=== PATIENT | male | born 1960 | race Caucasian/White ===

== ENCOUNTER 2020-09-29 13:56 | Outpatient (REF) | payer BC, SELFPAY | END 2020-09-29 13:57 | disposition home or self-care (01) | LOC: HO.LAB 13:56 | PROVIDERS: Visit Provider Internal Medicine | DX: Z20.828 Contact with and (suspected) exposure to other viral communicable diseases (principal) | CPT/HCPCS: U0003 ==

== ENCOUNTER 2021-11-16 09:55 | Outpatient (REF) | payer BC, SELFPAY ==
--- NOTE | ~2021-11-16 | XR_ITS ---
EXAMINATION: XR CHEST CLINICAL INFORMATION: Bronchitis COMPARISON: 11/22/2018 TECHNIQUE: 2 views of the chest were obtained. FINDINGS: Normal symmetric lung volumes. No parenchymal consolidation. No pleural effusion. No pneumothorax. Cardiomediastinal silhouette and pulmonary vascularity are within normal limits. No acute osseous abnormalities. XR/XR chest 2V IMPRESSION: Unremarkable examination.
== END 2021-11-16 09:56 | disposition home or self-care (01) ==
LOC: HO.XRAY 09:55
PROVIDERS: PCP Internal Medicine; Visit Provider Internal Medicine
DX: J40 Bronchitis, not specified as acute or chronic (principal)
CPT/HCPCS: 71046

== ENCOUNTER 2021-12-28 09:26 | Outpatient (REF) | payer BC, SELFPAY ==
--- NOTE | ~2021-12-28 | FL_ITS ---
EXAMINATION: XR FLUOROSCOPY UPPER GI WITH AIR CLINICAL INFORMATION: Your normal bowel syndrome COMPARISON: None TECHNIQUE: Upper GI was performed using thin and thick barium and effervescent granules FINDINGS: There is mild gastroesophageal reflux. No esophageal hernia is seen. Stomach and duodenum are normal-appearing. No fold thickening, mass, ulcer or stricture is seen. FLUOROSCOPY TIME: 0.6 minutes DOSE AREA PRODUCT: 7.9 hugo per centimeter squared. 21 saved fluoroscopic images.) FL/FL upper GI w air IMPRESSION: Mild gastroesophageal reflux otherwise unremarkable exam.
== END 2021-12-28 09:27 | disposition home or self-care (01) ==
LOC: HO.XRAY 09:26
PROVIDERS: Visit Provider Internal Medicine
DX: K58.9 Irritable bowel syndrome, unspecified (principal)
CPT/HCPCS: 74246

== ENCOUNTER 2022-07-29 11:23 | Outpatient (REF) | payer BC, SELFPAY ==
[2022-07-29 11:28] LABS: MANUAL DIFF FLAG NO
[2022-07-29 11:46] LABS: Basophils Percent Auto 0.3 % (0-2); Eosinophils Absolute Auto 0.2 X10*3/uL (0.0-0.4); Eosinophils Percent Auto 2.2 % (0-4); Hematocrit 41.8 % (42.0-52.0); Hemoglobin 14.2 g/dl (14.0-18.0); Imm Gran Abs Auto 0.07 X10*3/uL (0.00-0.03); Imm Gran Pct Auto 0.7 % (0.0-0.4); Lymphocytes Absolute Auto 3.1 X10*3/uL (1.2-4.9); Lymphocytes Percent Auto 30.7 % (20-40); Mean Corpuscular Hemoglobin 30.1 pg (27.0-33.0); Mean Corpuscular Volume 88.6 fL (80.0-98.0); Mean Platelet Volume 10.6 fL (9.4-12.4); Monocytes Absolute Auto 1.1 X10*3/uL (0.1-1.2); Monocytes Percent Auto 10.5 % (2-11); Neutrophils Absolute Auto 5.6 x10*3/uL (2.0-8.3); Neutrophils Percent Auto 55.6 % (45-73); Platelet Count 113 X10*3/uL (160-400); Red Blood Count 4.72 X10*6/uL (4.60-5.80); White Blood Count 10.1 X10*3/uL (4.8-10.8)
[2022-07-29 12:03] LABS: Alanine Aminotransferase 36 U/L (0-40); Albumin Level 4.5 g/dL (3.5-5.0); Alkaline Phosphatase 52 U/L (39-117); Anion Gap 16 (12-20); Aspartate Amino Transferase 29 U/L (5-37); Bilirubin Total 1.1 mg/dL (0.0-1.0); Blood Urea Nitrogen 17 mg/dL (9-16); Calcium 9.3 mg/dL (8.4-10.2); Carbon Dioxide 26 mmol/L (22-29); Chloride 104 mmol/L (96-108); Cholesterol 206 mg/dL; Estimated Glomerular Filt Rate > 60; Glucose Fasting 95 mg/dL (60-99); HDL Cholesterol 41 mg/dL; LDL Cholesterol Calculated 127 mg/dl; Potassium 3.9 mmol/L (3.3-5.1); Sodium 142 mmol/L (135-145); Total Protein 7.2 g/dL (6.5-8.0); Triglycerides 191 mg/dL
[2022-07-29 12:08] LABS: Estimated Average Glucose 97 mg/dL
[2022-07-29 12:20] LABS: Appearance Urine Clear; Color Urine Yellow; Glucose Urine UA Negative (Negative); Leukocyte Esterase Urine Negative (Negative); Nitrite Urine Negative (Negative); PH 5.5 (5.0-9.0); Urine Blood Negative (Negative); Urine Ketones Negative (Negative); Urine Protein Negative (Neg-Trace)
[2022-07-29 12:23] LABS: PSA,Total (Free>4and<10) 0.46 ng/mL (0.00-4.00)
[2022-07-29 12:27] LABS: Bacteria Urine None Seen (None Seen); Creatinine Urine 121.02 mg/dL; Hyaline Casts Urine 0-2 /LPF (0-2); Microalbum/Creatinine Ratio Ur 4.9 ug/mg cr; RBC Urine 0-2 /HPF (0-2); Squamous Epithelial Cell Urine 0-2 /HPF (0-2); WBC Urine 0-5 /HPF (0-5)
== END 2022-07-29 11:24 | disposition home or self-care (01) ==
LOC: HO.LNP 11:23
PROVIDERS: Visit Provider Internal Medicine
DX: Z13.89 Encounter for screening for other disorder (principal)
CPT/HCPCS: 80053; 80061; 81001; 82043; 83036; 84153; 85025

== ENCOUNTER 2022-08-04 13:03 | Outpatient (REF) | payer BC, SELFPAY ==
[2022-08-04 13:41] LABS: Basophils Percent Auto 0.4 % (0-2); Eosinophils Absolute Auto 0.2 X10*3/uL (0.0-0.4); Eosinophils Percent Auto 1.9 % (0-4); Hemoglobin 14.6 g/dl (14.0-18.0); Lymphocytes Absolute Auto 2.5 X10*3/uL (1.2-4.9); PLT CLUMP 1; SCAN SMEAR FLAG 1
[2022-08-04 13:43] LABS: Hematocrit 42.7 % (42.0-52.0); Imm Gran Abs Auto 0.05 X10*3/uL (0.00-0.03); Imm Gran Pct Auto 0.6 % (0.0-0.4); Lymphocytes Percent Auto 29.2 % (20-40); Mean Corpuscular HGB Conc 34.2 g/dl (31.0-36.0); Mean Corpuscular Hemoglobin 29.9 pg (27.0-33.0); Mean Corpuscular Volume 87.3 fL (80.0-98.0); Mean Platelet Volume 10.3 fL (9.4-12.4); Monocytes Absolute Auto 0.6 X10*3/uL (0.1-1.2); Monocytes Percent Auto 7.6 % (2-11); Neutrophils Absolute Auto 5.1 x10*3/uL (2.0-8.3); Neutrophils Percent Auto 60.3 % (45-73); Red Blood Count 4.89 X10*6/uL (4.60-5.80)
[2022-08-04 14:03] LABS: MANUAL DIFF FLAG NO; Platelet Count 120 X10*3/uL (160-400); White Blood Count 8.5 X10*3/uL (4.8-10.8)
== END 2022-08-04 13:04 | disposition home or self-care (01) ==
LOC: HO.LAB 13:03
PROVIDERS: PCP Internal Medicine; Visit Provider Internal Medicine
DX: I10 Essential (primary) hypertension (principal); D69.6 Thrombocytopenia, unspecified
CPT/HCPCS: 36415; 85025; 93005

== ENCOUNTER 2022-09-08 10:31 | Outpatient (REF) | payer BC, SELFPAY ==
[2022-09-08 10:34] LABS: MANUAL DIFF FLAG NO
[2022-09-08 11:39] LABS: Basophils Percent Auto 0.4 % (0-2); Eosinophils Absolute Auto 0.2 X10*3/uL (0.0-0.4); Eosinophils Percent Auto 1.9 % (0-4); Hematocrit 39.5 % (42.0-52.0); Hemoglobin 13.5 g/dl (14.0-18.0); Imm Gran Abs Auto 0.07 X10*3/uL (0.00-0.03); Imm Gran Pct Auto 0.6 % (0.0-0.4); Lymphocytes Absolute Auto 2.9 X10*3/uL (1.2-4.9); Lymphocytes Percent Auto 26.6 % (20-40); Mean Corpuscular HGB Conc 34.2 g/dl (31.0-36.0); Mean Corpuscular Hemoglobin 29.8 pg (27.0-33.0); Mean Corpuscular Volume 87.2 fL (80.0-98.0); Mean Platelet Volume 11.1 fL (9.4-12.4); Monocytes Absolute Auto 1.2 X10*3/uL (0.1-1.2); Monocytes Percent Auto 10.7 % (2-11); Neutrophils Absolute Auto 6.6 x10*3/uL (2.0-8.3); Neutrophils Percent Auto 59.8 % (45-73); Platelet Count 113 X10*3/uL (160-400); Red Blood Count 4.53 X10*6/uL (4.60-5.80); Red Cell Distribution Width 13.8 % (11.0-16.0)
== END 2022-09-08 10:32 | disposition home or self-care (01) ==
LOC: HO.LNP 10:31
PROVIDERS: Visit Provider Internal Medicine
DX: D69.6 Thrombocytopenia, unspecified (principal)
CPT/HCPCS: 85025

== ENCOUNTER 2022-10-10 10:58 | Outpatient (REF) | payer BC, SELFPAY ==
[2022-10-10 11:01] LABS: MANUAL DIFF FLAG NO
[2022-10-10 11:17] LABS: Basophils Absolute Auto 0.1 X10*3/uL (0.0-0.2); Basophils Percent Auto 0.4 % (0-2); Eosinophils Absolute Auto 0.2 X10*3/uL (0.0-0.4); Eosinophils Percent Auto 1.2 % (0-4); Hematocrit 40.9 % (42.0-52.0); Hemoglobin 13.7 g/dl (14.0-18.0); Imm Gran Abs Auto 0.16 X10*3/uL (0.00-0.03); Imm Gran Pct Auto 1.2 % (0.0-0.4); Lymphocytes Absolute Auto 3.9 X10*3/uL (1.2-4.9); Lymphocytes Percent Auto 28.5 % (20-40); Mean Corpuscular HGB Conc 33.5 g/dl (31.0-36.0); Mean Corpuscular Hemoglobin 29.2 pg (27.0-33.0); Mean Corpuscular Volume 87.2 fL (80.0-98.0); Mean Platelet Volume 10.9 fL (9.4-12.4); Monocytes Absolute Auto 1.5 X10*3/uL (0.1-1.2); Monocytes Percent Auto 10.8 % (2-11); Neutrophils Percent Auto 57.9 % (45-73); Platelet Count 139 X10*3/uL (160-400); Red Blood Count 4.69 X10*6/uL (4.60-5.80); Red Cell Distribution Width 14.1 % (11.0-16.0); White Blood Count 13.8 X10*3/uL (4.8-10.8)
== END 2022-10-10 10:59 | disposition home or self-care (01) ==
LOC: HO.LNP 10:58
PROVIDERS: Visit Provider Internal Medicine
DX: D69.6 Thrombocytopenia, unspecified (principal)
CPT/HCPCS: 85025

== ENCOUNTER → 2022-11-03 09:18 | Outpatient (REF) | payer BC, SELFPAY ==
--- NOTE | ~2022-11-03 | NM_ITS ---
Exercise Myocardial perfusion study Indication: CAD to evaluate for myocardial ischemia Technique: The patient was brought in for an exercise perfusion study on 11/03/2022. Patient performed exercise as per Jus protocol and was injected 35 mCi of sestamibi was given intravenously one target HR was achieved. Images were obtained using the SPECT gamma camera interlaced with the gating device. Images were obtained in supine position. Resting perfusion study was performed on 11/04/2022. Patient was administered 35 mCi of sestamibi intravenously at rest. Images were then obtained in supine position. Images obtained with and without CT attenuation. Total DLP 132 mGy-cm. Images were processed with the software and compared side to side in short axis, horizontal long axis and vertical long axis views. Findings: The stress perfusion study showed non attenuated images show minimally reduced uptake in the basal inferior wall of the LV myocardium. Remainder of the LV myocardium is normally perfused. Attenuation corrected images show normal uptake of radiotracer in all segments of LV myocardium. The gated study shows normal LV function with calculated LVEF of 60%. LV cavity is normal in size. The gated study shows normal systolic wall thickening and contraction of all segments. There is no transient ischemic dilation. Resting study shows no change in perfusion pattern compared to stress perfusion study. Gating at rest reveals normal systolic wall motion with ejection fraction at 60%%. The findings are consistent with normal myocardial perfusion. NM/NM valentina perf SPECT rest & str Impression: 1. Normal myocardial perfusion 2. Gated LVEF is 60% 3. Transient ischemic dilatation not present Stress EKG is negative for ischemia
--- NOTE | 2022-11-03 09:23 | CA_ITS ---
Acquisition Time: 2022-11-03 09:31:14 Total Exercise Time: 00:05:00 Test Indications: Screening for CAD Medications: VALSARTAN/HCTZ Protocol: MARY Max HR: 148 BPM 94% of Pred: 157 BPM Max BP: 182/090 mmHG Max Work Load: 7.0 METS Exercise stress test with exercise 5 min of Mary protocol, achieving 94% MPHR, 7METS, with need to stop due to leg and foot pain ( right leg sciatica and left foot gout flairs), without anginal symptoms, without arrythmia, with normotensive response to exercise, without EKG changes meeting criteria for ischemia. Nuclear images pending. Test reviewed with Dr Garcia Referred By: Eleuterio Garcia Overread By: MARK BARBOZA
== END ==
LOC: HO.CARD 09:18
PROVIDERS: PCP Internal Medicine; Visit Provider Internal Medicine Cardiovascular Disease
DX: I10 Essential (primary) hypertension (principal); R93.1 Abnormal findings on diagnostic imaging of heart and coronary circulation
CPT/HCPCS: 78452; 93017; A9500; J0280; J2785

== ENCOUNTER 2023-08-14 10:25 | Outpatient (REF) | payer BC, SELFPAY ==
[2023-08-14 14:44] LABS: PSA,Total (Free>4and<10) 0.73 ng/mL (0.00-4.00)
== END 2023-08-14 10:26 | disposition home or self-care (01) ==
LOC: HO.HMGCLDS 10:25
PROVIDERS: PCP Internal Medicine; Visit Provider Internal Medicine
DX: Z00.00 Encounter for general adult medical examination without abnormal findings (principal); Z12.5 Encounter for screening for malignant neoplasm of prostate
CPT/HCPCS: 36415; 84153

== ENCOUNTER 2023-10-31 15:56 | Outpatient (REF) | payer BC, SELFPAY ==
[2023-10-31 16:12] LABS: Basophils Percent Auto 0.4 % (0-2); Eosinophils Absolute Auto 0.1 X10*3/uL (0.0-0.4); Eosinophils Percent Auto 1.7 % (0-4); Hematocrit 40.5 % (42.0-52.0); Hemoglobin 13.7 g/dl (14.0-18.0); Imm Gran Abs Auto 0.17 X10*3/uL (0.00-0.03); Imm Gran Pct Auto 2.1 % (0.0-0.4); Lymphocytes Absolute Auto 2.6 X10*3/uL (1.2-4.9); Lymphocytes Percent Auto 32.1 % (20-40); MANUAL DIFF FLAG SCAN; Mean Corpuscular HGB Conc 33.8 g/dl (31.0-36.0); Mean Corpuscular Hemoglobin 29.2 pg (27.0-33.0); Mean Corpuscular Volume 86.4 fL (80.0-98.0); Monocytes Absolute Auto 1.7 X10*3/uL (0.1-1.2); Monocytes Percent Auto 20.9 % (2-11); Neutrophils Absolute Auto 3.5 x10*3/uL (2.0-8.3); Neutrophils Percent Auto 42.8 % (45-73); Red Blood Count 4.69 X10*6/uL (4.60-5.80); Red Cell Distribution Width 14.5 % (11.0-16.0); SCAN SMEAR FLAG 1; White Blood Count 8.2 X10*3/uL (4.8-10.8)
[2023-10-31 16:13] LABS: Platelet Count 76 X10*3/uL (160-400)
[2023-10-31 16:42] LABS: SLIDE REVIEW VERIFIED
== END 2023-10-31 15:57 | disposition home or self-care (01) ==
LOC: HO.LNP 15:56
PROVIDERS: Visit Provider Internal Medicine
DX: D69.6 Thrombocytopenia, unspecified (principal)
CPT/HCPCS: 85025

== ENCOUNTER → 2023-11-23 12:38 | Outpatient (BNV) | payer BC, SELFPAY | PROVIDERS: Visit Provider Internal Medicine | DX: D69.6 Thrombocytopenia, unspecified (principal) | CPT/HCPCS: 99203; 99214 ==

== ENCOUNTER 2023-11-28 12:44 | Outpatient (REF) | payer BC, SELFPAY ==
--- NOTE | ~2023-11-28 | US_ITS ---
EXAMINATION: US ABDOMEN COMPLETE CLINICAL INFORMATION: Low platelets,? Liver disease. COMPARISON: Abdominal ultrasound 12/27/2017 TECHNIQUE: Real-time imaging of the abdominal viscera. FINDINGS: PANCREAS: Normal head and body, the tail is obscured by bowel gas. ABDOMINAL AORTA: The proximal, mid, and distal segments are normal in caliber. There is marked atherosclerotic disease in the distal abdominal aorta. INFERIOR VENA CAVA: Visualized portions are normal. LIVER: The liver is enlarged. The right lobe measures 18.6 cm. The liver contour is normal. There is diffuse increased liver parenchymal echogenicity, consistent with hepatic steatosis. Focal fatty sparing is seen adjacent to the gallbladder. No focal hepatic lesion. There is no intrahepatic biliary duct dilatation seen. GALLBLADDER: Normal. The gallbladder is physiologically distended without evidence of stones, sludge, polyps, wall thickening or pericholecystic fluid. COMMON BILE DUCT: Normal in caliber measuring 0.4 cm in diameter. RIGHT KIDNEY: 1.9 x 2.0 x 1.9 cm simple cyst is seen. No imaging follow-up is recommended. No hydronephrosis. No renal calculi. The kidney measures 14.0 cm in maximum dimension. LEFT KIDNEY: 1.1 x 0.9 x 0.9 cm exophytic simple lower pole cyst and 0.9 x 0.9 x 1.1 cm exophytic simple mid renal cyst are seen. No imaging follow-up is recommended. No hydronephrosis. No renal calculi. The kidney measures 13.0 cm in maximum dimension. SPLEEN: The spleen is enlarged. The spleen measures 14.3 cm in maximum dimension. 1.7 x 1.7 x 2.1 cm splenule is noted adjacent to the spleen. FREE FLUID: None. US/US abdomen complete IMPRESSION: 1. Hepatosplenomegaly. 2. Hepatic steatosis. 3. Marked atherosclerotic disease in the distal abdominal aorta.
== END 2023-11-28 12:45 | disposition home or self-care (01) ==
LOC: HO.HMGCX 12:44
PROVIDERS: PCP Internal Medicine; Visit Provider Internal Medicine
DX: D69.6 Thrombocytopenia, unspecified (principal)
CPT/HCPCS: 76700

== ENCOUNTER 2023-12-22 09:30 | Outpatient (REF) | payer BC, SELFPAY ==
[2023-12-22 12:10] LABS: Basophils Percent Auto 0.3 % (0-2); Eosinophils Absolute Auto 0.1 X10*3/uL (0.0-0.4); Eosinophils Percent Auto 1.1 % (0-4); Hematocrit 38.6 % (42.0-52.0); Hemoglobin 13.1 g/dl (14.0-18.0); Imm Gran Abs Auto 0.21 X10*3/uL (0.00-0.03); Imm Gran Pct Auto 2.2 % (0.0-0.4); Lymphocytes Absolute Auto 2.8 X10*3/uL (1.2-4.9); Lymphocytes Percent Auto 29.3 % (20-40); MANUAL DIFF FLAG SCAN; Mean Corpuscular HGB Conc 33.9 g/dl (31.0-36.0); Mean Corpuscular Hemoglobin 29.4 pg (27.0-33.0); Mean Corpuscular Volume 86.5 fL (80.0-98.0); Mean Platelet Volume 11.9 fL (9.4-12.4); Monocytes Absolute Auto 0.9 X10*3/uL (0.1-1.2); Monocytes Percent Auto 9.2 % (2-11); Neutrophils Absolute Auto 5.5 x10*3/uL (2.0-8.3); Neutrophils Percent Auto 57.9 % (45-73); Platelet Count 78 X10*3/uL (160-400); Red Blood Count 4.46 X10*6/uL (4.60-5.80); Red Cell Distribution Width 14.6 % (11.0-16.0); SCAN SMEAR FLAG 1; White Blood Count 9.5 X10*3/uL (4.8-10.8)
[2023-12-22 12:45] LABS: SLIDE REVIEW VERIFIED
== END 2023-12-22 09:31 | disposition home or self-care (01) ==
LOC: HO.HMGCLDS 09:30
PROVIDERS: PCP Internal Medicine; Visit Provider Internal Medicine
DX: D69.6 Thrombocytopenia, unspecified (principal)
CPT/HCPCS: 36415; 85025

== ENCOUNTER 2024-01-09 11:00 | Outpatient (REF) | payer BC, SELFPAY ==
[2024-01-09 11:40] LABS: Hematocrit 37.6 % (42.0-52.0); Hemoglobin 12.9 g/dl (14.0-18.0); Mean Corpuscular HGB Conc 34.3 g/dl (31.0-36.0); Mean Corpuscular Hemoglobin 30.2 pg (27.0-33.0); Mean Corpuscular Volume 88.1 fL (80.0-98.0); PLT CLUMP 1; Red Blood Count 4.27 X10*6/uL (4.60-5.80); Red Cell Distribution Width 16.1 % (11.0-16.0)
[2024-01-09 11:41] LABS: Prothrombin Time 12.1 SEC (11.1-13.3)
[2024-01-09 12:04] LABS: Alanine Aminotransferase 34 U/L (0-40); Albumin Level 4.5 g/dL (3.5-5.0); Alkaline Phosphatase 58 U/L (39-117); Aspartate Amino Transferase 28 U/L (5-37); Band Neutrophils Percent 1 % (3-5); Basophils Abs Manual 0.1 X10*3/uL (0.0-0.2); Basophils Percent Manual 1 % (0-2); Bilirubin Direct 0.3 mg/dL (0.0-0.5); Eosinophils Absolute Manual 0.1 X10*3/uL (0.0-0.4); Eosinophils Percent Manual 1 % (0-4); Iron 246 mcg/dL (45-160); Lymphocytes Absolute Manual 2.5 X10*3/uL (1.2-4.9); Lymphocytes Percent Manual 18 % (20-40); Metamyelocytes Absolute 0.3 X10*3/uL; Metamyelocytes Percent 2 %; Monocytes Absolute Manual 1.5 X10*3/uL (0.1-1.2); Monocytes Percent Manual 11 % (2-11); Neutrophils Absolute Manual 9.4 X10*3/uL (2.0-8.3); Neutrophils Percent Manual 66 % (45-73); Percent Iron Saturation 88 % (15-50); Total Iron Binding Capacity 278 mcg/dL (228-428); Total Protein 7.7 g/dL (6.5-8.0); Unsaturated Iron Binding 32 ug/dL
[2024-01-09 12:05] LABS: RBC Morphology NORMAL
[2024-01-09 12:06] LABS: Platelet Estimate DECREASED (NORMAL); Platelet Morphology Comment NORMAL
[2024-01-09 12:07] LABS: Toxic Vacuolation PRESENT
[2024-01-09 12:13] LABS: Ferritin 704 ng/mL (20-250)
[2024-01-09 12:15] LABS: HBS Num1 1.11 mIU/mL (0-7.99); HBc Num1 0.06 S/CO (0.00-0.79); HBsAGNum1 0.46 S/CO (0.00-0.99); Hepatitis B Core Antibody Nonreactive (Nonreactive); Hepatitis B Surface Antigen Negative (Negative); ~HepC Num1 1.15 S/CO (0.00-0.79); ~Hepatitis B Surface Antibody NONREACTIVE (Nonreactive); ~Hepatitis C Antibody Reactive (Nonreactive)
[2024-01-10 16:58] LABS: Alpha 1 Anti-trypsin 142 mg/dL (83-199)
[2024-01-12 11:33] LABS: Mitochondrial Antibodies NEGATIVE (NEGATIVE)
[2024-01-13 13:58] LABS: Anti Nuclear Antibody Screen NEGATIVE (NEGATIVE)
[2024-01-14 11:58] LABS: Smooth Muscle Antibody <20 U (<20)
[2024-01-16 15:04] LABS: FIB-ALT 31 U/L (9-46); FIB-Alpha-2-Macroglobulin 174 mg/dL (106-279); FIB-Apolipoprotein A1 159 mg/dL (94-176); FIB-GGT 91 U/L (3-70); FIB-Haptoglobin 51 mg/dL (43-212); FIB-Total Bilirubin 0.9 mg/dL (0.2-1.2); Liver Fibrosis Score 0.55; Liver Fibrosis Stage F2; Nec Inflam Act Grade A0-A1; Nec Inflam Act Score 0.21
== END 2024-01-09 11:01 | disposition home or self-care (01) ==
LOC: HO.10HDL 11:00
PROVIDERS: Visit Provider Internal Medicine
DX: K76.0 Fatty (change of) liver, not elsewhere classified (principal)
CPT/HCPCS: 36415; 80076; 81596; 82103; 82728; 83540; 85007; 85027; 85610; 86015; 86038; 86381; 86704; 86706; 86803; 87340

== ENCOUNTER 2024-01-29 10:42 | Outpatient (REF) | payer BC, SELFPAY ==
[2024-01-30 14:59] LABS: HCV Log PCR <1.18 NOT DETECTED Log IU/mL (NOT DETECTED); HepC Viral Load <15 NOT DETECTED IU/mL (NOT DETECTED)
== END 2024-01-29 10:43 | disposition home or self-care (01) ==
LOC: HO.LAB 10:42
PROVIDERS: PCP Internal Medicine; Visit Provider Internal Medicine
DX: K76.0 Fatty (change of) liver, not elsewhere classified (principal); R16.2 Hepatomegaly with splenomegaly, not elsewhere classified; R79.89 Other specified abnormal findings of blood chemistry
CPT/HCPCS: 36415; 81256; 87522

== ENCOUNTER 2024-02-20 11:16 | Outpatient (REF) | payer BC, SELFPAY ==
[2024-02-20 12:44] LABS: Hematocrit 39.5 % (42.0-52.0); Hemoglobin 13.4 g/dl (14.0-18.0); Mean Corpuscular HGB Conc 33.9 g/dl (31.0-36.0); Mean Corpuscular Hemoglobin 30.7 pg (27.0-33.0); Mean Corpuscular Volume 90.6 fL (80.0-98.0); Red Blood Count 4.36 X10*6/uL (4.60-5.80); Red Cell Distribution Width 15.8 % (11.0-16.0); White Blood Count 11.7 X10*3/uL (4.8-10.8)
[2024-02-20 13:24] LABS: Band Neutrophils Percent 2 % (3-5); Eosinophils Absolute Manual 0.1 X10*3/uL (0.0-0.4); Eosinophils Percent Manual 1 % (0-4); Lymphocytes Absolute Manual 2.2 X10*3/uL (1.2-4.9); Lymphocytes Percent Manual 19 % (20-40); Metamyelocytes Absolute 0.2 X10*3/uL; Metamyelocytes Percent 2 %; Monocytes Absolute Manual 0.7 X10*3/uL (0.1-1.2); Monocytes Percent Manual 6 % (2-11); Neutrophils Absolute Manual 8.4 X10*3/uL (2.0-8.3); Neutrophils Percent Manual 70 % (45-73)
[2024-02-20 13:27] LABS: Platelet Estimate DECREASED (NORMAL); Platelet Morphology Comment NORMAL; RBC Morphology NORMAL
[2024-02-20 13:28] LABS: Platelet Count 88 X10*3/uL (160-400)
[2024-02-20 13:30] LABS: Alanine Aminotransferase 46 U/L (0-40); Albumin Level 4.6 g/dL (3.5-5.0); Alkaline Phosphatase 57 U/L (39-117); Aspartate Amino Transferase 33 U/L (5-37); Bilirubin Direct 0.2 mg/dL (0.0-0.5); Bilirubin Total 0.8 mg/dL (0.0-1.0); Ferritin 1054 ng/mL (20-250); Iron 208 mcg/dL (45-160); Percent Iron Saturation 72 % (15-50); Total Iron Binding Capacity 288 mcg/dL (228-428); Total Protein 7.5 g/dL (6.5-8.0); Unsaturated Iron Binding 80 ug/dL
== END 2024-02-20 11:17 | disposition home or self-care (01) ==
LOC: HO.LAB 11:16
PROVIDERS: Absent Provider Internal Medicine; PCP Internal Medicine; Visit Provider Internal Medicine
DX: R79.89 Other specified abnormal findings of blood chemistry (principal); E83.19 Other disorders of iron metabolism; D69.6 Thrombocytopenia, unspecified; K76.0 Fatty (change of) liver, not elsewhere classified
CPT/HCPCS: 36415; 80076; 82728; 83540; 85007; 85025; 85027

== ENCOUNTER 2024-02-28 08:53 | Outpatient (REF) | payer BC, SELFPAY | END 2024-02-28 08:54 | disposition home or self-care (01) | LOC: HO.BBR 08:53 | PROVIDERS: PCP Internal Medicine; Visit Provider Internal Medicine | DX: E79.89 Other specified disorders of purine and pyrimidine metabolism (principal) | CPT/HCPCS: 85014; 85018; 99195 ==

== ENCOUNTER 2024-03-08 | Outpatient (REF) | payer BC, SELFPAY ==
[2024-03-08 13:01] LABS: Glucose Random 123 mg/dL (60-115)
[2024-03-08 13:37] LABS: Estimated Average Glucose 108 mg/dL; Hemoglobin A1c % 5.4 % (<6.0)
== END 2024-03-08 00:01 | disposition home or self-care (01) ==
LOC: HO.LAB
PROVIDERS: PCP Internal Medicine; Visit Provider Physician Assistant Surgical
DX: E66.9 Obesity, unspecified (principal); R73.03 Prediabetes
CPT/HCPCS: 36415; 82947; 83036; 99453

== ENCOUNTER 2024-03-08 11:55 | Outpatient (AMB) | payer BC, SELFPAY ==
--- NOTE | 2024-03-08 12:44 | HO.OFFWMMET ---
Intake VS Expanded 03/08/24 13:15 BP 184/85 H Blood Pressure Location Rt brachial Blood Pressure Position Sitting Pulse 72 Pulse Source Pulse Oximeter Temp 98.3 F Temperature Source Temporal Artery Scan Pulse Oximetry 97 Oxygen Delivery Method Room Air Height 5 ft 8 in Weight 234 lb 9.6 oz BMI 35.7 Body Fat % 32.3 Body Fat Mass 75.8 Fat Free Mass 158.8 Visceral Fat Rating 20.0 Body Water % 48.2 Body Water Mass 113.0 Muscle Mass/Score 150.8 Basal Metabolic Rate/Score 2,139 Intake Visit Reasons: metabolic group session Biostatistician Required: No Allergies No Known Allergies [No Known Allergies*] Allergy (Verified 03/08/24 12:46) Medication List - Last Reconciled 03/08/24 by HOSSEIN Berman aspirin (Ecotrin Low Strength) 81 mg PO DAILY rosuvastatin 40 mg PO DAILY valsartan-hydrochlorothiazide 160-12.5 mg 1 tab PO DAILY HPI HPI Comments History of Present Illness Details Patient is a pleasant 63-year-old male who presents to the metabolic weight loss clinic. He has a longstanding history of difficulty with obesity and weight management. He has underlying comorbidities including hyperlipidemia and hypertension. He is tried multiple fad diets without success. He does state that he has underlying hemochromatosis and is currently being managed by Gastroenterology for this. Weight today is 234.6 lb with a BMI of 35.7. [facility] Medical History Anxiety Pre-diabetes Gout IBS (irritable bowel syndrome) Hyperlipemia Surgical History Hx of hernia repair Family History Father Bone cancer Mother CAD (coronary artery disease) Social History Household Members: Spouse Patient Tobacco Use Status: Former Tobacco user Substance Use Type: Marijuana service: No Current occupational status: retired Physical Exam Vital Signs: Last Vital Signs Temp 98.3 F 03/08/24 13:15 Pulse 72 03/08/24 13:15 BP 184/85 H 03/08/24 13:15 Pulse Ox 97 03/08/24 13:15 Oxygen Delivery Method Room Air 03/08/24 13:15 BMI result Body Mass Index 35.7 Assessment & Plan Assessment & Plan (1) Obesity (BMI 30-39.9): Code(s): E66.9 - Obesity, unspecified Plan: Patient has been given a meal plan. Originally the plan was to use celebrate rebuild however his , who accompanied him to today's appointment, uses orgain protein powder and would like to use this. Protein shake, or gain, 2 scoops in 12 oz of almond milk at10-12 and 1-3 Meal at 5 with 8 forks of protein and 8 forks of salad or vegetables Celebrate protein bar at 7-9 As far as exercise, his walks outside but did discuss buying a treadmill. If walking outside recommendation will be to download the gladys panpan and track calories for a goal of 300 per day or 2000 per week. If they are able to get a treadmill, would recommend starting with a pace of 2 with an incline of 026, increasing by 1 every 3 minutes to a goal of 6 and then decreasing and then increasing again until achieving a burn of 300 calories. We will have him return to the office for follow-up next week. Orders: Orders Glucose Random Today E66.9 - Obesity, unspecified, R73.03 - Prediabetes Hemoglobin A1c Today E66.9 - Obesity, unspecified, R73.03 - Prediabetes Coding Level of Care Code 16764 [facility] Intital setup, [facility] Diagnoses Obesity (BMI 30-39.9) E66.9
[2024-03-08 13:15] VITALS: BP 184/85; PULSE 72; TEMP 36.8; O2SAT 97; BMI 35.7
== END 2024-03-08 14:31 | disposition home or self-care (01) ==
LOC: HO.META 11:55
PROVIDERS: PCP Internal Medicine; Visit Provider Physician Assistant Surgical
DX: E66.9 Obesity, unspecified (principal)

== ENCOUNTER 2024-03-15 12:50 | Outpatient (AMB) | payer BC, SELFPAY ==
--- NOTE | 2024-03-15 10:25 | A.OFFVIS_ITS ---
VS Expanded 03/15/24 10:26 Height 5 ft 8 in Weight 226 lb 3.2 oz BMI 34.4 Intake Visit Reasons: (tv) f/u metabolic clinic Allergies No Known Allergies [No Known Allergies*] Allergy (Verified 03/08/24 12:46) HPI Comments Details: Patient is a pleasant 63-year-old male who returns to the office for follow-up in the metabolic clinic. He was initially seen last week. Weight at that time was 234.6 lb with a BMI of 32.3. Weight today is 226.4 lb with a BMI of 34.4. He has had an 8.2 lb weight loss, correlating with a 3.49% total body weight loss. He does not have BP cuff, taking meds, no complaints of lightheadedness He states he has been following the meal plan mostly. He states he has skipped the second shake. He states he has been counting the forkfuls. Meal plan: 10-12 celebrate rebuild 2 scoops in 12 oz almond milk (supposed to have but iis skipping) 1-3 pm another shake 5pm meal 8 forks protein and 8 forks veg 7-9 celebrate bar Drinking 16-20 oz water daily. 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 [facility] Medical History Anxiety Pre-diabetes Gout IBS (irritable bowel syndrome) Hyperlipemia Surgical History Hx of hernia repair Family History Father Bone cancer Mother CAD (coronary artery disease) Social History Household Members: Spouse Patient Tobacco Use Status: Former Tobacco user Substance Use Type: Marijuana service: No Current occupational status: retired Telehealth Telehealth Location of provider rendering services: practice address Location of patient: address on file Patient Identification confirmed using: Name, : Yes Telehealth method: voice only Patient verbally consented to treatment: Yes Patient verbally consented to billing insurance company: Yes Patient informed of any privacy concerns related to visit: Yes Minutes spent on Phone/Video with Pt.: 20 Assessment & Plan Assessment & Plan (1) Obesity (BMI 30-39.9): Code(s): E66.9 - Obesity, unspecified Category: Medical Plan: Discussed the importance of following the meal plan. Discussed adding cardio activity. He states that he is supposed to be getting his treadmill soon. Recommend increase water intake. Recommend obtaining a blood pressure cuff to monitor his blood pressure especially with the meal plan change. He denies any lightheadedness. Encouraged to text weekly. Encouraged to text with any questions or concerns. Follow-up in clinic in 2 weeks
[2024-03-15 10:26] VITALS: BMI 34.4
== END 2024-03-15 12:56 | disposition home or self-care (01) ==
LOC: HO.META 12:50
PROVIDERS: PCP Internal Medicine; Visit Provider Physician Assistant Surgical
DX: E66.9 Obesity, unspecified (principal)
CPT/HCPCS: 99442

== ENCOUNTER → 2024-03-15 12:50 | Outpatient (BNVA) | payer BC, SELFPAY | PROVIDERS: PCP Internal Medicine; Visit Provider Physician Assistant Surgical ==

== ENCOUNTER 2024-03-29 12:50 | Outpatient (REF) | payer BC, SELFPAY | END 2024-03-29 12:51 | disposition home or self-care (01) | LOC: HO.BBR 12:50 | PROVIDERS: PCP Internal Medicine; Visit Provider Internal Medicine | DX: R79.89 Other specified abnormal findings of blood chemistry (principal) | CPT/HCPCS: 85014; 85018; 99195 ==

== ENCOUNTER 2024-04-10 08:22 | Day surgery (SDC) | payer BC, SELFPAY ==
[2024-04-09 06:35] VITALS: BMI 36.5
--- NOTE | 2024-04-09 09:17 | HO.ANESPROP2 ---
Documented by User: Stefania Milner NP 04/09/24 09:20 HPI - Anesthesia Eval Consult details Narrative: 63yo M for Colonoscopy [place] [facility] [place] hereditary hemochromatosis and thrombocytopenia (r/t hepatosplenomegaly). Therapeutic phlembotomies - last 02/2024 [facility] Active Problems Active Problems: All Active Problems Hemochromatosis (Acute) Obesity (BMI 30-39.9) (Acute) Thrombocytopenia (Chronic) HTN (hypertension) (Acute) Pre-diabetes (Acute) Past Medical History Medical History HTN (hypertension) Sleep apnea Anxiety Pre-diabetes Gout IBS (irritable bowel syndrome) Hyperlipemia Family History Family History Father Bone cancer Mother CAD (coronary artery disease) Surgical History Surgical History Hx of eye surgery Hx of hernia repair Social History Social History Household Members: Spouse Patient Tobacco Use Status: Former Tobacco user Quit Date: 20 yr ago Use of substances other than those prescribed or required for medical reasons: No Substance Use Type: Marijuana Are you DNR?: No Advance Directives: No Advance Directives Information Provided: Yes service: No Current occupational status: retired [employer] Allergies Allergy/AdvReac Type Severity Reaction Status Date / Time No Known Allergies Allergy Verified 03/27/24 10:57 [No Known Allergies*] Home Medications ?Medication ?Instructions ?Recorded ?Confirmed ?Last Taken ?Type valsartan 160 1 tab PO DAILY 08/04/22 04/09/24 Unknown History mg-hydrochlorothiazide 12.5 mg tablet Exam Height,Weight and Vital Signs: Height 5 ft 8 in Weight 108.862 kg Assessment and Plan Assessment Anesthesia Assessment: Chart Reviewed Documented by User: Jt Drew MD 04/10/24 09:43 [facility] Past Medical History Medical History HTN (hypertension) Sleep apnea Anxiety Pre-diabetes Gout IBS (irritable bowel syndrome) Hyperlipemia Family History Family History Father Bone cancer Mother CAD (coronary artery disease) Family history of problems with anesthesia: No Surgical History Surgical History Hx of eye surgery Hx of hernia repair History of Problems with Anesthesia: No Social History Social History Household Members: Spouse Patient Tobacco Use Status: Former Tobacco user Quit Date: 20 yr ago Use of substances other than those prescribed or required for medical reasons: No Substance Use Type: Marijuana Are you DNR?: No Advance Directives: No Advance Directives Information Provided: Yes service: No Current occupational status: retired [employer] Allergies Allergy/AdvReac Type Severity Reaction Status Date / Time No Known Allergies Allergy Verified 03/27/24 10:57 [No Known Allergies*] Home Medications ?Medication ?Instructions ?Recorded ?Confirmed ?Last Taken ?Type valsartan 160 1 tab PO DAILY 08/04/22 04/09/24 Unknown History mg-hydrochlorothiazide 12.5 mg tablet Exam Airway Mallampati Class: III TM Dist: <=3cm Neck ROM: Full Loose/Missing/Broken Teeth: No Heart: rrr Lungs: cta Assessment and Plan Assessment Anesthesia Assessment: Anesthesia Plan Discussed Final Anesthetic Review Family History of Problems with Anesthesia: No History of Problems with Anesthesia: No NPO: Yes ASA Class: III Final Preanesthetic Review: No Changes in Pt Med Stat, Meds/Allgs Chart Reviewed, Consent Obtained/Reviewed and Anes Risks/Benef Reviewed Patient Risk: Intermediate Procedure Risk: Intermediate Anesthetic Plan Anesthetic Plan: MAC: Disposition: Standard PACU
[2024-04-10 08:56] VITALS: BMI 34.0
[2024-04-10 08:59] VITALS: BMI 34.0
[2024-04-10] MEDS: Sodium Phosphate,Mono-Dibasic 133 ML ENEMA PR (09:14)
[2024-04-10 09:19] VITALS: BP 154/71; PULSE 58; RESP 20; TEMP 36.3; O2SAT 96
[2024-04-10] MEDS: Lactated Ringers 1,000 ML 100 ML IVCONT (09:34)
[2024-04-10 10:35] VITALS: BP 99/62; PULSE 74; RESP 18; TEMP 37.2
--- NOTE | 2024-04-10 10:36 | P.BOP_ITS ---
Brief Operative Note Date of Service: 04/10/24 Pre-op diagnosis: Screening Post-op diagnosis: other (Colon polyps) Procedure: Colonoscopy to the cecum and TI with bx/removal of polyps Surgeon: Jayjay Owens MD Anesthesia: MAC Was an Aluminum Siding Installer used for this Procedure?: No Estimated blood loss (mL): 2.0 Pathology: other (A. Transverse colon polyp B. Polyp at 30cm) Condition: stable Disposition: PACU
[2024-04-10 10:50] VITALS: BP 106/70; PULSE 68; RESP 20; TEMP 36.6; O2SAT 96
--- NOTE | 2024-04-10 10:55 | OP_ITS ---
DATE OF SERVICE: 04/10/2024 SURGEON: Jayjay Owens MD INDICATIONS: The patient presents for evaluation of colorectal cancer screening and personal history of tubular adenoma of the colon. Full consent was obtained from him for this, including risks of bleeding and perforation. PREOPERATIVE DIAGNOSIS: POSTOPERATIVE DIAGNOSIS: PROCEDURE PERFORMED: Colonoscopy to cecum and terminal ileum with biopsy and removal of polyps. ESTIMATED BLOOD LOSS: COMPLICATIONS: ANESTHESIA: Medication used, monitored anesthesia care. ASSISTANTS: SPECIMENS: PREOPERATIVE DIAGNOSES: Colorectal cancer screening and personal history of tubular adenoma of the colon. POSTOPERATIVE DIAGNOSES: Colorectal cancer screening and personal history of tubular adenoma of the colon, colon polyps, diverticulosis, and internal hemorrhoids. DESCRIPTION OF PROCEDURE: Patient was placed in the left lateral decubitus position. The digital rectal exam revealed no abnormalities. The Olympus video pediatric colonoscope was entered into the rectum and advanced easily to the cecum. Once in the cecum, I did identify normal-appearing cecal pouch with appendiceal orifice and a normal-appearing ileocecal valve. The terminal ileum was cannulated and appeared normal. The scope was withdrawn back in the colon. The entire cecum and ileocecal valve appeared normal. The scope was slowly withdrawn assessing all mucosal surfaces carefully. Preparation was excellent. In the transverse colon and at 30 cm were less than 5 mm polyps, both of which were biopsied and completely removed with cold biopsy forceps. I did not visualize any other polyps, colitis, or angiodysplasia. There was a mild amount of sigmoid diverticulosis. In the rectum, scope was retroflexed visualizing internal hemorrhoids, but no other pathology. The rectal mucosa appeared normal. Scope was straightened and withdrawn from the patient. He tolerated the procedure well and was returned to the recovery area in stable condition. IMPRESSION: 1. Small colon polyps. 2. Diverticulosis. 3. Internal hemorrhoids. PLAN: The results of biopsy will be checked. I would recommend a repeat colonoscopy in 5 years. He was advised not to use any aspirin and NSAIDs for 1 week. He will have followup iron studies in regard to the previous elevated iron studies. A recent phlebotomy was not done due to a low hemoglobin. He will be seen in followup for this issue as well later in the year. MD ETIENNE Pickard/KOBYL / [id number]
== END 2024-04-10 11:56 | disposition home or self-care (01) ==
PROVIDERS: PCP Internal Medicine; Visit Provider Internal Medicine
PROC: 0DJD8ZZ Inspection of Lower Intestinal Tract, Via Natural or Artificial Opening Endoscopic (ICD-10-PCS; CPT 45378; principal; 2024-04-10 09:40)
DX: Z12.11 Encounter for screening for malignant neoplasm of colon (principal); D12.3 Benign neoplasm of transverse colon; K63.5 Polyp of colon; K57.30 Diverticulosis of large intestine without perforation or abscess without bleeding; K64.8 Other hemorrhoids; Z86.010 Personal history of colon polyps; I10 Essential (primary) hypertension
CPT/HCPCS: 45380; 88305; J2704

== ENCOUNTER 2024-04-12 14:05 | Outpatient (AMB) | payer BC, SELFPAY ==
--- NOTE | 2024-04-12 13:49 | A.OFFVIS_ITS ---
VS Expanded 04/12/24 13:51 Height 5 ft 8 in Weight 222 lb 6 oz BMI 33.8 Body Fat % 35.7 Intake Visit Reasons: (tv) f/u metabolic clinic Allergies No Known Allergies [No Known Allergies*] Allergy (Verified 03/27/24 10:57) HPI Comments Details: 63 yo male returns for follow up in metabolic clinic. States his weight is 224 lb with a BMI of 34.1.. He is not checking his BP. He states he feels better overall. He has lost 10.6 lb or 4.5% total body weight loss since starting the program on 03/08/2024. He states he is following the meal plan for the most part. he would skip lunch and not counting forks recc meal plan: 10-12 celebrate rebuild 2 scoops in 12 oz almond milk 1pm meal 5 forks protein and 6 forks veg 5pm meal 8 forks protein and 8 forks veg 7-9 celebrate bar Drinking 36 oz water daily. exercise plan: no formal exercise, waiting to get pelaton treadmill from a friend. REPLACED BY [facility] Medical History HTN (hypertension) Sleep apnea Anxiety Pre-diabetes Gout IBS (irritable bowel syndrome) Hyperlipemia Surgical History Hx of eye surgery Hx of hernia repair Family History Father Bone cancer Mother CAD (coronary artery disease) Social History Household Members: Spouse Patient Tobacco Use Status: Former Tobacco user Quit Date: 20 yr ago Substance Use Type: Marijuana service: No Current occupational status: retired Telehealth Telehealth Telehealth Platform: Telephone Location of provider rendering services: practice address Location of patient: address on file Patient Identification confirmed using: Name, : Yes Telehealth method: voice only Patient verbally consented to treatment: Yes Patient verbally consented to billing insurance company: Yes Patient informed of any privacy concerns related to visit: Yes Minutes spent on Phone/Video with Pt.: 18 Assessment & Plan Assessment & Plan (1) Obesity (BMI 30-39.9): Code(s): E66.9 - Obesity, unspecified Category: Medical Plan: Encouraged to follow plan. As he has been skipping lunch, we will add a protein bar at lunch and increase for forks at dinner to 9 of protein and 9 of vegetables. Strongly encouraged to get the treadmill that he has said he is going to get. Emphasized the importance of cardio exercise. Return to clinic 2 weeks.
[2024-04-12 13:51] VITALS: BMI 33.8
== END 2024-04-12 14:06 | disposition home or self-care (01) ==
LOC: HO.META 14:05
PROVIDERS: PCP Internal Medicine; Visit Provider Physician Assistant Surgical
DX: E66.9 Obesity, unspecified (principal)

== ENCOUNTER → 2024-04-12 14:05 | Outpatient (BNVA) | payer BC, SELFPAY | PROVIDERS: PCP Internal Medicine; Visit Provider Physician Assistant Surgical | DX: E66.9 Obesity, unspecified (principal); Z68.35 Body mass index [BMI] 35.0-35.9, adult | CPT/HCPCS: 99454 ==

== ENCOUNTER 2024-05-15 09:51 | Outpatient (REF) | payer BC, SELFPAY ==
[2024-05-15 10:06] LABS: Basophils Percent Auto 0.4 % (0-2); Eosinophils Absolute Auto 0.1 X10*3/uL (0.0-0.4); Eosinophils Percent Auto 0.5 % (0-4); Hematocrit 36.3 % (42.0-52.0); Hemoglobin 12.4 g/dl (14.0-18.0); Imm Gran Abs Auto 0.52 X10*3/uL (0.00-0.03); Imm Gran Pct Auto 4.7 % (0.0-0.4); Lymphocytes Absolute Auto 2.4 X10*3/uL (1.2-4.9); Lymphocytes Percent Auto 21.6 % (20-40); MANUAL DIFF FLAG SCAN; Mean Corpuscular HGB Conc 34.2 g/dl (31.0-36.0); Mean Corpuscular Hemoglobin 31.5 pg (27.0-33.0); Mean Corpuscular Volume 92.1 fL (80.0-98.0); Mean Platelet Volume 11.1 fL (9.4-12.4); Monocytes Absolute Auto 0.9 X10*3/uL (0.1-1.2); Monocytes Percent Auto 8.5 % (2-11); Neutrophils Absolute Auto 7.1 x10*3/uL (2.0-8.3); Neutrophils Percent Auto 64.3 % (45-73); Red Blood Count 3.94 X10*6/uL (4.60-5.80); SCAN SMEAR FLAG 1
[2024-05-15 10:07] LABS: Platelet Count 65 X10*3/uL (160-400)
[2024-05-15 10:40] LABS: SLIDE REVIEW VERIFIED
[2024-05-15 11:08] LABS: Iron 137 mcg/dL (45-160); Percent Iron Saturation 51 % (15-50); Total Iron Binding Capacity 269 mcg/dL (228-428); Unsaturated Iron Binding 132 ug/dL
[2024-05-15 11:27] LABS: Ferritin 530 ng/mL (20-250)
== END 2024-05-15 09:52 | disposition home or self-care (01) ==
LOC: HO.BBR 09:51
PROVIDERS: PCP Internal Medicine; Visit Provider Internal Medicine
DX: R79.89 Other specified abnormal findings of blood chemistry (principal)
CPT/HCPCS: 36415; 82728; 83540; 85014; 85018; 85025; 99195

== ENCOUNTER 2024-06-12 11:43 | Outpatient (REF) | payer MEDICARE, SELFPAY | END 2024-06-12 11:44 | disposition home or self-care (01) | LOC: HO.BBR 11:43 | PROVIDERS: PCP Internal Medicine; Visit Provider Internal Medicine | DX: R79.89 Other specified abnormal findings of blood chemistry (principal) | CPT/HCPCS: 85018; 99195 ==

== ENCOUNTER 2024-07-15 10:42 | Outpatient (REF) | payer MEDICARE, SELFPAY | END 2024-07-15 10:43 | disposition home or self-care (01) | LOC: HO.BBR 10:42 | PROVIDERS: PCP Internal Medicine; Visit Provider Internal Medicine | DX: R79.89 Other specified abnormal findings of blood chemistry (principal) | CPT/HCPCS: 85014; 85018; 99195 ==

== ENCOUNTER 2024-08-05 11:12 | Outpatient (REF) | payer MEDICARE, SELFPAY ==
[2024-08-05 11:24] LABS: Appearance Urine Clear; Color Urine Yellow; Glucose Urine UA Negative (Negative); Leukocyte Esterase Urine Negative (Negative); Nitrite Urine Negative (Negative); PH 5.5 (5.0-9.0); Specific Gravity - Urine 1.025 (1.005-1.025); Urine Blood Negative (Negative); Urine Ketones Negative (Negative); Urine Protein Negative (Neg-Trace)
[2024-08-05 11:28] LABS: Bacteria Urine None Seen (None Seen); Hyaline Casts Urine 0-2 /LPF (0-2); RBC Urine 0-2 /HPF (0-2); Squamous Epithelial Cell Urine 0-2 /HPF (0-2); WBC Urine 0-5 /HPF (0-5)
[2024-08-05 11:32] LABS: Hematocrit 38.5 % (42.0-52.0); Hemoglobin 12.5 g/dl (14.0-18.0); Mean Corpuscular HGB Conc 32.5 g/dl (31.0-36.0); Mean Corpuscular Volume 95.5 fL (80.0-98.0); Red Blood Count 4.03 X10*6/uL (4.60-5.80); Red Cell Distribution Width 17.1 % (11.0-16.0); White Blood Count 12.6 X10*3/uL (4.8-10.8)
[2024-08-05 11:39] LABS: Estimated Average Glucose 97 mg/dL; Total Hemoglobin (HGBA1C) 3208.9859 umol/L
[2024-08-05 11:51] LABS: Band Neutrophils Percent 7 % (3-5); Basophils Abs Manual 0.1 X10*3/uL (0.0-0.2); Basophils Percent Manual 1 % (0-2); Eosinophils Absolute Manual 0.1 X10*3/uL (0.0-0.4); Eosinophils Percent Manual 1 % (0-4); Lymphocytes Absolute Manual 1.9 X10*3/uL (1.2-4.9); Lymphocytes Percent Manual 15 % (20-40); Metamyelocytes Absolute 0.5 X10*3/uL; Metamyelocytes Percent 4 %; Monocytes Absolute Manual 1.5 X10*3/uL (0.1-1.2); Monocytes Percent Manual 12 % (2-11); Myelocytes Absolute 0.3 X10*/uL; Myelocytes Percent 2 %; Neutrophils Absolute Manual 8.2 X10*3/uL (2.0-8.3); Neutrophils Percent Manual 58 % (45-73)
[2024-08-05 11:54] LABS: RBC Morphology NOTED
[2024-08-05 11:55] LABS: Microcytosis 1+ (5-14) /OIF
[2024-08-05 11:56] LABS: Hypersegmented Neutrophils PRESENT; Large Platelet PRESENT; Platelet Estimate DECREASED (NORMAL); Platelet Morphology Comment NOTED; Polychromasia 1+ (0-2) /OIF; Tear Drop Cells 1+ (0-2) /OIF
[2024-08-05 11:59] LABS: Alanine Aminotransferase 25 U/L (0-40); Albumin Level 4.8 g/dL (3.5-5.0); Alkaline Phosphatase 52 U/L (39-117); Anion Gap 13 (12-20); Aspartate Amino Transferase 19 U/L (5-37); Bilirubin Total 0.7 mg/dL (0.0-1.0); Blood Urea Nitrogen 21 mg/dL (9-16); Calcium 9.7 mg/dL (8.4-10.2); Carbon Dioxide 27 mmol/L (22-29); Chloride 106 mmol/L (96-108); Cholesterol 134 mg/dL (<200); Estimated Glomerular Filt Rate > 60; Glucose Fasting 108 mg/dL (60-99); HDL Cholesterol 41 mg/dL (>40); LDL Cholesterol Calculated 68 mg/dL (<100); Sodium 142 mmol/L (135-145); Total Protein 7.5 g/dL (6.5-8.0); Triglycerides 128 mg/dL (<150)
[2024-08-05 12:00] LABS: PSA,Total (Free>4and<10) 0.62 ng/mL (0.00-4.00)
[2024-08-05 12:19] LABS: Creatinine Urine 153.62 mg/dL
[2024-08-05 12:33] LABS: Platelet Count 59 X10*3/uL (160-400)
[2024-08-05 12:34] LABS: Mean Platelet Volume 11.4 fL (9.4-12.4)
== END 2024-08-05 11:13 | disposition home or self-care (01) ==
LOC: HO.LNP 11:12
PROVIDERS: Visit Provider Internal Medicine
DX: Z00.00 Encounter for general adult medical examination without abnormal findings (principal); R73.09 Other abnormal glucose; E78.00 Pure hypercholesterolemia, unspecified; I10 Essential (primary) hypertension; D69.6 Thrombocytopenia, unspecified; E83.110 Hereditary hemochromatosis; Z12.5 Encounter for screening for malignant neoplasm of prostate
CPT/HCPCS: 80053; 80061; 81001; 82043; 82570; 83036; 84153; 85007; 85027

== ENCOUNTER 2024-08-08 08:58 | Outpatient (REF) | payer MEDICARE, SELFPAY ==
[2024-08-08 09:24] LABS: Hematocrit 34.8 % (42.0-52.0); Hemoglobin 11.7 g/dl (14.0-18.0); Mean Corpuscular HGB Conc 33.6 g/dl (31.0-36.0); Mean Corpuscular Hemoglobin 31.4 pg (27.0-33.0); Mean Corpuscular Volume 93.3 fL (80.0-98.0); Mean Platelet Volume 10.7 fL (9.4-12.4); Platelet Count 61 X10*3/uL (160-400); Red Blood Count 3.73 X10*6/uL (4.60-5.80); White Blood Count 11.9 X10*3/uL (4.8-10.8)
[2024-08-08 10:45] LABS: Band Neutrophils Percent 1 % (3-5); Lymphocytes Absolute Manual 1.7 X10*3/uL (1.2-4.9); Lymphocytes Percent Manual 14 % (20-40); Monocytes Absolute Manual 1.3 X10*3/uL (0.1-1.2); Monocytes Percent Manual 11 % (2-11); Neutrophils Absolute Manual 8.9 X10*3/uL (2.0-8.3); Neutrophils Percent Manual 74 % (45-73)
[2024-08-08 10:47] LABS: Platelet Estimate DECREASED (NORMAL); Platelet Morphology Comment NORMAL; Polychromasia 1+ (0-2) /OIF; RBC Morphology NOTED; Tear Drop Cells 1+ (0-2) /OIF
[2024-08-08 10:50] LABS: Iron 142 mcg/dL (45-160); Percent Iron Saturation 49 % (15-50); Total Iron Binding Capacity 288 mcg/dL (228-428); Unsaturated Iron Binding 146 ug/dL
[2024-08-08 10:53] LABS: Ferritin 420 ng/mL (20-250)
== END 2024-08-08 08:59 | disposition home or self-care (01) ==
LOC: HO.BBR 08:58
PROVIDERS: PCP Internal Medicine; Visit Provider Internal Medicine
DX: E83.119 Hemochromatosis, unspecified (principal)
CPT/HCPCS: 36415; 82728; 83540; 85007; 85014; 85018; 85027; 99195

== ENCOUNTER 2024-08-13 12:20 | Outpatient (AMB) | payer MEDICARE, SELFPAY ==
--- NOTE | 2024-08-13 12:37 | MHC.OFFVIS ---
Vital Signs 08/13/24 12:38 Height 5 ft 8 in Weight 220 lb 7.396 oz BMI 33.5 BP 120/74 Blood Pressure Location Lt brachial Position Sitting Pulse 63 Intake Visit Reasons: 2 year follow up Intake Note: 2 year follow-up with ekg feeling good Commercial Relief Driver Required: No Allergies No Known Allergies [No Known Allergies*] Allergy (Verified 03/27/24 10:57) Medication List - Last Reconciled 08/13/24 by Eleuterio Garcia MD aspirin (Ecotrin Low Strength) 81 mg PO DAILY rosuvastatin 40 mg PO DAILY valsartan-hydrochlorothiazide 160-12.5 mg 1 tab PO DAILY HPI Comments Details: Jus comes for follow-up after 2 years. He has no obvious cardiac symptoms. Although he does not exercise on a regular basis. Takes all his medications. Denies any exertional chest pain or shortness of breath. No lightheadedness, syncope. Last LDL at 68 mg/dL done last week. Denies any prolonged palpitation irregular heartbeat. [facility] Medical History (Updated 08/13/24 @ 12:57 by Eleuterio Garcia MD) CAD (coronary artery disease) HTN (hypertension) Sleep apnea Anxiety Pre-diabetes Gout IBS (irritable bowel syndrome) Hyperlipemia Surgical History Hx of eye surgery Hx of hernia repair Family History Father Bone cancer Mother CAD (coronary artery disease) Social History Household Members: Spouse Patient Tobacco Use Status: Former Tobacco user Substance Use Type: Marijuana service: No Current occupational status: retired Review of Systems Const Denies chills, Denies fatigue, Denies fever(s), Denies frequent falls, Denies weakness, Denies weight gain and Denies weight loss ENT Denies dizziness Card Denies chest pain, Denies leg edema, Denies lightheadedness, Denies palpitations, Denies dyspnea, Denies dyspnea on exertion, Denies orthopnea and Denies other (loss of consciousness) Resp Denies cough, Denies dyspnea and Denies dyspnea on exertion GI Denies hematochezia and Denies change in stool character Musc Denies abnormal gait, Denies muscle weakness, Denies numbness, Denies radiating pain into limb and Denies tingling Neuro Denies abnormal gait, Denies dizziness, Denies frequent falls, Denies numbness, Denies tingling and Denies weakness Endo Denies fatigue and Denies palpitations Physical Exam Vital Signs: Last Vital Signs Pulse 63 08/13/24 12:38 BP 120/74 08/13/24 12:38 BMI result Body Mass Index 33.5 Const General: cooperative, comfortable, no acute distress, alert, awake, Physically active and well groomed Nutritional Appearance: obese Orientation/consciousness: patient oriented x3 Limitations: no limitations Neck Neck: Yes trachea midline, Yes supple and Yes no JVD Resp Effort & Inspection: normal respiratory effort Auscultation: clear to auscultation bilaterally Cardio Jugular venous distension: no JVD Palpation: normal PMI Rate: regular rate Rhythm: regular rhythm Heart sounds: S1 normal heart sound present, S2 normal heart sound present, no click, no gallops, no murmurs and no rubs Bruits: no carotid bruits GI Auscultation: normal bowel sounds Skin General skin exam: no rashes or lesions noted Neuro General: patient oriented x3 and no focal motor deficits Extrem General: Yes no joint enlargement Office Procedures EKG Details: EKG shows normal sinus rhythm with minimal voltage criteria for LVH with nonspecific T-wave changes 41105-[id number], Complete Assessment & Plan Assessment & Plan (1) CAD (coronary artery disease): Comment: Greater than 1000 coronary calcium score in all 3 distributions including left main Code(s): I25.10 - Atherosclerotic heart disease of [place] coronary artery without angina pectoris Category: Medical Plan: Heavy coronary calcium with greater than 1000 score with nonspecific EKG changes with risk factors with limited exercise activity. He has multiple risk factors for progressive CAD. Would suggest him to undergo exercise myocardial perfusion imaging to evaluate for prognostically significant obstructive CAD with myocardial ischemia that may need further evaluation. Continue low-dose aspirin therapy. Continue high-intensity statin therapy with LDL well optimized at 68 mg/dL. Blood pressure is well controlled on current medications. Importance of good blood pressure control was discussed. Target goal blood pressure less than 130/84. Low-salt diet was discussed. Advised to measure blood pressure at home maintain a log. He is prediabetic and also has hemochromatosis. Would suggest an echocardiogram to assess for LV wall thickness as well as systolic function and diastolic function. So will be pursued in the near future. Importance of regular physical activity was discussed with him. Will follow up in the clinic in 2 years time, sooner p.r.n.. Thank you for allowing me to partake in his care Orders: Orders CA stress test Today I25.10 - Atherosclerotic heart disease of [place] coronary artery without angina pectoris NM cardiolite stress test 2 Weeks I25.10 - Atherosclerotic heart disease of [place] coronary artery without angina pectoris, R07.9 - Chest pain, unspecified CA echo transthoracic complete Today E83.119 - Hemochromatosis, unspecified Coding Level of Care Code Est Pt Level 4 (63842) Diagnoses CAD (coronary artery disease) I25.10 CPT Codes EKG - CPT: 25019-[id number], Complete ([id number])
[2024-08-13 12:38] VITALS: BP 120/74; PULSE 63; BMI 33.5
== END 2024-08-13 12:58 | disposition home or self-care (01) ==
PROVIDERS: PCP Internal Medicine; Visit Provider Internal Medicine Cardiovascular Disease
DX: I25.10 Atherosclerotic heart disease of native coronary artery without angina pectoris (principal)
CPT/HCPCS: 93010; 99214

== ENCOUNTER → 2024-08-13 12:20 | Outpatient (BNVA) | payer BC, MEDICARE, SELFPAY | PROVIDERS: PCP Internal Medicine; Visit Provider Internal Medicine Cardiovascular Disease | DX: I25.10 Atherosclerotic heart disease of native coronary artery without angina pectoris (principal); Z79.82 Long term (current) use of aspirin; Z79.899 Other long term (current) drug therapy | CPT/HCPCS: 93005 ==

== ENCOUNTER 2024-09-10 10:52 | Outpatient (REF) | payer MEDICARE, SELFPAY ==
[2024-09-10 11:45] LABS: Hemoglobin 11.2 g/dl (14.0-18.0); Mean Corpuscular HGB Conc 32.9 g/dl (31.0-36.0); Mean Corpuscular Volume 94.2 fL (80.0-98.0); Red Blood Count 3.61 X10*6/uL (4.60-5.80); Red Cell Distribution Width 16.8 % (11.0-16.0); White Blood Count 11.4 X10*3/uL (4.8-10.8)
[2024-09-10 11:46] LABS: Platelet Count 61 X10*3/uL (160-400)
[2024-09-10 12:17] LABS: Band Neutrophils Percent 7 % (3-5); Eosinophils Absolute Manual 0.2 X10*3/uL (0.0-0.4); Eosinophils Percent Manual 2 % (0-4); Lymphocytes Absolute Manual 2.1 X10*3/uL (1.2-4.9); Lymphocytes Percent Manual 18 % (20-40); Metamyelocytes Absolute 0.2 X10*3/uL; Metamyelocytes Percent 2 %; Monocytes Absolute Manual 0.7 X10*3/uL (0.1-1.2); Monocytes Percent Manual 6 % (2-11); Neutrophils Absolute Manual 8.2 X10*3/uL (2.0-8.3); Neutrophils Percent Manual 65 % (45-73)
[2024-09-10 12:18] LABS: Platelet Estimate DECREASED (NORMAL); Platelet Morphology Comment NORMAL; RBC Morphology NOTED
[2024-09-10 12:19] LABS: Polychromasia 1+ (0-2) /OIF; Tear Drop Cells 2+ (3-5) /OIF
== END 2024-09-10 10:53 | disposition home or self-care (01) ==
LOC: HO.LNP 10:52
PROVIDERS: Visit Provider Internal Medicine
DX: Z13.89 Encounter for screening for other disorder (principal)
CPT/HCPCS: 85007; 85025; 85027

== ENCOUNTER → 2024-09-10 12:43 | Outpatient (REF) | payer MEDICARE, SELFPAY ==
--- NOTE | 2024-09-10 12:46 | CA_ITS ---
Transthoracic Echocardiogram Patient (Last, First, Middle): Jus Carr J Gender: Male Date of : 1960 Age: 64 Procedure Date: 09/10/2024 Procedure Type: Transthoracic Echocardiogram Location: OP Height: 172.72 cm Weight: 102.06 kg BSA: 2.15 m2 Heart Rate: bpm BP: 138 / 70 mmHg Internet Manager: SHAHIDA Referring MD: Eleuterio Garcia MD Symptoms: E83.119 - Hemochromatosis, unspecified Study Quality: Adequate with contrast ECG Rhythm: Sinus Conclusions: - The left ventricular systolic function is normal. The calculated ejection fraction is 68% by biplane method. - Cosg-dz-nfratrlm concentric left ventricular hypertrophy, but moderate in the basal septum. - No significant resting intraventricular gradient; with Valsalva, 26 mm Hg. - No obvious valvular pathology seen on this study. Findings Procedure Information Contrast agent, definity, is being given per protocol without apparent complications. Left Ventricle Normal left ventricular cavity size. The left ventricular systolic function is normal. The calculated ejection fraction is 68% by biplane method. There is no evidence of regional wall motion abnormalities. There is no dynamic left ventricular outflow tract obstruction. Diastolic function is normal for age. Tmuu-rr-zuqzpryw concentric left ventricular hypertrophy, but moderate in the basal septum. No significant resting intraventricular gradient; with Valsalva, 26 mm Hg. Right Ventricle Normal right ventricular cavity size and systolic function. Atria Both atria are normal in size. Aortic Valve There is a normal trileaflet aortic valve. There is no aortic valve stenosis. There is no aortic valve regurgitation. Mitral Valve The mitral valve appears normal. There is no mitral valve regurgitation. There is no mitral valve stenosis. Pulmonic Valve The pulmonic valve is likely normal. Tricuspid Valve Normal tricuspid valve structure. There is trace tricuspid valve regurgitation. There is no evidence of pulmonary hypertension. Great Vessels The asc aorta is normal in size. Venous The inferior vena cava is normal in size and collapses greater than 50% with inspiration. Pericardium/Pleural There is no evidence of pericardial effusion. Prior Study Comparison No significant change compared to prior study dated: 07/09/2019. Recommendations, Care & Conclusions No obvious valvular pathology seen on this study. Measurements 2D Linear Measurements IVSd: 1.44 0.6-0.9/0.6-1.0 cm LVIDd: 4.40 3.9-5.3/4.2-5.9 cm LVIDd Index: 2.05 2.4-3.2/2.2-3.1 cm/m2 LVIDs: 2.67 2.0-3.6 cm LVPWd: 1.28 0.7-1.1 cm LA Diam: 3.70 2.7-3.8/3.0-4.0 cm LAIDs Index: 1.72 1.5-2.3 cm/m2 LV Mass: 286.79 67-162/88-224 g LV Mass Index: 133.39 43-95/49-115 g/m2 LVOT Diam: 2.10 3.0+(-)1.3 cm 2D Systolic Function EF 4C: 63.00 >55% EF 2C: 72.50 >55% EF BiP: 67.90 >55% Mitral Valve MV Pk E: 0.79 MV PK A: 0.71 MV Decel Time: 297.00 E/A: 1.10 E'Lateral: 10.30 E'Medial: 5.44 E/E' Med: 14.60 E/E' Lat: 7.70 PHT: 87.00 MVA PHT: 2.53 Decel [place]: 2.67 Aortic Valve AoV Pk Josef: 1.64 AoV Mn Josef: 1.02 AoV VTI: 0.36 AoV Pk Grad: 11.00 Aov Mn Grad: 5.00 ANTHONY Cont.VTI: 3.04 LVOT LVOT Pk Josef: 1.61 LVOT Mn Josef: 0.94 LVOT VTI: 0.31 LVOT Pk Grad: 10.00 LVOT Mn Grad: 4.00 LVOT Diam: 2.10 LVOT Area: 3.46 Diastolic Function MV Pk E: 0.79 MV Pk A: 0.71 E/A: 1.10 E'Medial: 5.44 E/E' Med: 14.60 E' Laterial: 10.30 E/E' Lat: 7.70 Right Ventricle TAPSE (mm): 24.90 TVS' Josef: 14.70 Tricuspid Valve TR Pk Josef: 2.20 TR Pk Grad: 19.00 RA Press: 3.00 RVSP: 22.00 Great Vessels Aorta Sinus of Valsalva: 3.58 2.0-3.[address] [place]: 2.67 1.7-3.4 cm Ao Asc: 3.60 2.1-3.4 cm Updated in Other Vendor System with Status of Final Chas Prasad MD electronically signed on 09/11/2024 12:17:29 PM with status of Final
== END ==
LOC: HO.CARD 12:43
PROVIDERS: PCP Internal Medicine; Visit Provider Internal Medicine Cardiovascular Disease
DX: E83.119 Hemochromatosis, unspecified (principal)
CPT/HCPCS: 85007; 85027; 93306; Q9957

== ENCOUNTER → 2024-09-10 12:46 | Outpatient (BNV) | payer MEDICARE, SELFPAY | PROVIDERS: PCP Internal Medicine; Visit Provider Internal Medicine | DX: I42.2 Other hypertrophic cardiomyopathy (principal) | CPT/HCPCS: 93306 ==

== ENCOUNTER 2024-09-23 08:06 | Outpatient (REF) | payer MEDICARE, SELFPAY ==
--- NOTE | ~2024-09-23 | US_ITS ---
EXAMINATION: US COMPLETE ABDOMEN WITH LIVER ELASTOGRAPHY CLINICAL INFORMATION: Fatty liver COMPARISON: Ultrasound abdomen 12/27/2017 TECHNIQUE: Real-time imaging of the abdominal viscera. Noninvasive ultrasound liver fibrosis assessment is performed using Maritza ElastPQ point quantification shear wave elastography (pSWE) with a C5-2 MHz transducer. Multiple elastography samples are obtained. FINDINGS: PANCREAS: The visualized pancreatic head and body are normal in appearance. The remainder of the pancreas is obscured from visualization by the overlying bowel gas. ABDOMINAL AORTA: The mid and distal aortic segments are normal in caliber. The proximal aorta was obscured by bowel gas. INFERIOR VENA CAVA: Visualized portions are normal. LIVER: The liver is enlarged at 17.3 cm in greatest length with increased echogenicity consistent with hepatic steatosis.. No focal lesion or intrahepatic biliary duct dilatation. The right lobe measures 17.3 cm in length. The left lobe measures 13.1 cm in length. Portal flow is towards the liver (hepatopetal). Shear wave liver elastography median stiffness is 1.88 m/s (reference: normal median stiffness is 1.3 m/s or less). IQR/median stiffness to assess sampling precision is 0.02 (reference: good quality data set is IQR/median stiffness of 0.15 or less). GALLBLADDER: The gallbladder is physiologically distended without evidence of stones, sludge, polyps, wall thickening or pericholecystic fluid. COMMON BILE DUCT: Normal in caliber measuring 0.3 cm in diameter. RIGHT KIDNEY: There is a 7 mm upper pole echogenic focus and an 11 mm mid renal echogenic focus post consistent with nonobstructing calculi. No hydronephrosis. A benign upper medial 2.0 cm Bosniak class I renal cyst is noted which requires no additional imaging or follow up. No solid renal masses are seen. . The kidney measures 13.4 cm in maximum dimension. LEFT KIDNEY: No hydronephrosis. No renal calculi or focal parenchymal lesions. The kidney measures 12.8 cm in maximum dimension. 2 benign Bosniak class I renal cysts are noted each measuring about 2 cm which require no additional imaging or follow-up. No solid renal masses are seen. SPLEEN: Spleen is enlarged measuring 14.7 cm in maximum dimension. FREE FLUID: None. US/US duplex arterial venous comp IMPRESSION: 1. Mildly enlarged fatty liver with splenomegaly 2. Liver elastography: Measurements are suggestive of compensated advanced chronic liver disease but need further test for confirmation. REFERENCE: Society of Radiologists in Ultrasound Liver Stiffness Thresholds (2020): LIVER STIFFNESS THRESHOLDS: *Liver Stiffness equal or less than 1.3 m/s: High probability of being normal. *Liver Stiffness less than 1.7 m/s: In the absence of other known clinical signs, rules out compensated advanced chronic liver disease. *Liver Stiffness 1.7-2.1 m/s: Suggestive of compensated advanced chronic liver disease but need further test for confirmation. *Liver Stiffness over 2.1 m/s: Rules in compensated advanced chronic liver disease. *Liver Stiffness over 2.4 m/s: Suggestive of clinically significant portal hypertension. QUALITY OF DATA SET: *IQR/Median value equal or less than 0.15 implies a quality data set. *IQR/Median value over 0.15 implies a poor quality data set. SIGNIFICANT CHANGE FROM PRIOR EXAM: Significant change if liver stiffness measurement is 10% or greater from prior exam. OTHER CONSIDERATIONS: The stage of liver fibrosis may be overestimated in the setting of acute hepatitis, liver inflammation, elevated liver function tests, hepatic vascular congestion, obstructive cholestasis, non-fasting state, and infiltrative diseases such as amyloidosis and lymphoma. In some patients with NAFLD, the liver stiffness thresholds for compensated advanced chronic liver disease may be lower. In causes other than viral hepatitis and NAFLD, liver stiffness thresholds are not well established. Electronically signed by: Sean Child MD 10/24/2024 10:50 PM [facility]
== END 2024-09-23 08:07 | disposition home or self-care (01) ==
LOC: HO.US 08:06
PROVIDERS: PCP Internal Medicine; Visit Provider Internal Medicine
DX: R79.89 Other specified abnormal findings of blood chemistry (principal); R16.2 Hepatomegaly with splenomegaly, not elsewhere classified; K76.0 Fatty (change of) liver, not elsewhere classified
CPT/HCPCS: 76700; 76981; 93975

== ENCOUNTER 2024-10-17 09:58 | Outpatient (REF) | payer MEDICARE, SELFPAY ==
[2024-10-17 10:49] LABS: Anion Gap 16 (12-20); Blood Urea Nitrogen 16 mg/dL (9-16); Calcium 10.5 mg/dL (8.4-10.2); Carbon Dioxide 25 mmol/L (22-29); Chloride 106 mmol/L (96-108); Estimated Glomerular Filt Rate > 60; Glucose Random 105 mg/dL (60-115); Potassium 4.7 mmol/L (3.3-5.1); Sodium 142 mmol/L (135-145)
== END 2024-10-17 09:59 | disposition home or self-care (01) ==
LOC: HO.LAB 09:58
PROVIDERS: PCP Internal Medicine; Visit Provider Internal Medicine Cardiovascular Disease
DX: I10 Essential (primary) hypertension (principal)
CPT/HCPCS: 36415; 80048

== ENCOUNTER → 2024-10-22 08:07 | Outpatient (BNV) | payer MEDICARE, SELFPAY | PROVIDERS: PCP Internal Medicine; Visit Provider Nurse Practitioner Family | DX: R07.9 Chest pain, unspecified (principal) | CPT/HCPCS: 78452; 93016; 93018 ==

== ENCOUNTER → 2024-10-22 08:08 | Outpatient (REF) | payer MEDICARE, SELFPAY ==
--- NOTE | ~2024-10-22 | NM_ITS ---
EXERCISE MYOCARDIAL PERFUSION STUDY INDICATION: Chest pain to evaluate for myocardial ischemia TECHNIQUE: The patient was brought in for an exercise perfusion study on 10/22/2024. Patient performed exercise as per Jus protocol and was injected 35 mCi of sestamibi once target heart rate was achieved. Images were obtained using the SPECT gamma camera interlaced with the gating device. Images were obtained in supine position. Resting perfusion study was performed on 10/23/2024. Patient was administered 35 mCi of sestamibi intravenously at rest. Images were then obtained in supine position. Images obtained without without CT attenuation. Total DLP 137 mGy-cm. Images were processed with the software and compared side to side in short axis, horizontal long axis and vertical long axis views. FINDINGS: Raw images were reviewed The stress perfusion study showed nonattenuated images show minimally reduced uptake in the basal and mid inferolateral wall as well as the basal inferior wall of the LV myocardium. Attenuation corrected images show normal uptake of radiotracer in all segments of the LV myocardium.. The gated study shows normal LV systolic function with calculated LVEF of 66%. LV cavity is normal in size. The gated study shows normal systolic wall thickening and contraction of segments. Resting study shows no significant change in perfusion pattern compared to stress perfusion study. Gating at rest reveals normal systolic wall motion with ejection fraction at greater than 60%. The findings are consistent with normal myocardial perfusion. NM/NM cardiolite stress test IMPRESSION: 1. Myocardial perfusion imaging study shows normal myocardial perfusion. 2. Gated LVEF is 66%. 3. Transient ischemic dilatation not present. EKG revealed equivocal for ischemia. Electronically signed by: Eleuterio Garcia MD 10/23/2024 12:23 PM [facility]
--- NOTE | 2024-10-22 08:07 | CA_ITS ---
Acquisition Time: 2024-10-22 08:43:38 Total Exercise Time: 00:05:34 Test Indications: CP Medications: See H Protocol: MARY Max HR: 141 BPM 90% of Pred: 155 BPM Max BP: 220/050 mmHG Max Work Load: 7.0 METS Exercise Stress Test with exercise 5 mins 34 secs of Mary Protocol, achieving 90% MPHR, with mild lightheadedness, no chest discomfort, without arrythmias, with hypertensive response to exercise BP max of 220/50. Borderline EKG changes in lead II. Nuclear images pending. In recovery, feeling back to baseline, with BP at 158/68 ( didnot take his BP am meds). Test reviewed with Dr. Prasad. Referred By: Eleuterio Garcia Overread By: MARK BARBOZA
== END ==
LOC: HO.CARD 08:08
PROVIDERS: PCP Internal Medicine; Visit Provider Internal Medicine Cardiovascular Disease
DX: R07.9 Chest pain, unspecified (principal); I25.10 Atherosclerotic heart disease of native coronary artery without angina pectoris
CPT/HCPCS: 78452; 93017; A9500

== ENCOUNTER 2024-11-29 10:51 | Outpatient (REF) | payer MEDICARE, SELFPAY | END 2024-11-29 10:52 | disposition home or self-care (01) | LOC: HO.BBR 10:51 | PROVIDERS: PCP Internal Medicine; Visit Provider Internal Medicine | DX: E83.110 Hereditary hemochromatosis (principal) | CPT/HCPCS: 85018 ==

== ENCOUNTER 2025-02-03 10:36 | Outpatient (REF) | payer MEDICARE, SELFPAY ==
[2025-02-03 11:04] LABS: Estimated Average Glucose 114 mg/dL; Hemoglobin A1c % 5.6 % (<6.0)
[2025-02-03 11:38] LABS: Alanine Aminotransferase 33 U/L (0-40); Albumin Level 4.4 g/dL (3.5-5.0); Alkaline Phosphatase 54 U/L (39-117); Aspartate Amino Transferase 33 U/L (5-37); Bilirubin Direct 0.3 mg/dL (0.0-0.5); Bilirubin Total 0.8 mg/dL (0.0-1.0); Cholesterol 97 mg/dL (<200); Glucose Fasting 97 mg/dL (60-99); HDL Cholesterol 32 mg/dL (>40); LDL Cholesterol Calculated 41 mg/dL (<100); Total Protein 7.1 g/dL (6.5-8.0); Triglycerides 123 mg/dL (<150)
--- OUTSIDE RECORDS SUMMARY | 2025-02-03 11:57 | XMS_ITS ---
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 Name Role Phone Riky Calzada MD Primary Care Provider Jayjay Daley Unavailable [phone] Allergies No Known Allergies REASON FOR VISIT Patient presents today for a f/u office visit for colon polyp Medications Medication SIG (Take, Route, Frequency, Duration) Notes Start Date End Date Status Charles Aspirin EC Low Dose 81 MG 1 tablet Orally Once a day for 30 day(s) Active Valsartan-hydroCHLOROthiazi de 160-12.5 MG TAKE 1 TABLET BY MOUTH EVERY DAY FOR 30 DAYS Oral for 90 Active Rosuvastatin Calcium 40 MG Oral for 90 Active Social History Tobacco Use: Social History Observation Description Date Details (start date - stop date) Former Smoker NA - NA Tobacco Use/Smoking Question Answer Notes Patient is a former smoker How long has it been since you last smoked? 5-10 years Alcohol Screen Question Answer Notes Did you have a drink contain ing alcohol in the past year? Yes How often did you have a dri nk containing alcohol in the past year? 2 to 3 times a week (3 points) How many drinks did you have on a typical day when you were drinking in the past year? 5 or 6 drinks (2 points) How often did you have 6 or more drinks on one occasion in the past year? Less than monthly (1 point) Points 6 Interpretation Positive Section Notes: Nonsmoker; 4-6 beers several times per week Vital Signs Blood pressure systolic 00 mm Hg 08/27/20 24 Blood pressure diastolic 00 mm Hg 024 Height 68 in 08/27/2024 Weight 223 lbs 08/27/2024 BMI 33.90 kg/m2 08/27/2024 Encounters Encounter Location Date Provider Diagnosis [facility] [address] [place] [address] 08/27/2024 Jayjay Owens History of adenomato us polyp of colon Z86.010 ; Hepatomegaly with splenomegaly, not elsewhere classified R16.2 ; Encounter for screening for malignant neoplasm of colon Z12.11 ; Fatty liver K76.0 ; Hepatitis C antibody test positive R76.8 and Elevated ferritin level R79.89 Assessments Encounter Date Diagnosis (ICD Code) Assessment Notes Treatment Notes Treatment Clinical Notes Section Notes 08/27/2024 History of adenomatous polyp of colon (ICD-10 - Z86.010) Start doing the phlebotomy every 3 [facility] beginning in October,. Try to eliminate alcohol, including beer, completely. Overall, Jus appears well and is not having any worrisome or new GI complaints. We did review the results of his colonoscopy from earlier in the year and the need for a followup colonoscopy in 2028 for further screening and surveillance. In regard to his elevated ferritin level with the previously elevated iron saturation, the genetic studies are consistent with some component of potential underlying hemachromatosis with iron overload and its potential deleterious effects on the his liver. Given his thrombocytopenia, and previous evidence of hepatomegaly with associated splenomegaly on the ultrasound from early this year, I am concerned that he might have some underlying liver disease in relation to fatty liver, the iron overload, and perhaps some alcohol consumption. There is no obvious evidence of cirrhosis but I shall repeat an abdominal ultrasound with elastography and Doppler studies to inspect the portal and hepatic veins. I did advise him of the importance of avoiding alcohol completely, including beer, so as to minimize any further damage to the liver. We also reviewed the importance of watching his diet and trying to lose some weight in regard to helping to treat fatty liver. I will also increase the interval for his phlebotomy to every 3 months and continue to follow the ferritin level. Obviously, if he remains too anemic to tolerate the phlebotomies we can then increase the interval to longer periods of time if he continues to need that in regard to elevated ferritin levels. I will plan to see him in one year for a followup visit but will be in touch with him in regard to his upcoming studies. If there is a strong suspicion for cirrhosis or other significant liver disease we can always schedule him for a liver biopsy prior to my seeing him next year. If we do a liver biopsy I would plan to send a specimen for quantitative iron analysis as well. Jus was comfortable with this plan. Thank you again for allowing me to participate in Jus's care. I shall continue to keep you advised of his progress. 08/27/2024 Hepatomegaly with splenomegaly, not elsewhere classified (ICD-10 - R16.2) Overall, Jus appears well and is not having any worrisome or new GI complaints. We did review the results of his colonoscopy from earlier in the year and the need for a followup colonoscopy in 2028 for further screening and surveillance. In regard to his elevated ferritin level with the previously elevated iron saturation, the genetic studies are consistent with some component of potential underlying hemachromatosis with iron overload and its potential deleterious effects on the his liver. Given his thrombocytopenia, and previous evidence of hepatomegaly with associated splenomegaly on the ultrasound from early this year, I am concerned that he might have some underlying liver disease in relation to fatty liver, the iron overload, and perhaps some alcohol consumption. There is no obvious evidence of cirrhosis but I shall repeat an abdominal ultrasound with elastography and Doppler studies to inspect the portal and hepatic veins. I did advise him of the importance of avoiding alcohol completely, including beer, so as to minimize any further damage to the liver. We also reviewed the importance of watching his diet and trying to lose some weight in regard to helping to treat fatty liver. I will also increase the interval for his phlebotomy to every 3 months and continue to follow the ferritin level. Obviously, if he remains too anemic to tolerate the phlebotomies we can then increase the interval to longer periods of time if he continues to need that in regard to elevated ferritin levels. I will plan to see him in one year for a followup visit but will be in touch with him in regard to his upcoming studies. If there is a strong suspicion for cirrhosis or other significant liver disease we can always schedule him for a liver biopsy prior to my seeing him next year. If we do a liver biopsy I would plan to send a specimen for quantitative iron analysis as well. Jus was comfortable with this plan. Thank you again for allowing me to participate in Jus's care. I shall continue to keep you advised of his progress. 08/27/2024 Encounter for screening for malignant neoplasm of colon (ICD-10 - Z12.11) Overall, Jus appears well and is not having any worrisome or new GI complaints. We did review the results of his colonoscopy from earlier in the year and the need for a followup colonoscopy in 2028 for further screening and surveillance. In regard to his elevated ferritin level with the previously elevated iron saturation, the genetic studies are consistent with some component of potential underlying hemachromatosis with iron overload and its potential deleterious effects on the his liver. Given his thrombocytopenia, and previous evidence of hepatomegaly with associated splenomegaly on the ultrasound from early this year, I am concerned that he might have some underlying liver disease in relation to fatty liver, the iron overload, and perhaps some alcohol consumption. There is no obvious evidence of cirrhosis but I shall repeat an abdominal ultrasound with elastography and Doppler studies to inspect the portal and hepatic veins. I did advise him of the importance of avoiding alcohol completely, including beer, so as to minimize any further damage to the liver. We also reviewed the importance of watching his diet and trying to lose some weight in regard to helping to treat fatty liver. I will also increase the interval for his phlebotomy to every 3 months and continue to follow the ferritin level. Obviously, if he remains too anemic to tolerate the phlebotomies we can then increase the interval to longer periods of time if he continues to need that in regard to elevated ferritin levels. I will plan to see him in one year for a followup visit but will be in touch with him in regard to his upcoming studies. If there is a strong suspicion for cirrhosis or other significant liver disease we can always schedule him for a liver biopsy prior to my seeing him next year. If we do a liver biopsy I would plan to send a specimen for quantitative iron analysis as well. Jus was comfortable with this plan. Thank you again for allowing me to participate in Jus's care. I shall continue to keep you advised of his progress. 08/27/2024 Fatty liver (ICD-10 - K76.0) Overall, Jus appears well and is not having any worrisome or new GI complaints. We did review the results of his colonoscopy from earlier in the year and the need for a followup colonoscopy in 2028 for further screening and surveillance. In regard to his elevated ferritin level with the previously elevated iron saturation, the genetic studies are consistent with some component of potential underlying hemachromatosis with iron overload and its potential deleterious effects on the his liver. Given his thrombocytopenia, and previous evidence of hepatomegaly with associated splenomegaly on the ultrasound from early this year, I am concerned that he might have some underlying liver disease in relation to fatty liver, the iron overload, and perhaps some alcohol consumption. There is no obvious evidence of cirrhosis but I shall repeat an abdominal ultrasound with elastography and Doppler studies to inspect the portal and hepatic veins. I did advise him of the importance of avoiding alcohol completely, including beer, so as to minimize any further damage to the liver. We also reviewed the importance of watching his diet and trying to lose some weight in regard to helping to treat fatty liver. I will also increase the interval for his phlebotomy to every 3 months and continue to follow the ferritin level. Obviously, if he remains too anemic to tolerate the phlebotomies we can then increase the interval to longer periods of time if he continues to need that in regard to elevated ferritin levels. I will plan to see him in one year for a followup visit but will be in touch with him in regard to his upcoming studies. If there is a strong suspicion for cirrhosis or other significant liver disease we can always schedule him for a liver biopsy prior to my seeing him next year. If we do a liver biopsy I would plan to send a specimen for quantitative iron analysis as well. Jus was comfortable with this plan. Thank you again for allowing me to participate in Jus's care. I shall continue to keep you advised of his progress. 08/27/2024 Hepatitis C antibody test positive (ICD-10 - R76.8) Overall, Jus appears well and is not having any worrisome or new GI complaints. We did review the results of his colonoscopy from earlier in the year and the need for a followup colonoscopy in 2028 for further screening and surveillance. In regard to his elevated ferritin level with the previously elevated iron saturation, the genetic studies are consistent with some component of potential underlying hemachromatosis with iron overload and its potential deleterious effects on the his liver. Given his thrombocytopenia, and previous evidence of hepatomegaly with associated splenomegaly on the ultrasound from early this year, I am concerned that he might have some underlying liver disease in relation to fatty liver, the iron overload, and perhaps some alcohol consumption. There is no obvious evidence of cirrhosis but I shall repeat an abdominal ultrasound with elastography and Doppler studies to inspect the portal and hepatic veins. I did advise him of the importance of avoiding alcohol completely, including beer, so as to minimize any further damage to the liver. We also reviewed the importance of watching his diet and trying to lose some weight in regard to helping to treat fatty liver. I will also increase the interval for his phlebotomy to every 3 months and continue to follow the ferritin level. Obviously, if he remains too anemic to tolerate the phlebotomies we can then increase the interval to longer periods of time if he continues to need that in regard to elevated ferritin levels. I will plan to see him in one year for a followup visit but will be in touch with him in regard to his upcoming studies. If there is a strong suspicion for cirrhosis or other significant liver disease we can always schedule him for a liver biopsy prior to my seeing him next year. If we do a liver biopsy I would plan to send a specimen for quantitative iron analysis as well. Jus was comfortable with this plan. Thank you again for allowing me to participate in Jus's care. I shall continue to keep you advised of his progress. 08/27/2024 Elevated ferritin level (ICD-10 - R79.89) Overall, Jus appears well and is not having any worrisome or new GI complaints. We did review the results of his colonoscopy from earlier in the year and the need for a followup colonoscopy in 2028 for further screening and surveillance. In regard to his elevated ferritin level with the previously elevated iron saturation, the genetic studies are consistent with some component of potential underlying hemachromatosis with iron overload and its potential deleterious effects on the his liver. Given his thrombocytopenia, and previous evidence of hepatomegaly with associated splenomegaly on the ultrasound from early this year, I am concerned that he might have some underlying liver disease in relation to fatty liver, the iron overload, and perhaps some alcohol consumption. There is no obvious evidence of cirrhosis but I shall repeat an abdominal ultrasound with elastography and Doppler studies to inspect the portal and hepatic veins. I did advise him of the importance of avoiding alcohol completely, including beer, so as to minimize any further damage to the liver. We also reviewed the importance of watching his diet and trying to lose some weight in regard to helping to treat fatty liver. I will also increase the interval for his phlebotomy to every 3 months and continue to follow the ferritin level. Obviously, if he remains too anemic to tolerate the phlebotomies we can then increase the interval to longer periods of time if he continues to need that in regard to elevated ferritin levels. I will plan to see him in one year for a followup visit but will be in touch with him in regard to his upcoming studies. If there is a strong suspicion for cirrhosis or other significant liver disease we can always schedule him for a liver biopsy prior to my seeing him next year. If we do a liver biopsy I would plan to send a specimen for quantitative iron analysis as well. Jus was comfortable with this plan. Thank you again for allowing me to participate in Jus's care. I shall continue to keep you advised of his progress. Plan Of Treatment Treatment Notes Assessment Notes History of adenomatous polyp of colon St art doing the phlebotomy [facility] 3 months at the [facility] beginning in October,. Try to eliminate alcohol, including beer, completely. Pending Test Test Name Order Date LIVER PROFILE 08/27/2024 Prothrombin Time INR 08/27/2024 Liver Fibrosis Pnl 08/27/2024 US abdomen comp w elastography 4 US duplex arterial venous comp 4 Next Appt Details Follow Up: 1 Year, Reason: Provider Name:Jayjay Owens , 08/28/2025 09:00:00 AM, [address] [place] [address], [address], [phone], Progress Notes * CUCAJUSDOB: [birth year] (64 yo M)Acc No.[id number]:08/27/2024 Progress Notes Patient:?JUS THURMAN Provider:?Jayjay Owens MD :1960???Age:64 Y???Sex:Male Chad e:08/27/2024 Address:[address] [place] [address] Pcp:Riky Calzada MD Subjective: * Chief Complaints: * ???Patient presents today fo r a f/u office visit for colon polyp * HPI: ???incontinence:? I saw Jus in followup today in regard to his personal history of tubular adenomas of the colon, elevated ferritin level, and hepatomegaly with associated splenomegaly and thrombocytopenia. ?I last saw Jus in March, at which time he underwent a followup screening colonoscopy with removal of a small tubular adenoma and hyperplastic polyp. He describes that he has been feeling well since that time. He enjoys a good appetite and denies any significant heartburn or dysphagia. His bowel movements have been regular and without any signs of bleeding. He denies any abdominal pain, jaundice, increasing abdominal girth, edema, pruritus, fatigue, nor weight loss. ?Due to the finding of his elevated ferritin level during his liver workup earlier this year he started a monthly phlebotomy at the blood bank. His initial ferritin level was 1,054 in January and has decreased to 420 in mid-July. However, he has not been able to have a phlebotomy over the past couple of months due to a relatively low hemoglobin with his most recent studies showing a hemoglobin of 10.2 in June and 11.7 on August 08. Of note, his iron saturation was normal recently despite the elevated ferritin. However, the iron saturation had been elevated when the ferritin level was initially seen to be quite elevated prior to the phlebotomies. ?Aside from the elevated ferritin level, his liver workup studies were otherwise negative, although he did have a positive hepatitis C antibody. A followup hepatitis C viral load was nondetectable. His liver fibrosis score was only F2. His hemachromatosis genetic testing was negative for C282Y, but was homozygous for H63D. However, clinically significant iron overload rarely occurs with just that genetic makeup. ?Of note, Jus does continue to have some beers during the week although not on a daily or heavy basis by his report. He does not drink any liquor. ?Laboratories on August 05 revealed a white blood cell count of 12.6, hemoglobin 12.5 with a normal MCV, and a platelet count of only 59,000. His LFTs at that time were completely normal including albumin of 4.8. His hemoglobin A1c was only 5.0. * ROS:?General/Constitutional:?Change in appetite?denies.?Chills?denies.?Fatigue?denies.?Ophthalmologic:?Comments?all negative.?ENT:?Comments?all negative.?Respiratory:?hemoptysis?denies.?Cough?denies.?Cardiovascular:?Chest pain?denies.?Orthopnea?denies.?Gastrointestinal:?Comments?See HPI for details.?Genitourinary:?Hematuria?denies.?Dysuria?denies.?Musculoskeletal:?Painful joints?denies.?Weakness?denies.?Skin:?Itching?denies.?Rash?denies.?Neurologic:?Headache?denies.?Seizures?denies.?Psychiatric:?Comments?all negative.? * Medical History:? * Surgical History:?Hernia rep air age 5Ear surgery- left * Hospitalization/Major Diagno stic Procedure:?No Hospitalization History. * Family History:?Father: dece ased, diagnosed with Colon cancer.?Mother: , diagnosed with Diabetes, Heart disease.? Father may have had colon cancer at age 80. * Social History:?Tobacco Use:?Tobacco Use/Smoking?Patient is a?former smoker,?How long has it been since you last smoked??5-10 years.?Drugs/Alcohol:?Alcohol Screen?Did you have a drink containing alcohol in the past year??Yes,?How often did you have a drink containing alcohol in the past year??2 to 3 times a week (3 points),?How many drinks did you have on a typical day when you were drinking in the past year??5 or 6 drinks (2 points),?How often did you have 6 or more drinks on one occasion in the past year??Less than monthly (1 point),?Points?6,?Interpretation?Positive.?Miscellaneous:?Marital status: . 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 ???Nonsmoker; 4-6 beers several times per week. * Medications:?TakingBayer Asp irin EC Low Dose 81 MG Tablet Delayed Release 1 tablet Orally Once a dayRosuvastatin Calcium 40 MG Tablet Oral Valsartan- hydroCHLOROthiazide 160-12.5 MG Tablet TAKE 1 TABLET BY MOUTH EVERY DAY FOR 30 DAYS Oral Medication List reviewed and reconciled with the patientTaking Charles Aspirin EC Low Dose 81 MG Tablet Delayed Release 1 tablet Orally Once a dayTaking Rosuvastatin Calcium 40 MG Tablet Oral Taking Valsartan-hydroCHLOROthiazide 160-12.5 MG Tablet TAKE 1 TABLET BY MOUTH EVERY DAY FOR 30 DAYS Oral Medication List reviewed and reconciled with the patient * Allergies:?N.K.D.A.yes[Aller gies Verified] Objective: * Vitals:?Wt: 223 lbs, Ht: 68 in, BMI:33.90 Index, BP: 00/00 mm Hg. * Examination: ???General Examination: ?GENERAL APPEARANCE:?pleasant, well nourished, well developed, in no acute distress.?EYES:?sclera non-icteric.?ORAL CAVITY:?mucosa moist.?NECK/THYROID:?no cervical lymphadenopathy, neck supple.?SKIN:?nonjaundiced, no spider angiomata.?HEART:?S1, S2 normal.?LUNGS:?clear to auscultation bilaterally.?ABDOMEN:?normal bowel sounds, no guarding or rigidity, no guarding or rigidity, no masses palpable, soft, nontender, nondistended.?EXTREMITIES:?no edema.?NEUROLOGIC:?alert and oriented.? Assessment: * Assessment: 1.?Hepatomegaly with splenom egaly, not elsewhere classified - R16.2 (Primary)?2.?History of adenomatous polyp of colon - Z86.010?3.?Encounter for screening for malignant neoplasm of colon - Z12.11?4.?Fatty liver - K76.0?5.?Hepatitis C antibody test positive - R76.8?6.?Elevated ferritin level - R79.89? Overall, Jus appears well and is not having any worrisome or new GI complaints. We did review the results of his colonoscopy from earlier in the year and the need for a followup colonoscopy in 2028 for further screening and surveillance. In regard to his elevated ferritin level with the previously elevated iron saturation, the genetic studies are consistent with some component of potential underlying hemachromatosis with iron overload and its potential deleterious effects on the his liver. Given his thrombocytopenia, and previous evidence of hepatomegaly with associated splenomegaly on the ultrasound from early this year, I am concerned that he might have some underlying liver disease in relation to fatty liver, the iron overload, and perhaps some alcohol consumption. There is no obvious evidence of cirrhosis but I shall repeat an abdominal ultrasound with elastography and Doppler studies to inspect the portal and hepatic veins. I did advise him of the importance of avoiding alcohol completely, including beer, so as to minimize any further damage to the liver. We also reviewed the importance of watching his diet and trying to lose some weight in regard to helping to treat fatty liver. I will also increase the interval for his phlebotomy to every 3 months and continue to follow the ferritin level. Obviously, if he remains too anemic to tolerate the phlebotomies we can then increase the interval to longer periods of time if he continues to need that in regard to elevated ferritin levels. I will plan to see him in one year for a followup visit but will be in touch with him in regard to his upcoming studies. If there is a strong suspicion for cirrhosis or other significant liver disease we can always schedule him for a liver biopsy prior to my seeing him next year. If we do a liver biopsy I would plan to send a specimen for quantitative iron analysis as well. Jus was comfortable with this plan. Thank you again for allowing me to participate in Jus's care. I shall continue to keep you advised of his progress. Plan: * Treatment: * ?Imaging: US duplex arterial venous comp* Doppler studies on his abdom inal ultrasound * 2.?History of adenomatous polyp of colon? Notes: Start doing the phlebotomy every 3 months at the [facility] beginning in October,. Tryto eliminate alcohol, including beer, completely.??3.?Fatty liver?LAB: LIVER PROFILE ?LAB: Prothrombin Time INR ?LAB: Liver Fibrosis Pnl ?Imaging: US abdomen comp w elastography* with Doppler studies * ?Imaging: US duplex arterial venous comp* Doppler studies on his abdom inal ultrasound * 4.?Elevated ferritin level?LAB: LIVER PROFILE ?LAB: Prothrombin Time INR ?LAB: Liver Fibrosis Pnl ?Imaging: US abdomen comp w elastography* with Doppler studies * ?Imaging: US duplex arterial venous comp* Doppler studies on his abdom inal ultrasound * * Procedure Codes:?3017F COLOR ECTAL CA SCREEN DOC [id number] TOBACCO [id number] BP SCR NOT PRFRM REC REASON NOS * Preventive Medicine:? ??Counseling:?Care goal follow-up plan:?Above Normal BMI Follow-up?Giving encouragement to exercise,?BMI management provided?Yes.? ??Screenings:?Fall Risk Screening?Fall Risk Assessment:?No falls in the past year,?Screening:?No falls in the past year,?Assessment:?Not performed, no reason specified,?Plan of Care:?Not documented, no reason specified.? * Follow Up:?1 Year * * Sign off status: Completed true * Provider:?Jayjay Owens MD Date:? 024 Generated for Cher nugent/Juli/eTransmitting on:?02/03/2025 11:56 AM EDT History and Physical Notes * HPI (History of Present Illness) Category Sub-Category Detail Notes Category Not es incontinence I saw Jus in followup today in regard to his personal history of tubular adenomas of the colon, elevated ferritin level, and hepatomegaly with associated splenomegaly and thrombocytopenia. I last saw Jus in March, at which time he underwent a followup screening colonoscopy with removal of a small tubular adenoma and hyperplastic polyp. He describes that he has been feeling well since that time. He enjoys a good appetite and denies any significant heartburn or dysphagia. His bowel movements have been regular and without any signs of bleeding. He denies any abdominal pain, jaundice, increasing abdominal girth, edema, pruritus, fatigue, nor weight loss. Due to the finding of his elevated ferritin level during his liver workup earlier this year he started a monthly phlebotomy at the blood bank. His initial ferritin level was 1,054 in January and has decreased to 420 in mid-July. However, he has not been able to have a phlebotomy over the past couple of months due to a relatively low hemoglobin with his most recent studies showing a hemoglobin of 10.2 in June and 11.7 on August 08. Of note, his iron saturation was normal recently despite the elevated ferritin. However, the iron saturation had been elevated when the ferritin level was initially seen to be quite elevated prior to the phlebotomies. Aside from the elevated ferritin level, his liver workup studies were otherwise negative, although he did have a positive hepatitis C antibody. A followup hepatitis C viral load was nondetectable. His liver fibrosis score was only F2. His hemachromatosis genetic testing was negative for C282Y, but was homozygous for H63D. However, clinically significant iron overload rarely occurs with just that genetic makeup. Of note, Jus does continue to have some beers during the week although not on a daily or heavy basis by his report. He does not drink any liquor. Laboratories on August 05 revealed a white blood cell count of 12.6, hemoglobin 12.5 with a normal MCV, and a platelet count of only 59,000. His LFTs at that time were completely normal including albumin of 4.8. His hemoglobin A1c was only 5.0. Examination Category Sub-Category Detail Notes Category Not es General Examination GENERAL APPEARANCE: pleasant , well nourished, well developed, in no acute distress HEAD: EYES: sclera non-icteric EARS: NOSE: THROAT: NECK/THYROID: no cervical lymphade nopathy, neck supple HEART: S1, S2 normal CHEST: LUNGS: clear to auscultatio n bilaterally ABDOMEN: normal bowel sounds, no guarding or rigidity, no guarding or rigidity, no masses palpable, soft, nontender, nondistended NEUROLOGIC: alert and oriented SKIN: nonjaundiced, no spi stephane angiomata EXTREMITIES: no edema PERIPHERAL PULSES: BACK: BREASTS: MUSCULOSKELETAL: MALE GENITOURINARY: LYMPH NODES: RECTAL EXAM: FEMALE GENITOURINARY: ORAL CAVITY: mucosa moist
--- OUTSIDE RECORDS SUMMARY | 2025-02-03 11:57 | XMS_ITS ---
Author Organization [facility] Address [address] [place] [id number] Care Team Providers Care Conventional Underwriter Name Role Phone Riky Calzada MD Primary Care Provider Jayjay Daley [phone] Encounters Encounter Location Date Provider Diagnosis [facility] [address] [place] [address] 09/09/2024 Jayjay Owens Plan Of Treatment Next Appt Details Provider Name:Jayjay Owens , 08/28/2025 09:00:00 AM, [address], [address], [place], [address], Progress Notes * MARY THURMANDOB: [birth year] (64 yo M)Acc No.[id number]:09/09/2024 Patient:?MARY THURMAN :1960???Age:64 Y???Sex:Male Address:[address] [place] [id number] * true * Date:? Generated for Printi ng/Faniting/eTransmitting on:?02/03/2025 11:57 AM EDT
--- OUTSIDE RECORDS SUMMARY | 2025-02-03 11:57 | XMS_ITS ---
Author Organization Riky Calzada MD Address [address] [place] [phone] Care Team Providers Care Global Engineering Manager Name Role Phone Riky Calzada Primary Care Provider Results Component Value Reference Range Notes Hemoglobin A1c (Not yet revi ewed by provider) Interpretation: Performing Lab:[facility], [address] [place] [phone] Notes/Report: Hemoglobin A1c % 5.6 <6.0 % [...] average glucose, using the formula of the G3X-Yrfipwm Average Glucose study (ADAG), Diabetes Care, Vol.31,#8, Jun. 2007 REASON FOR VISIT fasting lipids Encounters Encounter Location Date Provider Diagnosis Riky Calzada MD [address] [place] [phone] 02/03/2025 Riky Calzada Prediabetes R73.09 a nd Pure hypercholesterolemia E78.00 Assessments Encounter Date Diagnosis (ICD Code) Assessment Notes Treatment Notes Treatment Clinical Notes Section Notes 02/03/2025 Prediabetes (ICD-10 - R73.09) 02/03/2025 Pure hypercholesterolemia (ICD-10 - E78.00) Plan Of Treatment Pending Test Test Name Order Date Liver Panel 02/03/2025 Glucose Fasting 02/03/2025 Lipid Panel with Reflex 02/03/2025 Hemoglobin A1c 02/03/2025 Next Appt Details Provider Name:Riky Nunez ier, 02/10/2025 02:00:00 PM, [address], [address], [place], [phone], Provider Name:Riky Nunez ier, 08/07/2025 07:15:00 AM, [address], [address], [place], [phone], Provider Name:Riky Nunez ier, 08/14/2025 01:00:00 PM, [address], [address], [place], [phone], Progress Notes * Jus THURMANDOB: [birth year] (64 yo M)Acc No.[id number]:02/03/2025 Progress Note Patient:?Jus THURMAN Provider:?Riky Calzada MD :1960???Age:64 Y???Sex:Male Chad e:02/03/2025 Address:[address] [place], [place] [id number] Subjective: * Chief Complaints: * ???1. Fasting lipids. * Medical History:? Objective: * Vitals:? Assessment: * Assessment: 1.?Prediabetes - R73.09 (Demetria jessica)???2.?Pure hypercholesterolemia - E78.00??? Plan: * Treatment: 2.?Pure hypercholesterolemia ?LAB: Liver Panel ?LAB: Glucose Fasting ?LAB: Lipid Panel with Reflex ?LAB: Hemoglobin A1c (Collection Date & Time - 02/03/2025 08:00 AM) * Procedure Codes:?02218 VENIP UNCT, ROUTINE* * * The named appointment provid er may or may not be the originator of this progress note, and it is not deemed complete until electronically signed by the appointment provider. Sign off status: Pending * Provider:?Riky Calzada MD Date:?0 02/03/2025 Generated for Cher nugent/Juli/Marciano on:?02/03/2025 11:57 AM EDT
--- OUTSIDE RECORDS SUMMARY | 2025-02-03 11:57 | XMS_ITS ---
Author Organization Riky Calzada MD Address [address] [place], [place] [id number] Care Team Providers Care Pillowcase Maker Name Role Phone Riky Calzada Primary Care Provider Allergies Allergen (clinical drug ingredient) Drug/Non Drug [...] Location Date Provider Diagnosis Riky Calzada MD [address] [place] [address] [place] [phone] 08/12/2024 Riky Calzada Thrombocytopenia D69 .6 ; [...] Up: 6 Months, Reason: Provider Name:Riky Nunez iedon, 02/10/2025 02:00:00 PM, [address] [place] [address], [address], [place], [place], [phone], Provider Name:Riky alvarez, 08/07/2025 07:15:00 AM, [address] [place] [address], [place] [address], [place], [place], [phone], Provider Name:Riky alvarez, 08/14/2025 01:00:00 PM, [address] [place] [address], [place] [address], [place], [place], [phone], Progress Notes * Jus THURMANDOB: [birth year] (64 yo M)Acc No.[id number]:08/12/2024 Patient:?Jus Thurman Provider:?Riky Calzada MD :1960???Age:64 Y???Sex:Male Chad e:08/12/2024 Address:[address] [place] [address] [phone] Subjective: * Chief Complaints: * ???comp visit/ must see CBC * HPI: ???Depression Screening:?PHQ-9?Little interest or pleasure in doing things?Not at all,?Feeling down, depressed, or hopeless?Not at all,?Trouble falling or staying asleep, or sleeping too much?Not at all,?Feeling tired or having little energy?Not at all,?Poor appetite or overeating?Not at all,?Feeling bad about yourself or that you are a failure, or have let yourself or your family down?Not at all,?Trouble concentrating on things, such as reading the newspaper or watching television?Not at all,?Moving or speaking so slowly that other people could have noticed; or the opposite, being so fidgety or restless that you have been moving around a lot more than usual?Not at all,?Thoughts that you would be better off or of hurting yourself in some way?Not at all,?Total Score?0.?Interpretation and Intervention?Depression Screening Findings?Negative,?Follow-Up for Depression?: review of PHQ-9 found negative result, no follow-up needed.? patient is a 64 yo male here for review of recent labs and follow up of chronic issues. ???Communication Needs:?Communication Needs?Does the patient have a hearing impairment?No,?Does the patient have a vision impairment??Yes,?If yes, what is the vision impairment??Glasses,?Does the patient have a cognition impairment??No.?SDOH Questions:?SDOH Questions?In the past year have you been worried about losing housing??No,?In the past year have you or any family members you live with been unable to get any of the following when it was really needed? Check all that apply:?None.? * ROS:?General/Constitutional:?Patient denies?chills , fatigue , fever , headache.?ENT:?Patient denies?decreased sense of smell , any loss of taste , sore throat.?Respiratory:?Patient denies?shortness of breath at rest shortness of breath with exertion.?Cardiovascular:?Patient denies?chest pain with exertion chest pain at rest chest pain at rest.?Gastrointestinal:?Patient denies?change in bowel habits abdominal pain.?Genitourinary:?Patient denies?frequent urination difficulty urinating.?Musculoskeletal:?Patient denies?muscle aches.?Peripheral Vascular:?Patient denies?red and blue toes.? * Medical History:? * Surgical History:? * Hospitalization/Major Diagno stic Procedure:? * Family History:?Father: dece ased 85 yrs, colon cancer.?Mother: alive 96 yrs, type II diabetes, coronary artery disease.?1 brother(s) , 2 sister(s) - healthy. .? Mother-Healthy 1 brother- unknown cause, No pertinent family medical history, Denies mental health/substance abuse family history. * Social History:?Tobacco Use:?Tobacco Use/Smoking?Patient is a?former smoker,?How long has it been since you last smoked??> 10 years,?Additional Findings: Tobacco Non-User?Former smoker, currently using no form of tobacco.?Drugs/Alcohol:?Alcohol Screen?Did you have a drink containing alcohol in the past year??Yes,?How often did you have a drink containing alcohol in the past year??2 to 3 times a week (3 points),?How many drinks did you have on a typical day when you were drinking in the past year??3 or 4 drinks (1 point),?How often did you have 6 or more drinks on one occasion in the past year??Never (0 point),?Points?4,?Interpretation?Positive.?Miscellaneous:?Caffeine: yes, frequency:,2 cups a week. no Children. no Community involvements. no Exercise. Home smoke detector use: yes. Housing: owning. Living with: alone. Marital status: . Occupation: works full-time. Pets: none. no Travel outside of the [place]. * Medications:?TakingAspir-Low 81 MG Tablet Delayed Release 1 tablet [...] MG Tablet 1 tablet Orally Once a dayNot-Taking/PRN Hyoscyamine Sulfate ER 0.375 MG Tablet Extended Release 12 Hour TAKE 1 TABLET BY MOUTH EVERY DAY Not-Taking/PRN Indomethacin 50 MG Capsule 1 capsule with food or milk Orally Three times a dayNot-Taking/PRN LORazepam 1 MG Tablet 1 tablet at bedtime as needed Orally Once a dayMedication List reviewed and reconciled with the patient * Allergies:?Indomethacin: sushant aleman[Allergies Verified] Objective: * Vitals:?Ht: 68, Wt:225, BMI: 34.21, BP:130/70. * ???Past Orders: ???Lab:Microalbumin, Random (Order Date - 08/05/2024) (Collection Date - 08/05/2024) ? Value Reference Range ?Creatinine Urine 153.62 - m g/dL ?Microalbumin Urine 17.0 - mg/L ?Microalbum Creatinine Ratio Ur 11.0 <30 - ug/mg cr ???Lab:Hemoglobin A1c (Order Date - 08/05/2024) (Collection Date - 08/05/2024) ? Value Reference Range ?Hemoglobin A1c % 5.0 <6. 0 - % ?Estimated Average Glucose 97 - mg/dL ???Lab:UA ClnCatch+Micro w/r flx Cult (Order Date - 08/05/2024) (Collection Date - 08/05/2024) ? Value Reference Range ?Color Urine Yellow - ?Appearance Urine Clear - ?PH 5.5 5.0-9.0 - ?Glucose Urine UA Negative Neg ative - mg/dL ?Urine Blood Negative Negative - ?Specific Z[place]alla - Urine 1.025 1.005-1.025 - ?Urine Protein Negative Neg-Tr samantha - mg/dL ?Urine Ketones Negative Negati ve - mg/dL ?Nitrite Urine Negative Negati ve - ?Leukocyte Esterase Urine Negative Negative - ?RBC Urine 0-2 0-2 - /HPF ?WBC Urine 0-5 0-5 - /HPF ?Squamous Epithelial Cell Urine 0-2 0-2 - /HPF ?Bacteria Urine None Seen None Seen - ?Hyaline Casts Urine 0-2 0-2 - /LPF ???Lab:Comprehensive Weiner. P jay Fast (Order Date - 08/05/2024) (Collection Date - 08/05/2024) ? Value Reference Range ?Sodium 142 135-145 - mmo l/L ?Bilirubin Total 0.7 0.0- 1.0 - mg/dL ?Aspartate Amino Transferase 19 5-37 - U/L ?Alanine Aminotransferase 25 0-40 - U/L ?Total Protein 7.5 6.5-8. 0 - g/dL ?Albumin Level 4.8 3.5-5. 0 - g/dL ?Alkaline Phosphatase 52 39-117 - U/L ?Potassium 4.0 3.3-5.1 - mmol/L ?Chloride 106 96-108 - mm ol/L ?Carbon Dioxide 27 22-29 - mmol/L ?Anion Gap 13 12-20 - ?Blood Urea Nitrogen 21 H 9-16 - mg/dL ?Creatinine 0.86 0.5-1.4 - mg/dL ?Estimated Glomerular Filt Rate > 60 - ?Glucose Fasting 108 H 60-9 9 - mg/dL ?Calcium 9.7 8.4-10.2 - m g/dL ???Lab:Lipid Panel (Order Da te - 08/05/2024) (Collection Date - 08/05/2024) ? Value Reference Range ?Triglycerides 128 <150 - mg/dL ?Cholesterol 134 <200 - m g/dL ?LDL Cholesterol Calculated 68 <100 - mg/dL ?HDL Cholesterol 41 >40 - mg/dL ???Lab:PSA,Total (Free>4and< 10) (Order Date - 08/05/2024) (Collection Date - 08/05/2024) ? Value Reference Range ?PSA,Total (Free>4and<10) 0.62 0.00-4.00 - ng/mL * Examination: ???General Examination: ?GENERAL APPEARANCE:? alert, well hydrated, in no distress , male.?HEAD:? normocephalic.?EYES:? BOTH EYES, normal.?EARS:? BOTH EARS, normal.?THROAT:? no erythema, no exudate, pharynx normal.?NECK/THYROID:? no cervical lymphadenopathy, no carotid bruit.?SKIN:? good turgor.?HEART:? regular rate and rhythm, no murmurs, rubs, gallops.?LUNGS:? no wheezes, rales, rhonchi, good air movement, clear to auscultation bilaterally.?ABDOMEN:? no hepatosplenomegaly, soft, nontender, nondistended.?RECTAL EXAM:? giuaic, prostate normal, no masses palpable.?MALE GENITOURINARY:? testes descended bilaterally, no testicular mass.? Assessment: * Assessment: 1.?Thrombocytopenia - D69.6 (Primary)?2.?Essential hypertension - I10?3.?Tubular adenoma of colon - D12.6?4.?Prediabetes - R73.09?5.?Pure hypercholesterolemia - E78.00?6.?Colon cancer screening - Z12.11?7.?Depression screening - Z13.31? Plan: * Treatment: 2.?Essential hypertension? Continue Valsartan-hydroCHLOROthiazide Tablet, 160-12.5 MG, TAKE 1 TABLET BY MOUTH EVERY DAY FOR 30 DAYS.?? Notes: doing well, is at goal, will continue current regiment?? 3.?Tubular adenoma of colon? Notes: had colonoscopy 3 mo ago?? 4.?Prediabetes? Notes: stable, will contiue to monitor, no need for medication at this tme?? 5.?Pure hypercholesterolemia ? Continue Rosuvastatin Calcium Tablet, 40 MG, 1 tablet, Orally, Once a day.?? Notes: stbale, is at goal, will continue current regiment?? 6.?Depression screening? Notes: negative screen?? * Immunizations:? Fluarix Quadrivalent - 150 (Not administered - Refused: Patient decision) * Procedure Codes:? * Preventive Medicine:? ??Immunizations:?Influenza?Have you had a flu shot since the most recent July 28??Yes.? * Follow Up:?6 Months * * Sign off status: Completed true * Provider:?Riky Calzada MD Date:?0 08/12/2024 Generated for Cher nugent/Juli/eTransmitting on:?02/03/2025 11:56 AM [...] patient have a vision impairmen t?: Yes ?If yes, what is the vision impairment?: Glasses [...]
--- OUTSIDE RECORDS SUMMARY | 2025-02-03 11:57 | XMS_ITS | Patient Health Record ---
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 Name Role Phone Zheng MADRID, Riky Primary Care Provider Jayjay Daley [phone] Allergies No Known Allergies Results Component Value Reference Range Notes Ferritin Reviewed date:02/22/2024 07:41:47 PM Interpretation: Performing Lab:[facility], [address] [place] [phone] Notes/Report: Ferritin 1054 20-250 ng/mL Complete Blood Count Man Dif Reviewed date:02/20/2024 11:12:38 PM Interpretation: Performing Lab:[facility], [address] [place] [phone] Notes/Report: White Blood Count 11.7 4.8-10.8 X10*3/uL Red Blood Count 4.36 4.60-5.80 X10*6/uL Hemoglobin 13.4 14.0-18.0 g/dl Hematocrit 39.5 42.0-52.0 % Mean Corpuscular Volume 90.6 80.0-98.0 fL Mean Corpuscular Hemoglobin 30.7 27.0-33.0 pg Mean Corpuscular HGB Conc 33.9 31.0-36.0 g/dl Red Cell Distribution Width 15.8 11.0-16.0 % Platelet Count 88 160-400 X10*3/uL Mean Platelet Volume 11.0 9.4-12.4 fL NRBC Pct Auto 0.0 0.0-0.2 /100WBC NRBC Abs Auto 0.000 0.0-0.012 X10*3/uL Neutrophils Percent Manual 70 45-73 % Band Neutrophils Percent 2 3-5 % Lymphocytes Percent Manual 19 20-40 % Monocytes Percent Manual 6 2-11 % Eosinophils Percent Manual 1 0-4 % Metamyelocytes Percent 2 Neutrophils Absolute Manual 8.4 2.0-8.3 X10*3/uL Lymphocytes Absolute Manual 2.2 1.2-4.9 X10*3/uL Monocytes Absolute Manual 0.7 0.1-1.2 X10*3/u L Eosinophils Absolute Manual 0.1 0.0-0.4 X10*3/uL Metamyelocytes Absolute 0.2 Platelet Estimate DECREASED NORMAL Platelet Morphology Comment NORMAL RBC Morphology NORMAL Liver Panel Reviewed date:02/20/2024 11:12:51 PM Interpretation: Performing Lab:[facility], [address] [place] [phone] Notes/Report: Bilirubin Total 0.8 0.0-1.0 mg/dL Bilirubin Direct 0.2 0.0-0.5 mg/dL Aspartate Amino Transferase 33 5-37 U/L Alanine Aminotransferase 46 0-40 U/L Total Protein 7.5 6.5-8.0 g/dL Albumin Level 4.6 3.5-5.0 g/dL Alkaline Phosphatase 57 39-117 U/L IRON PROFILE Reviewed date:02/20/2024 11:13:01 PM Interpretation: Performing Lab:[facility], [address] [place] [phone] Notes/Report: Iron 208 45-160 mcg/dL Total Iron Binding Capacity 288 228-428 mcg/dL Percent Iron Saturation 72 15-50 % Unsaturated Iron Binding 80 Therapeutic Phlebotomy Reviewed date:02/28/2024 10:58:32 PM Interpretation: Performing Lab:[facility], [address] [place] [phone] Notes/Report: THER/HGB 13.1 14.0-18.0 g/dL THER/HCT TNP 42.0-52.0 % Therapeutic Phlebotomy Phlebotomy Performed 500 mls drawn on 02/28/24. Please note that a copy of this report has been sent to the Primary Care Physician, the ordering physician and any physician designated by patient request. Therapeutic Phlebotomy Reviewed date:04/07/2024 01:00:55 PM Interpretation: Performing Lab:[facility], [address] [place] [phone] Notes/Report: THER/HGB 11.5 14.0-18.0 g/dL THER/HCT TNP 42.0-52.0 % Therapeutic Phlebotomy TNP Reason: Pre-phlebotomy Hgb/Hct is below the established parameter for this patient. Please note that a copy of this report has been sent to the Primary Care Physician, the ordering physician and any physician designated by patient request. Pathology Reviewed date:04/21/2024 11:04:07 PM Interpretation: Performing Lab:[facility], [address] [place] [address] Notes/Report: ---- Name: GreerquintonJus Age/Sex: 63/M : 1960 Unit#: [id number] Attend Dr: Jayjay Owens Re04/10/24 Status : [facility] Disch: ---- SPEC : [id number] RECD : 04/10/24-1040 STATUS: NATO MENDOZA NUM: [id number] IRMA: 04/10/24-[address] [facility] [address]: Jayjay Owens ENTERED: 04/10/24-10 51 SP TYPE: Surgical OTHR DR: Riky Calzada MD ORDERED: HE Stain/6, Gross Micro L4/2 Diagnosis A. Colon, transverse , polypectomy: Tubular adenoma; negative for high-grade dysplasia or carcinoma. B. Colon, 30 cm, polypectomy: Hyperplastic mucosal polyp. Clinical History Pre-Op Dx: Screening , colonic polyps Post-Op Dx: Diverticulosis, polyps, hemorrhoids Microscopic Description A, B. Microscopic sections reviewed. Material Received A. Transverse colon polyp B. Polyp at 30 cm Gross Description Received in two parts. Part A: Received in formalin labeled ?transverse colon polyp? is a 0.3 cm mcdonald-pink irregular tissue fragment, submitted in toto in a cassette labeled A. Part B: Received in formalin labeled ?polyp at 30 cm? is a 0.15 cm mcdonald-pink irregular tissue fragment, submitted in toto in a cassette labeled B. CEDS Copies To: Riky Calzada MD [address] [place] [address] [phone] Jayjay Owens [address] [place] [address] [address] [place] [address] CONTINUED ON NEXT PAGE ---- Name: BrunoJus Age/Sex: 63/M : 1960 Unit#: [id number] Attend Dr: Jayjay Owens Re04/10/24 [place] [facility] Disch: ---- SPEC : [id number] RECD : 04/10/24-8451 STATUS: NATO MENDOZA NUM: [id number] IRMA: 04/10/24-[address]: Jayjay Owens ENTERED: 04/10/24-10 51 SP TYPE: Surgical OTHR DR: Riky Calzada MD ORDERED: YARA Stain/6Marlyn L4/2 ---- Signed (signature on file) Roberto Rodriguez MD 04/12/24 0641 ---- END OF REPORT Complete Blood Count Auto Di ff Reviewed date:07/16/2024 01:43:57 PM Interpretation: Performing Lab:[facility], [address] [place] [phone] Notes/Report: White Blood Count 11.0 4.8-10.8 X10*3/uL Red Blood Count 3.94 4.60-5.80 X10*6/uL Hemoglobin 12.4 14.0-18.0 g/dl Hematocrit 36.3 42.0-52.0 % Mean Corpuscular Volume 92.1 80.0-98.0 fL Mean Corpuscular Hemoglobin 31.5 27.0-33.0 pg Mean Corpuscular HGB Conc 34.2 31.0-36.0 g/dl Red Cell Distribution Width 16.0 11.0-16.0 % Platelet Count 65 160-400 X10*3/uL results @< 100,000: results @< 100,000: Mean Platelet Volume 11.1 9.4-12.4 fL Neutrophils Percent Auto 64.3 45-73 % Imm Gran Pct Auto 4.7 0.0-0.4 % Lymphocytes Percent Auto 21.6 20-40 % Monocytes Percent Auto 8.5 2-11 % Eosinophils Percent Auto 0.5 0-4 % Basophils Percent Auto 0.4 0-2 % NRBC Pct Auto 0.0 0.0-0.2 /100WBC Neutrophils Absolute Auto 7.1 2.0-8.3 x10*3/u L Imm Gran Abs Auto 0.52 0.00-0.03 X10*3/uL Lymphocytes Absolute Auto 2.4 1.2-4.9 X10*3/u L Monocytes Absolute Auto 0.9 0.1-1.2 X10*3/uL Eosinophils Absolute Auto 0.1 0.0-0.4 X10*3/u L Basophils Absolute Auto 0.0 0.0-0.2 X10*3/uL NRBC Abs Auto 0.000 0.0-0.012 X10*3/uL White Blood Count 11.0 4.8-10.8 X10*3/uL Red Blood Count 3.94 4.60-5.80 X10*6/uL Hemoglobin 12.4 14.0-18.0 g/dl Hematocrit 36.3 42.0-52.0 % Mean Corpuscular Volume 92.1 80.0-98.0 fL Mean Corpuscular Hemoglobin 31.5 27.0-33.0 pg Mean Corpuscular HGB Conc 34.2 31.0-36.0 g/dl Red Cell Distribution Width 16.0 11.0-16.0 % Platelet Count 65 160-400 X10*3/uL results @< 100,000: results @< 100,000: Mean Platelet Volume 11.1 9.4-12.4 fL Neutrophils Percent Auto 64.3 45-73 % Imm Gran Pct Auto 4.7 0.0-0.4 % Lymphocytes Percent Auto 21.6 20-40 % Monocytes Percent Auto 8.5 2-11 % Eosinophils Percent Auto 0.5 0-4 % Basophils Percent Auto 0.4 0-2 % NRBC Pct Auto 0.0 0.0-0.2 /100WBC Neutrophils Absolute Auto 7.1 2.0-8.3 x10*3/u L Imm Gran Abs Auto 0.52 0.00-0.03 X10*3/uL Lymphocytes Absolute Auto 2.4 1.2-4.9 X10*3/u L Monocytes Absolute Auto 0.9 0.1-1.2 X10*3/uL Eosinophils Absolute Auto 0.1 0.0-0.4 X10*3/u L Basophils Absolute Auto 0.0 0.0-0.2 X10*3/uL NRBC Abs Auto 0.000 0.0-0.012 X10*3/uL CO RRECTED REPORT CO RRECTED REPORT IRON PROFILE Reviewed date:07/16/2024 01:43:34 PM Interpretation: Performing Lab:[facility], [address] [place] [phone] Notes/Report: Iron 137 45-160 mcg/dL Total Iron Binding Capacity 269 228-428 mcg/dL Percent Iron Saturation 51 15-50 % Unsaturated Iron Binding 132 Ferritin Reviewed date:05/15/2024 07:29:27 PM Interpretation: Performing Lab:[facility], [address] [place] [phone] Notes/Report: Ferritin 530 20-250 ng/mL Therapeutic Phlebotomy Reviewed date:05/15/2024 07:29:59 PM Interpretation: Performing Lab:[facility], [address] [place] [phone] Notes/Report: THER/HGB TNP 14.0-18.0 g/dL Lab Results on file. Performed at [facility] on 05/15/24: Hgb: 12.5 g/dl Hct: 36.7 % THER/HCT TNP 42.0-52.0 % Therapeutic Phlebotomy Phlebotomy Performed 500 mls drawn on 05/15/24. Please note that a copy of this report has been sent to the Primary Care Physician, the ordering physician and any physician designated by patient request. SLIDE REVIEW Reviewed date:05/15/2024 07:29:14 PM Interpretation: Performing Lab:[facility], [address] [place] [phone] Notes/Report: SLIDE REVIEW VERIFIED Therapeutic Phlebotomy Reviewed date:07/16/2024 01:44:10 PM Interpretation: Performing Lab:[facility], [address] [place] [phone] Notes/Report: THER/HGB 13.0 14.0-18.0 g/dL THER/HCT TNP 42.0-52.0 % Therapeutic Phlebotomy Phlebotomy Performed 500 mls drawn on 06/12/24. Please note that a copy of this report has been sent to the Primary Care Physician, the ordering physician and any physician designated by patient request. Therapeutic Phlebotomy Reviewed date:08/08/2024 09:00:36 AM Interpretation: Performing Lab:[facility], [address] [place] [phone] Notes/Report: THER/HGB 10.2 14.0-18.0 g/dL THER/HCT TNP 42.0-52.0 % Therapeutic Phlebotomy TNP Reason: Pre-phlebotomy Hgb/Hct is below the established parameter for this patient. Please note that a copy of this report has been sent to the Primary Care Physician, the ordering physician and any physician designated by patient request. Complete Blood Count Man Dif Reviewed date:08/27/2024 11:07:53 AM Interpretation: Performing Lab:[facility], [address] [place] [phone] Notes/Report: White Blood Count 11.9 4.8-10.8 X10*3/uL Red Blood Count 3.73 4.60-5.80 X10*6/uL Hemoglobin 11.7 14.0-18.0 g/dl Hematocrit 34.8 42.0-52.0 % Mean Corpuscular Volume 93.3 80.0-98.0 fL Mean Corpuscular Hemoglobin 31.4 27.0-33.0 pg Mean Corpuscular HGB Conc 33.6 31.0-36.0 g/dl Red Cell Distribution Width 17.0 11.0-16.0 % Platelet Count 61 160-400 X10*3/uL Mean Platelet Volume 10.7 9.4-12.4 fL NRBC Pct Auto 0.0 0.0-0.2 /100WBC NRBC Abs Auto 0.000 0.0-0.012 X10*3/uL Neutrophils Percent Manual 74 45-73 % Band Neutrophils Percent 1 3-5 % Lymphocytes Percent Manual 14 20-40 % Monocytes Percent Manual 11 2-11 % Neutrophils Absolute Manual 8.9 2.0-8.3 X10*3/uL Lymphocytes Absolute Manual 1.7 1.2-4.9 X10*3/uL Monocytes Absolute Manual 1.3 0.1-1.2 X10*3/u L Platelet Estimate DECREASED NORMAL Platelet Morphology Comment NORMAL RBC Morphology NOTED Polychromasia 1+ (0-2) Tear Drop Cells 1+ (0-2) IRON PROFILE Reviewed date:08/11/2024 05:15:51 PM Interpretation: Performing Lab:[facility], [address] [place] [phone] Notes/Report: Iron 142 45-160 mcg/dL Total Iron Binding Capacity 288 228-428 mcg/dL Percent Iron Saturation 49 15-50 % Unsaturated Iron Binding 146 Ferritin Reviewed date:08/11/2024 05:16:03 PM Interpretation: Performing Lab:[facility], [address] [place] [phone] Notes/Report: Ferritin 420 20-250 ng/mL Therapeutic Phlebotomy Reviewed date:08/11/2024 05:16:13 PM Interpretation: Performing Lab:[facility], [address] [place] [phone] Notes/Report: THER/HGB TNP 14.0-18.0 g/dL Lab Results on file. Performed at [facility] on 08/08/24: Hgb: 11.7 g/dl Hct: 34.8 % THER/HCT TNP 42.0-52.0 % Therapeutic Phlebotomy TNP Reason: Pre-phlebotomy Hgb/Hct is below the established parameter for this patient. Please note that a copy of this report has been sent to the Primary Care Physician, the ordering physician and any physician designated by patient request. US abdomen comp w elastograp hy (Not yet reviewed by provider) Interpretation: Performing Lab: Notes/Report: [address] [address] Ultrasound Report Signed with Addenda Patient: Jus Thurman MR#: [id number] : 1960 Acct:[id number] Age/Sex: 64 / M ADM Date: 09/23/24 Loc: HO.US Attending Dr: Jayjay Owens MD Ordering Physician: Jayjay Owens MD Date of Service: 09/23/24 Procedure(s): US abdomen comp w elastography Accession Number(s): [id number] cc: Riky Calzada MD; Jayjay Owens MD ADDENDUM ADDENDUM #1 . Electronically signed by: Ramesh Molina MD 11/13/2024 03:36 PM EST Addendum Dictated By: Ramesh Benitez MD Addendum Signed By: <Electronically signed by Ramesh Benitez MD in OV> 11/13/24 1536 Addendum Cosigned By: DD/ TD/TT: 09/23/24 EXAMINATION: US COMPLETE ABDOMEN WITH LIVER ELASTOGRAPHY CLINICAL INFORMATION: Fatty liver COMPARISON: Ultrasound abdomen 12/27/2017 TECHNIQUE: Real-time imaging of the abdominal viscera. Noninvasive ultrasound liver fibrosis assessment is performed using Maritza ElastPQ point quantification shear wave elastography (pSWE) with a C5-2 MHz transducer. Multiple elastography samples are obtained. FINDINGS: PANCREAS: The visualized pancreatic head and body are normal in appearance. The remainder of the pancreas is obscured from visualization by the overlying bowel gas. ABDOMINAL AORTA: The mid and distal aortic segments are normal in caliber. The proximal aorta was obscured by bowel gas. INFERIOR VENA CAVA: Visualized portions are normal. LIVER: The liver is enlarged at 17.3 cm in greatest length with increased echogenicity consistent with hepatic steatosis.. No focal lesion or intrahepatic biliary duct dilatation. The right lobe measures 17.3 cm in length. The left lobe measures 13.1 cm in length. Portal flow is towards the liver (hepatopetal). Shear wave liver elastography median stiffness is 1.88 m/s (reference: normal median stiffness is 1.3 m/s or less). IQR/median stiffness to assess sampling precision is 0.02 (reference: good quality data set is IQR/median stiffness of 0.15 or less). GALLBLADDER: The gallbladder is physiologically distended without evidence of stones, sludge, polyps, wall thickening or pericholecystic fluid. COMMON BILE DUCT: Normal in caliber measuring 0.3 cm in diameter. RIGHT KIDNEY: There is a 7 mm upper pole echogenic focus and an 11 mm mid renal echogenic focus post consistent with nonobstructing calculi. No hydronephrosis. A benign upper medial 2.0 cm Bosniak class I renal cyst is noted which requires no additional imaging or follow up. No solid renal masses are seen. . The kidney measures 13.4 cm in maximum dimension. LEFT KIDNEY: No hydronephrosis. No renal calculi or focal parenchymal lesions. The kidney measures 12.8 cm in maximum dimension. 2 benign Bosniak class I renal cysts are noted each measuring about 2 cm which require no additional imaging or follow-up. No solid renal masses are seen. SPLEEN: Spleen is enlarged measuring 14.7 cm in maximum dimension. FREE FLUID: None. US/US abdomen comp w elastography IMPRESSION: 1. Mildly enlarged fatty liver with splenomegaly 2. Liver elastography: Measurements are suggestive of compensated advanced chronic liver disease but need further test for confirmation. REFERENCE: Society of Radiologists in Ultrasound Liver Stiffness Thresholds (2020): LIVER STIFFNESS THRESHOLDS: *Liver Stiffness equal or less than 1.3 m/s: High probability of being normal. *Liver Stiffness less than 1.7 m/s: In the absence of other known clinical signs, rules out compensated advanced chronic liver disease. *Liver Stiffness 1.7-2.1 m/s: Suggestive of compensated advanced chronic liver disease but need further test for confirmation. *Liver Stiffness over 2.1 m/s: Rules in compensated advanced chronic liver disease. *Liver Stiffness over 2.4 m/s: Suggestive of clinically significant portal hypertension. QUALITY OF DATA SET: *IQR/Median value equal or less than 0.15 implies a quality data set. *IQR/Median value over 0.15 implies a poor quality data set. SIGNIFICANT CHANGE FROM PRIOR EXAM: Significant change if liver stiffness measurement is 10% or greater from prior exam. OTHER CONSIDERATIONS: The stage of liver fibrosis may be overestimated in the setting of acute hepatitis, liver inflammation, elevated liver function tests, hepatic vascular congestion, obstructive cholestasis, non-fasting state, and infiltrative diseases such as amyloidosis and lymphoma. In some patients with NAFLD, the liver stiffness thresholds for compensated advanced chronic liver disease may be lower. In causes other than viral hepatitis and NAFLD, liver stiffness thresholds are not well established. Electronically signed by: Sean Child MD 10/24/2024 10:50 PM EST RP Dictated By: Sean Child MD Signed By: <Electronically signed by Sean Child MD in OV> 11/07/24 0649 DD/ 6 TD/TT: 09/23/24919 Storage Battery Inspector And Tester: [place] [address] Ultrasound Report Signed with Addenda Patient: Almita Thurman MR#: [id number] : 1960 Acct:[id number] Age/Sex: 64 / M ADM Date: 09/23/24 Loc: HO.US Attending Dr: Jayjay Owens MD Ordering Physician: Jayjay Owens MD Date of Service: 09/23/24 Procedure(s): US abd omen comp w elastography Accession Number(s): [id number] cc: Riky Calzada MD; Jayjay Owens MD ADDENDUM ADDENDUM #1 . Electronically jerman d by: Ramesh Molina MD 11/13/2024 03:36 PM EST RP Addendum Dictated By : Ramesh Benitze MD Addendum Signed By: <Electronically signed by Ramesh Benitez MD in OV> 11/13/24 1536 Addendum Cosigned By: DD/ TD/TT: 09/23/24 EXAMINATION: US COMPLETE ABDOMEN WITH LIVER ELASTOGRAPHY CLINICAL INFORMATION: Fatty liver COMPARISON: Ultrasound abdomen 12/27/2017 TECHNIQUE: Real-time imaging of the abdominal viscera. Noninvasive ultrasound liver fibrosis assessment is performed using Maritza ElastPQ point quantification shear wave elastography (pSWE) with a C5-2 MHz transducer. Multiple elastography samples are obtained. FINDINGS: PANCREAS: The visual ized pancreatic head and body are normal in appearance. The remainder of the pancreas is obscured from visualization by the overlying bowel gas. ABDOMINAL AORTA: The mid and distal aortic segments are normal in caliber. The proxima l aorta was obscured by bowel gas. INFERIOR VENA CAVA: Visualized portions are normal. LIVER: The liver is enlarged at 17.3 cm in greatest length with increased echogenici ty consistent with hepatic steatosis.. No focal lesion or intrahepat ic biliary duct dilatation. The right lobe measu res 17.3 cm in length. The left lobe measures 13.1 cm in length. Portal flow is towar ds the liver (hepatopetal). Shear wave liver elastography median stiffness is 1.88 m/s (reference: normal median stiffn ess is 1.3 m/s or less). IQR/median stiffness to assess sampling precision is 0.02 (reference: good quality data se t is IQR/median stiffness of 0.15 or less). GALLBLADDER: The gallbladder is physiologically distended without evidence of stones, sludge, polyps, wall thickening or pericholecystic fluid. COMMON BILE DUCT: No rmal in caliber measuring 0.3 cm in diameter. RIGHT KIDNEY: There is a 7 mm upper pole echogenic focus and an 11 mm mid renal echogenic focus post consistent with nonobstructing calculi. No hydronephrosis. A benign upper medial 2.0 cm Bosniak class I renal cyst is noted which requires no additional imaging or follow up. No solid renal masses a re seen. . The kidney measures 13.4 cm in maximum dimension. LEFT KIDNEY: No hydronephrosis. No renal calculi or focal parenchymal lesions. The kidney measures 12.8 cm in maximum dimension. 2 benign Bosniak class I dave l cysts are noted each measuring about 2 cm which require no additiona l imaging or follow-up. No solid renal masses are seen. SPLEEN: Spleen is enlarged measuring 14.7 cm in maximum dimension. FREE FLUID: None. U S/US abdomen comp w elastography IMPRESSION: 1. Mildly enlarged f atty liver with splenomegaly 2. Liver elastograph y: Measurements are suggestive of compensated advanced chronic bennie er disease but need further test for confirmation. REFERENCE: Society of Radiologi sts in Ultrasound Liver Stiffness Thresholds (2020): LIVER STIFFNESS THRESHOLDS: *Liver Stiffness equ al or less than 1.3 m/s: High probability of being normal. *Liver Stiffness les s than 1.7 m/s: In the absence of other known clinical signs, rule s out compensated advanced chronic liver disease. *Liver Stiffness 1.7 -2.1 m/s: Suggestive of compensated advanced chronic liver diseas e but need further test for confirmation. *Liver Stiffness ove r 2.1 m/s: Rules in compensated advanced chronic liver disease. *Liver Stiffness ove r 2.4 m/s: Suggestive of clinically significant portal hypertension. QUALITY OF DATA SET: *IQR/Median value eq ual or less than 0.15 implies a quality data set. *IQR/Median value ov er 0.15 implies a poor quality data set. SIGNIFICANT CHANGE F ROM PRIOR EXAM: Significant change i f liver stiffness measurement is 10% or greater from prior exam. OTHER CONSIDERATIONS: The stage of liver fibrosis may be overestimated in the setting of acute hepatitis, bennie er inflammation, elevated liver function tests, hepatic vascular congestion, obstructive cholestasis, non-fasting state, and infiltrat maximino diseases such as amyloidosis and lymphoma. In some patients with NAFLD, the liver stiffness thresholds for compensated advanced chronic liver disease may be lower. In causes other than viral hepatitis and NAFLD, liver stiffness thresholds are not well established. Electronically jerman d by: Sean Child MD 10/24/2024 10:50 PM [facility] Dictated By: Sean Child MD Signed By: <Electronically signed by Sean Child MD in OV> 11/07/24 0649 DD/ 08 TD/TT: 09/23/24 0920 Storage Battery Inspector And Tester: SS US duplex arterial venous co mp (Not yet reviewed by provider) Interpretation: Performing Lab: Notes/Report: [address] [address] Ultrasound Report Signed with Jv Patient: Jus Thurman MR#: [id number] : 1960 Acct:[id number] Age/Sex: 64 / M ADM Date: 09/23/24 Loc: HO.US Attending Dr: Jayjay Owens MD Ordering Physician: Jayjay Owens MD Date of Service: 09/23/24 Procedure(s): US duplex arterial venous comp Accession Number(s): [id number] cc: Riky Calzada MD; Jayjay Owens MD ADDENDUM ADDENDUM #1 . Electronically signed by: Ramesh Molina MD 11/13/2024 03:36 PM EST Addendum Dictated By: Ramesh Benitez MD Addendum Signed By: <Electronically signed by Ramesh Benitez MD in OV> 11/13/24 1536 Addendum Cosigned By: DD/ TD/TT: 09/23/24 EXAMINATION: US COMPLETE ABDOMEN WITH LIVER ELASTOGRAPHY CLINICAL INFORMATION: Fatty liver COMPARISON: Ultrasound abdomen 12/27/2017 TECHNIQUE: Real-time imaging of the abdominal viscera. Noninvasive ultrasound liver fibrosis assessment is performed using Maritza ElastPQ point quantification shear wave elastography (pSWE) with a C5-2 MHz transducer. Multiple elastography samples are obtained. FINDINGS: PANCREAS: The visualized pancreatic head and body are normal in appearance. The remainder of the pancreas is obscured from visualization by the overlying bowel gas. ABDOMINAL AORTA: The mid and distal aortic segments are normal in caliber. The proximal aorta was obscured by bowel gas. INFERIOR VENA CAVA: Visualized portions are normal. LIVER: The liver is enlarged at 17.3 cm in greatest length with increased echogenicity consistent with hepatic steatosis.. No focal lesion or intrahepatic biliary duct dilatation. The right lobe measures 17.3 cm in length. The left lobe measures 13.1 cm in length. Portal flow is towards the liver (hepatopetal). Shear wave liver elastography median stiffness is 1.88 m/s (reference: normal median stiffness is 1.3 m/s or less). IQR/median stiffness to assess sampling precision is 0.02 (reference: good quality data set is IQR/median stiffness of 0.15 or less). GALLBLADDER: The gallbladder is physiologically distended without evidence of stones, sludge, polyps, wall thickening or pericholecystic fluid. COMMON BILE DUCT: Normal in caliber measuring 0.3 cm in diameter. RIGHT KIDNEY: There is a 7 mm upper pole echogenic focus and an 11 mm mid renal echogenic focus post consistent with nonobstructing calculi. No hydronephrosis. A benign upper medial 2.0 cm Bosniak class I renal cyst is noted which requires no additional imaging or follow up. No solid renal masses are seen. . The kidney measures 13.4 cm in maximum dimension. LEFT KIDNEY: No hydronephrosis. No renal calculi or focal parenchymal lesions. The kidney measures 12.8 cm in maximum dimension. 2 benign Bosniak class I renal cysts are noted each measuring about 2 cm which require no additional imaging or follow-up. No solid renal masses are seen. SPLEEN: Spleen is enlarged measuring 14.7 cm in maximum dimension. FREE FLUID: None. US/US duplex arterial venous comp IMPRESSION: 1. Mildly enlarged fatty liver with splenomegaly 2. Liver elastography: Measurements are suggestive of compensated advanced chronic liver disease but need further test for confirmation. REFERENCE: Society of Radiologists in Ultrasound Liver Stiffness Thresholds (2019): LIVER STIFFNESS THRESHOLDS: *Liver Stiffness equal or less than 1.3 m/s: High probability of being normal. *Liver Stiffness less than 1.7 m/s: In the absence of other known clinical signs, rules out compensated advanced chronic liver disease. *Liver Stiffness 1.7-2.1 m/s: Suggestive of compensated advanced chronic liver disease but need further test for confirmation. *Liver Stiffness over 2.1 m/s: Rules in compensated advanced chronic liver disease. *Liver Stiffness over 2.4 m/s: Suggestive of clinically significant portal hypertension. QUALITY OF DATA SET: *IQR/Median value equal or less than 0.15 implies a quality data set. *IQR/Median value over 0.15 implies a poor quality data set. SIGNIFICANT CHANGE FROM PRIOR EXAM: Significant change if liver stiffness measurement is 10% or greater from prior exam. OTHER CONSIDERATIONS: The stage of liver fibrosis may be overestimated in the setting of acute hepatitis, liver inflammation, elevated liver function tests, hepatic vascular congestion, obstructive cholestasis, non-fasting state, and infiltrative diseases such as amyloidosis and lymphoma. In some patients with NAFLD, the liver stiffness thresholds for compensated advanced chronic liver disease may be lower. In causes other than viral hepatitis and NAFLD, liver stiffness thresholds are not well established. Electronically signed by: Sean Child MD 10/24/2024 10:50 PM EST RP Dictated By: Sean Cihld MD Signed By: <Electronically signed by Sean Child MD in OV> 11/07/24 0649 DD/ 6 TD/TT: 09/23/24919 Storage Battery Inspector And Tester: [place] [address] Ultrasound Report Signed with Addenda Patient: Almita Thurman MR#: [id number] : 1960 Acct:[id number] Age/Sex: 64 / M ADM Date: 09/23/24 Loc: HO.US Attending Dr: Jayjay Owens MD Ordering Physician: Jayjay Owens MD Date of Service: 09/23/24 Procedure(s): US dup adina arterial venous comp Accession Number(s): [id number] cc: Riky Calzada MD; Jayjay Owens MD ADDENDUM ADDENDUM #1 . Electronically jerman d by: Ramesh Molina MD 11/13/2024 03:36 PM EST RP Addendum Dictated By : Ramesh Benitez MD Addendum Signed By: <Electronically signed by Ramesh Benitez MD in OV> 11/13/24 1536 Addendum Cosigned By: DD/ TD/TT: 09/23/24 EXAMINATION: US COMPLETE ABDOMEN WITH LIVER ELASTOGRAPHY CLINICAL INFORMATION: Fatty liver COMPARISON: Ultrasound abdomen 12/27/2017 TECHNIQUE: Real-time imaging of the abdominal viscera. Noninvasive ultrasound liver fibrosis assessment is performed using Maritza ElastPQ point quantification shear wave elastography (pSWE) with a C5-2 MHz transducer. Multiple elastography samples are obtained. FINDINGS: PANCREAS: The visual ized pancreatic head and body are normal in appearance. The remainder of the pancreas is obscured from visualization by the overlying bowel gas. ABDOMINAL AORTA: The mid and distal aortic segments are normal in caliber. The proxima l aorta was obscured by bowel gas. INFERIOR VENA CAVA: Visualized portions are normal. LIVER: The liver is enlarged at 17.3 cm in greatest length with increased echogenici ty consistent with hepatic steatosis.. No focal lesion or intrahepat ic biliary duct dilatation. The right lobe measu res 17.3 cm in length. The left lobe measures 13.1 cm in length. Portal flow is towar ds the liver (hepatopetal). Shear wave liver elastography median stiffness is 1.88 m/s (reference: normal median stiffn ess is 1.3 m/s or less). IQR/median stiffness to assess sampling precision is 0.02 (reference: good quality data se t is IQR/median stiffness of 0.15 or less). GALLBLADDER: The gallbladder is physiologically distended without evidence of stones, sludge, polyps, wall thickening or pericholecystic fluid. COMMON BILE DUCT: No rmal in caliber measuring 0.3 cm in diameter. RIGHT KIDNEY: There is a 7 mm upper pole echogenic focus and an 11 mm mid renal echogenic focus post consistent with nonobstructing calculi. No hydronephrosis. A benign upper medial 2.0 cm Bosniak class I renal cyst is noted which requires no additional imaging or follow up. No solid renal masses a re seen. . The kidney measures 13.4 cm in maximum dimension. LEFT KIDNEY: No hydronephrosis. No renal calculi or focal parenchymal lesions. The kidney measures 12.8 cm in maximum dimension. 2 benign Bosniak class I dave l cysts are noted each measuring about 2 cm which require no additiona l imaging or follow-up. No solid renal masses are seen. SPLEEN: Spleen is enlarged measuring 14.7 cm in maximum dimension. FREE FLUID: None. U S/US duplex arterial venous comp IMPRESSION: 1. Mildly enlarged f atty liver with splenomegaly 2. Liver elastograph y: Measurements are suggestive of compensated advanced chronic bennie er disease but need further test for confirmation. REFERENCE: Society of Radiologi sts in Ultrasound Liver Stiffness Thresholds (2019): LIVER STIFFNESS THRESHOLDS: *Liver Stiffness equ al or less than 1.3 m/s: High probability of being normal. *Liver Stiffness les s than 1.7 m/s: In the absence of other known clinical signs, rule s out compensated advanced chronic liver disease. *Liver Stiffness 1.7 -2.1 m/s: Suggestive of compensated advanced chronic liver diseas e but need further test for confirmation. *Liver Stiffness ove r 2.1 m/s: Rules in compensated advanced chronic liver disease. *Liver Stiffness ove r 2.4 m/s: Suggestive of clinically significant portal hypertension. QUALITY OF DATA SET: *IQR/Median value eq ual or less than 0.15 implies a quality data set. *IQR/Median value ov er 0.15 implies a poor quality data set. SIGNIFICANT CHANGE F ROM PRIOR EXAM: Significant change i f liver stiffness measurement is 10% or greater from prior exam. OTHER CONSIDERATIONS: The stage of liver fibrosis may be overestimated in the setting of acute hepatitis, bennie er inflammation, elevated liver function tests, hepatic vascular congestion, obstructive cholestasis, non-fasting state, and infiltrat maximino diseases such as amyloidosis and lymphoma. In some patients with NAFLD, the liver stiffness thresholds for compensated advanced chronic liver disease may be lower. In causes other than viral hepatitis and NAFLD, liver stiffness thresholds are not well established. Electronically jerman d by: Sean Child MD 10/24/2024 10:50 PM [facility] Dictated By: Sean Child MD Signed By: <Electronically signed by Sean Child MD in OV> 11/07/24 0649 DD/ 6 TD/TT: 09/23/24919 Storage Battery Inspector And Tester: GENET Therapeutic Phlebotomy Reviewed date:12/02/2024 10:30:39 PM Interpretation: Performing Lab:[facility], [address] [place] [id number] Notes/Report: THER/HGB 11.0 14.0-18.0 g/dL THER/HCT TNP 42.0-52.0 % Therapeutic Phlebotomy TNP Reason: Pre-phlebotomy Hgb/Hct is below the established parameter for this patient. Please note that a copy of this report has been sent to the Primary Care Physician, the ordering physician and any physician designated by patient request. Reason For Referral No Information Medications Medication SIG (Take, Route, Frequency, Duration) [...] Nonsmoker; 4-6 beers several times per week Nonsmoker; 4-6 beers several times per week Nonsmoker; 4-6 beers several times per week Problems Problem Type SNOMED Code ICD Code Onset Dates Problem Status W/U Status Risk Notes Problem Colon cancer screening (792913244) Colon cancer screening (Z12.11) Active confirmed Problem 719502903 Encounter for screening for malignant neoplasm of colon (Z12.11) Active confirmed Problem 508037715 History of adenomatous polyp of colon (Z86.010) Active confirmed Problem 578554766 Abdominal bloati ng (R14.0) Active confirmed Problem History of polyp of colon (situation) (339839646) Personal history of colonic polyps (Z86.010) Active confirmed Problem 814158678 Periumbilical pa in (R10.33) Active confirmed Problem Diverticular disease of colon (751076268) Diverticulosis of large intestine without perforation or abscess without bleeding (K57.30) Active confirmed Problem Hepatosplenomegaly (65681480) Hepatomegaly with splenomegaly, not elsewhere classified (R16.2) Active confirmed Problem Fatty liver (421313629) Fatty liver (K76.0) Active confirmed Problem Hepatitis C antibody test positive (448086491) Hepatitis C antibody test positive (R76.8) Active confirmed Problem Iron excess (78614399) Iron excess (E83.19) Active confirmed Problem Thrombocytopenia (095608496) Thrombocytopenia (D69.6) Active confirmed Problem Blood chemistry abnormal (257175994) Elevated ferritin level (R79.89) Active confirmed Vital Signs Blood pressure diastolic 00 mm Hg 08/27/2024 Height 68 in 08/27/2024 Blood pressure systolic 00 mm Hg 08/27/2024 Weight 223 lbs 08/27/2024 BMI 33.90 kg/m2 08/27/2024 Encounters Encounter Location Date Provider Diagnosis [facility] Outpatient [address] [place], [place] [phone] 04/10/2024 Jayjay Owens Encounter for screen ing colonoscopy Z12.11 ; Colon polyps K63.5 ; Diverticulosis of large intestine without perforation or abscess without bleeding K57.30 and Other hemorrhoids K64.8 [facility] [address] [place] [phone] 08/27/2024 Jayjay Owens History of adenomato us polyp of colon Z86.010 ; Hepatomegaly with splenomegaly, not elsewhere classified R16.2 ; Encounter for screening for malignant neoplasm of colon Z12.11 ; Fatty liver K76.0 ; Hepatitis C antibody test positive R76.8 and Elevated ferritin level R79.89 [facility] [address] [place] [phone] 02/18/2024 Jayjay Owens Iron excess E83.19 ; Thrombocytopenia D69.6 and Fatty liver K76.0 [facility] [address] [address] 04/16/2024 Jayjay Owens [facility] [address] [address] 09/09/2024 Jayjay Owens [facility] [address] [address] 10/31/2024 Jayjay Owens Assessments Encounter Date Diagnosis (ICD Code) Assessment Notes Treatment Notes Treatment Clinical Notes Section Notes 04/10/2024 Encounter for screening colonoscopy (ICD-10 - Z12.11) 04/10/2024 Colon polyps (ICD-10 - K63.5) 08/27/2024 History of adenomatous polyp of colon [...] to keep you advised of his progress. 02/18/2024 Iron excess (ICD-10 - E83.19) 02/18/2024 Thrombocytopenia (ICD-10 - D69.6) 04/10/2024 Diverticulosis of large intestine without perforation or abscess without bleeding (ICD-10 - K57.30) 08/27/2024 Encounter for screening for malignant neoplasm [...] to keep you advised of his progress. 02/18/2024 Fatty liver (ICD-10 - K76.0) 04/10/2024 Other hemorrhoids (ICD-10 - K64.8) 08/27/2024 Fatty liver (ICD-10 - K76.0) Overall, [...] advised of his progress. Plan Of Treatment Pending Test Test Name Order Date LIVER PROFILE 08/27/2024 LIVER PROFILE 01/09/2024 LIVER PROFILE 02/18/2024 IRON + IBC (FE) 01/09/2024 IRON + IBC (FE) 02/18/2024 CBC w DIFF 02/18/2024 CBC w DIFF 01/09/2024 HEMOCHROMATOSIS (C282Y) 01/09/2024 HEPATITIS C VIRAL LOAD 01/09/2024 FLUOR. ANTINUCLEAR AB SCREEN (DAMARI) 12/28 Prothrombin Time INR 08/27/2024 Liver Fibrosis Pnl 08/27/2024 US abdomen comp w elastography US abdomen comp w elastography US duplex arterial venous comp US duplex arterial venous comp Future Test Test Name Order Date COLONOSCOPY 11/02/2017 COLONOSCOPY 01/09/2024 Next Appt Details Provider Name:Jayjay Castle Owens , 08/28/2025 09:00:00 AM, [address] [place] [address], [address], [place], [address], Insurance Providers Payer Name Payer Address Payer Phone Subscriber Number Group Number Insured Name Patient Relationship to Insured Coverage Start Date Coverage End Date MEDICARE OF [place] [address] [facility] [place] [address] [id number] JUS THURMAN Self - patient is the insured [employer] ATT[employer] CLAIMS [address] [place] [address] [id number] JUS THURMAN Self - patient is the insured Medical (General) History Medical History History ICD Code Denies NC,DM,CVA,Lung disease,renal dise ase Hypertension Sleep apnea Hyperlipidemia Screening colonoscopy with a tubular adenoma removed in 2009 and a negative screening colonoscopy in 2017 Screening colonoscopy in March of 2024 revealed only a small tubular adenoma and a hyperplastic polyp Elevated ferritin level but normal iron saturation found in 2023. Hemochromatosis genetic testing was negative for C282Y, but homozygous for H63D gene. Treated with phlebotomies [facility] + HCV Antibody but Negative HCV Viral Lo ad Surgical History Surgery Date(Month/Year) Hernia repair age 5 Ear surgery- left
--- OUTSIDE RECORDS SUMMARY | 2025-02-03 11:57 | XMS_ITS ---
Author Organization [facility] Address [address] [place] [phone] Care Team Providers Care Mixing And Dispensing Supervisor Name Role Phone Riky Calzada MD Primary Care Provider Jayjay Daley [phone] Encounters Encounter Location Date Provider Diagnosis [facility] [address] [place] [address] 10/31/2024 Jayjay Owens Plan Of Treatment Next Appt Details Provider Name:Jayjay Owens , 08/28/2025 09:00:00 AM, [address], [address], [place], [address], Progress Notes * MARY THURMANDOB: [birth year] (64 yo M)Acc No.[id number]:10/31/2024 Patient:?MARY THURMAN :1960???Age:64 Y???Sex:Male Address:[address] [place] [address] * true * Date:? Generated for Printi ng/Faniting/eTransmitting on:?02/03/2025 11:56 AM EDT
--- OUTSIDE RECORDS SUMMARY | 2025-02-03 11:58 | XMS_ITS ---
Author Organization Riky Calzada MD Address [address] [place], [place] [id number] Care Team Providers Care Damage Inside Adjuster Name Role Phone Riky Calzada Primary Care Provider [phone] Results Component Value Reference Range Notes Complete Blood Count Auto Di ff Reviewed date:09/11/2024 02:27:30 PM Interpretation: Performing Lab:[facility], [address] [place] [phone] Notes/Report: White Blood Count 11.4 4.8-10.8 X10*3/uL [...] Date Provider Diagnosis Riky Calzada MD [address] [place] [phone] 09/10/2024 Riky Calzada Thrombocytopenia D69 .6 Assessments Encounter Date Diagnosis (ICD Code) Assessment Notes Treatment Notes Treatment Clinical Notes Section Notes 09/10/2024 Thrombocytopenia (ICD-10 - D69.6) Plan Of Treatment Next Appt Details Provider Name:Riky alvarez, 02/10/2025 02:00:00 PM, [address] [place] [address], [phone], Provider Name:Riky alvarez, 08/07/2025 07:15:00 AM, [address] [place] [address], [phone], Provider Name:Riky alvarez, 08/14/2025 01:00:00 PM, [address] [place] [address], [phone], Progress Notes * Jus THURMANDOB: [birth year] (64 yo M)Acc No.[id number]:09/10/2024 Progress Note Patient:?Bruno Jus Mancuso Provider:?Riky Calzada MD :1960???Age:64 Y???Sex:Male Chad e:09/10/2024 Address:[address] [place] [address] , [id number] Subjective: * Chief Complaints: * ???CBC * Medical History:? * Surgical History:? * Hospitalization/Major Diagno stic Procedure:? * Medications:? Objective: Assessment: * Assessment: 1.?Thrombocytopenia - D69.6 (Primary)? Plan: * Treatment: * Procedure Codes:?34766 VENIP UNCT, ROUTINE* * * Sign off status: Completed true * Provider:?Riky Calzada MD Date:?1 Generated for Cher nugent/Juli/eTransmitting on:?02/03/2025 11:57 AM EDT
[2025-02-03 13:33] LABS: Reflex LDLD? No
== END 2025-02-03 10:37 | disposition home or self-care (01) ==
LOC: HO.LNP 10:36
PROVIDERS: Visit Provider Internal Medicine
DX: R73.03 Prediabetes (principal); E78.00 Pure hypercholesterolemia, unspecified
CPT/HCPCS: 80061; 80076; 82947; 83036

== ENCOUNTER 2025-02-27 11:01 | Outpatient (REF) | payer MEDICARE, SELFPAY ==
--- OUTSIDE RECORDS SUMMARY | 2025-02-27 12:26 | XMS_ITS ---
Author Organization [facility] Address [address] [place] [address] Care Team Providers Care Pickle Cutter Name Role Phone Riky Calzada MD Primary Care Provider Jayjay Daley [phone] Encounters Encounter Location Date Provider Diagnosis [facility] [address] [place] [address] 10/31/2024 Jayjay Owens Plan Of Treatment Next Appt Details Provider Name:Jayjay Owens , 08/28/2025 09:00:00 AM, [address], [address], [place], [address], Progress Notes * MARY THURMANDOB: [birth year] (64 yo M)Acc No.[id number]:10/31/2024 Patient:?MARY THURMAN :1960???Age:64 Y???Sex:Male Address:[address] [place] [address] * true * Date:? Generated for Printi ng/Akilahg/eTransmitting on:?02/27/2025 12:26 PM EDT
--- OUTSIDE RECORDS SUMMARY | 2025-02-27 12:26 | XMS_ITS ---
Author Organization [facility] Address [address] [place] [address] Care Team Providers Care Commercial Fishing Vessel Operator Name Role Phone Riky Calazda MD Primary Care Provider Jayjay Daley [phone] Encounters Encounter Location Date Provider Diagnosis [facility] [address] [place] [address] 09/09/2024 Jayjay Owens Plan Of Treatment Next Appt Details Provider Name:Jayjay Owens , 08/28/2025 09:00:00 AM, [address], [address], [place], [address], Progress Notes * MARY THURMANDOB: [birth year] (64 yo M)Acc No.[id number]:09/09/2024 Patient:?MARY THURMAN :1960???Age:64 Y???Sex:Male Address:[address] [place] [address] * true * Date:? Generated for Printi ng/Faniting/eTransmitting on:?02/27/2025 12:26 PM EDT
--- OUTSIDE RECORDS SUMMARY | 2025-02-27 12:26 | XMS_ITS ---
Author Organization Riky Calzada MD Address [address] [place], [place] [phone] Care Team Providers Care Correctional Treatment Specialist Name Role Phone Riky Calzada Primary Care Provider [phone] Results Component Value Reference Range Notes Liver Panel Reviewed date:02/03/2025 02:27:11 PM Interpretation: Performing Lab:[facility], [address] [place] [phone] Notes/Report: Bilirubin Total 0.8 0.0-1.0 mg/dL Bilirubin Direct 0.3 0.0-0.5 mg/dL Aspartate Amino Transferase 33 5-37 U/L Alanine Aminotransferase 33 0-40 U/L Total Protein 7.1 6.5-8.0 g/dL Albumin Level 4.4 3.5-5.0 g/dL Alkaline Phosphatase 54 39-117 U/L Glucose Fasting Reviewed date:02/03/2025 05:58:46 PM Interpretation: Performing Lab:[facility], [address] [place] [phone] Notes/Report: Glucose Fasting 97 60-99 mg/dL Lipid Panel with Reflex Reviewed date:02/03/2025 06:00:10 PM Interpretation: Performing Lab:[address] [phone] Notes/Report: Triglycerides 123 <150 mg/dL Desirable Triglyceride: [...] A1c Reviewed date:02/03/2025 12:36:49 PM Interpretation: Performing Lab:[facility], [address] [place] [phone] Notes/Report: Hemoglobin A1c % 5.6 <6.0 % [...] average glucose, using the formula of the Z2G-Uwfdavg Average Glucose study (ADAG), Diabetes Care, Vol.31,#8, Jun. 2007 REASON FOR VISIT fasting lipids Encounters Encounter Location Date Provider Diagnosis Riky Calzada MD [address] [place] [address] [place] [phone] 02/03/2025 Riky Calzada Prediabetes R73.09 a nd Pure hypercholesterolemia E78.00 Assessments Encounter Date Diagnosis (ICD Code) Assessment Notes Treatment Notes Treatment Clinical Notes Section Notes 02/03/2025 Prediabetes (ICD-10 - R73.09) 02/03/2025 Pure hypercholesterolemia (ICD-10 - E78.00) Plan Of Treatment Next Appt Details Provider Name:Riky alvarez, 08/07/2025 07:15:00 AM, [address] [place] [address], [address], [phone], Provider Name:Riky alvarez, 08/14/2025 01:00:00 PM, [address] [place] [address], [address], [phone], Progress Notes * Jus CARRDOB: [birth year] (64 yo M)Acc No.[id number]:02/03/2025 Progress Note Patient:?Jus CARR Provider:?Riky Calzada MD :1960???Age:64 Y???Sex:Male Chad e:02/03/2025 Address:[address] [place], [place] [phone] Subjective: * Chief Complaints: * ???1. Fasting lipids. * Medical History:? Objective: * Vitals:? Assessment: * Assessment: 1.?Prediabetes - R73.09 (Demetria jessica)???2.?Pure hypercholesterolemia - E78.00??? Plan: * Treatment: 2.?Pure hypercholesterolemia ?LAB: Liver Panel (Collection Date & Time - 02/03/2025 08:00 AM) ?LAB: Glucose Fasting (Collection Date & Time - 02/03/2025 08:00 AM) ?LAB: Lipid Panel with Reflex (Collection Date & Time - 02/03/2025 08:00 AM) ?LAB: Hemoglobin A1c (Collection Date & Time - 02/03/2025 08:00 AM) * Procedure Codes:?47646 VENIP UNCT, ROUTINE* * * The named appointment provid er may or may not be the originator of this progress note, and it is not deemed complete until electronically signed by the appointment provider. Sign off status: Pending * Provider:?Riky Calzada MD Date:?0 02/03/2025 Generated for Luani ng/Akilahg/eTransmitting on:?02/27/2025 12:26 PM EDT
--- OUTSIDE RECORDS SUMMARY | 2025-02-27 12:26 | XMS_ITS ---
Author Organization [facility] Address [address] [place] [address] Care Team Providers Care Livery Car Driver Name Role Phone Riky Calzada MD Primary Care Provider Jayjay Daley Unavailable [phone] Allergies No Known Allergies REASON FOR VISIT [...] 08/27/2024 Encounters Encounter Location Date Provider Diagnosis [facility] [address] [place] [address] 08/27/2024 Jayjay Owens History of adenomato us [...] Provider Name:Jayjay Owens , 08/28/2025 09:00:00 AM, [address] [place] [address], [address], [address], Progress Notes * CUCAJUSDOB: [birth year] (64 yo M)Acc No.[id number]:08/27/2024 Progress Notes Patient:?JUS THURMAN Provider:?Jayjay Owens MD :1960???Age:64 Y???Sex:Male Chad e:08/27/2024 Address:[address] [place] [address] Pcp:Riky Calzada MD Subjective: * Chief Complaints: [...] point),?Points?6,?Interpretation?Positive.?Miscellaneous:?Marital status: . 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 ???Nonsmoker; 4-6 beers several times per [...] Procedure Codes:?3017F COLOR ECTAL CA SCREEN DOC [id number] TOBACCO NON-TYDQF9812 BP SCR NOT PRFRM REC REASON NOS [...] MD Date:? 024 Generated for Cher nugent/Juli/eTransmitting on:?02/27/2025 12:26 PM EDT History and Physical Notes * [...] with just that genetic makeup. Of note, Jsu does continue to have some beers during [...]
--- OUTSIDE RECORDS SUMMARY | 2025-02-27 12:27 | XMS_ITS ---
Author Organization Riky Calzada MD Address [address] [place], [place] [phone] Care Team Providers Care Career Technical Counselor Name Role Phone Riky Calzada Primary Care Provider [phone] Allergies Allergen (clinical drug ingredient) Drug/Non Drug [...] Date Provider Diagnosis Riky Calzada MD [address] [place] [address] Drive [address] [place], [place] [phone] 02/10/2025 Riky Calzada Hereditary hemochromatosis E83.110 and [...] Details Provider Name:Riky alvarez, 08/07/2025 07:15:00 AM, [address] [place] [address], [address], [place], [place], [phone], Provider Name:Riky alvarez, 08/14/2025 01:00:00 PM, [address] [place] [address], [address], [place], [place], [phone], Progress Notes * Jus THURMANDOB: [birth year] (64 yo M)Acc No.[id number]:02/10/2025 Progress Notes Patient:?Jus THURMAN Provider:?Riky Calzada MD :1960???Age:64 Y???Sex:Male Chad e:02/10/2025 Address:[address] [place], [place] [phone] Subjective: * Chief Complaints: * ???6 month * HPI: ???Symptom(s):?patient is a 64 yo male here for 6 month follow up visit/ here for follow up. sore all over. shoulder./ has cut back on alcohol quite a bit. * ROS:?General/Constitutional:?Denies?Chills.?Denies?Fatigue.?Denies?Fever.?ENT:?Denies?Sore throat.?Respiratory:?Denies?Cough.?Denies?Shortness of breath at rest.?Denies?Shortness of breath with exertion.?Gastrointestinal:?Denies?Diarrhea.?Denies?Nausea.? * Medical History:? * Surgical History:? * Hospitalization/Major Diagno stic Procedure:? * Medications:?TakingAspir-Low 81 MG Tablet Delayed Release [...] sushant aleman[Allergies Verified] Objective: * Vitals:?Ht: 68, Wt: 233, BMI :35.42, BP:128/60, Wt-k.69. weight is up 8 pounds since 08-12-24. * Examination: ???General Examination: ?GENERAL APPEARANCE:?well developed, well nourished.?HEAD:?normocephalic.?EYES:?RIGHT EYE with a white cyst on the edge of upper lid/.?SKIN:?good turgor.?HEART:?regular rate and rhythm, no murmurs, rubs, gallops.?LUNGS:?no wheezes, rales, rhonchi, good air movement, clear to auscultation bilaterally.?ABDOMEN:?no hepatosplenomegaly, no rebound tenderness.? Assessment: * Assessment: 1.?Hereditary hemochromatosi s - E83.110 (Primary)???2.?Elevated LFTs - R79.89??? Plan: * Treatment: 2.?Elevated LFTs? Notes: is doing well with cutting back on alcohol?? * Procedure Codes:? * * Sign off status: Completed true * Provider:?Riky Calzada MD Date:?0 02/10/2025 Generated for [facility] ng/Faniting/eTransmitting on:?02/27/2025 12:27 PM EDT History and Physical Notes * [...]
--- OUTSIDE RECORDS SUMMARY | 2025-02-27 12:27 | XMS_ITS | Patient Health Record ---
Author Organization [facility] Address [address] [place] [address] Care Team Providers Care Machine Cloth Measurer Name Role Phone Zheng MADRID, Riky Primary Care Provider Jayjay Daley Unavailable [phone] Allergies No Known Allergies Results Component Value Reference Range Notes Therapeutic Phlebotomy Reviewed date:02/28/2024 10:58:32 PM Interpretation: Performing Lab:[facility], [address] [place] [phone] Notes/Report: THER/HGB 13.1 14.0-18.0 g/dL THER/HCT TNP 42.0-52.0 % Therapeutic Phlebotomy Phlebotomy Performed 500 mls drawn on 02/28/24. Please note that a copy of this report has been sent to the Primary Care Physician, the ordering physician and any physician designated by patient request. Therapeutic Phlebotomy Reviewed date:04/07/2024 01:00:55 PM Interpretation: Performing Lab:[facility], [address] [place] [phone] Notes/Report: THER/HGB 11.5 14.0-18.0 g/dL THER/HCT TNP 42.0-52.0 % Therapeutic Phlebotomy TNP Reason: Pre-phlebotomy Hgb/Hct is below the established parameter for this patient. Please note that a copy of this report has been sent to the Primary Care Physician, the ordering physician and any physician designated by patient request. Pathology Reviewed date:04/21/2024 11:04:07 PM Interpretation: Performing Lab:[facility], [address] [place] [phone] Notes/Report: ---- Name: Jus Thurman Age/Sex: 63/M : 1960 Unit#: [id number] Attend Dr: Jayjay Owens Re04/10/24 Status : [facility] Location: [facility] Disch: ---- SPEC : [id number] RECD : 04/10/24-1041 STATUS: [facility] NUM: [id number] IRMA: 04/10/24-1015 [facility] DR: Jayjay Owens ENTERED: 04/10/24-10 51 [...] B. CEDS Copies To: Riky Calzada MD [address] [place] [address] [place] [address] Jayjay Owens [address] [place] [address] [id number] [place] [address] CONTINUED ON NEXT PAGE ---- Name: Jus Thurman Age/Sex: 63/M : 1960 Unit#: [id number] Attend Dr: Jayjay Owens Re04/10/24 Status : [facility] Location: [facility] Disch: ---- SPEC : [id number] RECD : 04/10/24-1041 STATUS: [facility] NUM: [id number] IRMA: 04/10/24-1015 [facility] DR: Jayjay Owens ENTERED: 04/10/24- 51 SP TYPE: Surgical OTHR DR: Riky Calzada MD ORDERED: YARA Roman/Marlyn Templeton Micro L4/2 ---- Signed (signature on file) Obey__ Roberto Rodriguez MD 04/12/24 0641 ---- END OF REPORT Complete Blood Count Auto Di ff Reviewed date:07/16/2024 01:43:57 PM Interpretation: Performing Lab:[facility], [address] [place] [phone] Notes/Report: White Blood Count 11.0 4.8-10.8 X10*3/uL [...] 0.0-0.2 /100WBC Neutrophils Absolute Auto 7.1 2.0-8.3 x10*3/uL Imm Gran Abs Auto 0.52 0.00-0.03 X10*3/uL Lymphocytes Absolute Auto 2.4 1.2-4.9 X10*3/uL Monocytes Absolute Auto 0.9 0.1-1.2 X10*3/uL Eosinophils Absolute Auto 0.1 0.0-0.4 X10*3/uL Basophils Absolute Auto 0.0 0.0-0.2 X10*3/uL NRBC [...] 0.0-0.2 /100WBC Neutrophils Absolute Auto 7.1 2.0-8.3 x10*3/uL Imm Gran Abs Auto 0.52 0.00-0.03 X10*3/uL Lymphocytes Absolute Auto 2.4 1.2-4.9 X10*3/uL Monocytes Absolute Auto 0.9 0.1-1.2 X10*3/uL Eosinophils Absolute Auto 0.1 0.0-0.4 X10*3/uL Basophils Absolute Auto 0.0 0.0-0.2 X10*3/uL NRBC Abs Auto 0.000 0.0-0.012 X10*3/uL CO RRECTED REPORT CO RRECTED REPORT IRON PROFILE Reviewed date:07/16/2024 01:43:34 PM Interpretation: Performing Lab:[facility], [address] [place] [phone] Notes/Report: Iron 137 45-160 mcg/dL Total Iron Binding Capacity 269 228-428 mcg/dL Percent Iron Saturation 51 15-50 % Unsaturated Iron Binding 132 Ferritin Reviewed date:05/15/2024 07:29:27 PM Interpretation: Performing Lab:[facility], [address] [place] [phone] Notes/Report: Ferritin 530 20-250 ng/mL Therapeutic Phlebotomy Reviewed date:05/15/2024 07:29:59 PM Interpretation: Performing Lab:[facility], [address] [place] [phone] Notes/Report: THER/HGB TNP 14.0-18.0 g/dL Lab Results on file. Performed at [facility] on 05/15/24: Hgb: 12.5 g/dl Hct: 36.7 % THER/HCT TNP 42.0-52.0 % Therapeutic Phlebotomy Phlebotomy Performed 500 mls drawn on 05/15/24. Please note that a copy of this report has been sent to the Primary Care Physician, the ordering physician and any physician designated by patient request. SLIDE REVIEW Reviewed date:05/15/2024 07:29:14 PM Interpretation: Performing Lab:[facility], [address] [place] [phone] Notes/Report: SLIDE REVIEW VERIFIED Therapeutic Phlebotomy Reviewed date:07/16/2024 01:44:10 PM Interpretation: Performing Lab:[facility], [address] [place] [phone] Notes/Report: THER/HGB 13.0 14.0-18.0 g/dL THER/HCT TNP 42.0-52.0 % Therapeutic Phlebotomy Phlebotomy Performed 500 mls drawn on 06/12/24. Please note that a copy of this report has been sent to the Primary Care Physician, the ordering physician and any physician designated by patient request. Therapeutic Phlebotomy Reviewed date:08/08/2024 09:00:36 AM Interpretation: Performing Lab:[facility], [address] [place] [phone] Notes/Report: THER/HGB 10.2 14.0-18.0 g/dL THER/HCT TNP 42.0-52.0 % Therapeutic Phlebotomy TNP Reason: Pre-phlebotomy Hgb/Hct is below the established parameter for this patient. Please note that a copy of this report has been sent to the Primary Care Physician, the ordering physician and any physician designated by patient request. Complete Blood Count Man Dif Reviewed date:08/27/2024 11:07:53 AM Interpretation: Performing Lab:[facility], [address] [place] [phone] Notes/Report: White Blood Count 11.9 4.8-10.8 X10*3/uL [...] 1.2-4.9 X10*3/uL Monocytes Absolute Manual 1.3 0.1-1.2 X10*3/uL Platelet Estimate DECREASED NORMAL Platelet Morphology Comment NORMAL RBC Morphology NOTED Polychromasia 1+ (0-2) Tear Drop Cells 1+ (0-2) IRON PROFILE Reviewed date:08/11/2024 05:15:51 PM Interpretation: Performing Lab:[address] [phone] Notes/Report: Iron 142 45-160 mcg/dL Total Iron Binding Capacity 288 228-428 mcg/dL Percent Iron Saturation 49 15-50 % Unsaturated Iron Binding 146 Ferritin Reviewed date:08/11/2024 05:16:03 PM Interpretation: Performing Lab:[facility], [address] [place] [phone] Notes/Report: Ferritin 420 20-250 ng/mL Therapeutic Phlebotomy Reviewed date:08/11/2024 05:16:13 PM Interpretation: Performing Lab:[address] [phone] Notes/Report: THER/HGB TNP 14.0-18.0 g/dL Lab Results on file. Performed at [facility] on 08/08/24: Hgb: 11.7 g/dl Hct: 34.8 [...] reviewed by provider) Interpretation: Performing Lab: Notes/Report: [address] [address] Ultrasound Report Signed with Addenda Patient: Jus Thurman MR#: [id number] : 1960 Acct:[id number] Age/Sex: 64 / M ADM Date: 09/23/24 Loc: HO.US Attending Dr: Jayjay Owens MD Ordering Physician: Jayjay Owens MD Date of Service: 09/23/24 Procedure(s): US abdomen comp w elastography Accession Number(s): [id number] cc: Riky Calzada MD; Jayjay Owens MD ADDENDUM ADDENDUM #1 . Electronically signed by: Ramesh oMlina MD 11/13/2024 03:36 PM EST Addendum Dictated [...] by: Sean Child MD 10/24/2024 10:50 PM [facility] Dictated By: Sean Child MD Signed By: <Electronically signed by Sean Child MD in OV> 11/07/24 0649 DD/ 6 TD/TT: 09/23/24919 Director Of Mobile Marketing: [address] [address] Ultrasound Report Signed with Addenda Patient: Almita Thurman MR#: [id number] : 1960 Acct:[id number] Age/Sex: 64 / M ADM Date: 09/23/24 Loc: HO.US Attending Dr: Jayjay Owens MD Ordering Physician: Jayjay Owens MD Date of Service: 09/23/24 Procedure(s): US abd omen comp w elastography Accession Number(s): [id number] cc: Riky Calzada MD; Jayjay Owens MD ADDENDUM ADDENDUM #1 . Electronically jerman d by: Ramesh Molina MD 11/13/2024 03:36 PM EST Addendum Dictated By : Ramesh Benitez MD Addendum Signed By: <Electronically signed by Ramesh Benitez MD in OV> 11/13/24 1536 Addendum Cosigned By: DD/ TD/TT: 09/23/24 EXAMINATION: US COMPLETE ABDOMEN WITH LIVER ELASTOGRAPHY CLINICAL INFORMATION: Fatty liver COMPARISON: Ultrasound abdomen 12/27/2017 TECHNIQUE: Real-time imaging of the abdominal viscera. Noninvasive ultrasound liver fibrosis assessment is performed using Marizta ElastPQ point quantification shear wave elastography (pSWE) [...] OV> 11/07/24 0649 DD/ 6 TD/TT: 09/23/24919 Director Of Mobile Marketing: US duplex arterial venous co mp (Not yet reviewed by provider) Interpretation: Performing Lab: Notes/Report: [address] [address] Ultrasound Report Signed with Addenda Patient: Jus Thurman MR#: [id number] : 1960 Acct:[id number] Age/Sex: 64 / M ADM Date: 09/23/24 Loc: . Attending Dr: Jayjay Owens MD Ordering Physician: Jayjay Owens MD Date of Service: 09/23/24 Procedure(s): US duplex arterial venous comp Accession Number(s): [id number] cc: Riky Calzada MD; Jayjay Owens MD ADDENDUM ADDENDUM #1 . Electronically signed by: Ramesh Molina MD 11/13/2024 03:36 PM EST RP Addendum Dictated By: Ramesh Benitez MD Addendum [...] by: Sean Child MD 10/24/2024 10:50 PM [facility] Dictated By: Sean Child MD Signed By: <Electronically signed by Sean Child MD in OV> 11/07/24 0649 DD/ 08 TD/TT: 09/23/24 0920 Director Of Mobile Marketing: [address] [address] Ultrasound Report Signed with Addenda Patient: Almita Thurman MR#: [id number] : 1960 Acct:[id number] Age/Sex: 64 / M ADM Date: 09/23/24 Loc: HO.US Attending Dr: Jayjay Owens MD Ordering Physician: Jayjay Owens MD Date of Service: 09/23/24 Procedure(s): US dup adina arterial venous comp Accession Number(s): [id number] cc: Riky Calzada MD; Jayjay Owens MD ADDENDUM ADDENDUM #1 . Electronically jerman d by: Ramesh Molina MD 11/13/2024 03:36 PM EST Addendum Dictated By : Ramesh Benitez MD [...] by: Sean Child MD 10/24/2024 10:50 PM [facility] Dictated By: Sean Child MD Signed By: <Electronically signed by Sean Child MD in OV> 11/07/2449 DD/ 6 TD/TT: 09/23/24919 Director Of Mobile Marketing: GENET Therapeutic Phlebotomy Reviewed date:12/02/2024 10:30:39 PM Interpretation: Performing Lab:[facility], [address] [place] [phone] Notes/Report: THER/HGB 11.0 14.0-18.0 g/dL THER/HCT TNP 42.0-52.0 % Therapeutic Phlebotomy TNP Reason: Pre-phlebotomy Hgb/Hct is below the established parameter for this patient. Please note that a copy of this report has been sent to the Primary Care Physician, the ordering physician and any physician designated by patient request. Therapeutic Phlebotomy (Not yet reviewed by provider) Interpretation: Performing Lab:[facility], [address] [place] [phone] Notes/Report: THER/HGB 12.0 14.0-18.0 g/dL THER/HCT TNP 42.0-52.0 % Therapeutic [...] Status Risk Notes Problem Colon cancer screening (864012388) Colon cancer screening (Z12.11) Active confirmed Problem 144955857 Encounter for screening for malignant neoplasm of colon (Z12.11) Active confirmed Problem 644473462 History of adenomatous polyp of colon (Z86.010) Active confirmed Problem 360235552 Abdominal bloati ng (R14.0) Active confirmed Problem History of polyp of colon (situation) (391607713) Personal history of colonic polyps (Z86.010) Active confirmed Problem 980073678 Periumbilical pa in (R10.33) Active confirmed Problem Diverticular disease of colon (387491455) Diverticulosis of large intestine without perforation or abscess without bleeding (K57.30) Active confirmed Problem Hepatosplenomegaly (15823022) Hepatomegaly with splenomegaly, not elsewhere classified (R16.2) Active confirmed Problem Fatty liver (932084606) Fatty liver (K76.0) Active confirmed Problem Hepatitis C antibody test positive (599160879) Hepatitis C antibody test positive (R76.8) Active confirmed Problem Iron excess (26432621) Iron excess (E83.19) Active confirmed Problem Thrombocytopenia (326969118) Thrombocytopenia (D69.6) Active confirmed Problem Blood chemistry abnormal (659605405) Elevated ferritin level (R79.89) Active confirmed Vital Signs Blood pressure diastolic 00 mm Hg 08/27/2024 Height 68 in 08/27/2024 Blood pressure systolic 00 mm Hg 08/27/2024 Weight 223 lbs 08/27/2024 BMI 33.90 kg/m2 08/27/2024 Encounters Encounter Location Date Provider Diagnosis [facility] [address] [place], [place] [phone] 04/10/2024 Jayjay Owens Encounter for screen ing colonoscopy Z12.11 ; Colon polyps K63.5 ; Diverticulosis of large intestine without perforation or abscess without bleeding K57.30 and Other hemorrhoids K64.8 [facility] [address] [place] [phone] 08/27/2024 Jayjay Owens History of adenomato us polyp of colon Z86.010 ; Hepatomegaly with splenomegaly, not elsewhere classified R16.2 ; Encounter for screening for malignant neoplasm of colon Z12.11 ; Fatty liver K76.0 ; Hepatitis C antibody test positive R76.8 and Elevated ferritin level R79.89 [facility] [address] [address] 04/16/2024 Jayjay Owens [facility] [address] [address] 09/09/2024 Jayjay Owens [facility] [address] [place] [phone] 10/31/2024 Jayjay Owens Assessments Encounter Date Diagnosis [...] to keep you advised of his progress. 04/10/2024 Diverticulosis of large intestine without perforation [...] to keep you advised of his progress. 04/10/2024 Other hemorrhoids (ICD-10 - K64.8) 08/27/2024 [...] Pnl 08/27/2024 US abdomen comp w elastography 10/28/202 4 US abdomen comp w elastography 4 Therapeutic Phlebotomy 02/27/2025 US duplex arterial venous comp 4 US duplex arterial venous comp 4 Future Test Test Name Order Date COLONOSCOPY 11/02/2017 COLONOSCOPY 01/09/2024 Next Appt Details Provider Name:Jayjay Owens , 08/28/2025 09:00:00 AM, [address], [address], [place], [address], Insurance Providers Payer Name Payer Address Payer Phone Subscriber Number Group Number Insured Name Patient Relationship to Insured Coverage Start Date Coverage End Date MEDICARE OF [place] [address] [place] [address] [id number] JUS THURMAN Self - patient is the insured [employer] CLAIMS [address] [place] [address] [id number] JUS THURMAN Self - patient is the insured Medical (General) History Medical History History ICD Code Denies [place],DM,CVA,Lung disease,renal dise ase Hypertension Sleep apnea Hyperlipidemia [...]
--- OUTSIDE RECORDS SUMMARY | 2025-02-27 12:27 | XMS_ITS ---
Author Organization Riky Calzada MD Address [address] [place], [place] [phone] Care Team Providers Care Binder Fixer Name Role Phone Riky Calzada Primary Care Provider Results Component Value Reference Range Notes Complete Blood Count Auto Di ff Reviewed date:09/11/2024 02:27:30 PM Interpretation: Performing Lab:[facility], [address] [place] [phone] Notes/Report: White Blood Count 11.4 4.8-10.8 X10*3/uL [...] Location Date Provider Diagnosis Riky Calzada MD [address] [place] [address] [place] [phone] 09/10/2024 Riky Calzada Thrombocytopenia D69 .6 Assessments Encounter Date Diagnosis (ICD Code) Assessment Notes Treatment Notes Treatment Clinical Notes Section Notes 09/10/2024 Thrombocytopenia (ICD-10 - D69.6) Plan Of Treatment Next Appt Details Provider Name:Riky Hortamarissa antonio, 08/07/2025 07:15:00 AM, [address] [place] [address], [address], [place], [place], [phone], Provider Name:Riky alvarez, 08/14/2025 01:00:00 PM, [address] [place] [address], [address], [place], [place], [phone], Progress Notes * Jus THURMANDOB: [birth year] (64 yo M)Acc No.[id number]:09/10/2024 Progress Note Patient:?Jus Thurman Provider:?Riky Calzada MD :1960???Age:64 Y???Sex:Male Chad e:09/10/2024 Address:[address] [place], [place] [phone] Subjective: * Chief Complaints: * ???CBC * Medical History:? * Surgical History:? * Hospitalization/Major Diagno stic Procedure:? * Medications:? Objective: Assessment: * Assessment: 1.?Thrombocytopenia - D69.6 (Primary)? Plan: * Treatment: * Procedure Codes:?71430 VENIP UNCT, ROUTINE* * * Sign off status: Completed true * Provider:?Riky Calzada MD Date:?1 Generated for Cher nugent/Juli/eTransmitting on:?02/27/2025 12:26 PM EDT
== END 2025-02-27 11:02 | disposition home or self-care (01) ==
LOC: HO.BBR 11:01
PROVIDERS: PCP Internal Medicine; Visit Provider Internal Medicine
DX: E83.110 Hereditary hemochromatosis (principal)
CPT/HCPCS: 85018; 99195

== ENCOUNTER 2025-07-23 09:43 | Outpatient (REF) | payer MEDICARE, SELFPAY ==
--- OUTSIDE RECORDS SUMMARY | 2024-04-10 05:50 | XMS_ITS ---
Author Organization [facility] Address [address] [place] [address] Care Team Providers Care Clinical Specialist Name Role Phone Riky Calzada MD Primary Care Provider Jayjay Daley [phone] REASON FOR VISIT screening colon Problems Problem Type SNOMED Code ICD Code Onset Dates Problem Status W/U Status Risk Notes Problem Diverticular disease of colon (029208405) Diverticulosis of large intestine without perforation or abscess without bleeding (K57.30) Active confirmed Encounters Encounter Location Date Provider Diagnosis [facility] [place] [address] [place], [place] [phone] 04/10/2024 Jayjay Owens Encounter for scre ening [...] Name:Jayjay Owens , 08/28/2025 09:00:00 AM, [address], [address], [place], [address], Progress Notes * MARY THURMANDOB: [birth year] (65 yo M)Acc No.[id number]:04/10/2024 COLON WITH MAC Patient: MARY SUN Provider: Carlee Owens MD :1960 A ge:63 Y S ex:Male Date:04/10/2024 Address:[address] [place] [address] Pcp:Riky Calzada MD Subjective: * Chief Complaints: [...] MD Date: 0 04/10/2024 Generated for Cher nugent/Juli/Jaradsmitting on: 0 07/23/2025 10:23 AM EDT
--- OUTSIDE RECORDS SUMMARY | 2025-02-03 04:00 | XMS_ITS ---
Author Organization iRky Calzada MD Address [address] [place], [place] [phone] Care Team Providers Care Lean Coach Name Role Phone Riky Calzada Primary Care Provider [phone] Results Component Value Reference Range Notes Liver Panel Reviewed date:02/03/2025 02:27:11 PM Interpretation: Performing Lab:[facility], [address] [place] [phone] Notes/Report: Bilirubin Total 0.8 0.0-1.0 mg/dL Bilirubin Direct 0.3 0.0-0.5 mg/dL Aspartate Amino Transferase 33 5-37 U/L Alanine Aminotransferase 33 0-40 U/L Total Protein 7.1 6.5-8.0 g/dL Albumin Level 4.4 3.5-5.0 g/dL Alkaline Phosphatase 54 39-117 U/L Glucose Fasting Reviewed date:02/03/2025 05:58:46 PM Interpretation: Performing Lab:[facility], [address] [place] [phone] Notes/Report: Glucose Fasting 97 60-99 mg/dL Lipid Panel with Reflex Reviewed date:02/03/2025 06:00:10 PM Interpretation: Performing Lab:[address] [phone] Notes/Report: Triglycerides 123 <150 mg/dL Desirable Triglyceride: less than 150 mg/dL Borderline High Triglyceride 150-199 mg/dL High Triglyceride: 200-499 mg/dL Very High Triglyceride: greater than or equal to 5OO mg/dL Cholesterol 97 <200 mg/dL Desirable Cholesterol: less than 200 mg/dL Borderline High Cholesterol: 200-239 mg/dL High Cholesterol: greater than 239 mg/dL LDL Cholesterol Calculated 41 <100 mg/dL Desirable LDL: less than 100 mg/dL Near Optimal/Above Optimal LDL: 110-129 mg/dL Borderline High LDL: 130-159 mg/dL High LDL: 160-189 mg/dL Very High LDL: greater than or equal to 190 mg/dL HDL Cholesterol 32 >40 mg/dL Desirable HDL: greater than 40 mg/dL Note: This HDL assay may give artificially low results in patients with liver disease. Hemoglobin A1c Reviewed date:02/03/2025 12:36:49 PM Interpretation: Performing Lab:[facility], [address] [place] [phone] Notes/Report: Hemoglobin A1c % 5.6 <6.0 % Hemoglobin A1C Reference Range Adults: 4.8 - 6.0 % Non diabetic: < 6.0 % Goal: < 7.0 % Additional Action Suggested: > 8.0 % Note: Hemoglobin A1c results are invalid for patients with abnormal amounts of HbF. Blood transfusions may impact the HbA1c concentration in the patient sample. Estimated Average Glucose 114 eAG = Estimated average glucose which is %A1C expressed as average glucose, using the formula of the Y1U-Nkbeioo Average Glucose study (ADAG), Diabetes Care, Vol.31,#8, Jun. 2007 REASON FOR VISIT fasting lipids Encounters Encounter Location Date Provider Diagnosis Riky Calzada MD [address] [place] [address] [place] [phone] 02/03/2025 Riky Calzada Prediabetes R73.09 a nd Pure hypercholesterolemia E78.00 Assessments Encounter Date Diagnosis (ICD Code) Assessment Notes Treatment Notes Treatment Clinical Notes Section Notes 02/03/2025 Prediabetes (ICD-10 - R73.09) 02/03/2025 Pure hypercholesterolemia (ICD-10 - E78.00) Plan Of Treatment Next Appt Details Provider Name:Riky alvarez, 08/07/2025 07:15:00 AM, [address] [place] [address], [address], [phone], Provider Name:Riky alvarez, 08/14/2025 01:00:00 PM, [address] [place] [address], [address], [phone], Progress Notes * Jus THURMANDOB: [birth year] (65 yo M)Acc No.[id number]:02/03/2025 Progress Note Patient: Jus SUN Provider: Sola Calzada MD :1960 A ge:64 Y S ex:Male Date:02/03/2025 Address:[address] [place], [place] [phone] Subjective: * Chief Complaints: * 1 . Fasting lipids. * Medical History: Objective: * Vitals: Assessment: * Assessment: 1. P rediabetes - R73.09 (Primary) 2 . P ure hypercholesterolemia - E78.00? Plan: * Treatment: 2. P ure hypercholesterolemia L AB: Liver Panel (Collection Date & Time - 02/03/2025 08:00 AM) L AB: Glucose Fasting (Collection Date & Time - 02/03/2025 08:00 AM) L AB: Lipid Panel with Reflex (Collection Date & Time - 02/03/2025 08:00 AM) L AB: Hemoglobin A1c (Collection Date & Time - 02/03/2025 08:00 AM) * Procedure Codes: 3 6415 VENIPUNCT, ROUTINE* * * The named appointment provid er may or may not be the originator of this progress note, and it is not deemed complete until electronically signed by the appointment provider. Sign off status: Pending * Provider: Sola Calzada MD Date: 0 02/03/2025 Generated for Cher nugent/Juli/Janeitting on: 0 07/23/2025 10:23 AM EDT
--- OUTSIDE RECORDS SUMMARY | 2025-02-10 10:00 | XMS_ITS ---
Author Organization Riky Calzada MD Address [address] [place], [place] [phone] Care Team Providers Care Mobile Designer Name Role Phone Riky Calzada Primary Care [...] Location Date Provider Diagnosis Riky Calzada MD [address] [place] [address] Drive [address] [place], [place] [phone] 02/10/2025 Riky Calzada Hereditary hemochromatosis E83.110 and [...] alcohol Next Appt Details Provider Name:Riky alvarez, 08/07/2025 07:15:00 AM, [address] [place] [address], Suite [facility], [place], [place], [phone], Provider Name:Riky alvarez, 08/14/2025 01:00:00 PM, [address] [place] [address], [address], [place], [place], [phone], Progress Notes * Jus THURMANDOB: [birth year] (64 yo M)Acc No.[id number]:02/10/2025 Progress Notes Patient: Corrine ROBERTSON Jus Mancuso Provider: Sola Calzada MD :1960 A ge:64 Y S ex:Male Date:02/10/2025 Address:[address] [place] [address] roya [id number] Subjective: * Chief Complaints: * 6 month * HPI: S ymptom(s): patient is a 64 yo male here for 6 month follow up visit/ here for follow up. sore all over. shoulder./ has cut back on alcohol quite a bit. * ROS: G eneral/Constitutional: Denies C hills. D enies F atigue. D enies F ever. E NT: Denies S ore throat. R espiratory: Denies C ough. D enies S hortness of breath at rest. [...] Wt-k.69. weight is up 8 pounds since 9-16-24. * Examination: G eneral Examination: GENERAL APPEARANCE: [...] Calzada MD Date: 0 02/10/2025 Generated for Cher nugent/Juli/eTransmitting on: 0 07/23/2025 10:23 AM EDT History and Physical Notes * [...]
--- OUTSIDE RECORDS SUMMARY | 2025-04-29 06:15 | XMS_ITS ---
Author Organization Riky Calzada MD Address [address] [place], [place] [id number] Care Team Providers Care Drip Molder Name Role Phone Riky Calzada Primary Care [...] Problem Status W/U Status Risk Notes Problem Acute gout involving toe of right foot, unspecified cause (M10.9) Active confirmed Vital Signs Blood pressure systolic 142 mm Hg 04/29/20 25 Blood pressure diastolic 70 mm Hg 025 Height 68 in 04/29/2025 Weight 228 lbs 04/29/2025 BMI 34.66 kg/m2 04/29/2025 weight is down 5 pounds [facility] 02-10-25 Encounters Encounter Location Date Provider Diagnosis Riky Calzada MD [address] [place] [address] [place] [phone] 04/29/2025 Riky Calzada Acute gout involving toe [...] use Next Appt Details Provider Name:Riky alvarez, 08/07/2025 07:15:00 AM, [address] [place] [address], [address], [phone], Provider Name:Riky alvarez, 08/14/2025 01:00:00 PM, [address] [place] [address], [address], [phone], Progress Notes * Jus THURMANDOB: [birth year] (64 yo M)Acc No.[id number]:04/29/2025 Progress Notes Patient: Corrine Jus ROBERTSON Provider: Sola Calzada MD :1960 A ge:64 Y S ex:Male Date:04/29/2025 Address:[address] [place] [address] , [id number] Subjective: * Chief Complaints: * L eft [...] 04/29/2025 Generated for Cher nugent/Juli/Janeitting on: 0 07/23/2025 10:23 AM EDT History [...]
--- NOTE | ~2025-07-23 | US_ITS ---
CLINICAL HISTORY: Hepatosplenomegaly US abdomen complete Comparison: US/SR - US ABDOMEN COMPLETE WITH LIVER ELASTOGRAPHY - 09/23/24 08:36 EDT Findings: The visualized pancreas is normal. The aorta and inferior vena cava are normal caliber. The liver is normal in size. Diffusely increased echogenicity. There is no intrahepatic bile duct dilatation. The common duct is 2.1 mm in diameter. The gallbladder is normal. There is no sonographic Fox sign. The main portal vein is antegrade. The right kidney is 13.6 cm in length. Midpole cyst measuring 2.1 cm. The left kidney is 12.6 cm in length. Midpole cyst measuring 0.7 cm, lower pole cysts measuring 1.2 cm. The spleen is slightly enlarged measuring 14.7 cm in craniocaudal dimension. Small splenule measuring 1.5 cm. No ascites. IMPRESSION: 1. Diffuse hepatic steatosis. Liver is normal in size. 2. Mild splenomegaly. 3. Small bilateral renal cysts measuring up to 2.1 cm. This document has been electronically signed by: Fatoumata Rodriguez MD on 07/23/2025 21:38:25
--- OUTSIDE RECORDS SUMMARY | 2025-07-23 10:23 | XMS_ITS | Patient Health Record ---
Author Organization Riky Calzada MD Address [address] [place], [place] [id number] Care Team Providers Care Physician Pediatrician Name Role Phone Riky Calzada Primary Care Provider [phone] Allergies Allergen (clinical drug ingredient) Drug/Non Drug Allergy documented on EMR Reaction Allergy Type Onset Date Status indomethacin Indomethacin dizzy Drug Allergy A ctive Results Component Value Reference Range Notes Comprehensive [place]. Panel Fa st Reviewed date:08/06/2024 08:46:49 AM Interpretation: Performing Lab:[facility], [address] [place] [phone] Notes/Report: Sodium 142 135-145 mmol/L Potassium 4.0 3.3-5.1 mmol/L Chloride 106 96-108 mmol/L Carbon Dioxide 27 22-29 mmol/L Anion Gap 13 12-20 Blood Urea Nitrogen 21 9-16 mg/dL Creatinine 0.86 0.5-1.4 mg/dL Estimated Glomerular Filt Rate > 60 NOTE: For -[place]cu[place] individuals, multiply the result by 1.210. Chronic Kidney Disease: Estimated GFR < 60 mL/min/1.73m2 Severe Kidney Disease: Estimated GFR < 15 mL/min/1.73m2 Glucose Fasting 108 60-99 mg/dL A fasting glucose from 100-125 mg/dl is considered impaired (pre-diabetes). Calcium 9.7 8.4-10.2 mg/dL Bilirubin Total 0.7 0.0-1.0 mg/dL Aspartate Amino Transferase 19 5-37 U/L Alanine Aminotransferase 25 0-40 U/L Total Protein 7.5 6.5-8.0 g/dL Albumin Level 4.8 3.5-5.0 g/dL Alkaline Phosphatase 52 39-117 U/L Lipid Panel Reviewed date:08/05/2024 04:01:19 PM Interpretation: Performing Lab:[facility], [address] [place] [phone] Notes/Report: Triglycerides 128 <150 mg/dL Desirable Triglyceride: less than 150 mg/dL Borderline High Triglyceride 150-199 mg/dL High Triglyceride: 200-499 mg/dL Very High Triglyceride: greater than or equal to 5OO mg/dL Cholesterol 134 <200 mg/dL Desirable Cholesterol: less than 200 mg/dL Borderline High Cholesterol: 200-239 mg/dL High Cholesterol: greater than 239 mg/dL LDL Cholesterol Calculated 68 <100 mg/dL Desirable LDL: less than 100 mg/dL Near Optimal/Above Optimal LDL: 110-129 mg/dL Borderline High LDL: 130-159 mg/dL High LDL: 160-189 mg/dL Very High LDL: greater than or equal to 190 mg/dL HDL Cholesterol 41 >40 mg/dL Desirable HDL: greater than 40 mg/dL Note: This HDL assay may give artificially low results in patients with liver disease. PSA,Total (Free>4and<10) Reviewed date:08/05/2024 04:01:29 PM Interpretation: Performing Lab:[facility], [address] [place] [phone] Notes/Report: PSA,Total (Free>4and<10) 0.62 0.00-4.00 ng/mL A Free PSA was not performed: The percentage of Free PSA can be used to enhance the differentiation of prostate cancer from benign prostatic disease in subjects whose PSA levels are between 4.0 and 10.0 ng/mL. For subjects whose PSA levels are below 4.0 or above 10.0 ng/mL, the risk of prostate cancer is determined on the basis of the PSA alone. Therefore the % Free PSA is recommended only for those subjects whose PSA levels are between 4.0 and 10.0 ng/mL. PSA methodology: Castillo Alinity i Chemiluminescent Microparticle Immunoassay (CMIA) Microalbumin, Random Reviewed date:08/05/2024 04:02:52 PM Interpretation: Performing Lab:[facility], [address] [place] [phone] Notes/Report: Creatinine Urine 153.62 Microalbumin Urine 17.0 Microalbum/Creatinine Ratio Ur 11.0 <30 ug/mg cr Albumin/Creatinine Ratio Reference Ranges: Normal: < 30 ug/mg creatinine Microalbuminuria: 30 - 300 ug/mg creatinine Clinical Albuminuria: > 300 ug/mg creatinine Hemoglobin A1c Reviewed date:08/05/2024 04:01:42 PM Interpretation: Performing Lab:[facility], [address] [place] [phone] Notes/Report: Hemoglobin A1c % 5.0 <6.0 % Hemoglobin A1C Reference Range Adults: 4.8 - 6.0 % Non diabetic: < 6.0 % Goal: < 7.0 % Additional Action Suggested: > 8.0 % Note: Hemoglobin A1c results are invalid for patients with abnormal amounts of HbF. Blood transfusions may impact the HbA1c concentration in the patient sample. Estimated Average Glucose 97 eAG = Estimated average glucose which is %A1C expressed as average glucose, using the formula of the I0D-Zxsnxkn Average Glucose study (ADAG), Diabetes Care, Vol.31,#8, Jun. 2007 UA ClnCatch+Micro w/rflx Cul t Reviewed date:08/06/2024 08:32:59 AM Interpretation: Performing Lab:[facility], [address] [place] [phone] Notes/Report: Urine, Clean Catch Color Urine Yellow Appearance Urine Clear PH 5.5 5.0-9.0 Glucose Urine UA Negative Negative mg/dL Urine Blood Negative Negative Specific [place] - Urine 1.025 1.005-1.025 Urine Protein Negative Neg-Trace mg/dL Urine Ketones Negative Negative mg/dL Nitrite Urine Negative Negative Leukocyte Esterase Urine Negative Negative RBC Urine 0-2 0-2 /HPF WBC Urine 0-5 0-5 /HPF Squamous Epithelial Cell Urine 0-2 0-2 /HPF Bacteria Urine None Seen None Seen Hyaline Casts Urine 0-2 0-2 /LPF Liver Panel Reviewed date:02/03/2025 02:27:11 PM Interpretation: Performing Lab:[facility], [address] [place] [phone] Notes/Report: Bilirubin Total 0.8 0.0-1.0 mg/dL Bilirubin Direct 0.3 0.0-0.5 mg/dL Aspartate Amino Transferase 33 5-37 U/L Alanine Aminotransferase 33 0-40 U/L Total Protein 7.1 6.5-8.0 g/dL Albumin Level 4.4 3.5-5.0 g/dL Alkaline Phosphatase 54 39-117 U/L Glucose Fasting Reviewed date:02/03/2025 05:58:46 PM Interpretation: Performing Lab:[facility], [address] [place] [phone] Notes/Report: Glucose Fasting 97 60-99 mg/dL Lipid Panel with Reflex Reviewed date:02/03/2025 06:00:10 PM Interpretation: Performing Lab:[facility], [address] [place] [phone] Notes/Report: Triglycerides 123 <150 mg/dL Desirable Triglyceride: [...] A1c Reviewed date:02/03/2025 12:36:49 PM Interpretation: Performing Lab:[facility], [address] [place] [phone] Notes/Report: Hemoglobin A1c % 5.6 <6.0 % [...] average glucose, using the formula of the F6S-Vobctss Average Glucose study (ADAG), Diabetes Care, Vol.31,#8, Jun. 2007 Complete Blood Count Auto Di ff Reviewed date:09/11/2024 02:27:30 PM Interpretation: Performing Lab:[facility], [address] [place] [address], [place] [address] Notes/Report: White Blood Count 11.4 4.8-10.8 X10*3/uL [...] 0.0-0.2 /100WBC Neutrophils Absolute Auto 7.0 2.0-8.3 x10*3/uL Imm Gran Abs Auto 1.00 0.00-0.03 X10*3/uL Lymphocytes Absolute Auto 2.4 1.2-4.9 X10*3/uL Monocytes Absolute Auto 0.9 0.1-1.2 X10*3/uL Eosinophils Absolute Auto 0.1 0.0-0.4 X10*3/uL Basophils Absolute Auto 0.1 0.0-0.2 X10*3/uL NRBC Abs Auto 0.000 0.0-0.012 X10*3/uL C ORRECTED REPORT Complete Blood Count Man Dif Reviewed date:08/12/2024 01:38:33 PM Interpretation:see back 08-12-2024 Performing Lab:[facility], [address] [place] [phone] Notes/Report: White Blood Count 12.6 4.8-10.8 X10*3/uL Red Blood Count 4.03 4.60-5.80 X10*6/uL Hemoglobin 12.5 14.0-18.0 g/dl Hematocrit 38.5 42.0-52.0 % Mean Corpuscular Volume 95.5 80.0-98.0 fL Mean Corpuscular Hemoglobin 31.0 27.0-33.0 pg Mean Corpuscular HGB Conc 32.5 31.0-36.0 g/dl Red Cell Distribution Width 17.1 11.0-16.0 % Platelet Count 59 160-400 X10*3/uL Mean Platelet Volume 11.4 9.4-12.4 fL NRBC Pct Auto 0.0 0.0-0.2 /100WBC NRBC Abs Auto 0.000 0.0-0.012 X10*3/uL Neutrophils Percent Manual 58 45-73 % Band Neutrophils Percent 7 3-5 % Lymphocytes Percent Manual 15 20-40 % Monocytes Percent Manual 12 2-11 % Eosinophils Percent Manual 1 0-4 % Basophils Percent Manual 1 0-2 % Metamyelocytes Percent 4 Myelocytes Percent 2 Neutrophils Absolute Manual 8.2 2.0-8.3 X10*3/uL Lymphocytes Absolute Manual 1.9 1.2-4.9 X10*3/uL Monocytes Absolute Manual 1.5 0.1-1.2 X10*3/uL Eosinophils Absolute Manual 0.1 0.0-0.4 X10*3/uL Basophils Abs Manual 0.1 0.0-0.2 X10*3/uL Metamyelocytes Absolute 0.5 Myelocytes Absolute 0.3 Hypersegmented Neutrophils PRESENT Platelet Estimate DECREASED NORMAL Large Platelet PRESENT Platelet Morphology Comment NOTED RBC Morphology NOTED Polychromasia 1+ (0-2) Microcytosis 1+ (5-14) Tear Drop Cells 1+ (0-2) Complete Blood Count Man Dif Reviewed date:09/12/2024 09:36:14 PM Interpretation: Performing Lab:[facility], [address] [place] [phone] Notes/Report: White Blood Count 11.4 4.8-10.8 X10*3/uL Red Blood Count 3.61 4.60-5.80 X10*6/uL Hemoglobin 11.2 14.0-18.0 g/dl Hematocrit 34.0 42.0-52.0 % Mean Corpuscular Volume 94.2 80.0-98.0 fL Mean Corpuscular Hemoglobin 31.0 27.0-33.0 pg Mean Corpuscular HGB Conc 32.9 31.0-36.0 g/dl Red Cell Distribution Width 16.8 11.0-16.0 % Platelet Count 61 160-400 X10*3/uL NRBC Pct Auto 0.0 0.0-0.2 /100WBC NRBC Abs Auto 0.000 0.0-0.012 X10*3/uL Neutrophils Percent Manual 65 45-73 % Band Neutrophils Percent 7 3-5 % Lymphocytes Percent Manual 18 20-40 % Monocytes Percent Manual 6 2-11 % Eosinophils Percent Manual 2 0-4 % Metamyelocytes Percent 2 Neutrophils Absolute Manual 8.2 2.0-8.3 X10*3/uL Lymphocytes Absolute Manual 2.1 1.2-4.9 X10*3/uL Monocytes Absolute Manual 0.7 0.1-1.2 X10*3/uL Eosinophils Absolute Manual 0.2 0.0-0.4 X10*3/uL Metamyelocytes Absolute 0.2 Platelet Estimate DECREASED NORMAL Platelet Morphology Comment NORMAL RBC Morphology NOTED Polychromasia 1+ (0-2) Tear Drop Cells 2+ (3-5) US abdomen comp w elastograp hy Reviewed date:11/14/2024 05:22:43 PM Interpretation: Performing Lab: Notes/Report: [address] [address] Ultrasound Report Signed with Addenda Patient: Jus Carr MR#: [id number] : 1960 Acct:[id number] Age/Sex: 64 / M ADM Date: 09/23/24 Loc: HO.US Attending Dr: Jayjay Valenzuela MD Ordering Physician: Jayjay Valenzuela MD Date of Service: 09/23/24 Procedure(s): US abdomen comp w elastography Accession Number(s): [id number] cc: Riky Calzada MD; Jayjay Valenzuela MD ADDENDUM ADDENDUM #1 . Electronically signed [...] by: Sean Child MD 10/24/2024 10:50 PM [facility] Dictated By: Sean Child MD Signed By: <Electronically signed by Sean Child MD in OV> 11/07/24 0649 DD/ 6 TD/TT: 09/23/24919 Tail Edger: [address] [address] Ultrasound Report Signed with Addenda Patient: Almita Carr MR#: [id number] : 1960 Acct:[id number] Age/Sex: 64 / M ADM Date: 09/23/24 Loc: HO.US Attending Dr: Jayjay Valenzuela MD Ordering Physician: Jayjay Valenzuela MD Date of Service: 09/23/24 Procedure(s): US abdomen comp w elastography Accession Number(s): [id number] cc: Riky Calzada MD; Jayjay Valenzuela MD ADDENDUM ADDENDUM #1 . Electronically jerman d by: Ramesh Molina MD 11/13/2024 03:36 PM [facility] Addendum Dictated By : Ramesh Benitez MD [...] enlarged fatty liver with splenomegaly 2. Liver elastograph y: [...] in OV> 11/07/24 0649 DD/ 6 TD/TT: 09/23/24 0920 Tail Edger: US duplex arterial venous co mp Reviewed date:11/14/2024 05:21:39 PM Interpretation: Performing Lab: Notes/Report: [place] [address] Ultrasound Report Signed with Addenda Patient: Jus Carr MR#: [id number] : 1960 Acct:[id number] Age/Sex: 64 / M ADM Date: 09/23/24 Loc: HO.US Attending Dr: Jayjay Valenzuela MD Ordering Physician: Jayjay Valenzuela MD Date of Service: 09/23/24 Procedure(s): US duplex arterial venous comp Accession Number(s): [id number] cc: Riky Calzada MD; Jayjay Valenzuela MD ADDENDUM ADDENDUM #1 . Electronically signed [...] by: Sean Child MD 10/24/2024 10:50 PM [facility] Dictated By: Sean Child MD Signed By: <Electronically signed by Sean Child MD in OV> 11/07/24 0649 DD/ 6 TD/TT: 09/23/24919 Tail Edger: [address] [address] Ultrasound Report Signed with Jv Patient: Almita Carr MR#: [id number] : 1960 Acct:[id number] Age/Sex: 64 / M ADM Date: 09/23/24 Loc: HO.US Attending Dr: Jayjay Valenzuela MD Ordering Physician: Jayjay Valenzuela MD Date of Service: 09/23/24 Procedure(s): US dup adina arterial venous comp Accession Number(s): [id number] cc: Riky Calzada MD; Jayjay Valenzuela MD ADDENDUM ADDENDUM #1 . Electronically jerman [...] enlarged fatty liver with splenomegaly 2. Liver elastograph y: [...] by: Sean Child MD 10/24/2024 10:50 PM [facility] Dictated By: Sean Child MD Signed By: <Electronically signed by Sean Child MD in OV> 11/07/24 0649 DD/ 6 TD/TT: 09/23/24919 Tail Edger: Basic Metabolic Panel Reviewed date:10/17/2024 05:20:52 PM Interpretation: Performing Lab:[facility], [address] [place] [phone] Notes/Report: Sodium 142 135-145 mmol/L Potassium 4.7 3.3-5.1 mmol/L Slight Hemolysis.Interpret result with caution. Chloride 106 96-108 mmol/L Carbon Dioxide 25 22-29 mmol/L Anion Gap 16 12-20 Blood Urea Nitrogen 16 9-16 mg/dL Creatinine 0.85 0.5-1.4 mg/dL Estimated Glomerular Filt Rate > 60 Chronic Kidney Disease: Estimated GFR < 60 mL/min/1.73m2 Severe Kidney Disease: Estimated GFR < 15 mL/min/1.73m2 Glucose Random 105 60-115 mg/dL Calcium 10.5 8.4-10.2 mg/dL NM cardiolite stress test Reviewed date:10/24/2024 12:02:46 PM Interpretation: Performing Lab: Notes/Report: [address] [address] Nuclear Medicine Report Signed Patient: Jus Carr MR#: [id number] : 1960 Acct:[id number] Age/Sex: 64 / M ADM Date: 10/22/24 Loc: HO.CARD Attending Dr: Eleuterio Garcia MD Ordering Physician: Eleuterio Garcia MD Date of Service: 10/22/24 Procedure(s): NM cardiolite stress test Accession Number(s): [id number] cc: Riky Calzada MD; Eleuterio Garcia MD EXERCISE MYOCARDIAL PERFUSION STUDY INDICATION: Chest pain to evaluate for myocardial ischemia TECHNIQUE: The patient was brought in for an exercise perfusion study on 10/22/2024. Patient performed exercise as per Jus protocol and was injected 35 mCi of sestamibi once target heart rate was achieved. Images were obtained using the SPECT gamma camera interlaced with the gating device. Images were obtained in supine position. Resting perfusion study was performed on 10/23/2024. Patient was administered 35 mCi of sestamibi intravenously at rest. Images were then obtained in supine position. Images obtained without without CT attenuation. Total DLP 137 mGy-cm. Images were processed with the software and compared side to side in short axis, horizontal long axis and vertical long axis views. FINDINGS: Raw images were reviewed The stress perfusion study showed nonattenuated images show minimally reduced uptake in the basal and mid inferolateral wall as well as the basal inferior wall of the LV myocardium. Attenuation corrected images show normal uptake of radiotracer in all segments of the LV myocardium.. The gated study shows normal LV systolic function with calculated LVEF of 66%. LV cavity is normal in size. The gated study shows normal systolic wall thickening and contraction of segments. Resting study shows no significant change in perfusion pattern compared to stress perfusion study. Gating at rest reveals normal systolic wall motion with ejection fraction at greater than 60%. The findings are consistent with normal myocardial perfusion. NM/NM cardiolite stress test IMPRESSION: 1. Myocardial perfusion imaging study shows normal myocardial perfusion. 2. Gated LVEF is 66%. 3. Transient ischemic dilatation not present. EKG revealed equivocal for ischemia. Electronically signed by: Eleuterio Garcia MD 10/23/2024 12:23 PM [facility] Dictated By: Eleuterio Garcia MD Signed By: <Electronically signed by Eleuterio Garcia MD in OV> 10/23/24 1223 DD/ 0834 TD/TT: 10/23/24 1021 Tail Edger: [address] [address] Nuclear Medicine Report Signed Patient: Almita aCrr MR#: [id number] : 1960 Acct:[id number] Age/Sex: 64 / M ADM Date: 10/22/24 Loc: .CARD Attending Dr: Eleuterio Garcia MD Ordering Physician: Eleuterio Garcia MD Date of Service: 10/22/24 Procedure(s): NM cardiolite stress test Accession Number(s): [id number] cc: Riky Calzada MD; Eleuterio Garcia MD EXERCISE MYOCARDIAL PERFUSION STUDY INDICATION: Chest pain to evalua te for myocardial ischemia TECHNIQUE: The patient was brou t in for an exercise perfusion study on 10/22/2024. Patient performed exercise as per Jus protocol and was injected 35 mCi of sestamibi once target heart rate was achieved. Images were obtained using the SPECT gamma camera interlaced with the gating device. Image s were obtained in supine position. Resting perfusion st udy was performed on 10/23/2024. Patient was administered 35 mCi of sestamibi intravenously at rest. Images were then obtained in sup ine position. Images obtained with out without CT attenuation. Total DLP 137 mGy-cm. Images were processe d with the software and compared side to side in short axis, horizont al long axis and vertical long axis views. FINDINGS: Raw images were reviewed The stress perfusion study showed nonattenuated images show minimally reduced uptake in th e basal and mid inferolateral wall as well as the basal inferior wall of the LV myocardium. Attenuation corrected images show normal uptake o f radiotracer in all segments of the LV myocardium.. The gat ed study shows normal LV systolic function with calculated LVEF of 6 6%. LV cavity is normal in size. The gated study shows normal systoli c wall thickening and contraction of segments. Resting study shows no significant change in perfusion pattern compared to stress perfusion study. Gating at rest reveals normal systolic wall motion with ejection fraction at greater than 60%. The findings are consistent with normal myocardial perfusion. NM/NM cardiolite stress test IMPRESSION: 1. Myocardial perfus ion imaging study shows normal myocardial perfusion. 2. Gated LVEF is 66%. 3. Transient ischemi c dilatation not present. EKG revealed equivoc al for ischemia. Electronically jerman d by: Eleuterio Garcia MD 10/23/2024 12:23 PM [facility] Dictated By: Eleuterio Garcia MD Signed By: <Electronically signed by Eleuterio Garcia MD in OV> 10/23/24 1223 DD/ 0834 TD/TT: 10/23/24 1025 Tail Edger: Les Serrano Reviewed date:02/03/2025 12:39:55 PM Interpretation: Performing Lab:[facility], [address] [place] [phone] Notes/Report: Les Serrano See Note Specimen held untested for 24 hours; Call to request Chemistry testing. Complete Blood Count Man Dif Reviewed date:03/19/2025 06:28:25 PM Interpretation: Performing Lab:[facility], [address] [place] [phone] Notes/Report: White Blood Count 17.8 4.8-10.8 X10*3/uL Red Blood Count 3.57 4.60-5.80 X10*6/uL Hemoglobin 11.0 14.0-18.0 g/dl Hematocrit 33.3 42.0-52.0 % Mean Corpuscular Volume 93.3 80.0-98.0 fL Mean Corpuscular Hemoglobin 30.8 27.0-33.0 pg Mean Corpuscular HGB Conc 33.0 31.0-36.0 g/dl Red Cell Distribution Width 19.9 11.0-16.0 % Platelet Count 72 160-400 X10*3/uL NRBC Pct Auto 0.0 0.0-0.2 /100WBC NRBC Abs Auto 0.000 0.0-0.012 X10*3/uL Neutrophils Percent Manual 77 45-73 % Band Neutrophils Percent 1 3-5 % Lymphocytes Percent Manual 14 20-40 % Monocytes Percent Manual 5 2-11 % Eosinophils Percent Manual 1 0-4 % Basophils Percent Manual 1 0-2 % Metamyelocytes Percent 1 Neutrophils Absolute Manual 13.9 2.0-8.3 X10*3/uL Lymphocytes Absolute Manual 2.5 1.2-4.9 X10*3/uL Monocytes Absolute Manual 0.9 0.1-1.2 X10*3/uL Eosinophils Absolute Manual 0.2 0.0-0.4 X10*3/uL Basophils Abs Manual 0.2 0.0-0.2 X10*3/uL Metamyelocytes Absolute 0.2 Platelet Estimate DECREASED NORMAL Platelet Morphology Comment NORMAL RBC Morphology NOTED Polychromasia 1+ (0-2) Hypochromasia 1+ (5-14) Microcytosis 1+ (5-14) Stomatocytes 1+ (5-14) Comprehensive Met. Panel Reviewed date:03/19/2025 12:35:18 PM Interpretation: Performing Lab:[facility], [address] [place] [phone] Notes/Report: Sodium 140 135-145 mmol/L Potassium 4.3 3.3-5.1 mmol/L Chloride 104 96-108 mmol/L Carbon Dioxide 28 22-29 mmol/L Anion Gap 12 12-20 Blood Urea Nitrogen 16 9-16 mg/dL Creatinine 0.76 0.5-1.4 mg/dL Creatinine Clr Calc Pharmacy 113.1 eGFR (calculated from the MDRD study equation) and eCrCl (calculated from the Cockcroft-Gault equation) are based on different parameters and may not yield comparable results. If eCrCl result is absurd, please check patient's height/weight. Estimated Glomerular Filt Rate > 60 Chronic Kidney Disease: Estimated GFR < 60 mL/min/1.73m2 Severe Kidney Disease: Estimated GFR < 15 mL/min/1.73m2 Glucose Random 133 60-115 mg/dL Calcium 9.9 8.4-10.2 mg/dL Bilirubin Total 0.7 0.0-1.0 mg/dL Aspartate Amino Transferase 27 5-37 U/L Alanine Aminotransferase 25 0-40 U/L Total Protein 7.5 6.5-8.0 g/dL Albumin Level 4.7 3.5-5.0 g/dL Alkaline Phosphatase 60 39-117 U/L Uric Acid Reviewed date:03/19/2025 12:33:52 PM Interpretation: Performing Lab:[facility], [address] [place] [phone] Notes/Report: Uric Acid 6.7 3.4-7.0 mg/dL IRON PROFILE Reviewed date:03/19/2025 12:34:41 PM Interpretation: Performing Lab:[facility], [address] [place] [phone] Notes/Report: Iron 122 45-160 mcg/dL Total Iron Binding Capacity 271 228-428 mcg/dL Percent Iron Saturation 45 15-50 % Unsaturated Iron Binding 149 Ferritin Reviewed date:03/19/2025 12:35:27 PM Interpretation: Performing Lab:[facility], [address] [place] [phone] Notes/Report: Ferritin 305 20-250 ng/mL Lactate Dehydrogenase Reviewed date:03/19/2025 06:26:27 PM Interpretation: Performing Lab:[facility], [address] [place] [phone] Notes/Report: Lactate Dehydrogenase 217 118-273 U/L Complete Blood Count Man Dif Reviewed date:03/27/2025 04:49:33 PM Interpretation: Performing Lab:[facility], [address] [place] [phone] Notes/Report: White Blood Count 19.3 4.8-10.8 X10*3/uL Red Blood Count 3.37 4.60-5.80 X10*6/uL Hemoglobin 10.4 14.0-18.0 g/dl Hematocrit 32.1 42.0-52.0 % Mean Corpuscular Volume 95.3 80.0-98.0 fL Mean Corpuscular Hemoglobin 30.9 27.0-33.0 pg Mean Corpuscular HGB Conc 32.4 31.0-36.0 g/dl Red Cell Distribution Width 20.3 11.0-16.0 % Platelet Count 75 160-400 X10*3/uL Mean Platelet Volume 10.3 9.4-12.4 fL NRBC Pct Auto 0.0 0.0-0.2 /100WBC NRBC Abs Auto 0.000 0.0-0.012 X10*3/uL Neutrophils Percent Manual 66 45-73 % Band Neutrophils Percent 5 3-5 % Lymphocytes Percent Manual 24 20-40 % Monocytes Percent Manual 3 2-11 % Metamyelocytes Percent 2 Neutrophils Absolute Manual 13.7 2.0-8.3 X10*3/uL Lymphocytes Absolute Manual 4.6 1.2-4.9 X10*3/uL Monocytes Absolute Manual 0.6 0.1-1.2 X10*3/uL Metamyelocytes Absolute 0.4 Platelet Estimate DECREASED NORMAL Platelet Morphology Comment NORMAL RBC Morphology NOTED Polychromasia 1+ (0-2) Basophilic Stippling 1+ (0-2) Leukemia/Lymphoma Eval. Bloo d Reviewed date:03/31/2025 12:12:01 PM Interpretation: Performing Lab:[facility], [address] [place] [phone] Notes/Report: LEUKEMIA/LYMPHOMA [id number] BLOOD LLE Interpretation See Note See repor t from [employer] in the EMR. FISH 9,22 CML/AML BCR Reviewed date:04/04/2025 12:31:49 PM Interpretation: Performing Lab:[facility], [address] [place] [phone] Notes/Report: FISH 9,22 CML/AML BCR See Note See re port from [employer] in the EMR. Complete Blood Count Man Dif Reviewed date:05/26/2025 01:32:12 PM Interpretation: Performing Lab:[facility], [address] [place] [phone] Notes/Report: White Blood Count 12.1 4.8-10.8 X10*3/uL Red Blood Count 3.46 4.60-5.80 X10*6/uL Hemoglobin 10.8 14.0-18.0 g/dl Hematocrit 32.7 42.0-52.0 % Mean Corpuscular Volume 94.5 80.0-98.0 fL Mean Corpuscular Hemoglobin 31.2 27.0-33.0 pg Mean Corpuscular HGB Conc 33.0 31.0-36.0 g/dl Red Cell Distribution Width 19.2 11.0-16.0 % Platelet Count 50 160-400 X10*3/uL Mean Platelet Volume TNP 9.4-12.4 fL NRBC Pct Auto 0.0 0.0-0.2 /100WBC NRBC Abs Auto 0.000 0.0-0.012 X10*3/uL Neutrophils Percent Manual 72 45-73 % Band Neutrophils Percent 3 3-5 % Lymphocytes Percent Manual 16 20-40 % Atypical Lymphs Percent Manual 1 0-6 % Monocytes Percent Manual 5 2-11 % Metamyelocytes Percent 2 Myelocytes Percent 1 Neutrophils Absolute Manual 9.1 2.0-8.3 X10*3/uL Lymphocytes Absolute Manual 1.9 1.2-4.9 X10*3/uL Atypical Lymph Absolute Manual 0.1 Monocytes Absolute Manual 0.6 0.1-1.2 X10*3/uL Metamyelocytes Absolute 0.2 Myelocytes Absolute 0.1 Platelet Estimate DECREASED NORMAL Platelet Morphology Comment NORMAL RBC Morphology NOTED Polychromasia 1+ (0-2) Microcytosis 1+ (5-14) Macrocytosis 1+ (5-14) Stomatocytes 1+ (5-14) Comprehensive Met. Panel Reviewed date:05/27/2025 04:58:26 PM Interpretation: Performing Lab:[address] [phone] Notes/Report: Sodium 141 135-145 mmol/L Potassium 4.5 3.3-5.1 mmol/L Chloride 106 96-108 mmol/L Carbon Dioxide 29 22-29 mmol/L Anion Gap 11 12-20 Blood Urea Nitrogen 14 9-16 mg/dL Creatinine 0.77 0.5-1.4 mg/dL Creatinine Clr Calc Pharmacy 111.7 eGFR (calculated from the MDRD study equation) and eCrCl (calculated from the Cockcroft-Gault equation) are based on different parameters and may not yield comparable results. If eCrCl result is absurd, please check patient's height/weight. Estimated Glomerular Filt Rate > 60 Chronic Kidney Disease: Estimated GFR < 60 mL/min/1.73m2 Severe Kidney Disease: Estimated GFR < 15 mL/min/1.73m2 Glucose Random 114 60-115 mg/dL Calcium 9.7 8.4-10.2 mg/dL Bilirubin Total 1.2 0.0-1.0 mg/dL Aspartate Amino Transferase 26 5-37 U/L Alanine Aminotransferase 30 0-40 U/L Total Protein 7.1 6.5-8.0 g/dL Albumin Level 4.9 3.5-5.0 g/dL Alkaline Phosphatase 53 39-117 U/L Uric Acid Reviewed date:05/26/2025 01:02:12 PM Interpretation: Performing Lab:[address] [address] Notes/Report: Uric Acid 7.7 3.4-7.0 mg/dL IRON PROFILE Reviewed date:05/26/2025 01:26:52 PM Interpretation: Performing Lab:[address] [address] Notes/Report: Iron 241 45-160 mcg/dL Total Iron Binding Capacity 269 228-428 mcg/dL Percent Iron Saturation 90 15-50 % Unsaturated Iron Binding 28 Ferritin Reviewed date:05/26/2025 01:00:32 PM Interpretation: Performing Lab:[facility], [address] [place] [phone] Notes/Report: Ferritin 471 20-250 ng/mL Complete Blood Count Man Dif Reviewed date:06/11/2025 03:55:48 PM Interpretation: Performing Lab:[facility], [address] [place] [phone] Notes/Report: White Blood Count 12.0 4.8-10.8 X10*3/uL Red Blood Count 3.52 4.60-5.80 X10*6/uL Hemoglobin 11.2 14.0-18.0 g/dl Hematocrit 32.4 42.0-52.0 % Mean Corpuscular Volume 92.0 80.0-98.0 fL Mean Corpuscular Hemoglobin 31.8 27.0-33.0 pg Mean Corpuscular HGB Conc 34.6 31.0-36.0 g/dl Red Cell Distribution Width 19.6 11.0-16.0 % Platelet Count 61 160-400 X10*3/uL Mean Platelet Volume TNP 9.4-12.4 fL NRBC Pct Auto 0.0 0.0-0.2 /100WBC NRBC Abs Auto 0.000 0.0-0.012 X10*3/uL Neutrophils Percent Manual 72 45-73 % Band Neutrophils Percent 2 3-5 % Lymphocytes Percent Manual 15 20-40 % Monocytes Percent Manual 10 2-11 % Metamyelocytes Percent 1 Neutrophils Absolute Manual 8.9 2.0-8.3 X10*3/uL Lymphocytes Absolute Manual 1.8 1.2-4.9 X10*3/uL Monocytes Absolute Manual 1.2 0.1-1.2 X10*3/uL Metamyelocytes Absolute 0.1 Hypersegmented Neutrophils PRESENT Platelet Estimate DECREASED NORMAL Platelet Morphology Comment NORM RBC Morphology NOTED Polychromasia 1+ (0-2) Microcytosis 1+ (5-14) Schistocytes 1+ (0-2) Liver Panel Reviewed date:06/11/2025 03:54:08 PM Interpretation: Performing Lab:[facility], [address] [place] [phone] Notes/Report: Bilirubin Total 0.9 0.0-1.0 mg/dL Bilirubin Direct 0.3 0.0-0.5 mg/dL Aspartate Amino Transferase 28 5-37 U/L Alanine Aminotransferase 35 0-40 U/L Total Protein 6.9 6.5-8.0 g/dL Albumin Level 4.9 3.5-5.0 g/dL Alkaline Phosphatase 53 39-117 U/L IRON PROFILE Reviewed date:06/11/2025 03:53:38 PM Interpretation: Performing Lab:[facility], [address] [place] [phone] Notes/Report: Iron 170 45-160 mcg/dL Total Iron Binding Capacity 276 228-428 mcg/dL Percent Iron Saturation 62 15-50 % Unsaturated Iron Binding 106 Ferritin Reviewed date:06/11/2025 03:42:08 PM Interpretation: Performing Lab:[facility], [address] [place] [phone] Notes/Report: Ferritin 413 20-250 ng/mL Reason For Referral No Information Medications Medication [...] BY MOUTH EVERY DAY for 90 Not-Taking Ibuprofen 200 MG 3 tablet with food o r milk as needed Orally Three times a day Not-Taking oxyCODONE HCl 5 MG 1 tablet as needed Orally twice a day as needed for 10 days 11/24/2022 Not-Taking Valsartan-hydroCHLOROthia zide 160-12.5 MG TAKE 1 [...] a day for 10 days 04/29/2025 Active Immunizations Vaccine Route Administration Date Status Comme nts SARS-COV-2 Moderna Unknown 12/02/2021 Administered [facility] SARS-COV-2 Moderna Unknown 12/02/2021 Administered SARS-COV-2 Moderna Unknown 12/30/2021 Administered SARS-COV-2 Moderna Unknown 12/30/2021 Administered Flu Vaccine Unknown 11/10/2014 Refused Flu Vaccine Unknown 01/18/2016 Refused Fluarix Quadrivalent Unknown 03/12/2019 Refused Fluarix Quadrivalent Unknown 01/31/2020 Refused PPSV23 (Pnemovax) Unknown 01/31/2020 Refused Covid Vaccine Unknown 11/15/2021 Refused Fluarix Quadrivalent Unknown 11/15/2021 Refused Fluarix Quadrivalent Unknown 09/08/2022 Refused Fluarix Quadrivalent - 150 Unknown 08/12/2024 Refused [...] Never (0 point) Points 4 Interpretation Positive Problems Problem Type SNOMED Code ICD Code Onset Dates Problem Status W/U Status Risk Notes Problem Thrombocytopenia (579086019) Thrombocytopenia (D69.6) Active confirmed Problem 78900904 Anxiety (F41.9) Active confirmed Problem 73410512 Hereditary hemochromatosis (E83.110) Active confirmed Problem 983292627 Tubular adenoma of colon (D12.6) Active confirmed Problem 19700606 Essential hypert ension (I10) Active confirmed Problem 9539880 Prediabetes (R73.09) Active confirmed Problem 419909992 Low HDL (under 4 0) (E78.6) Active confirmed Problem 81920944 Sciatica of righ t side (M54.31) Active confirmed Problem 498008503 Pure hypercholesterolemia (E78.00) Active confirmed Problem Irritable bowel syndrome (20673171) IBS (irritable bowel syndrome) (K58.9) Active confirmed Problem Obstructive sleep apnea syndrome (83634547) ESTELITA (obstructive sleep apnea) (G47.33) Active confirmed Problem 464917071 BMI 35.0-35.9,ad ult (Z68.35) Active confirmed Problem 813611366 BMI 36.0-36.9,ad ult (Z68.36) Active confirmed Problem Gout (00213989) Acute gout invol ving toe of right foot, unspecified cause (M10.9) Active confirmed Problem 7462599892010122 Acute gout of r ight foot, unspecified cause (M10.9) Active confirmed Problem 17069472 Aortic atheroscl erosis (I70.0) Active confirmed Vital Signs Blood pressure diastolic 70 mm Hg 04/29/2025 gil ght is down 5 pounds since 02-10-25 Height 68 in 04/29/2025 weight is down 5 pounds since 02-10-25 Blood pressure systolic 142 mm Hg 04/29/2025 weig ht is down 5 pounds since 02-10-25 Weight 228 lbs 04/29/2025 weight is down 5 pounds since 02-10-25 BMI 34.66 kg/m2 04/29/2025 weight is down 5 pounds since 02-10-25 Encounters Encounter Location Date Provider Diagnosis Riky Calzada MD [address] [place] [id number] 08/05/2024 Riky Calzada Annual physical exam Z00.00 ; Prediabetes R73.09 ; Pure hypercholesterolemia E78.00 ; Essential hypertension I10 ; Thrombocytopenia D69.6 and Hereditary hemochromatosis E83.110 Riky Calzada MD [address] [place] [id number] 02/03/2025 Riky Calzada Prediabetes R73.09 a nd Pure hypercholesterolemia E78.00 Riky Calzada MD [address] [place] [id number] 08/12/2024 Riky Calzada Thrombocytopenia D69 .6 ; Essential hypertension I10 ; Tubular adenoma of colon D12.6 ; Prediabetes R73.09 ; Pure hypercholesterolemia E78.00 ; Colon cancer screening Z12.11 and Depression screening Z13.31 Riky Calzada MD [address] [place] [id number] 09/10/2024 Riky Calzada Thrombocytopenia D69 .6 Riky Calzada MD [address] [place] [id number] 02/10/2025 Riky Calzada Hereditary hemochrom atosis E83.110 and Elevated LFTs R79.89 Riky Calzada MD [address] [place] [id number] 04/29/2025 Riky Calzada Acute gout involving toe of right foot, unspecified cause M10.9 Assessments Encounter Date Diagnosis (ICD Code) Assessment Notes Treatment Notes Treatment Clinical Notes Section Notes 08/05/2024 Annual physical exam (ICD-10 - Z00.00) 08/05/2024 Prediabetes (ICD-10 - R73.09) 02/03/2025 Prediabetes (ICD-10 - R73.09) 08/12/2024 Thrombocytopenia (ICD-10 - D69.6) need notes from dr bains 08/12/2024 Essential hypertensi on (ICD-10 - I10) doing well, is at goal, will continue current regiment 09/10/2024 Thrombocytopenia (ICD-10 - D69.6) 02/10/2025 Hereditary hemochromatosis (ICD-10 - E83.110) is being followed by dr valenzuela and has phlebotomies. 02/10/2025 Elevated LFTs (ICD-1 0 - R79.89) is doing well with cutting back on alcohol 04/29/2025 Acute gout involving toe of right foot, unspecified cause (ICD-10 - M10.9) patient verbalized understanding of medication and directions for use 08/05/2024 Pure hypercholesterolemia (ICD-10 - E78.00) 02/03/2025 Pure hypercholesterolemia (ICD-10 - E78.00) 08/12/2024 Tubular adenoma of colon (ICD-10 - D12.6) had colonoscopy 3 mo ago 08/05/2024 Essential hypertensi on (ICD-10 - I10) 08/12/2024 Prediabetes (ICD-10 - R73.09) stable, will contiue to monitor, no need for medication at this tme 08/05/2024 Thrombocytopenia (ICD-10 - D69.6) 08/12/2024 Pure hypercholesterolemia (ICD-10 - E78.00) stbale, is at goal, will continue current regiment 08/05/2024 Hereditary hemochromatosis (ICD-10 - E83.110) 08/12/2024 Colon cancer screeni ng (ICD-10 - Z12.11) 08/12/2024 Depression screening (ICD-10 - Z13.31) negative screen Plan Of Treatment Pending Test Test Name Order Date Electrocardiogram (EKG) 03/11/2016 Electrocardiogram (EKG) 03/23/2017 Electrocardiogram (EKG) 05/31/2018 MRI LUMBAR SPINE NO CONTRAST 11/24/2022 XR CHEST 2 VIEW PA & LAT 11/15/2021 XR GI SERIES 11/30/2021 Next Appt Details Provider Name:Riky alvarez, 08/07/2025 07:15:00 AM, [address] [place] [address], [address], [phone], Provider Name:Riky clarker, 08/14/2025 01:00:00 PM, [address] [place] [address], [place] [address], [place], [phone], Insurance Providers Payer Name Payer Address Payer Phone Subscriber Number Group Number Insured Name Patient Relationship to Insured Coverage Start Date Coverage End Date [employer] [address] [place] [address] [id number] Jus Carr Self - patient is the insured 4 [employer] [place] [place] [address] [place] [address] [id number] Jus Carr Self - patient is the insured Medical (General) History Medical History History ICD Code colonoscopy 09/2010 with gely noma; colonoscopy done 01/31/[address] Valenzuela - repeat 5 years04/10/24 repeat 5y had chest ct and repeat negative. no nee d for any further follow up
--- OUTSIDE RECORDS SUMMARY | 2025-07-23 10:24 | XMS_ITS | Patient Health Record ---
Author Organization [facility] Address [address] [place] [address] Care Team Providers Care Micro Computer Data Processor Name Role Phone Zheng MADRID, Riky Primary Care Provider Jayjay Daley Unavailable [phone] Allergies No Known Allergies Results Component Value Reference Range Notes Complete Blood Count Man Dif Reviewed date:08/27/2024 11:07:53 AM Interpretation: Performing Lab:[facility], [address] [place] [phone] Notes/Report: White Blood Count 11.9 4.8-10.8 X10*3/uL [...] 2-11 % Neutrophils Absolute Manual 8.9 2.0-8.3 X10*3 /uL Lymphocytes Absolute Manual 1.7 1.2-4.9 X10*3 /uL Monocytes Absolute Manual 1.3 0.1-1.2 X10*3/u L Platelet Estimate DECREASED NORMAL Platelet Morphology Comment NORMAL RBC Morphology NOTED Polychromasia 1+ (0-2) Tear Drop Cells 1+ (0-2) IRON PROFILE Reviewed date:08/11/2024 05:15:51 PM Interpretation: Performing Lab:[facility], [address] [place] [phone] Notes/Report: Iron 142 45-160 mcg/dL Total Iron Binding Capacity 288 228-428 mcg/d L Percent Iron Saturation 49 15-50 % Unsaturated Iron Binding 146 Ferritin Reviewed date:08/11/2024 05:16:03 PM Interpretation: Performing Lab:[facility], [address] [place] [phone] Notes/Report: Ferritin 420 20-250 ng/mL Therapeutic Phlebotomy Reviewed date:08/11/2024 05:16:13 PM Interpretation: Performing Lab:[facility], [address] [place] [phone] Notes/Report: THER/HGB TNP 14.0-18.0 g/dL Lab Results on file. Performed at [facility] on 08/08/24: Hgb: 11.7 g/dl Hct: 34.8 [...] reviewed by provider) Interpretation: Performing Lab: Notes/Report: [address] [place] [address] Ultrasound Report Signed with Addenda Patient: Jus Thurman MR#: [id number] : 1960 Acct:[id number] Age/Sex: 64 / M ADM Date: 09/23/24 Loc: HO.US Attending Dr: Jayjay Owens MD Ordering Physician: Jayjay Owens MD Date of Service: 09/23/24 Procedure(s): US abdomen comp w elastography Accession Number(s): [id number] cc: Riky Calzada MD; Jayjay Owens MD [...] by: Sean Child MD 10/24/2024 10:50 PM [facility] Dictated By: Sean Child MD Signed By: <Electronically signed by Sean Child MD in OV> 11/07/24 0649 DD/ 6 TD/TT: 09/23/24919 Electrical Assembly Technician: SS US duplex arterial venous co mp (Not yet reviewed by provider) Interpretation: Performing Lab: Notes/Report: [address] [address] Ultrasound Report Signed with Addenda Patient: Jus Thurman MR#: [id number] : 1960 Acct:[id number] Age/Sex: 64 / M ADM Date: 09/23/24 Loc: HO.US Attending Dr: Jayjay Owens MD Ordering Physician: Jayjay Owens MD Date of Service: 09/23/24 Procedure(s): US duplex arterial venous comp Accession Number(s): [id number] cc: Riky Calzada MD; Jayjay Owens MD [...] by: Sean Child MD 10/24/2024 10:50 PM [facility] Dictated By: Sean Child MD Signed By: <Electronically signed by Sean Child MD in OV> 11/07/24 0649 DD/ 6 TD/TT: 09/23/24919 Electrical Assembly Technician: Therapeutic Phlebotomy Reviewed date:12/02/2024 10:30:39 PM Interpretation: Performing Lab:[facility], [address] [place] [phone] Notes/Report: THER/HGB 11.0 14.0-18.0 g/dL THER/HCT TNP 42.0-52.0 % Therapeutic Phlebotomy TNP Reason: Pre-phlebotomy Hgb/Hct is below the established parameter for this patient. Please note that a copy of this report has been sent to the Primary Care Physician, the ordering physician and any physician designated by patient request. Therapeutic Phlebotomy Reviewed date:03/04/2025 08:54:23 AM Interpretation: Performing Lab:[facility], [address] [place] [phone] Notes/Report: THER/HGB 12.0 14.0-18.0 g/dL THER/HCT TNP [...] Status Risk Notes Problem Colon cancer screening (272643037) Colon cancer screening (Z12.11) Active confirmed Problem 475577039 Encounter for screening for malignant neoplasm of colon (Z12.11) Active confirmed Problem 451107962 History of adenomatous polyp of colon (Z86.010) Active confirmed Problem 871541572 Abdominal bloati ng (R14.0) Active confirmed Problem History of polyp of colon (situation) (040080119) Personal history of colonic polyps (Z86.010) Active confirmed Problem 225553317 Periumbilical pa in (R10.33) Active confirmed Problem Diverticular disease of colon (495077580) Diverticulosis of large intestine without perforation or abscess without bleeding (K57.30) Active confirmed Problem Hepatosplenomegaly (76388921) Hepatomegaly with splenomegaly, not elsewhere classified (R16.2) Active confirmed Problem Fatty liver (314719351) Fatty liver (K76.0) Active confirmed Problem Hepatitis C antibody test positive (605295175) Hepatitis C antibody test positive (R76.8) Active confirmed Problem Iron excess (63515497) Iron excess (E83.19) Active confirmed Problem Thrombocytopenia (747264114) Thrombocytopenia (D69.6) Active confirmed Problem Blood chemistry abnormal (805976142) Elevated ferritin level (R79.89) Active confirmed Vital Signs Blood pressure diastolic 00 mm Hg 08/27/2024 Height 68 in 08/27/2024 Blood pressure systolic 00 mm Hg 08/27/2024 Weight 223 lbs 08/27/2024 BMI 33.90 kg/m2 08/27/2024 Encounters Encounter Location Date Provider Diagnosis [facility] [address] [place] [phone] 08/27/2024 Jayjay Owens History of adenomato us polyp of colon Z86.010 ; Hepatomegaly with splenomegaly, not elsewhere classified R16.2 ; Encounter for screening for malignant neoplasm of colon Z12.11 ; Fatty liver K76.0 ; Hepatitis C antibody test positive R76.8 and Elevated ferritin level R79.89 [facility] [address] [place] [phone] 09/09/2024 Jayjay Owens [facility] [address] [place] [phone] 10/31/2024 Jayjay Owens Assessments Encounter Date Diagnosis [...] US abdomen comp w elastography 4 US abdomen comp w elastography 4 US duplex arterial venous comp 4 US duplex arterial venous comp 4 Future Test Test Name Order Date COLONOSCOPY 11/02/2017 COLONOSCOPY 01/09/2024 Next Appt Details Provider Name:Jayjay Owens , 08/28/2025 09:00:00 AM, [address], [address], [place], [address], Insurance Providers Payer Name Payer Address Payer Phone Subscriber Number Group Number Insured Name Patient Relationship to Insured Coverage Start Date Coverage End Date MEDICARE OF [place] [address] [place] [address] [id number] JUS THURMAN Self - patient is the insured [employer] CLAIMS [address] [place] [address] [id number] JUS THURMAN Self - patient is the insured Medical (General) History Medical History History ICD Code Denies DE,DM,CVA,Lung disease,renal dise ase Hypertension Sleep apnea Hyperlipidemia [...]
== END 2025-07-23 09:44 | disposition home or self-care (01) ==
LOC: HO.HMGCX 09:43
PROVIDERS: PCP Internal Medicine; Visit Provider Internal Medicine
DX: E83.119 Hemochromatosis, unspecified (principal)
CPT/HCPCS: 76700

== ENCOUNTER → 2025-07-23 09:47 | Outpatient (BNV) | payer MEDICARE, SELFPAY | PROVIDERS: PCP Internal Medicine; Visit Provider Student in an Organized Health Care Education/Training Program | DX: K76.0 Fatty (change of) liver, not elsewhere classified (principal) | CPT/HCPCS: 76700 ==

== ENCOUNTER 2025-08-05 09:40 | Outpatient (REF) | payer MEDICARE, SELFPAY ==
--- OUTSIDE RECORDS SUMMARY | 2024-04-10 05:50 | XMS_ITS ---
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 Name Role Phone Riky Calzada MD Primary Care Provider Jayjay Daley [phone] REASON FOR VISIT screening colon Problems Problem Type SNOMED Code ICD Code Onset Dates Problem Status W/U Status Risk Notes Problem Diverticular disease of colon (900065090) Diverticulosis of large intestine without perforation or abscess without bleeding (K57.30) Active confirmed Encounters Encounter Location Date Provider Diagnosis [facility] [place] Out[place] [address] [place], [place] [id number] 04/10/2024 Jayjay Owens Encounter for scre ening colonoscopy Z12.11 ; Colon polyps K63.5 ; Diverticulosis of large intestine without perforation or abscess without bleeding K57.30 and Other hemorrhoids K64.8 Assessments Encounter Date Diagnosis (ICD Code) Assessment Notes Treatment Notes Treatment Clinical Notes Section Notes 04/10/2024 Encounter for screening colonoscopy (ICD-10 - Z12.11) 04/10/2024 Colon polyps (ICD-10 - K63.5) 04/10/2024 Diverticulosis of large intestine without perforation or abscess without bleeding (ICD-10 - K57.30) 04/10/2024 Other hemorrhoids (ICD-10 - K64.8) Plan Of Treatment Next Appt Details Provider Name:Jayjay Owens , 08/28/2025 09:00:00 AM, [address], [address], [place], [address], Progress Notes * MARY THURMANDOB: [birth year] (65 yo M)Acc No.[id number]:04/10/2024 COLON WITH MAC Patient: MARY SUN Provider: Carlee Owens MD :1960 A ge:63 Y S ex:Male Date:04/10/2024 Address:[address] [place] [address] Pcp:Riky Calzada MD Subjective: * Chief Complaints: * 1 . Screening colon. * Medical History: Objective: * Vitals: Assessment: * Assessment: 1. E ncounter for screening colonoscopy - Z12.11 (Primary) 2 . C olon polyps - K63.5 3 . D iverticulosis of large intestine without perforation or abscess without bleeding - K57.30 4 . O ther hemorrhoids - K64.8 Plan: * Treatment: * Procedure Codes: 4 5380 COLONOSCOPY AND BIOPSY, Modifiers: PT * * The named appointment provid er may or may not be the originator of this progress note, and it is not deemed complete until electronically signed by the appointment provider. Sign off status: Pending * Provider: Carlee Owens MD Date: 0 04/10/2024 Generated for Cher nugent/Juli/Janeitting on: 0 08/05/2025 11:21 AM EDT
--- OUTSIDE RECORDS SUMMARY | 2024-08-12 09:00 | XMS_ITS ---
Author Organization Riky Calzada MD Address [address] [place], [place] [id number] Care Team Providers Care Manager Solar Name Role Phone Riky Calzada Primary Care Provider [phone] Allergies Allergen (clinical drug ingredient) Drug/Non Drug Allergy documented on EMR Reaction Allergy Type Onset Date Status indomethacin Indomethacin dizzy Drug Allergy A ctive REASON FOR VISIT comp visit/ must see CBC Medications Medication SIG (Take, Route, Frequency, Duration) Notes Start Date End Date Status Valsartan-hydroCHLOROthia zide 160-12.5 MG TAKE 1 TABLET BY MOUTH EVERY DAY FOR 30 DAYS Active Rosuvastatin Calcium 40 MG 1 tablet Orally Once a day Active Aspir-Low 81 MG 1 tablet Orally Once a day for 30 day(s) Active LORazepam 1 MG 1 tablet at bedtime as needed Orally Once a day for 30 days 03/12/2019 Not-Taking Indomethacin 50 MG 1 capsule with food or milk Orally Three times a day for 7 days 07/16/2021 Not-Taking Lipitor 20 MG 1 tablet Orally Once a day for 30 day(s) Not-Taking Ibuprofen 200 MG 3 tablet with food o r milk as needed Orally Three times a day Not-Taking oxyCODONE HCl 5 MG 1 tablet as needed Orally twice a day as needed for 10 days 11/24/2022 Not-Taking Hyoscyamine Sulfate ER 0.375 MG TAKE 1 TABLET BY MOUTH EVERY DAY for 90 Not-Taking Immunizations Vaccine Route Administration Date Status Comme nts Fluarix Quadrivalent - 150 Unknown 08/12/2024 Refused Social History Tobacco Use: Social History Observation Description Date Details (start date - stop date) Former Smoker NA - NA Tobacco Use/Smoking Question Answer Notes Patient is a former smoker How long has it been since y ou last smoked? > 10 years Additional Findings: Tobacco Non-User Fo rmer smoker, currently using no form of tobacco Alcohol Screen Question Answer Notes Did you have a drink contain ing alcohol in the past year? Yes How often did you have a dri nk containing alcohol in the past year? 2 to 3 times a week (3 points) How many drinks did you have on a typical day when you were drinking in the past year? 3 or 4 drinks (1 point) How often did you have 6 or more drinks on one occasion in the past year? Never (0 point) Points 4 Interpretation Positive Vital Signs Blood pressure systolic 130 mm Hg 08/12/20 24 Blood pressure diastolic 70 mm Hg 024 Height 68 in 08/12/2024 Weight 225 lbs 08/12/2024 BMI 34.21 kg/m2 08/12/2024 Encounters Encounter Location Date Provider Diagnosis Riky Calzada MD [address] [place] [address] [place] [id number] 08/12/2024 Riky Calzada Thrombocytopenia D69 .6 ; Essential hypertension I10 ; Tubular adenoma of colon D12.6 ; Prediabetes R73.09 ; Pure hypercholesterolemia E78.00 ; Colon cancer screening Z12.11 and Depression screening Z13.31 Assessments Encounter Date Diagnosis (ICD Code) Assessment Notes Treatment Notes Treatment Clinical Notes Section Notes 08/12/2024 Thrombocytopenia (ICD-10 - D69.6) need notes from dr bains 08/12/2024 Essential hypertensi on (ICD-10 - I10) doing well, is at goal, will continue current regiment 08/12/2024 Tubular adenoma of colon (ICD-10 - D12.6) had colonoscopy 3 mo ago 08/12/2024 Prediabetes (ICD-10 - R73.09) stable, will contiue to monitor, no need for medication at this tme 08/12/2024 Pure hypercholesterolemia (ICD-10 - E78.00) stbale, is at goal, will continue current regiment 08/12/2024 Colon cancer screeni ng (ICD-10 - Z12.11) 08/12/2024 Depression screening (ICD-10 - Z13.31) negative screen Plan Of Treatment Medication Medication Name Sig Start Date Stop Date Notes Valsartan-hydroCHLOROthiazid e 160-12.5 MG TAKE 1 TABLET BY MOUTH EVERY DAY FOR 30 DAYS Rosuvastatin Calcium 40 MG 1 tablet Orally Once a day Treatment Notes Assessment Notes Thrombocytopenia need notes from dr jose meadows Essential hypertension doing well, is at goal, will continue current regiment Tubular adenoma of colon had colonoscopy 3 mo ago Prediabetes stable, will contiue to monitor, no need for medication at this tme Pure hypercholesterolemia stbale, is at goal, will continue current regiment Depression screening negative screen Next Appt Details Follow Up: 6 Months, Reason: Provider Name:Riky Nunez ier, 08/14/2025 01:00:00 PM, [address] [place] [address], [address], [place], [place], [phone], Progress Notes * Jus THURMANDOB: [birth year] (64 yo M)Acc No.[id number]:08/12/2024 Patient: Jus Mercado Provider: Sola Calzada MD :1960 A ge:64 Y S ex:Male Date:08/12/2024 Address:[address] [place], [place] [id number] Subjective: * Chief Complaints: * c omp visit/ must see CBC * HPI: D epression Screening: PHQ-9 L ittle interest or pleasure in doing things N ot at all, F eeling down, depressed, or hopeless N ot at all, T rouble falling or staying asleep, or sleeping too much N ot at all, F eeling tired or having little energy N ot at all, P oor appetite or overeating N ot at all, F eeling bad about yourself or that you are a failure, or have let yourself or your family down N ot at all, T rouble concentrating on things, such as reading the newspaper or watching television N ot at all, M oving or speaking so slowly that other people could have noticed; or the opposite, being so fidgety or restless that you have been moving around a lot more than usual N ot at all, T houghts that you would be better off or of hurting yourself in some way N ot at all, T otal Score 0 . I nterpretation and Intervention D epression Screening Findings N egative, F ollow-Up for Depression : review of PHQ-9 found negative result, no follow-up needed. patient is a 64 yo male here for review of recent labs and follow up of chronic issues. C ommunication Needs: Communication Needs D oes the patient have a hearing impairment N o, D oes the patient have a vision impairment? Y es, I f yes, what is the vision impairment? G lasses, D oes the patient have a cognition impairment? N o. S LUIS Questions: SDOH Questions I n the past year have you been worried about losing housing? N o, I n the past year have you or any family members you live with been unable to get any of the following when it was really needed? Check all that apply: N one. * ROS: G eneral/Constitutional: Patient denies c hills , fatigue , fever , headache. ? E NT: Patient denies d ecreased sense of smell , any loss of taste , sore throat. R espiratory: Patient denies s hortness of breath at rest shortness of breath with exertion. C ardiovascular: Patient denies c hest pain with exertion chest pain at rest chest pain at rest. G astrointestinal: Patient denies c hange in bowel habits abdominal pain. G enitourinary: Patient denies f requent urination difficulty urinating.? M usculoskeletal: Patient denies m uscle aches. P eripheral Vascular: Patient denies r ed and blue toes. * Medical History: * Surgical History: * Hospitalization/Major Diagno stic Procedure: * Family History: F ather: 85 yrs, colon cancer. M other: alive 96 yrs, type II diabetes, coronary artery disease. 1 brother(s) , 2 sister(s) - healthy. . Mother-Healthy 1 brother- unknown cause, No pertinent family medical history, Denies mental health/substance abuse family history. * Social History: T obacco Use: T obacco Use/Smoking P atient is a f ormer smoker, H ow long has it been since you last smoked? > 10 years, A dditional Findings: Tobacco Non-User F ormer smoker, currently using no form of tobacco. D rugs/Alcohol: A lcohol Screen D id you have a drink containing alcohol in the past year? Y es, H ow often did you have a drink containing alcohol in the past year? 2 to 3 times a week (3 points), H ow many drinks did you have on a typical day when you were drinking in the past year? 3 or 4 drinks (1 point), H ow often did you have 6 or more drinks on one occasion in the past year? N ever (0 point), P oints 4 , I nterpretation P ositive. M iscellaneous: C affeine: yes, frequency:,2 cups a week. no Children. no Community involvements. no Exercise. Home smoke detector use: yes. Housing: owning. Living with: alone. Marital status: . Occupation: works full-time. Pets: none. no Travel outside of the [place]. * Medications: T akingAspir-Low 81 MG Tablet Delayed Release 1 tablet Orally Once a dayRosuvastatin Calcium 40 MG Tablet 1 tablet Orally Once a dayValsartan-hydroCHLOROthiazide 160-12.5 MG Tablet TAKE 1 TABLET BY MOUTH EVERY DAY FOR 30 DAYS Taking Aspir-Low 81 MG Tablet Delayed Release 1 tablet Orally Once a dayTaking Rosuvastatin Calcium 40 MG Tablet 1 tablet Orally Once a dayTaking Valsartan-hydroCHLOROthiazide 160-12.5 MG Tablet TAKE 1 TABLET BY MOUTH EVERY DAY FOR 30 DAYS Not-Taking/PRNIbuprofen 200 MG Tablet 3 tablet with food or milk as needed Orally Three times a dayoxyCODONE HCl 5 MG Tablet 1 tablet as needed Orally twice a day as neededLipitor 20 MG Tablet 1 tablet Orally Once a dayHyoscyamine Sulfate ER 0.375 MG Tablet Extended Release 12 Hour TAKE 1 TABLET BY MOUTH EVERY DAY Indomethacin 50 MG Capsule 1 capsule with food or milk Orally Three times a dayLORazepam 1 MG Tablet 1 tablet at bedtime as needed Orally Once a dayMedication List reviewed and reconciled with the patientNot-Taking/PRN Ibuprofen 200 MG Tablet 3 tablet with food or milk as needed Orally Three times a dayNot-Taking/PRN oxyCODONE HCl 5 MG Tablet 1 tablet as needed Orally twice a day as neededNot-Taking/PRN Lipitor 20 MG Tablet 1 tablet Orally Once a dayNot- Taking/PRN Hyoscyamine Sulfate ER 0.375 MG Tablet Extended Release 12 Hour TAKE 1 TABLET BY MOUTH EVERY DAY Not-Taking/PRN Indomethacin 50 MG Capsule 1 capsule with food or milk Orally Three times a dayNot-Taking/PRN LORazepam 1 MG Tablet 1 tablet at bedtime as needed Orally Once a dayMedication List reviewed and reconciled with the patient * Allergies: I ndomethacin: dizzyyes[Allergies Verified] Objective: * Vitals: H t: 68, Wt:225, BMI:34.21, BP:130/70. * P ast Orders: L ab:Microalbumin, Random (Order Date - 08/05/2024) (Collection Date - 08/05/2024) Value Reference Range Creatinine Urine 153.62 - mg/dL Microalbumin Urine 17.0 - mg/L Microalbum Creatinine Ratio Ur 11.0 <30 - ug/ mg cr L ab:Hemoglobin A1c (Order Date - 08/05/2024) (Collection Date - 08/05/2024) Value Reference Range Hemoglobin A1c % 5.0 <6.0 - % Estimated Average Glucose 97 - mg/dL L ab:UA ClnCatch+Micro w/rflx Cult (Order Date - 08/05/2024) (Collection Date - 08/05/2024) Value Reference Range Color Urine Yellow - Appearance Urine Clear - PH 5.5 5.0-9.0 - Glucose Urine UA Negative Negative - mg/dL Urine Blood Negative Negative - Specific [place] - Urine 1.025 1.005-1.025 - Urine Protein Negative Neg-Trace - mg/dL Urine Ketones Negative Negative - mg/dL Nitrite Urine Negative Negative - Leukocyte Esterase Urine Negative Negative - RBC Urine 0-2 0-2 - /HPF WBC Urine 0-5 0-5 - /HPF Squamous Epithelial Cell Urine 0-2 0-2 - /HP F Bacteria Urine None Seen None Seen - Hyaline Casts Urine 0-2 0-2 - /LPF L ab:Comprehensive [place]. Panel Fast (Order Date - 08/05/2024) (Collection Date - 08/05/2024) Value Reference Range Sodium 142 135-145 - mmol/L Bilirubin Total 0.7 0.0-1.0 - mg/dL Aspartate Amino Transferase 19 5-37 - U/L Alanine Aminotransferase 25 0-40 - U/L Total Protein 7.5 6.5-8.0 - g/dL Albumin Level 4.8 3.5-5.0 - g/dL Alkaline Phosphatase 52 39-117 - U/L Potassium 4.0 3.3-5.1 - mmol/L Chloride 106 96-108 - mmol/L Carbon Dioxide 27 22-29 - mmol/L Anion Gap 13 12-20 - Blood Urea Nitrogen 21 H 9-16 - mg/dL Creatinine 0.86 0.5-1.4 - mg/dL Estimated Glomerular Filt Rate > 60 - Glucose Fasting 108 H 60-99 - mg/dL Calcium 9.7 8.4-10.2 - mg/dL L ab:Lipid Panel (Order Date - 08/05/2024) (Collection Date - 08/05/2024) Value Reference Range Triglycerides 128 <150 - mg/dL Cholesterol 134 <200 - mg/dL LDL Cholesterol Calculated 68 <100 - mg/dL HDL Cholesterol 41 >40 - mg/dL L ab:PSA,Total (Free>4and<10) (Order Date - 08/05/2024) (Collection Date - 08/05/2024) Value Reference Range PSA,Total (Free>4and<10) 0.62 0.00-4.00 - ng/ mL * Examination: G eneral Examination: GENERAL APPEARANCE: alert, well hydrated, in no distress , male. HEAD: normocephalic. EYES: BOTH EYES, normal. EARS: BOTH EARS, normal. THROAT: no erythema, no exudate, pharynx normal. NECK/THYROID: no cervical lymphadenopathy, no carotid bruit. SKIN: good turgor. HEART: regular rate and rhythm, no murmurs, rubs, gallops. LUNGS: no wheezes, rales, rhonchi, good air movement, clear to auscultation bilaterally. ABDOMEN: no hepatosplenomegaly, soft, nontender, nondistended. RECTAL EXAM: giuaic, prostate normal, no masses palpable.? MALE GENITOURINARY: testes descended bilaterally, no testicular mass. Assessment: * Assessment: 1. T hrombocytopenia - D69.6 (Primary) 2 . E ssential hypertension - I10 3 . T ubular adenoma of colon - D12.6 4 . P rediabetes - R73.09 5 . P ure hypercholesterolemia - E78.00 6 . C olon cancer screening - Z12.11 7 . D epression screening - Z13.31 Plan: * Treatment: 2. E ssential hypertension Continue Valsartan-hydroCHLOROthiazide Tablet, 160-12.5 MG, TAKE 1 TABLET BY MOUTH EVERY DAY FOR 30 DAYS. Notes: doing well, is at goal, will continue current regiment 3. T ubular adenoma of colon Notes: had colonoscopy 3 mo ago 4. P rediabetes Notes: stable, will contiue to monitor, no need for medication at this tme 5. P ure hypercholesterolemia Continue Rosuvastatin Calcium Tablet, 40 MG, 1 tablet, Orally, Once a day. Notes: stbale, is at goal, will continue current regiment 6. D epression screening Notes: negative screen * Immunizations: Fluarix Quadrivalent - 150 (Not administered - Refused: Patient decision) * Procedure Codes: * Preventive Medicine: Immunizations: I nfluenza H ave you had a flu shot since the most recent July 28? Y es. * Follow Up: 6 Months * * Sign off status: Completed true * Provider: Sola Calzada MD Date: 0 08/12/2024 Generated for Cher nugent/Juli/Janeitting on: 0 08/05/2025 11:21 AM EDT History and Physical Notes * HPI (History of Present Illness) Category Sub-Category Detail Notes Category Not es Depression Screening PHQ-9 Little inte rest or pleasure in doing things: Not at all patient is a 64 yo male here for review of recent labs and follow up of chronic issues. Feeling down, depressed, or hopeless: No t at all Trouble falling or staying asleep, or sl eeping too much: Not at all Feeling tired or having little energy: N ot at all Poor appetite or overeating: Not at all Feeling bad about yourself o r that you are a failure, or have let yourself or your family down: Not at all Trouble concentrating on thi ngs, such as reading the newspaper or watching television: Not at all Moving or speaking so slowly that other people could have noticed; or the opposite, being so fidgety or restless that you have been moving around a lot more than usual: Not at all Thoughts that you would be b shobha off or of hurting yourself in some way: Not at all Total Score: 0 Interpretation and Intervention Depression Deanne carrasco Findings: Negative Follow-Up for Depression: : review of PH Q-9 found negative result, no follow-up needed SDOH Questions SDOH Questions In the past year have you been worried about losing housing?: No In the past year have you or any family members you live with been unable to get any of the following when it was really needed? Check all that apply:: None Communication Needs Communication Needs Does the patient have a hearing impairment: No Does the patient have a vision impairmen t?: Yes If yes, what is the vision impairment?: Glasses Does the patient have a cognition impair ment?: No Examination Category Sub-Category Detail Notes Category Not es General Examination GENERAL APPEARANCE: alert, w ell hydrated, in no distress , male HEAD: normocephalic EYES: BOTH EYES, normal EARS: BOTH EARS, normal THROAT: no erythema, no exud ate, pharynx normal NECK/THYROID: no cervical lymphade nopathy, no carotid bruit HEART: regular rate and rhy thm, no murmurs, rubs, gallops LUNGS: no wheezes, rales, r honchi, good air movement, clear to auscultation bilaterally ABDOMEN: no hepatosplenomegal y, soft, nontender, nondistended SKIN: good turgor MALE GENITOURINARY: testes descended jonny aterally, no testicular mass RECTAL EXAM: giuaic, prostate nor mal, no masses palpable
--- OUTSIDE RECORDS SUMMARY | 2024-09-10 04:15 | XMS_ITS ---
Author Organization Riky Calzada MD Address [address] [place], [place] [id number] Care Team Providers Care Fuel Assembler Name Role Phone Riky Calzada Primary Care Provider [phone] Results Component Value Reference Range Notes Complete Blood Count Auto Di ff Reviewed date:09/11/2024 02:27:30 PM Interpretation: Performing Lab:[facility], [address] [place] [phone] Notes/Report: White Blood Count 11.4 4.8-10.8 X10*3/uL Red Blood Count 3.61 4.60-5.80 X10*6/uL Hemoglobin 11.2 14.0-18.0 g/dl Hematocrit 34.0 42.0-52.0 % Mean Corpuscular Volume 94.2 80.0-98.0 fL Mean Corpuscular Hemoglobin 31.0 27.0-33.0 pg Mean Corpuscular HGB Conc 32.9 31.0-36.0 g/dl Red Cell Distribution Width 16.8 11.0-16.0 % Platelet Count 61 160-400 X10*3/uL Neutrophils Percent Auto 60.9 45-73 % Imm Gran Pct Auto 8.8 0.0-0.4 % Lymphocytes Percent Auto 21.1 20-40 % Monocytes Percent Auto 8.1 2-11 % Eosinophils Percent Auto 0.6 0-4 % Basophils Percent Auto 0.5 0-2 % NRBC Pct Auto 0.0 0.0-0.2 /100WBC Neutrophils Absolute Auto 7.0 2.0-8.3 x10*3/u L Imm Gran Abs Auto 1.00 0.00-0.03 X10*3/uL Lymphocytes Absolute Auto 2.4 1.2-4.9 X10*3/u L Monocytes Absolute Auto 0.9 0.1-1.2 X10*3/uL Eosinophils Absolute Auto 0.1 0.0-0.4 X10*3/u L Basophils Absolute Auto 0.1 0.0-0.2 X10*3/uL NRBC Abs Auto 0.000 0.0-0.012 X10*3/uL CORRE CTED REPORT REASON FOR VISIT CBC Encounters Encounter Location Date Provider Diagnosis Riky Calzada MD [address] [place], [place] [phone] 09/10/2024 Riky Calzada Thrombocytopenia D69 .6 Assessments Encounter Date Diagnosis (ICD Code) Assessment Notes Treatment Notes Treatment Clinical Notes Section Notes 09/10/2024 Thrombocytopenia (ICD-10 - D69.6) Plan Of Treatment Next Appt Details Provider Name:Riky Nunez ier, 08/14/2025 01:00:00 PM, [address], [address], [place], [place], [phone], Progress Notes * Jus THURMANDOB: [birth year] (64 yo M)Acc No.[id number]:09/10/2024 Progress Note Patient: Corrine lamonteyoletteJus alcantara Provider: Sola Calzada MD :1960 A ge:64 Y S ex:Male Date:09/10/2024 Address:[address] [place] [address] roya [facility] Subjective: * Chief Complaints: * C BC * Medical History: * Surgical History: * Hospitalization/Major Diagno stic Procedure: * Medications: Objective: Assessment: * Assessment: 1. T hrombocytopenia - D69.6 (Primary) Plan: * Treatment: * Procedure Codes: 3 6415 VENIPUNCT, ROUTINE* * * Sign off status: Completed true * Provider: Sola Calzada MD Date: 1 Generated for Cher nugent/Juli/Marciano on: 0 08/05/2025 11:22 AM EDT
--- OUTSIDE RECORDS SUMMARY | 2025-02-03 04:00 | XMS_ITS ---
Author Organization Riky Calzada MD Address [address] [place], [place] [phone] Care Team Providers Care Turbine Assembler Name Role Phone Riky Calzada Primary Care Provider Results Component Value Reference Range Notes Liver Panel Reviewed date:02/03/2025 02:27:11 PM Interpretation: Performing Lab:[facility], [address] [place] [phone] Notes/Report: Bilirubin Total 0.8 0.0-1.0 mg/dL Bilirubin Direct 0.3 0.0-0.5 mg/dL Aspartate Amino Transferase 33 5-37 U/L Alanine Aminotransferase 33 0-40 U/L Total Protein 7.1 6.5-8.0 g/dL Albumin Level 4.4 3.5-5.0 g/dL Alkaline Phosphatase 54 39-117 U/L Glucose Fasting Reviewed date:02/03/2025 05:58:46 PM Interpretation: Performing Lab:[facility], [address] [place] [phone] Notes/Report: Glucose Fasting 97 60-99 mg/dL Lipid Panel with Reflex Reviewed date:02/03/2025 06:00:10 PM Interpretation: Performing Lab:[address] [phone] Notes/Report: Triglycerides 123 <150 mg/dL Desirable Triglyceride: [...] A1c Reviewed date:02/03/2025 12:36:49 PM Interpretation: Performing Lab:[facility], [address] [place] [phone] Notes/Report: Hemoglobin A1c % 5.6 <6.0 % [...] average glucose, using the formula of the B4Y-Flnuudd Average Glucose study (ADAG), Diabetes Care, Vol.31,#8, Jun. 2007 REASON FOR VISIT fasting lipids Encounters Encounter Location Date Provider Diagnosis Riky Calzada MD [address] [place] [phone] 02/03/2025 Riky Calzada Prediabetes R73.09 a nd Pure hypercholesterolemia E78.00 Assessments Encounter Date Diagnosis (ICD Code) Assessment Notes Treatment Notes Treatment Clinical Notes Section Notes 02/03/2025 Prediabetes (ICD-10 - R73.09) 02/03/2025 Pure hypercholesterolemia (ICD-10 - E78.00) Plan Of Treatment Next Appt Details Provider Name:Riky alvarez, 08/14/2025 01:00:00 PM, [address], [address], [place], [place], [phone], Progress Notes * Jus THURMANB: [birth year] (65 yo M)Acc No.[id number]:02/03/2025 Progress Note Patient: Jus SUN Provider: Sola Calzada MD :1960 A ge:64 Y S ex:Male Date:02/03/2025 Address:[address] [place] [address] , [place] pryor [id number] Subjective: * Chief Complaints: * 1 . [...] 02/03/2025 Generated for Cher nugent/Juli/Janeitting on: 0 08/05/2025 11:21 AM EDT
--- OUTSIDE RECORDS SUMMARY | 2025-02-10 10:00 | XMS_ITS ---
Author Organization Riky Calzada MD Address [address] [place], [place] [phone] Care Team Providers Care Marketing Production Specialist Name Role Phone Riky Calzada Primary Care Provider [phone] Allergies Allergen (clinical drug ingredient) Drug/Non Drug [...] Riky Calzada MD [address] [place], [place] [phone] 02/10/2025 Riky Zheng Hereditary hemochromatosis E83.110 and Elevated LFTs R79.89 [...] on alcohol Next Appt Details Provider Name:Riky Nunez ier, 08/14/2025 01:00:00 PM, [address], [address], [place], [place], [phone], Progress Notes * Jus THURMANDOB: [birth year] (64 yo M)Acc No.[id number]:02/10/2025 Progress Notes Patient: Corrine Jus ROBERTSON Provider: Sola Calzada MD :1960 A ge:64 Y S ex:Male Date:02/10/2025 Address:[address] [place], [place] [phone] Subjective: * Chief Complaints: * 6 month [...] MD Date: 0 02/10/2025 Generated for Cher nugent/Juli/Jaradsmitting on: 0 08/05/2025 11:22 AM EDT History and Physical Notes * [...]
--- OUTSIDE RECORDS SUMMARY | 2025-04-29 06:15 | XMS_ITS ---
Author Organization Riky Calzada MD Address [address] [place], [place] [phone] Care Team Providers Care Panel Sewer Name Role Phone Riky Calzada Primary Care [...] Status W/U Status Risk Notes Problem Gout (01348863) Acute gout involving toe of right foot, unspecified cause (M10.9) Active confirmed Vital Signs Blood pressure systolic 142 mm Hg 04/29/20 25 Blood pressure diastolic 70 mm Hg 025 Height 68 in 04/29/2025 Weight 228 lbs 04/29/2025 BMI 34.66 kg/m2 04/29/2025 weight is down 5 pounds formerly [facility] 02-10-25 Encounters Encounter Location Date Provider Diagnosis Riky Calzada MD [address] [place] [address] [place] [phone] 04/29/2025 Riky Calzada Acute gout involving toe [...] for use Next Appt Details Provider Name:Riky clarker, 08/14/2025 01:00:00 PM, [address] [place] [address], [address], [place], [place], [phone], Progress Notes * Jus THURMANDOB: [birth year] (64 yo M)Acc No.[id number]:04/29/2025 Progress Notes Patient: Jus SUN Provider: Sola Calzada MD :1960 A ge:64 Y S ex:Male Date:04/29/2025 Address:[address] [place], [place] [phone] Subjective: * Chief Complaints: * L eft [...] MD Date: 0 04/29/2025 Generated for Cher nugent/Juli/Janeitting on: 0 08/05/2025 [...]
--- OUTSIDE RECORDS SUMMARY | 2025-08-05 11:21 | XMS_ITS | Patient Health Record ---
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 Panel Fa st Reviewed date:08/06/2024 08:46:49 AM Interpretation: Performing Lab:[facility], [address] [place] [phone] Notes/Report: Sodium 142 135-145 mmol/L Potassium 4.0 3.3-5.1 mmol/L Chloride 106 96-108 mmol/L Carbon Dioxide 27 22-29 mmol/L Anion Gap 13 12-20 Blood Urea Nitrogen 21 9-16 mg/dL Creatinine 0.86 0.5-1.4 mg/dL Estimated Glomerular Filt Rate > 60 NOTE: For -[place]vad[place] individuals, multiply the result by 1.210. Chronic [...] Panel Reviewed date:08/05/2024 04:01:19 PM Interpretation: Performing Lab:[facility], [address] [place] [phone] Notes/Report: Triglycerides 128 <150 mg/dL Desirable Triglyceride: [...] (Free>4and<10) Reviewed date:08/05/2024 04:01:29 PM Interpretation: Performing Lab:[facility], [address] [place] [phone] Notes/Report: PSA,Total (Free>4and<10) 0.62 0.00-4.00 ng/mL A [...] Random Reviewed date:08/05/2024 04:02:52 PM Interpretation: Performing Lab:[facility], [address] [place] [phone] Notes/Report: Creatinine Urine 153.62 Microalbumin Urine 17.0 Microalbum/Creatinine Ratio Ur 11.0 <30 ug/mg cr Albumin/Creatinine Ratio Reference Ranges: Normal: < 30 ug/mg creatinine Microalbuminuria: 30 - 300 ug/mg creatinine Clinical Albuminuria: > 300 ug/mg creatinine Hemoglobin A1c Reviewed date:08/05/2024 04:01:42 PM Interpretation: Performing Lab:[facility], [address] [place] [phone] Notes/Report: Hemoglobin A1c % 5.0 <6.0 % [...] average glucose, using the formula of the K4J-Xmgasaf Average Glucose study (ADAG), Diabetes Care, Vol.31,#8, Jun. 2007 UA ClnCatch+Micro w/rflx Cul t Reviewed date:08/06/2024 08:32:59 AM Interpretation: Performing Lab:[facility], [address] [place] [phone] Notes/Report: Urine, Clean Catch Color Urine Yellow Appearance Urine Clear PH 5.5 5.0-9.0 Glucose Urine UA Negative Negative mg/dL Urine Blood Negative Negative Specific [place] - Urine 1.025 1.005-1.025 Urine Protein Negative Neg-Trace mg/dL Urine Ketones Negative Negative mg/dL Nitrite Urine Negative Negative Leukocyte Esterase Urine Negative Negative RBC Urine 0-2 0-2 /HPF WBC Urine 0-5 0-5 /HPF Squamous Epithelial Cell Urine 0-2 0-2 /HPF Bacteria Urine None Seen None Seen Hyaline Casts Urine 0-2 0-2 /LPF Liver Panel Reviewed date:02/03/2025 02:27:11 PM Interpretation: Performing Lab:[facility], [address] [place] [phone] Notes/Report: Bilirubin Total 0.8 0.0-1.0 mg/dL Bilirubin Direct 0.3 0.0-0.5 mg/dL Aspartate Amino Transferase 33 5-37 U/L Alanine Aminotransferase 33 0-40 U/L Total Protein 7.1 6.5-8.0 g/dL Albumin Level 4.4 3.5-5.0 g/dL Alkaline Phosphatase 54 39-117 U/L Glucose Fasting Reviewed date:02/03/2025 05:58:46 PM Interpretation: Performing Lab:[facility], [address] [place] [phone] Notes/Report: Glucose Fasting 97 60-99 mg/dL Lipid Panel with Reflex Reviewed date:02/03/2025 06:00:10 PM Interpretation: Performing Lab:[facility], [address] [place] [phone] Notes/Report: Triglycerides 123 <150 mg/dL Desirable Triglyceride: [...] A1c Reviewed date:02/03/2025 12:36:49 PM Interpretation: Performing Lab:[facility], [address] [place] [phone] Notes/Report: Hemoglobin A1c % 5.6 <6.0 % [...] average glucose, using the formula of the U4K-Hlolxai Average Glucose study (ADAG), Diabetes Care, Vol.31,#8, Jun. 2007 Complete Blood Count Auto Di ff Reviewed date:09/11/2024 02:27:30 PM Interpretation: Performing Lab:[facility], [address] [place] [phone] Notes/Report: White Blood Count 11.4 4.8-10.8 X10*3/uL [...] X10*3/uL NRBC Abs Auto 0.000 0.0-0.012 X10*3/uL COR RECTED REPORT Complete Blood Count Man Dif Reviewed date:08/12/2024 01:38:33 PM Interpretation:see back 08-12-2024 Performing Lab:[facility], [address] [place] [phone] Notes/Report: White Blood Count 12.6 4.8-10.8 X10*3/uL [...] 1.2-4.9 X10*3/uL Monocytes Absolute Manual 1.5 0.1-1.2 X10*3/u L Eosinophils Absolute Manual 0.1 0.0-0.4 X10*3/uL Basophils Abs Manual 0.1 0.0-0.2 X10*3/uL Metamyelocytes Absolute 0.5 Myelocytes Absolute 0.3 Hypersegmented Neutrophils PRESENT Platelet Estimate DECREASED NORMAL Large Platelet PRESENT Platelet Morphology Comment NOTED RBC Morphology NOTED Polychromasia 1+ (0-2) Microcytosis 1+ (5-14) Tear Drop Cells 1+ (0-2) Complete Blood Count Man Dif Reviewed date:09/12/2024 09:36:14 PM Interpretation: Performing Lab:[facility], [address] [place] [phone] Notes/Report: White Blood Count 11.4 4.8-10.8 X10*3/uL [...] 0.7 0.1-1.2 X10*3/u L Eosinophils Absolute Manual 0.2 0.0-0.4 X10*3/uL Metamyelocytes Absolute 0.2 Platelet Estimate DECREASED NORMAL Platelet Morphology Comment NORMAL RBC Morphology NOTED Polychromasia 1+ (0-2) Tear Drop Cells 2+ (3-5) US abdomen comp w elastograp hy Reviewed date:11/14/2024 05:22:43 PM Interpretation: Performing Lab: Notes/Report: [address] [address] Ultrasound Report Signed with Addenda Patient: Jus Carr MR#: [id number] : 1960 Acct:[id number] Age/Sex: 64 / M ADM Date: 09/23/24 Loc: HO.US Attending Dr: Jayjay Valenzuela MD Ordering Physician: Jayjay Valenzuela MD Date of Service: 09/23/24 Procedure(s): US abdomen comp w elastography Accession Number(s): [id number] cc: Riky Calzada MD; Jayjay Valenzuela MD [...] ultrasound liver fibrosis assessment is performed using [employer] ElastPQ point quantification shear wave elastography (pSWE) [...] by: Sean Child MD 10/24/2024 10:50 PM [facility] Dictated By: Sean Child MD Signed By: <Electronically signed by Sean Child MD in OV> 11/07/24 0649 DD/ 6 TD/TT: 09/23/24919 Nutritional Assistant: [address] [address] Ultrasound Report Signed with Addenda Patient: Almita Carr MR#: [id number] : 1960 Acct:[id number] Age/Sex: 64 / M ADM Date: 09/23/24 Loc: HO.US Attending Dr: Jayjay Valenzuela MD Ordering Physician: Jayjay Valenzuela MD Date of Service: 09/23/24 Procedure(s): US abd omen comp w elastography Accession Number(s): [id number] cc: Riky Calzada MD; Jayjay Valenzuela MD ADDENDUM ADDENDUM #1 . Electronically jerman d by: Ramesh Molina MD 11/13/2024 03:36 PM [facility] Addendum Dictated By : Ramesh Benitez MD Addendum Signed By: <Electronically signed by Ramesh Benitez MD in OV> 11/13/24 1536 Addendum Cosigned By: DD/ TD/TT: 09/23/24 EXAMINATION: US COMPLETE ABDOMEN WITH LIVER ELASTOGRAPHY CLINICAL INFORMATION: Fatty liver COMPARISON: Ultrasound abdomen 12/27/2017 TECHNIQUE: Real-time imaging of the abdominal viscera. Noninvasive ultrasound liver fibrosis asses sment is performed using [employer] ElastPQ point quantification shear wave elastography (pSWE) with a C5-2 MHz transducer. Multiple elastography samples are obtained. FINDINGS: PANCREAS: The visual ized pancreatic head and body are normal in appearance. The guevara luz of the pancreas is obscured from visualization [...] amyloidosis and lymphoma. In some patients with N AFLD, the liver stiffness thresholds for compensated advanced chronic liver disease may be lower. In causes other than viral hepatitis and NAFLD, liver stiffness thresholds are not well established. Electronically jerman d by: Sean Child MD 10/24/2024 10:50 PM EST RP Dictated By: Sean Child MD Signed By: <Electronically signed by Sean Child MD in OV> 11/07/24 0649 DD/ 08 TD/TT: 09/23/24 0920 Nutritional Assistant: US duplex arterial venous co mp Reviewed date:11/14/2024 05:21:39 PM Interpretation: Performing Lab: Notes/Report: [address] [address] Ultrasound Report Signed with Jv Patient: Jus Carr MR#: [id number] : 1960 Acct:[id number] Age/Sex: 64 / M ADM Date: 09/23/24 Loc: HO.US Attending Dr: Jayjay Valenzuela MD Ordering Physician: Jayjay Valenzuela MD Date of Service: 09/23/24 Procedure(s): US duplex arterial venous comp Accession Number(s): [id number] cc: Riky Calzada MD; Jayjay Valenzuela MD [...] by: Sean Child MD 10/24/2024 10:50 PM [facility] Dictated By: Sean Child MD Signed By: <Electronically signed by Sean Child MD in OV> 11/07/24 0649 DD/ TD/TT: 09/23/24 09 Nutritional Assistant: [address] [address] Ultrasound Report Signed with Addenda Patient: Almita Carr MR#: [id number] : 1960 Acct:[id number] Age/Sex: 64 / M ADM Date: 09/23/24 Loc: HO.US Attending Dr: Jayjay Valenzuela MD Ordering Physician: Jayjay Valenzuela MD Date of Service: 09/23/24 Procedure(s): US dup adina arterial venous comp Accession Number(s): [id number] cc: Riky Calzada MD; Jayjay Valenzuela MD [...] the abdominal viscera. Noninvasive ultrasound liver fibrosis asses sment is performed using [employer] ElastPQ point quantification shear wave elastography (pSWE) with a C5-2 MHz transducer. Multiple elastography samples are obtained. FINDINGS: PANCREAS: The visual ized pancreatic head and body are normal in appearance. The guevara luz of the pancreas is obscured from visualization [...] amyloidosis and lymphoma. In some patients with N AFLD, the liver stiffness thresholds for compensated advanced chronic liver disease may be lower. In causes other than viral hepatitis and NAFLD, liver stiffness thresholds are not well established. Electronically jerman d by: Sean Child MD 10/24/2024 10:50 PM [facility] Dictated By: Sean Child MD Signed By: <Electronically signed by Sean Child MD in OV> 11/07/24 0649 DD/ 6 TD/TT: 09/23/24919 Nutritional Assistant: [employer] Basic Metabolic Panel Reviewed date:10/17/2024 05:20:52 PM Interpretation: Performing Lab:[facility], [address] [place] [phone] Notes/Report: Sodium 142 135-145 mmol/L Potassium 4.7 [...] 12:02:46 PM Interpretation: Performing Lab: Notes/Report: [address] [address] Nuclear Medicine Report Signed Patient: Jus Crar MR#: [id number] : 1960 Acct:[id number] Age/Sex: 64 / M ADM Date: 10/22/24 Loc: HO.CARD Attending Dr: Eleuterio Garcia MD Ordering Physician: Eleuterio Garcia MD Date of Service: 10/22/24 Procedure(s): NM cardiolite stress test Accession Number(s): [id number] cc: Riky Calzada MD; Eleuterio Garcia MD [...] findings are consistent with normal myocardial perfusion. PR/PR cardiolite stress test IMPRESSION: 1. Myocardial perfusion imaging study shows normal myocardial perfusion. 2. Gated LVEF is 66%. 3. Transient ischemic dilatation not present. EKG revealed equivocal for ischemia. Electronically signed by: Eleuterio Garcia MD 10/23/2024 12:23 PM [facility] Dictated By: Eleuterio Garcia MD Signed By: <Electronically signed by Eleuterio Garcia MD in OV> 10/23/24 1223 DD/ 0834 TD/TT: 10/23/24 1025 Nutritional Assistant: [address] [address] Nuclear Medicine Report Signed Patient: Almita Carr MR#: [id number] : 1960 Acct:[id number] Age/Sex: 64 / M ADM Date: 10/22/24 [facility] Attending Dr: Eleuterio Garcia MD Ordering Physician: Eleuterio Garcia MD Date of Service: 10/22/24 Procedure(s): PR cardiolite stress test Accession Number(s): [id number] cc: Riky Calzada MD; Eleuterio Garcia MD [...] findings are consistent with normal myocardial perfusion. N M/NM cardiolite stress test IMPRESSION: 1. Myocardial perfus ion imaging study shows normal myocardial perfusion. 2. Gated LVEF is 66%. 3. Transient ischemi c dilatation not present. EKG revealed equivoc al for ischemia. Electronically jerman d by: Eleuterio Garcia MD 10/23/2024 12:23 PM EST Dictated By: Shawna Garcia MD Signed By: <Electronically signed by Eleuterio Garcia MD in OV> 10/23/24 1223 DD/ 0834 TD/TT: 10/23/24 1025 Nutritional Assistant: Les Serrano Reviewed date:02/03/2025 12:39:55 PM Interpretation: Performing Lab:[facility], [address] [place] [phone] Notes/Report: Les Serrano See Note Specimen held untested for 24 hours; Call to request Chemistry testing. Complete Blood Count Man Dif Reviewed date:03/19/2025 06:28:25 PM Interpretation: Performing Lab:[facility], [address] [place] [phone] Notes/Report: White Blood Count 17.8 4.8-10.8 X10*3/uL [...] 1.2-4.9 X10*3/uL Monocytes Absolute Manual 0.9 0.1-1.2 X10*3/u L Eosinophils Absolute Manual 0.2 0.0-0.4 X10*3/uL Basophils Abs Manual 0.2 0.0-0.2 X10*3/uL Metamyelocytes Absolute 0.2 Platelet Estimate DECREASED NORMAL Platelet Morphology Comment NORMAL RBC Morphology NOTED Polychromasia 1+ (0-2) Hypochromasia 1+ (5-14) Microcytosis 1+ (5-14) Stomatocytes 1+ (5-14) Comprehensive Met. Panel Reviewed date:03/19/2025 12:35:18 PM Interpretation: Performing Lab:[address] [phone] Notes/Report: Sodium 140 135-145 mmol/L Potassium 4.3 [...] Acid Reviewed date:03/19/2025 12:33:52 PM Interpretation: Performing Lab:[address] [phone] Notes/Report: Uric Acid 6.7 3.4-7.0 mg/dL IRON PROFILE Reviewed date:03/19/2025 12:34:41 PM Interpretation: Performing Lab:[address] [place] [address] Notes/Report: Iron 122 45-160 mcg/dL Total Iron Binding Capacity 271 228-428 mcg/dL Percent Iron Saturation 45 15-50 % Unsaturated Iron Binding 149 Ferritin Reviewed date:03/19/2025 12:35:27 PM Interpretation: Performing Lab:[facility], [address] [place] [phone] Notes/Report: Ferritin 305 20-250 ng/mL Lactate Dehydrogenase Reviewed date:03/19/2025 06:26:27 PM Interpretation: Performing Lab:[facility], [address] [place] [phone] Notes/Report: Lactate Dehydrogenase 217 118-273 U/L Complete Blood Count Man Dif Reviewed date:03/27/2025 04:49:33 PM Interpretation: Performing Lab:[facility], [address] [place] [phone] Notes/Report: White Blood Count 19.3 4.8-10.8 X10*3/uL [...] 1.2-4.9 X10*3/uL Monocytes Absolute Manual 0.6 0.1-1.2 X10*3/u L Metamyelocytes Absolute 0.4 Platelet Estimate DECREASED NORMAL Platelet Morphology Comment NORMAL RBC Morphology NOTED Polychromasia 1+ (0-2) Basophilic Stippling 1+ (0-2) Leukemia/Lymphoma Flori garcia Reviewed date:03/31/2025 12:12:01 PM Interpretation: Performing Lab:[facility], [address] [place] [phone] Notes/Report: LEUKEMIA/LYMPHOMA [id number] BLOOD LLE Interpretation See Note See repor t from [employer] in the EMR. FISH 9,22 CML/AML BCR Reviewed date:04/04/2025 12:31:49 PM Interpretation: Performing Lab:[facility], [address] [place] [phone] Notes/Report: FISH 9,22 CML/AML BCR See Note See re port from [employer] in the EMR. Complete Blood Count Man Dif Reviewed date:05/26/2025 01:32:12 PM Interpretation: Performing Lab:[facility], [address] [place] [phone] Notes/Report: White Blood Count 12.1 4.8-10.8 X10*3/uL [...] Manual 0.1 Monocytes Absolute Manual 0.6 0.1-1.2 X10*3/u L Metamyelocytes Absolute 0.2 Myelocytes Absolute 0.1 Platelet Estimate DECREASED NORMAL Platelet Morphology Comment NORMAL RBC Morphology NOTED Polychromasia 1+ (0-2) Microcytosis 1+ (5-14) Macrocytosis 1+ (5-14) Stomatocytes 1+ (5-14) Comprehensive Met. Panel Reviewed date:05/27/2025 04:58:26 PM Interpretation: Performing Lab:[address] [phone] Notes/Report: Sodium 141 135-145 mmol/L Potassium 4.5 [...] Acid Reviewed date:05/26/2025 01:02:12 PM Interpretation: Performing Lab:[facility], [address] [place] [phone] Notes/Report: Uric Acid 7.7 3.4-7.0 mg/dL IRON PROFILE Reviewed date:05/26/2025 01:26:52 PM Interpretation: Performing Lab:[facility], [address] [place] [phone] Notes/Report: Iron 241 45-160 mcg/dL Total Iron Binding Capacity 269 228-428 mcg/dL Percent Iron Saturation 90 15-50 % Unsaturated Iron Binding 28 Ferritin Reviewed date:05/26/2025 01:00:32 PM Interpretation: Performing Lab:[facility], [address] [place] [phone] Notes/Report: Ferritin 471 20-250 ng/mL Complete Blood Count Man Dif Reviewed date:06/11/2025 03:55:48 PM Interpretation: Performing Lab:[facility], [address] [place] [phone] Notes/Report: White Blood Count 12.0 4.8-10.8 X10*3/uL [...] 1.2-4.9 X10*3/uL Monocytes Absolute Manual 1.2 0.1-1.2 X10*3/u L Metamyelocytes Absolute 0.1 Hypersegmented Neutrophils PRESENT Platelet Estimate DECREASED NORMAL Platelet Morphology Comment NORM RBC Morphology NOTED Polychromasia 1+ (0-2) Microcytosis 1+ (5-14) Schistocytes 1+ (0-2) Liver Panel Reviewed date:06/11/2025 03:54:08 PM Interpretation: Performing Lab:[facility], [address] [place] [phone] Notes/Report: Bilirubin Total 0.9 0.0-1.0 mg/dL Bilirubin Direct 0.3 0.0-0.5 mg/dL Aspartate Amino Transferase 28 5-37 U/L Alanine Aminotransferase 35 0-40 U/L Total Protein 6.9 6.5-8.0 g/dL Albumin Level 4.9 3.5-5.0 g/dL Alkaline Phosphatase 53 39-117 U/L IRON PROFILE Reviewed date:06/11/2025 03:53:38 PM Interpretation: Performing Lab:[facility], [address] [place] [phone] Notes/Report: Iron 170 45-160 mcg/dL Total Iron Binding Capacity 276 228-428 mcg/dL Percent Iron Saturation 62 15-50 % Unsaturated Iron Binding 106 Ferritin Reviewed date:06/11/2025 03:42:08 PM Interpretation: Performing Lab:[facility], [address] [place] [phone] Notes/Report: Ferritin 413 20-250 ng/mL US abdomen complete Reviewed date:07/25/2025 06:48:50 PM Interpretation: Performing Lab: Notes/Report: [facility] [address] [place] [address] Ultrasound Report Signed Patient: Jus Carr MR#: [id number] : 1960 Acct:[id number] Age/Sex: 65 / M ADM Date: 07/23/25 Loc: HO.HMGCX Attending Dr: Tania Bolaños MD Ordering Physician: Tania Bolaños MD Date of Service: 07/23/25 Procedure(s): US abdomen complete Accession Number(s): [id number] cc: Riky Calzada MD; Tania Bolaños MD CLINICAL HISTORY: Hepatosplenomegaly US abdomen complete Comparison: US/SR - US ABDOMEN COMPLETE WITH LIVER ELASTOGRAPHY - 09/23/24 08:36 EDT Findings: The visualized pancreas is normal. The aorta and inferior vena cava are normal caliber. The liver is normal in size. Diffusely increased echogenicity. There is no intrahepatic bile duct dilatation. The common duct is 2.1 mm in diameter. The gallbladder is normal. There is no sonographic Fox sign. The main portal vein is antegrade. The right kidney is 13.6 cm in length. Midpole cyst measuring 2.1 cm. The left kidney is 12.6 cm in length. Midpole cyst measuring 0.7 cm, lower pole cysts measuring 1.2 cm. The spleen is slightly enlarged measuring 14.7 cm in craniocaudal dimension. Small splenule measuring 1.5 cm. No ascites. IMPRESSION: 1. Diffuse hepatic steatosis. Liver is normal in size. 2. Mild splenomegaly. 3. Small bilateral renal cysts measuring up to 2.1 cm. This document has been electronically signed by: Fatoumata Rodriguez MD on 07/23/2025 21:38:25 Dictated By: Fatoumata Rodriguez MD Signed By: <Electronically signed by Fatoumata Rodriguez MD in OV> 07/23/252138 DD/ 37 TD/TT: 07/23/252137 Nutritional Assistant: [facility] [address] [place] [address] [place] [address] Ultrasound Report Signed Patient: Almita Carr MR#: [id number] : 1960 Acct:[id number] Age/Sex: 65 / M ADM Date: 07/23/25 [facility] Dr: Tania Bolaños MD Ordering Physician: Tania Bolaños MD Date of Service: 07/23/25 Procedure(s): US abd omen complete Accession Number(s): [id number] cc: Riky Calzada MD; Tania Bolaños MD CLINICAL HISTORY: Hepatosplenomegaly US abdomen complete Comparison: US/SR - US ABDOMEN COMPLETE WITH LIVER ELASTOGRAPHY - 09/23/24 08:36 EDT Findings: The visualized pancr eas is normal. The aorta and inferi or vena cava are normal caliber. The liver is normal in size. Diffusely increased echogenicity. There is no intrahep atic bile duct dilatation. The common duct is 2 .1 mm in diameter. The gallbladder is normal. There is no sonographic Fox sign. The main portal vein is antegrade. The right kidney is 13.6 cm in length. Midpole cyst measuring 2.1 cm. The left kidney is 1 2.6 cm in length. Midpole cyst measuring 0.7 cm, lower pole cysts measuring 1.2 cm. The spleen is slight ly enlarged measuring 14.7 cm in craniocaudal dimension. Small spl enule measuring 1.5 cm. No ascites. IMPRESSION: 1. Diffuse hepatic steatosis. Liver is normal in size. 2. Mild splenomegaly. 3. Small bilateral r enal cysts measuring up to 2.1 cm. This document has be en electronically signed by: Fatoumata Rodriguez MD on 07/23/2025 21:38:25 Dictated By: Fatoumata Rodriguez MD Signed By: <Electronically signed by Fatoumata Rodriguez MD in OV> 07/23/252138 DD/ 37 TD/TT: 07/23/252137 Nutritional Assistant: Reason For Referral No Information Medications Medication [...] Status W/U Status Risk Notes Problem Thrombocytopenia (708814546) Thrombocytopenia (D69.6) Active confirmed Problem 60602537 Anxiety (F41.9) Active confirmed Problem 25246441 Hereditary hemochromatosis (E83.110) Active confirmed Problem 362874363 Tubular adenoma of colon (D12.6) Active confirmed Problem 74206302 Essential hypert ension (I10) Active confirmed Problem 7793329 Prediabetes (R73.09) Active confirmed Problem 165074665 Low HDL (under 4 0) (E78.6) Active confirmed Problem 82745665 Sciatica of righ t side (M54.31) Active confirmed Problem 573868735 Pure hypercholesterolemia (E78.00) Active confirmed Problem Irritable bowel syndrome (66241958) IBS (irritable bowel syndrome) (K58.9) Active confirmed Problem Obstructive sleep apnea syndrome (00441991) ESTELITA (obstructive sleep apnea) (G47.33) Active confirmed Problem 830652909 BMI 35.0-35.9,ad ult (Z68.35) Active confirmed Problem 333740810 BMI 36.0-36.9,ad ult (Z68.36) Active confirmed Problem Gout (63405910) Acute gout invol ving toe of right foot, unspecified cause (M10.9) Active confirmed Problem 0674763477188776 Acute gout of r ight foot, unspecified cause (M10.9) Active confirmed Problem 29687075 Aortic atheroscl erosis (I70.0) Active confirmed Vital [...] Diagnosis Riky Calzada MD [address] [place] [id number] 08/05/2024 Riky Calzada Annual physical exam Z00.00 ; Prediabetes R73.09 ; Pure hypercholesterolemia E78.00 ; Essential hypertension I10 ; Thrombocytopenia D69.6 and Hereditary hemochromatosis E83.110 Riky Calzada MD [address] [place] [id number] 02/03/2025 Riky Calzada Prediabetes R73.09 a nd Pure hypercholesterolemia E78.00 Riky Calzada MD [address] [place] [id number] 08/12/2024 Riky Calzada Thrombocytopenia D69 .6 ; Essential hypertension I10 ; Tubular adenoma of colon D12.6 ; Prediabetes R73.09 ; Pure hypercholesterolemia E78.00 ; Colon cancer screening Z12.11 and Depression screening Z13.31 Riky Calzada MD [address] [place] [id number] 09/10/2024 Riky Calzada Thrombocytopenia D69 .6 Riky Calzada MD [address] [place] [id number] 02/10/2025 Riky Calzada Hereditary hemochrom atosis E83.110 and Elevated LFTs R79.89 Riky Calzada MD [address] [place] [id number] 04/29/2025 Riky Calzada Acute gout involving toe of right foot, unspecified cause M10.9 Assessments Encounter Date Diagnosis (ICD Code) Assessment Notes Treatment Notes Treatment Clinical Notes Section Notes 08/05/2024 Annual physical exam (ICD-10 - Z00.00) 08/05/2024 Prediabetes (ICD-10 - R73.09) 02/03/2025 Prediabetes (ICD-10 - R73.09) 08/12/2024 Thrombocytopenia (ICD-10 - D69.6) need notes from dr bolaños 08/12/2024 Essential hypertensi on (ICD-10 - I10) [...] SERIES 11/30/2021 Next Appt Details Provider Name:Riky Nunez ier, 08/14/2025 01:00:00 PM, [address] [facility], [address], [place], [place], [phone], Insurance Providers Payer Name Payer Address Payer Phone Subscriber Number Group Number Insured Name Patient Relationship to Insured Coverage Start Date Coverage End Date MEDICARE NHIC [place] [place] [address] [id number] Jus Carr Self - patient is the insured 4 [employer] [place] [address] [place] [phone] [id number] Jus Carr Self - patient is the insured Medical (General) History Medical History History ICD Code colonoscopy 09/2010 with gely noma; colonoscopy done 01/31/[address] Valenzuela - repeat 5 years04/10/24 repeat 5y had chest ct and repeat negative. no nee d for any further follow up
--- OUTSIDE RECORDS SUMMARY | 2025-08-05 11:22 | XMS_ITS | Patient Health Record ---
Author Organization [facility] Address [address] [place] [phone] Care Team Providers Care Singe Machine Operator Name Role Phone Zheng MADRID, Riky Primary Care Provider Jayjay Daley Unavailable [phone] Allergies No Known Allergies Results Component Value Reference Range Notes Complete Blood Count Man Dif Reviewed date:08/27/2024 11:07:53 AM Interpretation: Performing Lab:[facility], [address] [place] [phone] Notes/Report: White Blood Count 11.9 4.8-10.8 X10*3/uL [...] PROFILE Reviewed date:08/11/2024 05:15:51 PM Interpretation: Performing Lab:[facility], [address] [place] [phone] Notes/Report: Iron 142 45-160 mcg/dL Total Iron Binding Capacity 288 228-428 mcg/d L Percent Iron Saturation 49 15-50 % Unsaturated Iron Binding 146 Ferritin Reviewed date:08/11/2024 05:16:03 PM Interpretation: Performing Lab:[facility], [address] [place] [phone] Notes/Report: Ferritin 420 20-250 ng/mL Therapeutic Phlebotomy Reviewed date:08/11/2024 05:16:13 PM Interpretation: Performing Lab:[facility], [address] [place] [phone] Notes/Report: THER/HGB TNP 14.0-18.0 g/dL Lab Results on file. Performed at [facility] on 08/08/24: Hgb: 11.7 g/dl Hct: [...] reviewed by provider) Interpretation: Performing Lab: Notes/Report: [address] [place] [address] Ultrasound Report Signed with Addenda Patient: Jus Thurman MR#: [id number] : 1960 Acct:[id number] Age/Sex: 64 / M ADM Date: 09/23/24 Loc: HO.US Attending Dr: Jayjay Owens MD Ordering Physician: Jayjay Owens MD Date of Service: 09/23/24 Procedure(s): US abdomen comp w elastography Accession Number(s): [id number] cc: Riky Calzada MD; Jayjay Owens MD [...] 10/24/2024 10:50 PM [facility] Dictated By: Sean Child MD Signed By: <Electronically signed by Sean Child MD in OV> 11/07/24 0649 DD/ 6 TD/TT: 09/23/24919 Solid Waste Technician: SS US duplex arterial venous co mp (Not yet reviewed by provider) Interpretation: Performing Lab: Notes/Report: [address] [address] Ultrasound Report Signed with Addenda Patient: Jus Thurman MR#: [id number] : 1960 Acct:[id number] Age/Sex: 64 / M ADM Date: 09/23/24 Loc: HO.US Attending Dr: Jayjay Owens MD Ordering Physician: Jayjay Owens MD Date of Service: 09/23/24 Procedure(s): US duplex arterial venous comp Accession Number(s): [id number] cc: Riky Calzada MD; Jayjay Owens MD [...] 10/24/2024 10:50 PM [facility] Dictated By: Sean Child MD Signed By: <Electronically signed by Sean Child MD in OV> 11/07/24 0649 DD/ 6 TD/TT: 09/23/24919 Solid Waste Technician: Therapeutic Phlebotomy Reviewed date:12/02/2024 10:30:39 PM Interpretation: Performing Lab:[facility], [address] [place] [phone] Notes/Report: THER/HGB 11.0 14.0-18.0 g/dL THER/HCT TNP 42.0-52.0 % Therapeutic Phlebotomy TNP Reason: Pre-phlebotomy Hgb/Hct is below the established parameter for this patient. Please note that a copy of this report has been sent to the Primary Care Physician, the ordering physician and any physician designated by patient request. Therapeutic Phlebotomy Reviewed date:03/04/2025 08:54:23 AM Interpretation: Performing Lab:[facility], [address] [place] [phone] Notes/Report: THER/HGB 12.0 14.0-18.0 g/dL THER/HCT TNP [...] Status Risk Notes Problem Colon cancer screening (872369365) Colon cancer screening (Z12.11) Active confirmed Problem 762865415 Encounter for screening for malignant neoplasm of colon (Z12.11) Active confirmed Problem 434481519 History of adenomatous polyp of colon (Z86.010) Active confirmed Problem 432018596 Abdominal bloati ng (R14.0) Active confirmed Problem History of polyp of colon (situation) (656168860) Personal history of colonic polyps (Z86.010) Active confirmed Problem 951861320 Periumbilical pa in (R10.33) Active confirmed Problem Diverticular disease of colon (378551571) Diverticulosis of large intestine without perforation or abscess without bleeding (K57.30) Active confirmed Problem Hepatosplenomegaly (59007280) Hepatomegaly with splenomegaly, not elsewhere classified (R16.2) Active confirmed Problem Fatty liver (057882197) Fatty liver (K76.0) Active confirmed Problem Hepatitis C antibody test positive (762608522) Hepatitis C antibody test positive (R76.8) Active confirmed Problem Iron excess (39878372) Iron excess (E83.19) Active confirmed Problem Thrombocytopenia (608275928) Thrombocytopenia (D69.6) Active confirmed Problem Blood chemistry abnormal (914099105) Elevated ferritin level (R79.89) Active confirmed Vital Signs Blood pressure diastolic 00 mm Hg 08/27/2024 Height 68 in 08/27/2024 Blood pressure systolic 00 mm Hg 08/27/2024 Weight 223 lbs 08/27/2024 BMI 33.90 kg/m2 08/27/2024 Encounters Encounter Location Date Provider Diagnosis [facility] [address] [place] [phone] 08/27/2024 Jayjay Owens History of adenomato us polyp of colon Z86.010 ; Hepatomegaly with splenomegaly, not elsewhere classified R16.2 ; Encounter for screening for malignant neoplasm of colon Z12.11 ; Fatty liver K76.0 ; Hepatitis C antibody test positive R76.8 and Elevated ferritin level R79.89 [facility] [address] [place] [phone] 09/09/2024 Jayjay Owens [facility] [address] [place] [phone] 10/31/2024 Jayjay Owens Assessments Encounter Date Diagnosis [...] COLONOSCOPY 01/09/2024 Next Appt Details Provider Name:Jayjay Oewns , 08/28/2025 09:00:00 AM, [address], [address], [place], [phone], Insurance Providers Payer Name Payer Address Payer Phone Subscriber Number Group Number Insured Name Patient Relationship to Insured Coverage Start Date Coverage End Date MEDICARE OF [place] [address] [place] [address] [phone] [id number] JUS THURMAN Self - patient is the insured [employer] CLAIMS [address] [place] [address] [phone] [id number] JUS THURMAN Self - patient is the insured Medical (General) History Medical History History ICD Code Denies [place],DM,CVA,Lung disease,renal dise ase Hypertension Sleep apnea Hyperlipidemia [...]
[2025-08-05 13:26] LABS: Appearance Urine Turbid; Glucose Urine UA Negative (Negative); Hematocrit 33.4 % (42.0-52.0); Hemoglobin 11.1 g/dl (14.0-18.0); Mean Corpuscular HGB Conc 33.2 g/dl (31.0-36.0); Mean Corpuscular Hemoglobin 31.7 pg (27.0-33.0); Mean Corpuscular Volume 95.4 fL (80.0-98.0); NRBC Abs Auto 0.000 X10*3/uL (0.0-0.012); NRBC Pct Auto 0.0 /100WBC (0.0-0.2); PH 5.0 (5.0-9.0); Red Blood Count 3.50 X10*6/uL (4.60-5.80); Specific Gravity - Urine 1.020 (1.005-1.025); White Blood Count 15.7 X10*3/uL (4.8-10.8)
[2025-08-05 13:27] LABS: Platelet Count 54 X10*3/uL (160-400)
[2025-08-05 13:55] LABS: Alanine Aminotransferase 38 U/L (0-40); Albumin Level 4.9 g/dL (3.5-5.0); Alkaline Phosphatase 54 U/L (39-117); Anion Gap 12 (12-20); Aspartate Amino Transferase 35 U/L (5-37); Blood Urea Nitrogen 18 mg/dL (9-16); Calcium 9.1 mg/dL (8.4-10.2); Carbon Dioxide 27 mmol/L (22-29); Chloride 107 mmol/L (96-108); Cholesterol 109 mg/dL (<200); Estimated Glomerular Filt Rate > 60; HDL Cholesterol 35 mg/dL (>40); Potassium 4.5 mmol/L (3.3-5.1); Sodium 141 mmol/L (135-145); Total Protein 7.0 g/dL (6.5-8.0); Triglycerides 158 mg/dL (<150)
[2025-08-05 13:59] LABS: PSA,Total (Free>4and<10) 0.56 ng/mL (0.00-4.00)
[2025-08-05 15:03] LABS: Atypical Lymph Absolute Manual 0.3 x10*3/uL; Atypical Lymphs Percent Manual 2 % (0-6); Band Neutrophils Percent 6 % (3-5); Lymphocytes Absolute Manual 1.4 X10*3/uL (1.2-4.9); Lymphocytes Percent Manual 9 % (20-40); Metamyelocytes Absolute 0.2 X10*3/uL; Metamyelocytes Percent 1 %; Monocytes Absolute Manual 2.2 X10*3/uL (0.1-1.2); Monocytes Percent Manual 14 % (2-11); Myelocytes Absolute 0.2 X10*/uL; Myelocytes Percent 1 %; Neutrophils Absolute Manual 11.5 X10*3/uL (2.0-8.3); Neutrophils Percent Manual 67 % (45-73)
[2025-08-05 15:04] LABS: RBC Morphology NOTED
[2025-08-05 15:05] LABS: Microcytosis 1+ (5-14) /OIF
[2025-08-05 15:06] LABS: Polychromasia 2+ (3-5) /OIF; Tear Drop Cells 2+ (3-5) /OIF
== END 2025-08-05 09:41 | disposition home or self-care (01) ==
LOC: HO.HMGCLDS 09:40
PROVIDERS: PCP Internal Medicine; Visit Provider Internal Medicine
DX: I10 Essential (primary) hypertension (principal); E78.00 Pure hypercholesterolemia, unspecified; D69.6 Thrombocytopenia, unspecified; E83.110 Hereditary hemochromatosis; R73.09 Other abnormal glucose; Z12.5 Encounter for screening for malignant neoplasm of prostate
CPT/HCPCS: 36415; 80053; 80061; 81003; 84153; 85007; 85027

== ENCOUNTER 2025-08-28 09:42 | Outpatient (REF) | payer MEDICARE, SELFPAY ==
--- OUTSIDE RECORDS SUMMARY | 2024-04-10 05:50 | XMS_ITS ---
Author Organization [facility] Address [address] [place] [address] Care Team Providers Care Media Buyer Name Role Phone Riky Calzada MD Primary Care Provider Jayjay Daley [phone] REASON FOR VISIT screening colon Problems Problem Type SNOMED Code ICD Code Onset Dates Problem Status W/U Status Risk Notes Problem Diverticular disease of colon (274284410) Diverticulosis of large intestine without perforation or abscess without bleeding (K57.30) Active confirmed Encounters Encounter Location Date Provider [place] [facility] [place] [address] [place] [phone] 04/10/2024 Jayjay Owens Encounter for scre ening [...] Next Appt Details Provider Name:Jayjay Owens , 12/30/2025 10:20:00 AM, [address], [address], [place], [address], Progress Notes * MARY THURMANDOB: [birth year] (65 yo M)Acc No.[id number]:04/10/2024 COLON WITH MAC Patient: MARY SUN Provider: Carlee Owens MD :1960 A ge:63 Y S ex:Male Date:04/10/2024 Address:[address] [place] [address] Pcp:Riky Calzada MD Subjective: * Chief Complaints: [...] MD Date: 0 04/10/2024 Generated for Cher nugent/Juli/eTransmitting on: 1 10:48 AM EDT
--- OUTSIDE RECORDS SUMMARY | 2025-02-03 04:00 | XMS_ITS ---
Author Organization Riky Calzada MD Address [address] [place], [place] [id number] Care Team Providers Care Ostomy Care Nurse Name Role Phone Riky Calzada Primary Care Provider Results Component Value Reference Range Notes Liver Panel Reviewed date:02/03/2025 02:27:11 PM Interpretation: Performing Lab:[facility], [address] [place] [phone] Notes/Report: Bilirubin Total 0.8 0.0-1.0 mg/dL Bilirubin Direct 0.3 0.0-0.5 mg/dL Aspartate Amino Transferase 33 5-37 U/L Alanine Aminotransferase 33 0-40 U/L Total Protein 7.1 6.5-8.0 g/dL Albumin Level 4.4 3.5-5.0 g/dL Alkaline Phosphatase 54 39-117 U/L Glucose Fasting Reviewed date:02/03/2025 05:58:46 PM Interpretation: Performing Lab:[facility], [address] [place] [phone] Notes/Report: Glucose Fasting 97 60-99 mg/dL Lipid Panel with Reflex Reviewed date:02/03/2025 06:00:10 PM Interpretation: Performing Lab:[address] [phone] Notes/Report: Triglycerides 123 <150 mg/dL Desirable Triglyceride: [...] A1c Reviewed date:02/03/2025 12:36:49 PM Interpretation: Performing Lab:[facility], [address] [place] [phone] Notes/Report: Hemoglobin A1c % 5.6 <6.0 % [...] average glucose, using the formula of the Z7D-Zuomivu Average Glucose study (ADAG), Diabetes Care, Vol.31,#8, Jun. 2007 REASON FOR VISIT fasting lipids Encounters Encounter Location Date Provider Diagnosis Riky Calzada MD [address] [place] [address] [place] [phone] 02/03/2025 Riky Calzada Prediabetes R73.09 a nd Pure hypercholesterolemia E78.00 Assessments Encounter Date Diagnosis (ICD Code) Assessment Notes Treatment Notes Treatment Clinical Notes Section Notes 02/03/2025 Prediabetes (ICD-10 - R73.09) 02/03/2025 Pure hypercholesterolemia (ICD-10 - E78.00) Plan Of Treatment Next Appt Details Provider Name:Riky alvarez, 02/06/2026 08:00:00 AM, [address] [place] [address], [address], [phone], Provider Name:Riky alvarez, 02/12/2026 10:45:00 AM, [address] [place] [address], [address], [phone], Provider Name:Riky Nunez ier, 08/10/2026 07:45:00 AM, [address], [address], [place], [phone], Provider Name:Riky Nunez ier, 08/17/2026 01:00:00 PM, [address], [address], [place], [phone], Progress Notes * Jus THURMAN JameeDOB: [birth year] (65 yo M)Acc No.[id number]:02/03/2025 Progress Note Patient: Jus SUN Provider: Sola Calzada MD :1960 A ge:64 Y S ex:Male Date:02/03/2025 Address:[address] [place], [place] [phone] Subjective: * Chief Complaints: * 1 . [...] Calzada MD Date: 0 02/03/2025 Generated for Luani ng/Faxing/eTransmitting on: 1 10:48 AM EDT
--- OUTSIDE RECORDS SUMMARY | 2025-02-10 10:00 | XMS_ITS ---
Author Organization Riky Calzada MD Address [address] [place], [place] [id number] Care Team Providers Care It Security Manager Name Role Phone Riky Calzada Primary Care Provider [phone] Allergies Allergen (clinical drug ingredient) Drug/Non Drug [...] Location Date Provider Diagnosis Riky Calzada MD [address] [place] [address] [place] [phone] 02/10/2025 Riky Calzada Hereditary hemochromatosis E83.110 and [...] Details Provider Name:Riky alvarez, 02/06/2026 08:00:00 AM, [address] [place] [address], [address] [place] [address], [phone], Provider Name:Riky alvarez, 02/12/2026 10:45:00 AM, [address] [place] [address], [address] [place] [address], [phone], Provider Name:Riky alvarez, 08/10/2026 07:45:00 AM, [address] [place] [address], [address] [place] [address], [phone], Provider Name:Riky alvarez, 08/17/2026 01:00:00 PM, [address] [place] [address], [address], [phone], Progress Notes * Jus THURMANDOB: [birth year] (64 yo M)Acc No.[id number]:02/10/2025 Progress Notes Patient: Jus SUN Provider: Sola Calzada MD :1960 A ge:64 Y S ex:Male Date:02/10/2025 Address:[address] [place] [address] CRIS [email or web address] Subjective: * Chief Complaints: * 6 month [...] Calzada MD Date: 0 02/10/2025 Generated for Printi ng/Juli/eTransmitting on: 1 10:49 AM EDT History and Physical Notes * [...]
--- OUTSIDE RECORDS SUMMARY | 2025-04-29 06:15 | XMS_ITS ---
Author Organization Riky Calzada MD Address [address] [place], [place] [phone] Care Team Providers Care Director Digital Marketing Name Role Phone Riky Calzada Primary Care Provider [phone] Allergies Allergen (clinical drug ingredient) Drug/Non Drug Allergy documented on EMR Reaction Allergy Type Onset Date Status indomethacin Indomethacin dizzy Drug Allergy A ctive REASON FOR VISIT left foot pain ( on top of foot ) x 5 days, Accompanied by Medications Medication SIG (Take, Route, Frequency, Duration) Notes Start Date End Date Status Indomethacin 50 MG 1 capsule with food or milk Orally Three times a day for 7 days 07/16/2021 Not-Taking LORazepam 1 MG 1 tablet at bedtime as needed Orally Once a day for 30 days 03/12/2019 Not-Taking Lipitor 20 MG 1 tablet Orally Once a day for 30 day(s) Not-Taking Hyoscyamine Sulfate ER 0.375 MG TAKE 1 TABLET BY MOUTH EVERY DAY for 90 Not-Taking oxyCODONE HCl 5 MG 1 tablet as needed Orally twice a day as needed for 10 days 11/24/2022 Not-Taking Ibuprofen 200 MG 3 tablet with food o r milk as needed Orally Three times a day Not-Taking Valsartan-hydroCHLOROthia zide 160-12.5 MG TAKE 1 TABLET BY MOUTH EVERY DAY FOR 30 DAYS Active Rosuvastatin Calcium 40 MG 1 tablet Orally Once a day Active Aspir-Low 81 MG 1 tablet Orally Once a day for 30 day(s) Active predniSONE 20 MG 2 tabs today then 1 tab Orally Once a day for 7 days 04/29/2025 Active Colchicine 0.6 MG 1 tablet Orally Twic e a day for 10 days 04/29/2025 Active Problems Problem Type SNOMED Code ICD Code Onset Dates Problem Status W/U Status Risk Notes Problem Gout (31435697) Acute gout involving toe of right foot, unspecified cause (M10.9) Active confirmed Vital Signs Blood pressure systolic 142 mm Hg 04/29/20 25 Blood pressure diastolic 70 mm Hg 025 Height 68 in 04/29/2025 Weight 228 lbs 04/29/2025 BMI 34.66 kg/m2 04/29/2025 weight is down 5 pounds [facility] 02-10-25 Encounters Encounter Location Date Provider Diagnosis Riky Calzada MD [address] [place] [phone] 04/29/2025 Riky Calzada Acute gout involving toe of right foot, unspecified cause M10.9 Assessments Encounter Date Diagnosis (ICD Code) Assessment Notes Treatment Notes Treatment Clinical Notes Section Notes 04/29/2025 Acute gout involving toe of right foot, unspecified cause (ICD-10 - M10.9) patient verbalized understanding of medication and directions for use Plan Of Treatment Medication Medication Name Sig Start Date Stop Date Notes predniSONE 20 MG 2 tabs today then 1 tab Orally Once a day for 7 days 04/29/2025 Colchicine 0.6 MG 1 tablet Orally Twice a day for 10 days 04/29/2025 Treatment Notes Assessment Notes Acute gout involving toe of right foot, unspecified cause patient verbalized understanding of medication and directions for use Next Appt Details Provider Name:Riky alvarez, 02/06/2026 08:00:00 AM, [address] [place] [address], [phone], Provider Name:Riky alvarez, 02/12/2026 10:45:00 AM, [address] [place] [address], [phone], Provider Name:Riky alvarez, 08/10/2026 07:45:00 AM, [address] [place] [address], [phone], Provider Name:Riky alvarez, 08/17/2026 01:00:00 PM, [address] [place] [address], [phone], Progress Notes * Jus THURMAN JDOB: [birth year] (64 yo M)Acc No.[id number]:04/29/2025 Progress Notes Patient: uJs SUN Provider: Sola Calzada MD :1960 A ge:64 Y S ex:Male Date:04/29/2025 Address:[address] [place] [address] , [id number] Subjective: * Chief Complaints: * L eft foot pain ( on top of foot ) x 5 daysAccompanied by * HPI: S ymptom(s): patient is a 64 yo male here with complaint, has severe pain in area below ankle. has tried gaxiola 600 tid. * ROS: G eneral/Constitutional: Denies C hills. D enies F atigue. D enies F ever. D enies H eadache. E NT: Patient denies d ecreased sense of smell, any loss of taste, sore throat. D enies S ore throat. R espiratory: Denies C ough. D enies S hortness of breath at rest. D enies S hortness of breath with exertion. G astrointestinal: Denies D iarrhea. D enies N ausea. M usculoskeletal: Patient denies m uscle aches. [...] Objective: * Vitals: H t: 68, Wt: 228, BMI:34.66, BP:142/70, Wt-k.42. weight is down 5 pounds since 02-10-25. * Examination: G eneral Examination: GENERAL APPEARANCE: w ell developed, well nourished with pain. SKIN: g ood turgor. EXTREMITIES: m arked tenderness to palpation over the arch of foot.. Assessment: * Assessment: 1. A cute gout involving toe of right foot, unspecified cause - M10.9 (Primary) ? Plan: * Treatment: * Procedure Codes: * * Sign off status: Completed true * Provider: Sola Calzada MD Date: 0 04/29/2025 Generated for Cher nugent/Juli/Marciano on: 10:48 AM EDT History and Physical Notes * HPI (History of Present Illness) Category Sub-Category Detail Notes Category Not es Symptom(s) patient is a 64 yo male here with complaint, has severe pain in area below ankle. has tried gaxiola 600 tid Examination Category Sub-Category Detail Notes Category Not es General Examination GENERAL APPEARANCE: well dev eloped, well nourished with pain SKIN: good turgor EXTREMITIES: marked tenderness to palpation over the arch of foot.
--- OUTSIDE RECORDS SUMMARY | 2025-08-07 03:15 | XMS_ITS ---
Author Organization Riky Calzada MD Address [address] [place] [phone] Care Team Providers Care Dictionary Editor Name Role Phone Riky Calzada Primary Care Provider REASON FOR VISIT yearly fasting labs Encounters Encounter Location Date Provider Diagnosis Riky Calzada MD [address] [facility] [address] [place] [phone] 08/07/2025 Riky Calzada Prediabetes R73.09 ; Pure hypercholesterolemia E78.00 ; Essential hypertension I10 ; Thrombocytopenia D69.6 and Hereditary hemochromatosis E83.110 Assessments Encounter Date Diagnosis (ICD Code) Assessment Notes Treatment Notes Treatment Clinical Notes Section Notes 08/07/2025 Prediabetes (ICD-10 - R73.09) 08/07/2025 Pure hypercholesterolemia (ICD-10 - E78.00) 08/07/2025 Essential hypertensi on (ICD-10 - I10) 08/07/2025 Thrombocytopenia (IC D-10 - D69.6) 08/07/2025 Hereditary hemochromatosis (ICD-10 - E83.110) Plan Of Treatment Pending Test Test Name Order Date Complete Blood Count Auto Diff 5 Comprehensive [place]. Panel Fast 5 Lipid Panel 08/07/2025 PSA,Total (Free>4and<10) 08/07/2025 UA ClnCatch+Micro w/rflx Cult 08/07/2025 Next Appt Details Provider Name:Riky alvarez, 02/06/2026 08:00:00 AM, [address] [facility], [address] [facility], [place], [place], [phone], Provider Name:Riky Nunez ier, 02/12/2026 10:45:00 AM, [address], [address], [place], [phone], Provider Name:Riky Nunez ier, 08/10/2026 07:45:00 AM, [address], [address], [place], [phone], Provider Name:Riky Nunez ier, 08/17/2026 01:00:00 PM, [address], [address], [place], [phone], Progress Notes * Jus THURMANDOB: [birth year] (65 yo M)Acc No.[id number]:08/07/2025 Progress Note Patient: Jus SUN Provider: Sola Calzada MD :1960 A ge:65 Y S ex:Male Date:08/07/2025 Address:[address] [place], [place] [phone] Subjective: * Chief Complaints: * 1 . Yearly fasting labs. * Medical History: Objective: * Vitals: Assessment: * Assessment: 1. P rediabetes - R73.09 (Primary) 2 . P ure hypercholesterolemia - E78.00? 3. E ssential hypertension - I10 4 . T hrombocytopenia - D69.6 5 . H ereditary hemochromatosis - E83.110 Plan: * Treatment: 2. P ure hypercholesterolemia L AB: Complete Blood Count Auto Diff L AB: Comprehensive [place]. Panel Fast L AB: Lipid Panel L AB: PSA,Total (Free>4and<10) L AB: UA ClnCatch+Micro w/rflx Cult 3. E ssential hypertension L AB: Complete Blood Count Auto Diff L AB: Comprehensive [place]. Panel Fast L AB: Lipid Panel L AB: PSA,Total (Free>4and<10) L AB: UA ClnCatch+Micro w/rflx Cult 4. T hrombocytopenia L AB: Complete Blood Count Auto Diff L AB: Comprehensive [place]. Panel Fast L AB: Lipid Panel L AB: PSA,Total (Free>4and<10) L AB: UA ClnCatch+Micro w/rflx Cult 5. H ereditary hemochromatosis L AB: Complete Blood Count Auto Diff L AB: Comprehensive [place]. Panel Fast L AB: Lipid Panel L AB: PSA,Total (Free>4and<10) L AB: UA ClnCatch+Micro w/rflx Cult * * The named appointment provid er may or may not be the originator of this progress note, and it is not deemed complete until electronically signed by the appointment provider. Sign off status: Pending * Provider: Sola Calzada MD Date: 0 08/07/2025 Generated for Cher nugent/Juli/Marciano on: 1 10:48 AM EDT
--- OUTSIDE RECORDS SUMMARY | 2025-08-14 09:00 | XMS_ITS ---
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 have him use his machine Colon cancer screening guaiac negative Depression screening negative screen Next Appt Details Follow Up: 6 Months, Reason: Provider Name:Riky alvarez, 02/06/2026 08:00:00 AM, [address] [place] [address], [address], [phone], Provider Name:Riky alvarez, 02/12/2026 10:45:00 AM, [address] [place] [address], [address], [phone], Provider Name:Riky alvarez, 08/10/2026 07:45:00 AM, [address] [place] [address], [address], [phone], Provider Name:Riky alvarez, 08/17/2026 01:00:00 PM, [address] [place] [address], [address], [phone], Progress Notes * Jus THURMANDOB: [birth year] (65 yo M)Acc No.[id number]:08/14/2025 Patient: Jus SUN Provider: Sola Calzada MD :1960 A ge:65 Y S ex:Male Date:08/14/2025 Address:[address] [place] [address] [id number] Subjective: * Chief Complaints: * R eview [...] mg/dL Urine Blood Negative Negative - Specific [place] - Urine 1.020 1.005-1.025 - Urine Protein [...] Myelocytes Absolute 0.2 - X10*/uL L ab:Comprehensive [place]. Panel Fast (Order Date - 08/05/2025) (Collection [...] dr bains/ REQUEST FAXED T0 HIM @ [facility] [place]DS 5. O SA (obstructive sleep [...] Procedure Codes: 8 2270 TEST FOR BLOOD, [id number] Complex e/m visit add on * Follow Up: 6 Months * * Sign off status: Completed true * Provider: Sola Calzada MD Date: 0 08/14/2025 Generated for Cher nugent/Juli/Marciano on: 10:48 AM [...]
--- OUTSIDE RECORDS SUMMARY | 2025-08-28 10:48 | XMS_ITS | Patient Health Record ---
Author Organization Riky Calzada MD Address [address] [place], [place] [id number] Care Team Providers Care Lawyer Probate Name Role Phone Riky Calzada Primary Care Provider Allergies Allergen (clinical drug ingredient) Drug/Non Drug Allergy documented on EMR Reaction Allergy Type Onset Date Status indomethacin Indomethacin dizzy Drug Allergy A ctive Results Component Value Reference Range Notes Liver Panel Reviewed date:02/03/2025 02:27:11 PM Interpretation: Performing Lab:[facility], [address] [place] [phone] Notes/Report: Bilirubin Total 0.8 0.0-1.0 mg/dL Bilirubin Direct 0.3 0.0-0.5 mg/dL Aspartate Amino Transferase 33 5-37 U/L Alanine Aminotransferase 33 0-40 U/L Total Protein 7.1 6.5-8.0 g/dL Albumin Level 4.4 3.5-5.0 g/dL Alkaline Phosphatase 54 39-117 U/L Glucose Fasting Reviewed date:02/03/2025 05:58:46 PM Interpretation: Performing Lab:[facility], [address] [place] [phone] Notes/Report: Glucose Fasting 97 60-99 mg/dL Lipid Panel with Reflex Reviewed date:02/03/2025 06:00:10 PM Interpretation: Performing Lab:[facility], [address] [place] [phone] Notes/Report: Triglycerides 123 <150 mg/dL Desirable Triglyceride: [...] A1c Reviewed date:02/03/2025 12:36:49 PM Interpretation: Performing Lab:[address] [address] Notes/Report: Hemoglobin A1c % 5.6 <6.0 % [...] average glucose, using the formula of the A7G-Pknnwce Average Glucose study (ADAG), Diabetes Care, Vol.31,#8, Jun. 2007 Complete Blood Count Auto Di ff Reviewed date:09/11/2024 02:27:30 PM Interpretation: Performing Lab:[facility], [address] [place] [phone] Notes/Report: White Blood Count 11.4 4.8-10.8 X10*3/uL [...] Auto 0.000 0.0-0.012 X10*3/uL COR RECTED REPORT Occult Blood, Stool, Guaiac Reviewed date:08/14/2025 02:24:50 PM Interpretation:Negative Performing Lab: Notes/Report: Negative Occult Blood, Stool, Guaiac Neg Complete Blood Count Man Dif Reviewed date:09/12/2024 09:36:14 PM Interpretation: Performing Lab:[facility], [address] [place] [phone] Notes/Report: White Blood Count 11.4 4.8-10.8 X10*3/uL [...] date:11/14/2024 05:22:43 PM Interpretation: Performing Lab: Notes/Report: [place] [address] Ultrasound Report Signed with Addenda Patient: Jus Carr MR#: [id number] : 1960 Acct:[id number] Age/Sex: 64 / M ADM Date: 09/23/24 Loc: HO.US Attending Dr: Jayjay Valenzuela MD Ordering Physician: Jayjay Valenzuela MD Date of Service: 09/23/24 Procedure(s): US abdomen comp w elastography Accession Number(s): [id number] cc: Riky Calzada MD; Jayjay Valenzuela MD [...] MD 10/24/2024 10:50 PM [facility] Dictated By: Sean Child MD Signed By: <Electronically signed by Sean Child MD in OV> 11/07/24 0649 DD/ 08 TD/TT: 09/23/24 0920 Chrome Plater Helper: [address] [address] Ultrasound Report Signed with Addenda Patient: Almita Carr MR#: [id number] : 1960 Acct:[id number] Age/Sex: 64 / M ADM Date: 09/23/24 Loc: HO.US Attending Dr: Jayjay Valenzuela MD Ordering Physician: Jayjay Valenzuela MD Date of Service: 09/23/24 Procedure(s): US abd omen comp w elastography Accession Number(s): [id number] cc: Riky Calzada MD; Jayjay Valenzuela MD [...] OV> 11/07/24 0649 DD/ 6 TD/TT: 09/23/24919 Chrome Plater Helper: US duplex arterial venous co mp Reviewed date:11/14/2024 05:21:39 PM Interpretation: Performing Lab: Notes/Report: [address] [address] Ultrasound Report Signed with Addenda Patient: Jus Carr MR#: [id number] : 1960 Acct:[id number] Age/Sex: 64 / M ADM Date: 09/23/24 Loc: HO.US Attending Dr: Jayjay Valenzuela MD Ordering Physician: Jayjay Valenzuela MD Date of Service: 09/23/24 Procedure(s): US duplex arterial venous comp Accession Number(s): [id number] cc: Riky Calzada MD; Jayjay Valenzuela MD ADDENDUM ADDENDUM #1 . Electronically signed by: Ramesh Molina MD 11/13/2024 03:36 PM EST RP Addendum Dictated By: Ramesh Benitez MD Addendum Signed By: <Electronically signed by Rmaesh Benitez MD in OV> 11/13/24 1536 Addendum [...] MD 10/24/2024 10:50 PM [facility] Dictated By: Sean Child MD Signed By: <Electronically signed by Sean Child MD in OV> 11/07/24 0649 DD/ 6 TD/TT: 09/23/24 0920 Chrome Plater Helper: [place] [address] Ultrasound Report Signed with Addenda Patient: Almita Carr MR#: [id number] : 1960 Acct:[id number] Age/Sex: 64 / M ADM Date: 09/23/24 Loc: . Attending Dr: Jayjay Valenzuela MD Ordering Physician: Jayjay Valenzuela MD Date of Service: 09/23/24 Procedure(s): US dup adina arterial venous comp Accession Number(s): [id number] cc: Riky Calzada MD; Jayjay Valenzuela MD [...] Sean Child MD 10/24/2024 10:50 PM EST Dictated By: Sean Child MD Signed By: <Electronically signed by Sean Child MD in OV> 11/07/2449 DD/ 6 TD/TT: 09/23/24919 Chrome Plater Helper: GENET Basic Metabolic Panel Reviewed date:10/17/2024 05:20:52 PM Interpretation: Performing Lab:[facility], [address] [place] [phone] Notes/Report: Sodium 142 135-145 mmol/L Potassium 4.7 [...] date:10/24/2024 12:02:46 PM Interpretation: Performing Lab: Notes/Report: [address] [address] Nuclear Medicine Report Signed Patient: Jus Carr MR#: [id number] : 1960 Acct:[id number] Age/Sex: 64 / M ADM Date: 10/22/24 Loc: HO.CARD Attending Dr: Eleuterio Garcia MD Ordering Physician: Eleuterio Garcia MD Date of Service: 10/22/24 Procedure(s): NM cardiolite stress test Accession Number(s): [id number] cc: Riky Calzada MD; Eleuterio Garcia MD [...] findings are consistent with normal myocardial perfusion. FL/FL cardiolite stress test IMPRESSION: 1. Myocardial perfusion imaging study shows normal myocardial perfusion. 2. Gated LVEF is 66%. 3. Transient ischemic dilatation not present. EKG revealed equivocal for ischemia. Electronically signed by: Eleuterio Garcia MD 10/23/2024 12:23 PM [facility] Dictated By: Eleuterio Garcia MD Signed By: <Electronically signed by Eleuterio Garcia MD in OV> 10/23/24 1223 DD/ 0834 TD/TT: 10/23/24 1025 Chrome Plater Helper: [place] [address] Nuclear Medicine Report Signed Patient: Almita Carr MR#: [id number] : 1960 Acct:[id number] Age/Sex: 64 / M ADM Date: 10/22/24 Loc: HO.CARD Attending Dr: Eleuterio Garcia MD Ordering Physician: Eleuterio Garcia MD Date of Service: 10/22/24 Procedure(s): FL cardiolite stress test Accession Number(s): [id number] cc: Riky Calzada MD; Eleuterio Garcia MD EXERCISE MYOCARDIAL PERFUSION STUDY INDICATION: Chest pain to evalua te for myocardial ischemia TECHNIQUE: The patient was brou ailyn in for an exercise perfusion study on [...] by: Eleuterio Garcia MD 10/23/2024 12:23 PM [facility] Dictated By: Shawna Garcia MD Signed By: <Electronically signed by Eleuterio Garcia MD in OV> 10/23/24 1223 DD/ 0834 TD/TT: 10/23/24 1025 Chrome Plater Helper: Les Serrano Reviewed date:02/03/2025 12:39:55 PM Interpretation: Performing Lab:[facility], [address] [place] [phone] Notes/Report: Hold Gold See Note Specimen held untested for 24 hours; Call to request Chemistry testing. Complete Blood Count Man Dif Reviewed date:03/19/2025 06:28:25 PM Interpretation: Performing Lab:[facility], [address] [place] [phone] Notes/Report: White Blood Count 17.8 4.8-10.8 X10*3/uL [...] Panel Reviewed date:03/19/2025 12:35:18 PM Interpretation: Performing Lab:[address] [address] Notes/Report: Sodium 140 135-145 mmol/L Potassium 4.3 [...] Acid Reviewed date:03/19/2025 12:33:52 PM Interpretation: Performing Lab:[address] [address] Notes/Report: Uric Acid 6.7 3.4-7.0 mg/dL IRON PROFILE Reviewed date:03/19/2025 12:34:41 PM Interpretation: Performing Lab:[address] [address] Notes/Report: Iron 122 45-160 mcg/dL Total Iron Binding Capacity 271 228-428 mcg/dL Percent Iron Saturation 45 15-50 % Unsaturated Iron Binding 149 Ferritin Reviewed date:03/19/2025 12:35:27 PM Interpretation: Performing Lab:[address] [address] Notes/Report: Ferritin 305 20-250 ng/mL Lactate Dehydrogenase Reviewed date:03/19/2025 06:26:27 PM Interpretation: Performing Lab:[facility], [address] [place] [phone] Notes/Report: Lactate Dehydrogenase 217 118-273 U/L Complete Blood Count Goran Dickerson Reviewed date:03/27/2025 04:49:33 PM Interpretation: Performing Lab:[facility], [address] [place] [phone] Notes/Report: White Blood Count 19.3 4.8-10.8 X10*3/uL [...] (0-2) Basophilic Stippling 1+ (0-2) Leukemia/Lymphoma Eval. Flori garcia Reviewed date:03/31/2025 12:12:01 PM Interpretation: Performing Lab:[facility], [address] [place] [phone] Notes/Report: LEUKEMIA/LYMPHOMA [id number] BLOOD LLE Interpretation See Note See repor t from [employer] in the EMR. FISH 9,22 CML/AML BCR Reviewed date:04/04/2025 12:31:49 PM Interpretation: Performing Lab:[facility], [address] [place] [phone] Notes/Report: FISH 9,22 CML/AML BCR See Note See re port from [employer] in the EMR. Complete Blood Count Man Dif Reviewed date:05/26/2025 01:32:12 PM Interpretation: Performing Lab:[facility], [address] [place] [phone] Notes/Report: White Blood Count 12.1 4.8-10.8 X10*3/uL [...] Panel Reviewed date:05/27/2025 04:58:26 PM Interpretation: Performing Lab:[address] [address] Notes/Report: Sodium 141 135-145 mmol/L Potassium 4.5 [...] Acid Reviewed date:05/26/2025 01:02:12 PM Interpretation: Performing Lab:[address] [address] Notes/Report: Uric Acid 7.7 3.4-7.0 mg/dL IRON PROFILE Reviewed date:05/26/2025 01:26:52 PM Interpretation: Performing Lab:[address] [address] Notes/Report: Iron 241 45-160 mcg/dL Total Iron Binding Capacity 269 228-428 mcg/dL Percent Iron Saturation 90 15-50 % Unsaturated Iron Binding 28 Ferritin Reviewed date:05/26/2025 01:00:32 PM Interpretation: Performing Lab:[address] [place] [address] Notes/Report: Ferritin 471 20-250 ng/mL Complete Blood Count Man Tuan Reviewed date:06/11/2025 03:55:48 PM Interpretation: Performing Lab:[address] [address] Notes/Report: White Blood Count 12.0 4.8-10.8 X10*3/uL [...] Panel Reviewed date:06/11/2025 03:54:08 PM Interpretation: Performing Lab:[address] [address] Notes/Report: Bilirubin Total 0.9 0.0-1.0 mg/dL Bilirubin Direct 0.3 0.0-0.5 mg/dL Aspartate Amino Transferase 28 5-37 U/L Alanine Aminotransferase 35 0-40 U/L Total Protein 6.9 6.5-8.0 g/dL Albumin Level 4.9 3.5-5.0 g/dL Alkaline Phosphatase 53 39-117 U/L IRON PROFILE Reviewed date:06/11/2025 03:53:38 PM Interpretation: Performing Lab:[facility], [address] [place] [phone] Notes/Report: Iron 170 45-160 mcg/dL Total Iron Binding Capacity 276 228-428 mcg/dL Percent Iron Saturation 62 15-50 % Unsaturated Iron Binding 106 Ferritin Reviewed date:06/11/2025 03:42:08 PM Interpretation: Performing Lab:[facility], [address] [place] [phone] Notes/Report: Ferritin 413 20-250 ng/mL US abdomen complete Reviewed date:07/25/2025 06:48:50 PM Interpretation: Performing Lab: Notes/Report: [facility] [address] [place] [address] [place] [address] Ultrasound Report Signed Patient: Jus Carr MR#: [id number] : 1960 Acct:[id number] Age/Sex: 65 / M ADM Date: 07/23/25 Loc: HO.HMGCX Attending Dr: Tania Bolaños MD Ordering Physician: Tanai Bolaños MD Date of Service: 07/23/25 Procedure(s): US abdomen complete Accession Number(s): [id number] cc: Riky Calzada MD; Tania Bolaños MD [...] in OV> 07/23/252138 DD/ 37 TD/TT: 07/23/252137 Chrome Plater Helper: ANA [facility] [address] [place] [address] [place] [address] Ultrasound Report Signed Patient: Almita Carr MR#: [id number] : 1960 Acct:[id number] Age/Sex: 65 / M ADM Date: 07/23/25 Loc: SHANNENHMGCX Attending Dr: Tania Bolaños MD Ordering Physician: Tania Bolaños MD Date of Service: 07/23/25 Procedure(s): US abd omen complete Accession Number(s): [id number] cc: Riky Calzada MD; Tania Bolaños MD [...] in OV> 07/23/252138 DD/ 37 TD/TT: 07/23/252137 Chrome Plater Helper: Complete Blood Count Auto Di ff Reviewed date:08/05/2025 02:07:40 PM Interpretation: Performing Lab:[facility], [address] [place] [phone] Notes/Report: White Blood Count 15.7 4.8-10.8 X10*3/uL Red Blood Count 3.50 4.60-5.80 X10*6/uL Hemoglobin 11.1 14.0-18.0 g/dl Hematocrit 33.4 42.0-52.0 % Mean Corpuscular Volume 95.4 80.0-98.0 fL Mean Corpuscular Hemoglobin 31.7 27.0-33.0 pg Mean Corpuscular HGB Conc 33.2 31.0-36.0 g/dl Red Cell Distribution Width 19.9 11.0-16.0 % Platelet Count 54 160-400 X10*3/uL Mean Platelet Volume TNP 9.4-12.4 fL Neutrophils Percent Auto 64.0 45-73 % Imm Gran Pct Auto 8.3 0.0-0.4 % Lymphocytes Percent Auto 15.1 20-40 % Monocytes Percent Auto 12.0 2-11 % Eosinophils Percent Auto 0.3 0-4 % Basophils Percent Auto 0.3 0-2 % NRBC Pct Auto 0.0 0.0-0.2 /100WBC Neutrophils Absolute Auto 10.1 2.0-8.3 x10*3/u L Imm Gran Abs Auto 1.31 0.00-0.03 X10*3/uL Lymphocytes Absolute Auto 2.4 1.2-4.9 X10*3/u L Monocytes Absolute Auto 1.9 0.1-1.2 X10*3/uL Eosinophils Absolute Auto 0.0 0.0-0.4 X10*3/u L Basophils Absolute Auto 0.0 0.0-0.2 X10*3/uL NRBC Abs Auto 0.000 0.0-0.012 X10*3/uL COR RECTED REPORT Complete Blood Count Man Dif Reviewed date:08/07/2025 12:58:27 PM Interpretation: Performing Lab:[facility], [address] [place] [phone] Notes/Report: White Blood Count 15.7 4.8-10.8 X10*3/uL Red Blood Count 3.50 4.60-5.80 X10*6/uL Hemoglobin 11.1 14.0-18.0 g/dl Hematocrit 33.4 42.0-52.0 % Mean Corpuscular Volume 95.4 80.0-98.0 fL Mean Corpuscular Hemoglobin 31.7 27.0-33.0 pg Mean Corpuscular HGB Conc 33.2 31.0-36.0 g/dl Red Cell Distribution Width 19.9 11.0-16.0 % Platelet Count 54 160-400 X10*3/uL Mean Platelet Volume TNP 9.4-12.4 fL NRBC Pct Auto 0.0 0.0-0.2 /100WBC NRBC Abs Auto 0.000 0.0-0.012 X10*3/uL Neutrophils Percent Manual 67 45-73 % Band Neutrophils Percent 6 3-5 % Lymphocytes Percent Manual 9 20-40 % Atypical Lymphs Percent Manual 2 0-6 % Monocytes Percent Manual 14 2-11 % Metamyelocytes Percent 1 Myelocytes Percent 1 Neutrophils Absolute Manual 11.5 2.0-8.3 X10*3/uL Lymphocytes Absolute Manual 1.4 1.2-4.9 X10*3/uL Atypical Lymph Absolute Manual 0.3 Monocytes Absolute Manual 2.2 0.1-1.2 X10*3/u L Metamyelocytes Absolute 0.2 Myelocytes Absolute 0.2 Platelet Estimate DECREASED NORMAL Platelet Morphology Comment NORMAL RBC Morphology NOTED Polychromasia 2+ (3-5) Microcytosis 1+ (5-14) Tear Drop Cells 2+ (3-5) Pathologist Review - CBC Reviewed date:08/06/2025 06:01:30 PM Interpretation: Performing Lab:[address] [address] Notes/Report: Pathologist Review - CBC SEE NOTE Normochromic normocytic anemia. White blood cells are mildly increased in number; occasional hypersegmented neutrophils are present as well as left-shifted forms. Platelets are reduced in number; occasional large forms are identified. - Roberto Rodriguez M.D. Pathology Comprehensive [place]. Panel Fa st Reviewed date:08/05/2025 02:06:56 PM Interpretation: Performing Lab:[facility], [address] [place] [phone] Notes/Report: Sodium 141 135-145 mmol/L Potassium 4.5 3.3-5.1 mmol/L Chloride 107 96-108 mmol/L Carbon Dioxide 27 22-29 mmol/L Anion Gap 12 12-20 Blood Urea Nitrogen 18 9-16 mg/dL Creatinine 0.77 0.5-1.4 mg/dL Estimated Glomerular Filt Rate > 60 Chronic Kidney Disease: Estimated GFR < 60 mL/min/1.73m2 Severe Kidney Disease: Estimated GFR < 15 mL/min/1.73m2 Glucose Fasting 113 60-99 mg/dL A fasting glucose from 100-125 mg/dl is considered impaired (pre-diabetes). Calcium 9.1 8.4-10.2 mg/dL Bilirubin Total 0.9 0.0-1.0 mg/dL Aspartate Amino Transferase 35 5-37 U/L Alanine Aminotransferase 38 0-40 U/L Total Protein 7.0 6.5-8.0 g/dL Albumin Level 4.9 3.5-5.0 g/dL Alkaline Phosphatase 54 39-117 U/L Lipid Panel Reviewed date:08/05/2025 02:06:39 PM Interpretation: Performing Lab:[address] [address] Notes/Report: Triglycerides 158 <150 mg/dL Desirable Triglyceride: less than 150 mg/dL Borderline High Triglyceride 150-199 mg/dL High Triglyceride: 200-499 mg/dL Very High Triglyceride: greater than or equal to 5OO mg/dL Cholesterol 109 <200 mg/dL Desirable Cholesterol: less than 200 mg/dL Borderline High Cholesterol: 200-239 mg/dL High Cholesterol: greater than 239 mg/dL LDL Cholesterol Calculated 43 <100 mg/dL Desirable LDL: less than 100 mg/dL Near Optimal/Above Optimal LDL: 110-129 mg/dL Borderline High LDL: 130-159 mg/dL High LDL: 160-189 mg/dL Very High LDL: greater than or equal to 190 mg/dL HDL Cholesterol 35 >40 mg/dL Desirable HDL: greater than 40 mg/dL Note: This HDL assay may give artificially low results in patients with liver disease. PSA,Total (Free>4and<10) Reviewed date:08/05/2025 02:06:21 PM Interpretation: Performing Lab:[address] [address] Notes/Report: PSA,Total (Free>4and<10) 0.56 0.00-4.00 ng/mL A Free PSA was not [...] Castillo Alinity i Chemiluminescent Microparticle Immunoassay (CMIA) UA CC w/rflx Micro + Cult Reviewed date:08/05/2025 05:06:29 PM Interpretation: Performing Lab:[address] [address] Notes/Report: Urine, Clean Catch Color Urine Yellow Appearance Urine Turbid PH 5.0 5.0-9.0 Glucose Urine UA Negative Negative mg/dL Urine Blood Negative Negative Specific [place] - Urine 1.020 1.005-1.025 Urine Protein Negative Neg-Trace mg/dL Urine Ketones Negative Negative mg/dL Nitrite Urine Negative Negative Leukocyte Esterase Urine Negative Negative Complete Blood Count Auto Di ff Reviewed date:08/21/2025 04:25:58 PM Interpretation: Performing Lab:[address] [address] Notes/Report: White Blood Count 12.1 4.8-10.8 X10*3/uL Red Blood Count 3.31 4.60-5.80 X10*6/uL Hemoglobin 10.4 14.0-18.0 g/dl Hematocrit 30.6 42.0-52.0 % Mean Corpuscular Volume 92.4 80.0-98.0 fL Mean Corpuscular Hemoglobin 31.4 27.0-33.0 pg Mean Corpuscular HGB Conc 34.0 31.0-36.0 g/dl Red Cell Distribution Width 19.9 11.0-16.0 % Platelet Count 56 160-400 X10*3/uL Neutrophils Percent Auto 60.7 45-73 % Imm Gran Pct Auto 9.0 0.0-0.4 % Lymphocytes Percent Auto 18.0 20-40 % Monocytes Percent Auto 11.6 2-11 % Eosinophils Percent Auto 0.4 0-4 % Basophils Percent Auto 0.3 0-2 % NRBC Pct Auto 0.0 0.0-0.2 /100WBC Neutrophils Absolute Auto 7.3 2.0-8.3 x10*3/u L Imm Gran Abs Auto 1.08 0.00-0.03 X10*3/uL Lymphocytes Absolute Auto 2.2 1.2-4.9 X10*3/u L Monocytes Absolute Auto 1.4 0.1-1.2 X10*3/uL Eosinophils Absolute Auto 0.1 0.0-0.4 X10*3/u L Basophils Absolute Auto 0.0 0.0-0.2 X10*3/uL NRBC Abs Auto 0.000 0.0-0.012 X10*3/uL COR RECTED REPORT Complete Blood Count Man Dif Reviewed date:08/21/2025 04:29:52 PM Interpretation: Performing Lab:[facility], [address] [place] [phone] Notes/Report: White Blood Count 12.1 4.8-10.8 X10*3/uL Red Blood Count 3.31 4.60-5.80 X10*6/uL Hemoglobin 10.4 14.0-18.0 g/dl Hematocrit 30.6 42.0-52.0 % Mean Corpuscular Volume 92.4 80.0-98.0 fL Mean Corpuscular Hemoglobin 31.4 27.0-33.0 pg Mean Corpuscular HGB Conc 34.0 31.0-36.0 g/dl Red Cell Distribution Width 19.9 11.0-16.0 % Platelet Count 56 160-400 X10*3/uL NRBC Pct Auto 0.0 0.0-0.2 /100WBC NRBC Abs Auto 0.000 0.0-0.012 X10*3/uL Neutrophils Percent Manual 69 45-73 % Band Neutrophils Percent 4 3-5 % Lymphocytes Percent Manual 16 20-40 % Monocytes Percent Manual 8 2-11 % Metamyelocytes Percent 1 Myelocytes Percent 1 Promyelocytes Percent 1 Neutrophils Absolute Manual 8.8 2.0-8.3 X10*3/uL Lymphocytes Absolute Manual 1.9 1.2-4.9 X10*3/uL Monocytes Absolute Manual 1.0 0.1-1.2 X10*3/u L Metamyelocytes Absolute 0.1 Myelocytes Absolute 0.1 Promyelocytes Absolute 0.1 Platelet Estimate DECREASED NORMAL Platelet Morphology Comment NORMAL RBC Morphology NOTED Polychromasia 1+ (0-2) Hypochromasia 1+ (5-14) Macrocytosis 1+ (5-14) IRON PROFILE Reviewed date:08/21/2025 12:37:59 PM Interpretation: Performing Lab:[address] [address] Notes/Report: Iron 234 45-160 mcg/dL Total Iron Binding Capacity 271 228-428 mcg/dL Percent Iron Saturation 86 15-50 % Unsaturated Iron Binding 37 Ferritin Reviewed date:08/21/2025 12:37:38 PM Interpretation: Performing Lab:[address] [address] Notes/Report: Ferritin 527 20-250 ng/mL Reason For Referral No Information Medications Medication SIG (Take, Route, Frequency, Duration) Notes Start Date End Date Status Rosuvastatin Calcium 40 MG 1 tablet Orally Once a day Active Aspir-Low 81 MG 1 tablet Orally Once a day for 30 day(s) Not-Taking Valsartan-hydroCHLOROthia zide 160-12.5 MG TAKE 1 TABLET BY MOUTH EVERY DAY FOR 30 DAYS Active Ibuprofen 200 MG 3 tablet with food o r milk as needed Orally Three times a day Active oxyCODONE HCl 5 MG 1 tablet as needed Orally twice a day as needed for 10 days 11/24/2022 Not-Taking Colchicine 0.6 MG 1 tablet Orally Twic e a day for 10 days 04/29/2025 Not-Taking predniSONE 20 MG 2 tabs today then 1 tab Orally Once a day for 7 days 04/29/2025 Not-Taking Indomethacin 50 MG 1 capsule with [...] Fluarix Quadrivalent - 150 Unknown 08/12/2024 Refused Influenza High Dose Unknown 08/14/2025 Refused Social [...] Status W/U Status Risk Notes Problem Thrombocytopenia (267542142) Thrombocytopenia (D69.6) Active confirmed Problem 74041655 Anxiety (F41.9) Active confirmed Problem 43500942 Hereditary hemochromatosis (E83.110) Active confirmed Problem 034558940 Tubular adenoma of colon (D12.6) Active confirmed Problem 25698590 Essential hypert ension (I10) Active confirmed Problem 5536724 Prediabetes (R73.09) Active confirmed Problem 734917946 Low HDL (under 4 0) (E78.6) Active confirmed Problem 06933259 Sciatica of righ t side (M54.31) Active confirmed Problem 664227764 Pure hypercholesterolemia (E78.00) Active confirmed Problem Irritable bowel syndrome (06523857) IBS (irritable bowel syndrome) (K58.9) Active confirmed Problem Obstructive sleep apnea syndrome (10976177) ESTELITA (obstructive sleep apnea) (G47.33) Active confirmed Problem 003685491 BMI 35.0-35.9,ad ult (Z68.35) Active confirmed Problem 012217831 BMI 36.0-36.9,ad ult (Z68.36) Active confirmed Problem Gout (69076892) Acute gout invol ving toe of right foot, unspecified cause (M10.9) Active confirmed Problem 7353417773880996 Acute gout of r ight foot, unspecified cause (M10.9) Active confirmed Problem 79941862 Aortic atheroscl erosis (I70.0) Active confirmed Vital Signs Blood pressure diastolic 60 mm Hg 08/14/2025 gil ght is up 3 pounds since 04-29-25 Height 68 in 08/14/2025 weight is up 3 pounds since 04-29-25 Blood pressure systolic 142 mm Hg 08/14/2025 weig ht is up 3 pounds since 04-29-25 Weight 231 lbs 08/14/2025 weight is up 3 pounds since 04-29-25 BMI 35.12 kg/m2 08/14/2025 weight is up 3 pounds since 04-29-25 Encounters Encounter Location Date Provider Diagnosis Riky Calzada MD [address] [place] [id number] 02/03/2025 Riky Calzada Prediabetes R73.09 a nd Pure hypercholesterolemia E78.00 Riky Calzada MD [address] [place] [id number] 09/10/2024 Riky Calzada Thrombocytopenia D69 .6 Riky Calzada MD [address] [place] [id number] 02/10/2025 Riky Calzada Hereditary hemochrom atosis E83.110 and Elevated LFTs R79.89 Riky Calzada MD [address] [place] [id number] 04/29/2025 Riky Calzada Acute gout involving toe of right foot, unspecified cause M10.9 Riky Calzada MD [address] [place] [id number] 08/14/2025 Riky Calzada Prediabetes R73.09 ; Pure hypercholesterolemia E78.00 ; Essential hypertension I10 ; Hereditary hemochromatosis E83.110 ; ESTELITA (obstructive sleep apnea) G47.33 ; Colon cancer screening Z12.11 and Depression screening Z13.31 Assessments Encounter Date Diagnosis (ICD Code) Assessment Notes Treatment Notes Treatment Clinical Notes Section Notes 02/03/2025 Prediabetes (ICD-10 - R73.09) 09/10/2024 Thrombocytopenia (ICD-10 - D69.6) 02/10/2025 Hereditary hemochromatosis (ICD-10 - E83.110) is being followed by dr valenzuela and has phlebotomies. 02/10/2025 Elevated LFTs (ICD-1 0 - R79.89) is doing well with cutting back on alcohol 04/29/2025 Acute gout involving toe of right foot, unspecified cause (ICD-10 - M10.9) patient verbalized understanding of medication and directions for use 08/14/2025 Prediabetes (ICD-10 - R73.09) stable, no need for medication at this time 08/14/2025 Pure hypercholesterolemia (ICD-10 - E78.00) well controlled , will continue current regiment 02/03/2025 Pure hypercholesterolemia (ICD-10 - E78.00) 08/14/2025 Essential hypertensi on (ICD-10 - I10) good bp, will continue currenr regiment 08/14/2025 Hereditary hemochromatosis (ICD-10 - E83.110) need notes from dr bolaños/ REQUEST FAXED T0 HIM @ [facility] FOR RECORDS 08/14/2025 ESTELITA (obstructive sle ep [...] 11/30/2021 Next Appt Details Provider Name:Riky alvarez, 02/06/2026 08:00:00 AM, [address] [place] [address], [address], [phone], Provider Name:Riky alvarez, 02/12/2026 10:45:00 AM, [address] [place] [address], [address], [phone], Provider Name:Riky alvarez, 08/10/2026 07:45:00 AM, [address] [place] [address], [address], [phone], Provider Name:Riky alvarez, 08/17/2026 01:00:00 PM, [address] [place] [address], [address], [phone], Insurance Providers Payer Name Payer Address Payer Phone Subscriber Number Group Number Insured Name Patient Relationship to Insured Coverage Start Date Coverage End Date [employer] [address] [place] [address] [id number] Jus Carr Self - patient is the insured 4 [employer] [place] [address] [place] [address] [id number] Bruno Jus Self - patient is the insured Medical (General) History Medical History History ICD Code colonoscopy 09/2010 with gely noma; colonoscopy done 01/31/[address] Valenzuela - repeat 5 years04/10/24 repeat 5y had chest ct and repeat negative. no nee d for any further follow up
--- OUTSIDE RECORDS SUMMARY | 2025-08-28 10:49 | XMS_ITS | Patient Health Record ---
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 Name Role Phone Riky Calzada MD Primary Care Provider Jayjay Daley Unavailable [phone] Allergies No Known Allergies Results Component Value Reference Range Notes US abdomen comp w elastograp hy (Not yet reviewed by provider) Interpretation: Performing Lab: Notes/Report: [address] [address] Ultrasound Report Signed with Addenda Patient: Jus Thurman MR#: [id number] : 1960 Acct:[id number] Age/Sex: 64 / M ADM Date: 09/23/24 Loc: HO.US Attending Dr: Jayjay Owens MD Ordering Physician: Jayjay Owens MD Date of Service: 09/23/24 Procedure(s): US abdomen comp w elastography Accession Number(s): [id number] cc: Riky Calzada MD; Jayjay Owens MD [...] by: Sean Child MD 10/24/2024 10:50 PM [facility] Dictated By: Sean Child MD Signed By: <Electronically signed by Sean Child MD in OV> 11/07/24 0649 DD/ 6 TD/TT: 09/23/24 0920 Dough Maker: SS US duplex arterial venous co mp (Not yet reviewed by provider) Interpretation: Performing Lab: Notes/Report: [address] [address] Ultrasound Report Signed with Ceceenda Patient: Jus Thurman MR#: [id number] : 1960 Acct:[id number] Age/Sex: 64 / M ADM Date: 09/23/24 Loc: HO.US Attending Dr: Jayjay Owens MD Ordering Physician: Jayjay Owens MD Date of Service: 09/23/24 Procedure(s): US duplex arterial venous comp Accession Number(s): [id number] cc: Riky Calzada MD; Jayjay Owens MD [...] Sean Child MD 10/24/2024 10:50 PM EST [facility] Dictated By: Sean Child MD Signed By: <Electronically signed by Sean Child MD in OV> 11/07/2449 DD/ 6 TD/TT: 09/23/[address] Dough Maker: GENET Therapeutic Phlebotomy Reviewed date:12/02/2024 10:30:39 PM Interpretation: Performing Lab:[address] [address] Notes/Report: THER/HGB 11.0 14.0-18.0 g/dL THER/HCT TNP 42.0-52.0 % Therapeutic Phlebotomy TNP Reason: Pre-phlebotomy Hgb/Hct is below the established parameter for this patient. Please note that a copy of this report has been sent to the Primary Care Physician, the ordering physician and any physician designated by patient request. Therapeutic Phlebotomy Reviewed date:03/04/2025 08:54:23 AM Interpretation: Performing Lab:[facility], [address] [place] [address] Notes/Report: THER/HGB 12.0 14.0-18.0 g/dL THER/HCT TNP [...] Calcium 40 MG Oral for 90 Active Charles Aspirin EC Low Dose 81 MG 1 tablet Orally Once a day for 30 day(s) Not-Taking Tylenol 325 MG 1 [...] been since you last smoked? 5-10 years AUDIT-C (Standard) Question Answer Notes Did you [...] Status Risk Notes Problem Colon cancer screening (713556721) Colon cancer screening (Z12.11) Active confirmed Problem 260341010 Encounter for screening for malignant neoplasm of colon (Z12.11) Active confirmed Problem 616684536 History of adenomatous polyp of colon (Z86.010) Active confirmed Problem 999179459 Abdominal bloati ng (R14.0) Active confirmed Problem History of polyp of colon (situation) (838265254) Personal history of colonic polyps (Z86.010) Active confirmed Problem 932699751 Periumbilical pa in (R10.33) Active confirmed Problem Diverticular disease of colon (122190058) Diverticulosis of large intestine without perforation or abscess without bleeding (K57.30) Active confirmed Problem Hepatosplenomegaly (19421766) Hepatomegaly with splenomegaly, not elsewhere classified (R16.2) Active confirmed Problem Fatty liver (795112046) Fatty liver (K76.0) Active confirmed Problem Hepatitis C antibody test positive (832597366) Hepatitis C antibody test positive (R76.8) Active confirmed Problem Iron excess (27620076) Iron excess (E83.19) Active confirmed Problem Thrombocytopenia (216569851) Thrombocytopenia (D69.6) Active confirmed Problem Hepatic fibrosis (disorder) (83623560) Liver fibrosis (K74.00) Active confirmed Problem Blood chemistry abnormal (692287887) Elevated ferritin level (R79.89) Active confirmed Vital Signs Temperature 98.7 degrees Fahrenheit 08/28/2025 Blood pressure diastolic 01 mm Hg 08/28/2025 Height 68 in 08/28/2025 Blood pressure systolic 001 mm Hg 08/28/2025 Weight 232.4 lbs 08/28/2025 BMI 35.33 kg/m2 08/28/2025 Encounters Encounter Location Date Provider Diagnosis [facility] [address] [place] [address] 08/28/2025 Jayjay Owens Encounter for screening for malignant neoplasm of colon Z12.11 ; Fatty liver K76.0 ; Elevated ferritin level R79.89 ; Iron excess E83.19 and Liver fibrosis K74.00 [facility] [address] [place] [address] 09/09/[address] [facility] [address] [place] [address] 10/31/2024 Jayjay Owens Assessments Encounter Date Diagnosis [...] Test Test Name Order Date LIVER PROFILE 02/18/2024 LIVER PROFILE 08/27/2024 LIVER PROFILE 01/09/2024 IRON + IBC (FE) 01/09/2024 IRON + IBC (FE) 02/18/2024 CBC w DIFF 01/09/2024 CBC w DIFF 02/18/2024 ALPHA-FETOPROTEIN,TUMOR MARKER HEMOCHROMATOSIS (C282Y) 01/09/2024 HEPATITIS C VIRAL LOAD 01/09/2024 FLUOR. ANTINUCLEAR AB SCREEN (DAMARI) 12/28 Prothrombin Time INR 08/28/2025 Prothrombin Time INR 08/27/2024 Liver Fibrosis Pnl 08/27/2024 Liver Fibrosis Pnl 08/28/2025 US abdomen comp w elastography 4 US abdomen comp w elastography 4 US duplex arterial venous comp 4 US duplex arterial venous comp 4 Future Test Test Name Order Date COLONOSCOPY 11/02/2017 COLONOSCOPY 01/09/2024 Next Appt Details Provider Name:Jayjay Owens , 12/30/2025 10:20:00 AM, [address] [facility], [address], [place], [address], Insurance Providers Payer Name Payer Address Payer Phone Subscriber Number Group Number Insured Name Patient Relationship to Insured Coverage Start Date Coverage End Date [place] [address] [place] [address] [id number] JUS THURMAN Self - patient is the insured [employer] CLAIM[employer] [address] [place] [address] [id number] JUS THURMAN Self - patient is the insured Medical (General) History Medical History History ICD Code Denies [place],DM,CVA,Lung disease,renal dise ase Hypertension Sleep apnea Hyperlipidemia [...] Viral Lo ad Surgical History Surgery Date(Month/Year) Ear surgery- left Hernia repair age 5
[2025-08-28 11:04] LABS: INTERNATIONAL NORM RATIO 1.0 (0.9-1.1); Prothrombin Time 11.8 SEC (10.9-12.4)
[2025-09-03 13:19] LABS: FIB-ALT 28 U/L (9-46); FIB-Alpha-2-Macroglobulin 183 mg/dL (106-279); FIB-Apolipoprotein A1 153 mg/dL (94-176); FIB-GGT 63 U/L (3-70); FIB-Haptoglobin 41 mg/dL (43-212); FIB-Total Bilirubin 0.7 mg/dL (0.2-1.2); Liver Fibrosis Score 0.55; Liver Fibrosis Stage F2; Nec Inflam Act Grade A0-A1; Nec Inflam Act Score 0.18
== END 2025-08-28 09:43 | disposition home or self-care (01) ==
LOC: HO.10HDL 09:42
PROVIDERS: Visit Provider Internal Medicine
DX: K76.0 Fatty (change of) liver, not elsewhere classified (principal); K74.00 Hepatic fibrosis, unspecified
CPT/HCPCS: 36415; 81596; 82105; 85610

== ENCOUNTER 2025-09-17 11:22 | Day surgery (SDC) | payer MEDICARE, SELFPAY ==
--- OUTSIDE RECORDS SUMMARY | 2025-02-03 04:00 | XMS_ITS ---
Author Organization Riky Calzada MD Address [address] [place], [place] [phone] Care Team Providers Care Applied Behavior Specialist Name Role Phone Riky Calzada Primary Care Provider Results Component Value Reference Range Notes Liver Panel Reviewed date:02/03/2025 02:27:11 PM Interpretation: Performing Lab:[facility], [address] [place] [phone] Notes/Report: Bilirubin Total 0.8 0.0-1.0 mg/dL Bilirubin Direct 0.3 0.0-0.5 mg/dL Aspartate Amino Transferase 33 5-37 U/L Alanine Aminotransferase 33 0-40 U/L Total Protein 7.1 6.5-8.0 g/dL Albumin Level 4.4 3.5-5.0 g/dL Alkaline Phosphatase 54 39-117 U/L Glucose Fasting Reviewed date:02/03/2025 05:58:46 PM Interpretation: Performing Lab:[facility], [address] [place] [phone] Notes/Report: Glucose Fasting 97 60-99 mg/dL Lipid Panel with Reflex Reviewed date:02/03/2025 06:00:10 PM Interpretation: Performing Lab:[address] [phone] Notes/Report: Triglycerides 123 <150 mg/dL Desirable Triglyceride: [...] A1c Reviewed date:02/03/2025 12:36:49 PM Interpretation: Performing Lab:[facility], [address] [place] [phone] Notes/Report: Hemoglobin A1c % 5.6 <6.0 % [...] average glucose, using the formula of the Q3D-Tgnvvvx Average Glucose study (ADAG), Diabetes Care, Vol.31,#8, Jun. 2007 REASON FOR VISIT fasting lipids Encounters Encounter Location Date Provider Diagnosis Riky Calzada MD [address] [place] [address] [place] [phone] 02/03/2025 Riky Calzada Prediabetes R73.09 a nd Pure hypercholesterolemia E78.00 Assessments Encounter Date Diagnosis (ICD Code) Assessment Notes Treatment Notes Treatment Clinical Notes Section Notes 02/03/2025 Prediabetes (ICD-10 - R73.09) 02/03/2025 Pure hypercholesterolemia (ICD-10 - E78.00) Plan Of Treatment Next Appt Details Provider Name:Riky alvarez, 02/06/2026 08:00:00 AM, [address] [place] [address], [address], [phone], Provider Name:Riky alvarez, 02/12/2026 10:45:00 AM, [address] [place] [address], [address], [phone], Provider Name:Riky Nunez ier, 08/10/2026 07:45:00 AM, [address], [address], [place], [phone], Provider Name:Riky Nunez ier, 08/17/2026 01:00:00 PM, [address], [address], [place], [phone], Progress Notes * Jus THURMAN JameeDOB: [birth year] (65 yo M)Acc No.[id number]:02/03/2025 Progress Note Patient: Jus SUN Provider: Sola Calzada MD :1960 A ge:64 Y S ex:Male Date:02/03/2025 Address:[address] [place], [place] [phone] Subjective: * Chief Complaints: * 1 . [...] Calzada MD Date: 0 02/03/2025 Generated for Printi ng/Faxing/eTransmitting on: 1 03:49 PM EDT
--- OUTSIDE RECORDS SUMMARY | 2025-02-10 10:00 | XMS_ITS ---
Author Organization Riky Calzada MD Address [address] [place], [place] [id number] Care Team Providers Care Aerial Planting And Cultivation Manager Name Role Phone Riky Calzada Primary Care Provider Allergies Allergen (clinical drug ingredient) Drug/Non Drug Allergy documented on EMR Reaction Allergy Type Onset Date Status indomethacin Indomethacin dizzy Drug Allergy A ctive REASON FOR VISIT 6 month Medications Medication SIG (Take, Route, Frequency, Duration) Notes Start Date End Date Status Hyoscyamine Sulfate ER 0.375 MG TAKE 1 TABLET BY MOUTH EVERY DAY for 90 Not-Taking Lipitor 20 MG 1 tablet Orally Once a day for 30 day(s) Not-Taking oxyCODONE HCl 5 MG 1 tablet as needed Orally twice a day as needed for 10 days 11/24/2022 Not-Taking LORazepam 1 MG 1 tablet at bedtime as needed Orally Once a day for 30 days 03/12/2019 Not-Taking Indomethacin 50 MG 1 capsule with food or milk Orally Three times a day for 7 days 07/16/2021 Not-Taking Ibuprofen 200 MG 3 tablet with food o r milk as needed Orally Three times a day Not-Taking Rosuvastatin Calcium 40 MG 1 tablet Orally Once a day Active Valsartan-hydroCHLOROthia zide 160-12.5 MG TAKE 1 TABLET BY MOUTH EVERY DAY FOR 30 DAYS Active Aspir-Low 81 MG 1 tablet Orally Once a day for 30 day(s) Active Vital Signs Blood pressure systolic 128 mm Hg 02/11/20 25 Blood pressure diastolic 60 mm Hg 025 Height 68 in 02/10/2025 Weight 233 lbs 02/10/2025 BMI 35.42 kg/m2 02/10/2025 weight is up 8 pounds since 08-12-24 Encounters Encounter Location Date Provider Diagnosis Riky Calzada MD [address] [place] [address] [place] [phone] 02/10/2025 Riky Calzada Hereditary hemochromatosis E83.110 and Elevated LFTs R79.89 Assessments Encounter Date Diagnosis (ICD Code) Assessment Notes Treatment Notes Treatment Clinical Notes Section Notes 02/10/2025 Hereditary hemochromatosis (ICD-10 - E83.110) is being followed by dr valenzuela and has phlebotomies. 02/10/2025 Elevated LFTs (ICD-10 - R79.89) is doing well with cutting back on alcohol Plan Of Treatment Treatment Notes Assessment Notes Hereditary hemochromatosis is being foll owed by dr valenzuela and has phlebotomies. Elevated LFTs is doing well with c utting back on alcohol Next Appt Details Provider Name:Riky alvarez, 02/06/2026 08:00:00 AM, [address] [place] [address], [address] [place] [address], [phone], Provider Name:Riky alvarez, 02/12/2026 10:45:00 AM, [address] [place] [address], [address] [place] [address], [phone], Provider Name:Riky alvarez, 08/10/2026 07:45:00 AM, [address] [place] [address], [address] [place] [address], [phone], Provider Name:Riky alvarez, 08/17/2026 01:00:00 PM, [address] [place] [address], [address], [phone], Progress Notes * Jus THURMANDOB: [birth year] (64 yo M)Acc No.[id number]:02/10/2025 Progress Notes Patient: Jus SUN Provider: Sola Calzada MD :1960 A ge:64 Y S ex:Male Date:02/10/2025 Address:[address] [place] [address] [id number] Subjective: * Chief Complaints: * 6 month * HPI: S ymptom(s): patient is a 64 yo male here for 6 month follow up visit/ here for follow up. sore all over. shoulder./ has cut back on alcohol quite a bit. * ROS: G eneral/Constitutional: Radha Naik hills. D enies F atigue. D enies F ever. E NT: Denies S ore throat. R espiratory: Radha Naik ough. Ankit enies S hortness of breath at rest. D enies S hortness of breath with exertion. G astrointestinal: Denies D iarrhea. D enies N ausea. * Medical History: * Surgical History: * Hospitalization/Major Diagno stic Procedure: * Medications: T akingAspir-Low 81 MG Tablet Delayed Release 1 tablet Orally Once a day Valsartan-hydroCHLOROthiazide 160-12.5 MG Tablet TAKE 1 TABLET BY MOUTH EVERY DAY FOR 30 DAYS Rosuvastatin Calcium 40 MG Tablet 1 tablet Orally Once a day Taking Aspir-Low 81 MG Tablet Delayed Release 1 tablet Orally Once a day Taking Valsartan-hydroCHLOROthiazide 160-12.5 MG Tablet TAKE 1 TABLET BY MOUTH EVERY DAY FOR 30 DAYS Taking Rosuvastatin Calcium 40 MG Tablet 1 tablet Orally Once a day Not-Taking/PRNIbuprofen 200 MG Tablet 3 tablet with food or milk as needed Orally Three times a day oxyCODONE HCl 5 MG Tablet 1 tablet as needed Orally twice a day as needed Lipitor 20 MG Tablet 1 tablet Orally Once a day Hyoscyamine Sulfate ER 0.375 MG Tablet Extended Release 12 Hour TAKE 1 TABLET BY MOUTH EVERY DAY Indomethacin 50 MG Capsule 1 capsule with food or milk Orally Three times a day LORazepam 1 MG Tablet 1 tablet at bedtime as needed Orally Once a day Medication List reviewed and reconciled with the patientNot-Taking/PRN Ibuprofen 200 MG Tablet 3 tablet with food or milk as needed Orally Three times a day Not-Taking/PRN oxyCODONE HCl 5 MG Tablet 1 tablet as needed Orally twice a day as needed Not-Taking/PRN Lipitor 20 MG Tablet 1 tablet Orally Once a day Not-Taking/PRN Hyoscyamine Sulfate ER 0.375 MG Tablet Extended Release 12 Hour TAKE 1 TABLET BY MOUTH EVERY DAY Not-Taking/PRN Indomethacin 50 MG Capsule 1 capsule with food or milk Orally Three times a day Not- Taking/PRN LORazepam 1 MG Tablet 1 tablet at bedtime as needed Orally Once a day Medication List reviewed and reconciled with the patient * Allergies: I ndomethacin: dizzyyes[Allergies Verified] Objective: * Vitals: H t: 68, Wt: 233, BMI:35.42, BP:128/60, Wt-k.69. weight is up 8 pounds since 08-12-24. * Examination: G eneral Examination: GENERAL APPEARANCE: w ell developed, well nourished. HEAD: n ormocephalic. EYES: R IGHT EYE with a white cyst on the edge of upper lid/. SKIN: g ood turgor. HEART: r egular rate and rhythm, no murmurs, rubs, gallops.? LUNGS: n o wheezes, rales, rhonchi, good air movement, clear to auscultation bilaterally. ABDOMEN: n o hepatosplenomegaly, no rebound tenderness.? Assessment: * Assessment: 1. H ereditary hemochromatosis - E83.110 (Primary) 2 . E levated LFTs - R79.89 Plan: * Treatment: 2. E levated LFTs Notes: is doing well with cutting back on alcohol * Procedure Codes: * * Sign off status: Completed true * Provider: Sola Calzada MD Date: 0 02/10/2025 [facility]Akilahg/eTransmitting on: 1 03:51 PM EDT History and Physical Notes * HPI (History of Present Illness) Category Sub-Category Detail Notes Category Not es Symptom(s) patient is a 64 yo male here for 6 month follow up visit/ here for follow up. sore all over. shoulder./ has cut back on alcohol quite a bit Examination Category Sub-Category Detail Notes Category Not es General Examination GENERAL APPEARANCE: well developed , well nourished HEAD: normocephalic EYES: RIGHT EYE with a whi te cyst on the edge of upper lid/ HEART: regular rate and rhy thm, no murmurs, rubs, gallops LUNGS: no wheezes, rales, r honchi, good air movement, clear to auscultation bilaterally ABDOMEN: no hepatosplenomegal y, no rebound tenderness SKIN: good turgor
--- OUTSIDE RECORDS SUMMARY | 2025-04-29 06:15 | XMS_ITS ---
Author Organization Riky Calzada MD Address [address] [place], [place] [phone] Care Team Providers Care Proj Engineer Name Role Phone Riky Calzada Primary Care [...] Status W/U Status Risk Notes Problem Gout ([id number]) Acute gout involving toe of right foot, unspecified cause (M10.9) Active confirmed Vital Signs Blood pressure systolic 142 mm Hg 04/29/20 25 Blood pressure diastolic 70 mm Hg 025 Height 68 in 04/29/2025 Weight 228 lbs 04/29/2025 BMI 34.66 kg/m2 04/29/2025 weight is down 5 pounds [facility] 02-10-25 Encounters Encounter Location Date Provider Diagnosis Riky Calzada MD [address] [place] [phone] 04/29/2025 Riky Calzada Acute gout involving toe [...] Details Provider Name:Riky alvarez, 02/06/2026 08:00:00 AM, [address] [place] [address], [phone], Provider Name:Riky alvarez, 02/12/2026 10:45:00 AM, [address] [place] [address], [phone], Provider Name:Riky alvarez, 08/10/2026 07:45:00 AM, [address] [place] [address], [phone], Provider Name:Riky alvarez, 08/17/2026 01:00:00 PM, [address] [place] [address], [phone], Progress Notes * Jus THURMAN JDOB: [birth year] (64 yo M)Acc No.[id number]:04/29/2025 Progress Notes Patient: Jus SUN Provider: Sola Calzada MD :1960 A ge:64 Y S ex:Male Date:04/29/2025 Address:[address] [place] [address] , [id number] Subjective: * Chief Complaints: * L eft [...] 0 04/29/2025 Generated for Cher nugent/Juli/Marciano on: 03:50 PM EDT History and Physical Notes * HPI (History of Present Illness) Category Sub-Category Detail Notes Category Not es Symptom(s) patient is a 64 yo male here with complaint, has severe pain in area below ankle. has tried gaxiloa 600 tid Examination Category Sub-Category Detail Notes Category Not es General Examination GENERAL APPEARANCE: well dev eloped, well nourished with pain SKIN: good turgor EXTREMITIES: marked tenderness to palpation over the arch of foot.
--- OUTSIDE RECORDS SUMMARY | 2025-08-07 03:15 | XMS_ITS ---
Author Organization Riky Calzada MD Address [address] [place] [phone] Care Team Providers Care Medical Csr Name Role Phone Riky Calzada Primary Care Provider REASON FOR VISIT yearly fasting labs Encounters Encounter Location Date Provider Diagnosis Riky Calzada MD 10 [facility] [address] [place] [phone] 08/07/2025 Riky Calzada Prediabetes R73.09 ; Pure [...] Complete Blood Count Auto Diff 5 Comprehensive [place]. Panel Fast 5 Lipid Panel 08/07/2025 PSA,Total (Free>4and<10) 08/07/2025 UA ClnCatch+Micro w/rflx Cult 08/07/2025 Next Appt Details Provider Name:Riky alvarez, 02/06/2026 08:00:00 AM, [address] [facility], [address] [facility], [place], [place], [phone], Provider Name:Riky Nunez ier, 02/12/2026 10:45:00 AM, [address], [address], [place], [phone], Provider Name:Riky Nunez ier, 08/10/2026 07:45:00 AM, [address], [address], [place], [phone], Provider Name:Riky Nunez ier, 08/17/2026 01:00:00 PM, [address], [address], [place], [phone], Progress Notes * Jus THURMANDOB: [birth year] (65 yo M)Acc No.[id number]:08/07/2025 Progress Note Patient: Jus SUN Provider: Sola Calzada MD :1960 A ge:65 Y S ex:Male Date:08/07/2025 Address:[address] [place], [place] [phone] Subjective: * Chief Complaints: * 1 . [...] Blood Count Auto Diff L AB: Comprehensive [place]. Panel Fast L AB: Lipid Panel L AB: PSA,Total (Free>4and<10) L AB: UA ClnCatch+Micro w/rflx Cult 3. E ssential hypertension L AB: Complete Blood Count Auto Diff L AB: Comprehensive [place]. Panel Fast L AB: Lipid Panel L AB: PSA,Total (Free>4and<10) L AB: UA ClnCatch+Micro w/rflx Cult 4. T hrombocytopenia L AB: Complete Blood Count Auto Diff L AB: Comprehensive [place]. Panel Fast L AB: Lipid Panel L AB: PSA,Total (Free>4and<10) L AB: UA ClnCatch+Micro w/rflx Cult 5. H ereditary hemochromatosis L AB: Complete Blood Count Auto Diff L AB: Comprehensive [place]. Panel Fast L AB: Lipid Panel L [...] 08/07/2025 Generated for Cher nugent/Juli/Marciano on: 1 03:49 PM EDT
--- OUTSIDE RECORDS SUMMARY | 2025-08-14 09:00 | XMS_ITS ---
Author Organization Riky Calzada MD Address [address] [place], [place] [id number] Care Team Providers Care Country Director Name Role Phone Riky Calzada Primary Care Provider [phone] Allergies Allergen (clinical drug ingredient) Drug/Non Drug Allergy documented on EMR Reaction Allergy Type Onset Date Status indomethacin Indomethacin dizzy Drug Allergy A ctive Results Component Value Reference Range Notes Occult Blood, Stool, Guaiac Reviewed date:08/14/2025 02:24:50 PM Interpretation:Negative Performing Lab: Notes/Report: Negative Occult Blood, Stool, Guaiac Neg REASON FOR VISIT review labs Medications Medication SIG (Take, Route, Frequency, Duration) Notes Start Date End Date Status Ibuprofen 200 MG 3 tablet with food o r milk as needed Orally Three times a day Active oxyCODONE HCl 5 MG 1 tablet as needed Orally twice a day as needed for 10 days 11/24/2022 Not-Taking predniSONE 20 MG 2 tabs today then 1 tab Orally Once a day for 7 days 04/29/2025 Not-Taking Lipitor 20 MG 1 tablet Orally Once a day for 30 day(s) Not-Taking Hyoscyamine Sulfate ER 0.375 MG TAKE 1 TABLET BY MOUTH EVERY DAY for 90 Not-Taking Rosuvastatin Calcium 40 MG 1 tablet Orally Once a day Active Aspir-Low 81 MG 1 tablet Orally Once a day for 30 day(s) Not-Taking Valsartan-hydroCHLOROthia zide 160-12.5 MG TAKE 1 TABLET BY MOUTH EVERY DAY FOR 30 DAYS Active Colchicine 0.6 MG 1 tablet Orally Twic e a day for 10 days 04/29/2025 Not-Taking LORazepam 1 MG 1 tablet at bedtime as needed Orally Once a day for 30 days 03/12/2019 Not-Taking Indomethacin 50 MG 1 capsule with food or milk Orally Three times a day for 7 days 07/16/2021 Not-Taking Immunizations Vaccine Route Administration Date Status Comme nts Influenza High Dose Unknown 08/14/2025 Refused Social History Tobacco Use: Social History [...] Interpretation Positive Vital Signs Blood pressure systolic 142 mm Hg 08/14/20 25 Blood pressure diastolic 60 mm Hg 025 Height 68 in 08/14/2025 Weight 231 lbs 08/14/2025 BMI 35.12 kg/m2 08/14/2025 weight is up 3 pounds since 04-29-25 Encounters Encounter Location Date Provider Diagnosis Riky Calzada MD [address] [place] [address] [place] [phone] 08/14/2025 Riky Calzada Prediabetes R73.09 ; Pure hypercholesterolemia E78.00 ; Essential hypertension I10 ; Hereditary hemochromatosis E83.110 ; ESTELITA (obstructive sleep apnea) G47.33 ; Colon cancer screening Z12.11 and Depression screening Z13.31 Assessments Encounter Date Diagnosis (ICD Code) Assessment Notes Treatment Notes Treatment Clinical Notes Section Notes 08/14/2025 Prediabetes (ICD-10 - R73.09) stable, no need for medication at this time 08/14/2025 Pure hypercholesterolemia (ICD-10 - E78.00) well controlled , will continue current regiment 08/14/2025 Essential hypertensi on (ICD-10 - I10) good bp, will continue currenr regiment 08/14/2025 Hereditary hemochromatosis (ICD-10 - E83.110) need notes from dr bains/ REQUEST FAXED T0 HIM @ [facility] [place] FOR RECORDS 08/14/2025 ESTELITA (obstructive sle ep apnea) (ICD-10 - G47.33) not using his machine. have him use his machine 08/14/2025 Colon cancer screeni ng (ICD-10 - Z12.11) guaiac negative 08/14/2025 Depression screening (ICD-10 - Z13.31) negative screen Plan Of Treatment Treatment Notes Assessment Notes Prediabetes stable, no need for medication at this time Pure hypercholesterolemia well controlle d Essential hypertension good bp, will con tinue currenr regiment Hereditary hemochromatosis need notes fr om dr bains/ REQUEST FAXED T0 HIM @ [facility] FOR RECORDS ESTELITA (obstructive sleep apnea) not using his machine. have him use his machine Colon cancer screening guaiac negative Depression screening negative screen Next Appt Details Follow Up: 6 Months, Reason: Provider Name:Riky alvarez, 02/06/2026 08:00:00 AM, [address] [place] [address], [address], [phone], Provider Name:Riky alvarez, 02/12/2026 10:45:00 AM, [address] [place] [address], [address], [phone], Provider Name:Riky alvarez, 08/10/2026 07:45:00 AM, [address] [place] [address], [address], [phone], Provider Name:Riky alvarez, 08/17/2026 01:00:00 PM, [address] [place] [address], [address], [phone], Progress Notes * Jus THURMANDOB: [birth year] (65 yo M)Acc No.[id number]:08/14/2025 Patient: Jus SUN Provider: Sola Calzada MD :1960 A ge:65 Y S ex:Male Date:08/14/2025 Address:[address] [place] [address] [id number] Subjective: * Chief Complaints: * R eview labs * HPI: D epression Screening: PHQ-9 L [...] at all, T otal Score 0 . C ommunication Needs: Communication Needs D oes [...] needed? Check all that apply: N one. S ymptom(s): patient is a 65 yo male here for review of recent labs and follow up of chronic issues, feeling terribly, back is sore,. * ROS: G eneral/Constitutional: Change in appetite d enies. C hills d enies. F ever d enies. O phthalmologic: Blurred vision d enies. D ischarge d enies. P ain d enies. E NT: Decreased hearing d enies. S ore throat d enies.?Swollen glands d enies. E ndocrine: Cold intolerance d enies. E xcessive thirst d enies. H eat intolerance d enies. W eight loss d enies. R espiratory: Cough d enies. S hortness of breath at rest d enies. S hortness of breath with exertion d enies. W heezing d enies. C ardiovascular: Chest pain at rest d enies. C hest pain with exertion?denies. I rregular heartbeat d enies. S hortness of breath d enies. ? G astrointestinal: Abdominal pain d enies. C hange in bowel habits d enies. D iarrhea d enies. N ausea d enies. R ectal bleeding d enies. V omiting d enies . G enitourinary: Blood in urine d enies. D ifficulty urinating d enies. F requent urination d enies. M usculoskeletal: Painful joints d enies. W eakness d enies. ? S kin: Dry skin d enies. I tching d enies. D enies?Mole(s), changes in moles, new moles or any lesions of concern. D enies P hotosensitivity. R augie d enies. N eurologic: Dizziness d enies. F ainting d enies. H eadache?denies. * Medical History: * Surgical History: * [...] C affeine: yes, frequency:,2 cups a week. Children: no. Community involvements: no. Exercise: no. Home smoke detector use: yes. Housing: owning. Living with: alone. Marital status: . Occupation: works full-time. Pets: none. * Medications: T akingValsartan-hydroCHLOROthiazide 160-12.5 MG Tablet TAKE 1 TABLET BY MOUTH EVERY DAY FOR 30 DAYS Rosuvastatin Calcium 40 MG Tablet 1 tablet Orally Once a day Ibuprofen 200 MG Tablet 3 tablet with food or milk as needed Orally Three times a day Taking Valsartan-hydroCHLOROthiazide 160-12.5 MG Tablet TAKE 1 TABLET BY MOUTH EVERY DAY FOR 30 DAYS Taking Rosuvastatin Calcium 40 MG Tablet 1 tablet Orally Once a day Taking Ibuprofen 200 MG Tablet 3 tablet with food or milk as needed Orally Three times a day Not-Taking/PRNAspir-Low 81 MG Tablet Delayed Release 1 tablet Orally Once a day Colchicine 0.6 MG Tablet 1 tablet Orally Twice a day predniSONE 20 MG Tablet 2 tabs today then 1 tab Orally Once a day oxyCODONE HCl 5 MG Tablet [...] List reviewed and reconciled with the patientNot-Taking/PRN Aspir-Low 81 MG Tablet Delayed Release 1 tablet Orally Once a day Not-Taking/PRN Colchicine 0.6 MG Tablet 1 tablet Orally Twice a day Not-Taking/PRN predniSONE 20 MG Tablet 2 tabs today then 1 tab Orally Once a day Not-Taking/PRN oxyCODONE HCl 5 MG Tablet 1 tablet as needed Orally twice a day as needed Not-Taking/PRN Lipitor 20 MG Tablet 1 tablet Orally Once a day Not-Taking/PRN Hyoscyamine Sulfate ER 0.375 MG Tablet Extended Release 12 Hour TAKE 1 TABLET BY MOUTH EVERY DAY Not-Taking/PRN Indomethacin 50 MG Capsule 1 capsule with food or milk Orally Three times a day Not-Taking/PRN LORazepam 1 MG Tablet 1 tablet at bedtime as needed Orally Once a day Medication List reviewed and reconciled with the patient * Allergies: I ndomethacin: dizzyyes[Allergies Verified] Objective: * Vitals: H t: 68, Wt: 231, BMI:35.12, BP:142/60, Repeat BP:126/60, Wt-k.78. weight is up 3 pounds since 04-29-25. * P ast Orders: L ab:Lipid Panel (Order Date - 08/05/2025) (Collection Date & Time - 08/05/2025 09:56 AM) Value Reference Range Triglycerides 158 H <150 - mg/dL Cholesterol 109 <200 - mg/dL LDL Cholesterol Calculated 43 <100 - mg/dL HDL Cholesterol 35 L >40 - mg/dL L ab:PSA,Total (Free>4and<10) (Order Date - 08/05/2025) (Collection Date & Time - 08/05/2025 09:56 AM) Value Reference Range PSA,Total (Free>4and<10) 0.56 0.00-4.00 - ng/ mL L ab:Complete Blood Count Auto Diff (Order Date - 08/05/2025) (Collection Date & Time - 08/05/2025 09:56 AM) Value Reference Range White Blood Count 15.7 H 4.8-10.8 - X10*3/uL Red Blood Count 3.50 L 4.60-5.80 - X10*6/uL Hemoglobin 11.1 L 14.0-18.0 - g/dl Hematocrit 33.4 L 42.0-52.0 - % Mean Corpuscular Volume 95.4 80.0-98.0 - fL Mean Corpuscular Hemoglobin 31.7 27.0-33.0 - pg Mean Corpuscular HGB Conc 33.2 31.0-36.0 - g/ dl Red Cell Distribution Width 19.9 H 11.0-16.0 - % Platelet Count 54 L 160-400 - X10*3/uL Mean Platelet Volume TNP 9.4-12.4 - fL Neutrophils Percent Auto 64.0 45-73 - % Imm Gran Pct Auto 8.3 H 0.0-0.4 - % Lymphocytes Percent Auto 15.1 L 20-40 - % Monocytes Percent Auto 12.0 H 2-11 - % Eosinophils Percent Auto 0.3 0-4 - % Basophils Percent Auto 0.3 0-2 - % NRBC Pct Auto 0.0 0.0-0.2 - /100WBC Neutrophils Absolute Auto 10.1 H 2.0-8.3 - x10* 3/uL Imm Gran Abs Auto 1.31 H 0.00-0.03 - X10*3/uL Lymphocytes Absolute Auto 2.4 1.2-4.9 - X10* 3/uL Monocytes Absolute Auto 1.9 H 0.1-1.2 - X10*3/ uL Eosinophils Absolute Auto 0.0 0.0-0.4 - X10* 3/uL Basophils Absolute Auto 0.0 0.0-0.2 - X10*3/ uL NRBC Abs Auto 0.000 0.0-0.012 - X10*3/uL L ab:UA CC w/rflx Micro + Cult (Order Date - 08/05/2025) (Collection Date & Time - 08/05/2025 09:56 AM) Value Reference Range Color Urine Yellow - Appearance Urine Turbid - PH 5.0 5.0-9.0 - Glucose Urine UA Negative Negative - mg/dL Urine Blood Negative Negative - Specific [place] - Urine 1.020 1.005-1.025 - Urine Protein Negative Neg-Trace - mg/dL Urine Ketones Negative Negative - mg/dL Nitrite Urine Negative Negative - Leukocyte Esterase Urine Negative Negative - L ab:Complete Blood Count Man Dif (Order Date - 08/05/2025) (Collection Date & Time - 08/05/2025 09:56 AM) Value Reference Range White Blood Count 15.7 H 4.8-10.8 - X10*3/uL Red Blood Count 3.50 L 4.60-5.80 - X10*6/uL Hemoglobin 11.1 L 14.0-18.0 - g/dl Hematocrit 33.4 L 42.0-52.0 - % Mean Corpuscular Volume 95.4 80.0-98.0 - fL Mean Corpuscular Hemoglobin 31.7 27.0-33.0 - pg Mean Corpuscular HGB Conc 33.2 31.0-36.0 - g/ dl Red Cell Distribution Width 19.9 H 11.0-16.0 - % Platelet Count 54 L 160-400 - X10*3/uL Mean Platelet Volume TNP 9.4-12.4 - fL NRBC Pct Auto 0.0 0.0-0.2 - /100WBC NRBC Abs Auto 0.000 0.0-0.012 - X10*3/uL Neutrophils Percent Manual 67 45-73 - % Band Neutrophils Percent 6 H 3-5 - % Lymphocytes Percent Manual 9 L 20-40 - % Monocytes Percent Manual 14 H 2-11 - % Neutrophils Absolute Manual 11.5 H 2.0-8.3 - X1 0*3/uL Lymphocytes Absolute Manual 1.4 1.2-4.9 - X1 0*3/uL Monocytes Absolute Manual 2.2 H 0.1-1.2 - X10* 3/uL Platelet Estimate DECREASED NORMAL - Platelet Morphology Comment NORMAL - RBC Morphology NOTED - Atypical Lymphs Percent Manual 2 0-6 - % Atypical Lymph Absolute Manual 0.3 - x10*3/u L Polychromasia 2+ (3-5) - /OIF Microcytosis 1+ (5-14) - /OIF Tear Drop Cells 2+ (3-5) - /OIF Metamyelocytes Percent 1 - % Metamyelocytes Absolute 0.2 - X10*3/uL Myelocytes Percent 1 - % Myelocytes Absolute 0.2 - X10*/uL L ab:Comprehensive [place]. Panel Fast (Order Date - 08/05/2025) (Collection Date & Time - 08/05/2025 09:56 AM) Value Reference Range Sodium 141 135-145 - mmol/L Bilirubin Total 0.9 0.0-1.0 - mg/dL Aspartate Amino Transferase 35 5-37 - U/L Alanine Aminotransferase 38 0-40 - U/L Total Protein 7.0 6.5-8.0 - g/dL Albumin Level 4.9 3.5-5.0 - g/dL Alkaline Phosphatase 54 39-117 - U/L Potassium 4.5 3.3-5.1 - mmol/L Chloride 107 96-108 - mmol/L Carbon Dioxide 27 22-29 - mmol/L Anion Gap 12 12-20 - Blood Urea Nitrogen 18 H 9-16 - mg/dL Creatinine 0.77 0.5-1.4 - mg/dL Estimated Glomerular Filt Rate > 60 - Glucose Fasting 113 H 60-99 - mg/dL Calcium 9.1 8.4-10.2 - mg/dL * Examination: G eneral Examination: GENERAL APPEARANCE: w ell developed, well nourished, in no acute distress. HEAD: n ormocephalic, atraumatic. EYES: p upils equal, round, reactive to light and accommodation, sclera non-icteric. EARS: n ormal. ORAL CAVITY: m ucosa moist. THROAT: c lear. NECK/THYROID: n bar supple, full range of motion, no cervical lymphadenopathy, no bruits. SKIN: w arm and dry, no suspicious lesions. HEART: r egular rate and rhythm, S1, S2 normal, no murmurs.? LUNGS: c lear to auscultation bilaterally. ABDOMEN: s oft, nontender, nondistended, bowel sounds present, normal, no organomegaly , no masses palpable. RECTAL EXAM: n ormal tone, no external hemorrhoids, no masses palpable, prostate normal, stool guaiac negative. MALE GENITOURINARY: n o penile lesions or discharge, testes descended bilaterally, no testicular mass. EXTREMITIES: n o clubbing, cyanosis, or edema. NEUROLOGIC: n onfocal, motor strength normal upper and lower extremities, sensory exam intact. Assessment: * Assessment: 1. P rediabetes - R73.09 (Primary) 2 . P ure hypercholesterolemia - E78.00? 3. E ssential hypertension - I10 4 . H ereditary hemochromatosis - E83.110 5 . O SA (obstructive sleep apnea) - G47.33 6 . Colon cancer screening - Z12.11 7 . D epression screening - Z13.31 ? Plan: * Treatment: 2. P ure hypercholesterolemia Notes: well controlled Clinical Notes: , will continue current regiment 3. E ssential hypertension Notes: good bp, will continue currenr regiment 4. H ereditary hemochromatosis Notes: need notes from dr bains/ REQUEST FAXED T0 HIM @ [facility] FOR RECORDS 5. O SA (obstructive sleep apnea) Notes: not using his machine. have him use his machine 6. C olon cancer screening L AB: Occult Blood, Stool, Guaiac (Collection Date & Time - 08/14/2025) N egative Value Reference Range O ccult Blood, Stool, Guaiac Neg Notes: guaiac negative??7.?Depression screening? Notes: negative screen?? * Immunizations: Influenza High Dose (Not administered - Refused: Patient decision) * Procedure Codes: 8 2270 TEST FOR BLOOD, [id number] Complex e/m visit add on * Follow Up: 6 Months * * Sign off status: Completed true * Provider: Sola Calzada MD Date: 0 08/14/2025 Generated for Cher nugent/Juli/Marciano on: 1 03:49 PM EDT History and Physical Notes * HPI (History of Present Illness) Category Sub-Category Detail Notes Category Not es Symptom(s) patient is a 65 yo male here for review of recent labs and follow up of chronic issues, feeling terribly, back is sore, Depression Screening PHQ-9 Little inte rest or pleasure in doing things: Not at all Feeling down, depressed, or hopeless: No t [...] way: Not at all Total Score: 0 SDOH Questions SDOH Questions In the past [...] Examination GENERAL APPEARANCE: well dev eloped, well nourished, in no acute distress HEAD: normocephalic, atrau matic EYES: pupils equal, round, reactive to light and accommodation, sclera non-icteric EARS: normal THROAT: clear NECK/THYROID: neck supple, full ra nge of motion, no cervical lymphadenopathy, no bruits HEART: regular rate and rhy thm, S1, S2 normal, no murmurs LUNGS: clear to auscultatio n bilaterally ABDOMEN: soft, nontender, non distended, bowel sounds present, normal, no organomegaly , no masses palpable NEUROLOGIC: nonfocal, motor stre ngth normal upper and lower extremities, sensory exam intact SKIN: warm and dry, no amadou picious lesions EXTREMITIES: no clubbing, cyanosi s, or edema MALE GENITOURINARY: no penile lesions or discharge, testes descended bilaterally, no testicular mass RECTAL EXAM: normal tone, no exte rnal hemorrhoids, no masses palpable, prostate normal, stool guaiac negative ORAL CAVITY: mucosa moist
--- OUTSIDE RECORDS SUMMARY | 2025-08-28 05:00 | XMS_ITS ---
Author Organization [facility] Address [address] [place] [address] Care Team Providers Care Administrative Services Manager Name Role Phone Riky Calzada MD Primary Care Provider Jayjay Daley [phone] Allergies No Known Allergies Results Component Value Reference Range Notes Liver Fibrosis Pnl (Not yet reviewed by provider) Interpretation: Performing Lab:[facility], [address] [place] [phone] Notes/Report: Liver Fibrosis Score 0.55 Liver Fibrosis Stage F2 Liver Fibrosis Interpretation SEE NOTE moderate fibrosis Fibro Test Score (f) Metavir Score f>=0 and f<=0.21 : F0 (no fibrosis) f>0.21 and f<=0.27 : F0-F1 (no fibrosis) f>0.27 and f<=0.31 : F1 (minimal fibrosis) f>0.31 and f<=0.48 : F1-F2 (minimal fibrosis) f>0.48 and f<=0.58 : F2 (moderate fibrosis) f>0.58 and f<=0.72 : F3 (advanced fibrosis) f>0.72 and f<=0.74 : F3-F4 (advanced fibrosis) f>0.74 and f<=1.00 : F4 (severe fibrosis) Nec Inflam Act Score 0.18 Nec Inflam Act Grade A0-A1 Nec Inflam Act Interpretation SEE NOTE no activity ActiTest Score (a) Metavir Score a>=0 and a<=0.17 : A0 (no activity) a>0.17 and a<=0.29 : A0-A1 (no activity) a>0.29 and a<=0.36 : A1 (minimal activity) a>0.36 and a<=0.52 : A1-A2 (minimal activity) a>0.52 and a<=0.60 : A2 (significant activity) a>0.60 and a<=0.62 : A2-A3 (significant activity) a>0.62 and a<=1.00 : A3 (severe activity) POQ-Srovf-2-Macroglobulin 183 106-279 mg/dL FIB-Haptoglobin 41 43-212 mg/dL FIB-Apolipoprotein A1 153 94-176 mg/dL FIB-Total Bilirubin 0.7 0.2-1.2 mg/dL FIB-GGT 63 3-70 U/L FIB-ALT 28 9-46 U/L Reference ID [id number] Footnote SEE NOTE The reliability of results is dependent on compliance with the preanalytical and analytical conditions recommended by [employer] ([employer]. The tests have to be deferred for: acute hemolysis, acute hepatitis, acute inflammation, extra hepatic cholestasis. The advice of a specialist should be sought for interpretation in chronic hemolysis and Gilbert's syndrome. The test interpretation is not validated in liver transplant patients. Isolated extreme values of one of the components should lead to caution in interpreting the results. In case of discordance between a biopsy result and a test, it is recommended to seek the advice of a specialist. The causes of these discordances could be due to a flaw of the test or to a flaw in the biopsy: i.e. a liver biopsy has a 33% variability rate for one fibrosis stage. FibroTest is interpretable for chronic hepatitis B and C, alcoholic and non alcoholic steatosis. ActiTest is interpretable for chronic hepatitis B and C. The performance characteristics have been determined by [facility]. It has not been cleared or approved by the U.S. Food and Drug Administration. Performance characteristics refer to the analytical performance of the test. Reelio, the associated logo, Onfido and all associated [employer] tavarez are the registered trademarks of [employer]. All third green party tavarez - (R) and (TM) - are the property of their respective owners. (C) 7000-4440 [employer]. All rights reserved. THIS TEST WAS PERFORMED AT: [employer] [facility] [place] [address] [address] [place] [address] DOUG EDWARDS MD,PHD,PAULY Prothrombin Time INR Reviewed date:08/30/2025 10:19:04 PM Interpretation: Performing Lab:[facility], [address] [place] [phone] Notes/Report: Prothrombin Time 11.8 10.9-12.4 SEC INTERNATIONAL NORM RATIO 1.0 0.9-1.1 INTERNATIONAL NORMALIZED RATIO (INR) REFERENCE RANGES Reference Range For patients not on anticoagulant therapy: 0.9 - 1.1 INR ranges for oral anticoagulant therapy: For prevention and treatment of venous thrombosis and pulmonary embolism: 2.0 - 3.0 For acute myocardial infarction with aspirin therapy: 2.0 - 3.0 For acute myocardial infarction without aspirin therapy: 3.0 - 4.0 For patients with mechanical prosthetic heart valves: 2.5 - 3.5 REASON FOR VISIT Patient presents today for an elevated ferritin level Medications Medication SIG (Take, Route, Frequency, Duration) Notes Start Date End Date Status Valsartan-hydroCHLOROthia zide 160-12.5 MG TAKE 1 TABLET BY MOUTH EVERY DAY FOR 30 DAYS Oral; Duration: 90 Active Rosuvastatin Calcium 40 MG Oral; Duration: 90 Active Charles Aspirin EC Low Dose 81 MG 1 tablet Orally Once a day; Duration: 30 day(s) Not-Taking Tylenol 325 MG 1 tablet as needed Orally every 6 hrs Active Immunizations Vaccine Route Administration Date Status Comme nts Influenza Unknown 08/28/2025 Refused Social History Tobacco Use: Social History [...] monthly (1 point) Points 6 Interpretation Positive AUDIT-C (Standard) Question Answer Notes Did you have a drink contain ing alcohol in the past year? Yes How often did you have a dri nk containing alcohol in the past year? 2 to 4 times a month (2 points) How many drinks did you have on a typical day when you were drinking in the past year? 5 or 6 drinks (2 points) How often did you have six o r more drinks on one occasion in the past year? 2 to 4 times a month (2 points) Points 6 Interpretation Positive Section Notes: Nonsmoker; 4-6 beers several times per week Problems Problem Type SNOMED Code ICD Code Onset Dates Problem Status W/U Status Risk Notes Problem Hepatic fibrosis (disorder) (30143598) Liver fibrosis (K74.00) Active confirmed Vital Signs Temperature 98.7 degrees Fahrenheit 08/28/20 25 Blood pressure systolic 001 mm Hg 08/28/20 25 Blood pressure diastolic 01 mm Hg 025 Height 68 in 08/28/2025 Weight 232.4 lbs 08/28/2025 BMI 35.33 kg/m2 08/28/2025 Encounters Encounter Location Date Provider Diagnosis [facility] [address] [place] [address] 08/28/2025 Jayjay Owens Encounter for screening for malignant neoplasm of colon Z12.11 ; Fatty liver K76.0 ; Elevated ferritin level R79.89 ; Iron excess E83.19 and Liver fibrosis K74.00 Assessments Encounter Date Diagnosis (ICD Code) Assessment Notes Treatment Notes Treatment Clinical Notes Section Notes 08/28/2025 Encounter for screening for malignant neoplasm of colon (ICD-10 - Z12.11) Overall, given Jus's clinical course, I had a detailed discussion with him and his today regarding the fact that I do feel he has some significant liver disease primarily in relation to his alcohol use and obesity contributing to the fatty liver. We also discussed his iron studies but inability to have further phlebotomies due to a persistent anemia. I advised him that he has what is probably an incomplete expression of hereditary hemochromatosis based on his genetic studies, but nonetheless the elevated iron studies in the past have probably contributed to some liver damage as well. At this point I advised him and his that the primary and fernandez thing in helping his liver will be avoidance of alcohol completely, including beer. We reviewed that obviously watching his diet and losing weight would help as well. He could very well benefit from a GLP-1 medication but I would leave that up to your discretion. I advised him that I think the bone marrow biopsy planned by Dr. Bolaños is a good idea to rule out any primary underlying hematologic process that might be contributing to his thrombocytopenia and anemia. However, I did advise him that if that is nonrevealing then I think the next step would be a liver biopsy to make a definitive assessment of his liver disease. He would most likely need some platelet transfusion prior to that. In regard to the elevated iron we shall obviously hold off on further phlebotomies as he has not been able to have that done since last year anyway. I do not think the ferritin is high enough to where I would consider any type of need for an oral chelating agent. If he does have liver biopsy we can send a tissue specimen off for quantitative iron studies as well. At some point we may want to put him on a regimen of ursodiol to help with the fatty liver. However I advised him and his that the fernandez thing again will be avoiding alcohol completely and trying to lose weight. Jus will see me in several months for a follow-up visit but I did advise him to keep me posted as to when he has the bone marrow biopsy. Jus and his were comfortable with this plan. Jus did express his understanding of the need to avoid alcohol. Thank you again for allowing me to participate in Jus's care. I shall continue to keep you advised of his progress. 08/28/2025 Fatty liver (ICD-10 - K76.0) Overall, given Jus's clinical course, I had a detailed discussion with him and his today regarding the fact that I do feel he has some significant liver disease primarily in relation to his alcohol use and obesity contributing to the fatty liver. We also discussed his iron studies but inability to have further phlebotomies due to a persistent anemia. I advised him that he has what is probably an incomplete expression of hereditary hemochromatosis based on his genetic studies, but nonetheless the elevated iron studies in the past have probably contributed to some liver damage as well. At this point I advised him and his that the primary and fernandez thing in helping his liver will be avoidance of alcohol completely, including beer. We reviewed that obviously watching his diet and losing weight would help as well. He could very well benefit from a GLP-1 medication but I would leave that up to your discretion. I advised him that I think the bone marrow biopsy planned by Dr. Bolaños is a good idea to rule out any primary underlying hematologic process that might be contributing to his thrombocytopenia and anemia. However, I did advise him that if that is nonrevealing then I think the next step would be a liver biopsy to make a definitive assessment of his liver disease. He would most likely need some platelet transfusion prior to that. In regard to the elevated iron we shall obviously hold off on further phlebotomies as he has not been able to have that done since last year anyway. I do not think the ferritin is high enough to where I would consider any type of need for an oral chelating agent. If he does have liver biopsy we can send a tissue specimen off for quantitative iron studies as well. At some point we may want to put him on a regimen of ursodiol to help with the fatty liver. However I advised him and his that the fernandez thing again will be avoiding alcohol completely and trying to lose weight. Jus will see me in several months for a follow-up visit but I did advise him to keep me posted as to when he has the bone marrow biopsy. Jus and his were comfortable with this plan. Jus did express his understanding of the need to avoid alcohol. Thank you again for allowing me to participate in Jsu's care. I shall continue to keep you advised of his progress. 08/28/2025 Elevated ferritin level (ICD-10 - R79.89) Overall, given Jus's clinical course, I had a detailed discussion with him and his today regarding the fact that I do feel he has some significant liver disease primarily in relation to his alcohol use and obesity contributing to the fatty liver. We also discussed his iron studies but inability to have further phlebotomies due to a persistent anemia. I advised him that he has what is probably an incomplete expression of hereditary hemochromatosis based on his genetic studies, but nonetheless the elevated iron studies in the past have probably contributed to some liver damage as well. At this point I advised him and his that the primary and fernandez thing in helping his liver will be avoidance of alcohol completely, including beer. We reviewed that obviously watching his diet and losing weight would help as well. He could very well benefit from a GLP-1 medication but I would leave that up to your discretion. I advised him that I think the bone marrow biopsy planned by Dr. Bolaños is a good idea to rule out any primary underlying hematologic process that might be contributing to his thrombocytopenia and anemia. However, I did advise him that if that is nonrevealing then I think the next step would be a liver biopsy to make a definitive assessment of his liver disease. He would most likely need some platelet transfusion prior to that. In regard to the elevated iron we shall obviously hold off on further phlebotomies as he has not been able to have that done since last year anyway. I do not think the ferritin is high enough to where I would consider any type of need for an oral chelating agent. If he does have liver biopsy we can send a tissue specimen off for quantitative iron studies as well. At some point we may want to put him on a regimen of ursodiol to help with the fatty liver. However I advised him and his that the fernandez thing again will be avoiding alcohol completely and trying to lose weight. Jus will see me in several months for a follow-up visit but I did advise him to keep me posted as to when he has the bone marrow biopsy. Jus and his were comfortable with this plan. Jus did express his understanding of the need to avoid alcohol. Thank you again for allowing me to participate in Jus's care. I shall continue to keep you advised of his progress. 08/28/2025 Iron excess (ICD-10 - E83.19) Overall, given Jus's clinical course, I had a detailed discussion with him and his today regarding the fact that I do feel he has some significant liver disease primarily in relation to his alcohol use and obesity contributing to the fatty liver. We also discussed his iron studies but inability to have further phlebotomies due to a persistent anemia. I advised him that he has what is probably an incomplete expression of hereditary hemochromatosis based on his genetic studies, but nonetheless the elevated iron studies in the past have probably contributed to some liver damage as well. At this point I advised him and his that the primary and fernandez thing in helping his liver will be avoidance of alcohol completely, including beer. We reviewed that obviously watching his diet and losing weight would help as well. He could very well benefit from a GLP-1 medication but I would leave that up to your discretion. I advised him that I think the bone marrow biopsy planned by Dr. Bolaños is a good idea to rule out any primary underlying hematologic process that might be contributing to his thrombocytopenia and anemia. However, I did advise him that if that is nonrevealing then I think the next step would be a liver biopsy to make a definitive assessment of his liver disease. He would most likely need some platelet transfusion prior to that. In regard to the elevated iron we shall obviously hold off on further phlebotomies as he has not been able to have that done since last year anyway. I do not think the ferritin is high enough to where I would consider any type of need for an oral chelating agent. If he does have liver biopsy we can send a tissue specimen off for quantitative iron studies as well. At some point we may want to put him on a regimen of ursodiol to help with the fatty liver. However I advised him and his that the fernandez thing again will be avoiding alcohol completely and trying to lose weight. Jus will see me in several months for a follow-up visit but I did advise him to keep me posted as to when he has the bone marrow biopsy. Jus and his were comfortable with this plan. Jus did express his understanding of the need to avoid alcohol. Thank you again for allowing me to participate in Jus's care. I shall continue to keep you advised of his progress. 08/28/2025 Liver fibrosis (ICD-10 - K74.00) Overall, given Jus's clinical course, I had a detailed discussion with him and his today regarding the fact that I do feel he has some significant liver disease primarily in relation to his alcohol use and obesity contributing to the fatty liver. We also discussed his iron studies but inability to have further phlebotomies due to a persistent anemia. I advised him that he has what is probably an incomplete expression of hereditary hemochromatosis based on his genetic studies, but nonetheless the elevated iron studies in the past have probably contributed to some liver damage as well. At this point I advised him and his that the primary and fernandez thing in helping his liver will be avoidance of alcohol completely, including beer. We reviewed that obviously watching his diet and losing weight would help as well. He could very well benefit from a GLP-1 medication but I would leave that up to your discretion. I advised him that I think the bone marrow biopsy planned by Dr. Bolaños is a good idea to rule out any primary underlying hematologic process that might be contributing to his thrombocytopenia and anemia. However, I did advise him that if that is nonrevealing then I think the next step would be a liver biopsy to make a definitive assessment of his liver disease. He would most likely need some platelet transfusion prior to that. In regard to the elevated iron we shall obviously hold off on further phlebotomies as he has not been able to have that done since last year anyway. I do not think the ferritin is high enough to where I would consider any type of need for an oral chelating agent. If he does have liver biopsy we can send a tissue specimen off for quantitative iron studies as well. At some point we may want to put him on a regimen of ursodiol to help with the fatty liver. However I advised him and his that the fernandez thing again will be avoiding alcohol completely and trying to lose weight. Jus will see me in several months for a follow-up visit but I did advise him to keep me posted as to when he has the bone marrow biopsy. Jus and his were comfortable with this plan. Jus did express his understanding of the need to avoid alcohol. Thank you again for allowing me to participate in Jus's care. I shall continue to keep you advised of his progress. Plan Of Treatment Pending Test Test Name Order Date ALPHA-FETOPROTEIN,TUMOR MARKER Liver Fibrosis Pnl 08/28/2025 Next Appt Details Follow Up: 3-4 months, Reaso n: Provider Name:Jayjay Castle Roman , 12/30/2025 10:10:00 AM, [address] [place] [address], [address], [place], [address], Progress Notes * CUCA JUS MancusoDOB: [birth year] (65 yo M)Acc No.[id number]:08/28/2025 Progress Notes Patient: JUS SUN Provider: Carlee Owens MD :1960 A ge:65 Y S ex:Male Date:08/28/2025 Address:[address] [place] [address] Pcp:Riky Calzada MD Subjective: * Chief Complaints: * 1 . Patient presents today for an elevated ferritin level. * HPI: i ncontinence: I saw Jus in follow-up today to his underlying history of fatty liver with a component of liver fibrosis in relation to obesity, alcohol use, and elevated iron studies. He was accompanied by his . I last saw Jus 1 year ago in August 2024. Since that time he has been feeling well and describes having cut down his beer intake to about 12 beers per week. He has not lost any weight and has not been particularly careful with his diet. He has been unable to have a phlebotomy in regard to the elevated iron studies since last year due to a persistent anemia with a hemoglobin between 10 and 11. He has also had a persistent thrombocytopenia and is seeing Dr. Bolaños for that. He saw her just recently and it appears that he is going to be scheduled for bone marrow biopsy. A recent ultrasound describes some known splenomegaly and the fatty liver but without any sign of liver mass or definitive evidence of cirrhosis. He denies any abdominal pain, signs of jaundice, pruritus, increasing abdominal girth, edema, nor significant fatigue. He is eating comfortably and denies any significant heartburn or dysphagia. His bowel movements have been regular and without any signs of bleeding. His most recent labs in July included a hemoglobin of 10.4 with a normal MCV, platelet count of 56,000, white blood cell count of 12.1, normal chemistries and renal function, iron of 234, iron saturation of 86%, and a ferritin of 527. A liver profile was completely normal including an albumin of 4.9. Again, the abdominal ultrasound from the end of June described the fatty liver but otherwise a normal-appearing liver. An elastography score was not obtained. * Medical History: D enies SD,DM,CVA,Lung disease,renal disease, Hypertension, Sleep apnea, Hyperlipidemia, Screening colonoscopy with a tubular adenoma removed in 2009 and a negative screening colonoscopy in 2017, Screening colonoscopy in March of 2024 revealed only a small tubular adenoma and a hyperplastic polyp, Elevated ferritin level but normal iron saturation found in 2023. Hemochromatosis genetic testing was negative for C282Y, but homozygous for H63D gene. Treated with ph[facility]omies [facility], + HCV Antibody but Negative HCV Viral Load. * Surgical History: H ernia repair age 5, Ear surgery- left . * Family History: F ather: , diagnosed with Colon cancer. M other: , diagnosed with Heart disease, Diabetes. Father may have had colon cancer at age 80 no family history of liver cancer. * Social History: T obacco Use: T obacco Use/Smoking P atient is a f ormer smoker, H ow long has it been since you last smoked? 5 -10 years. D rugs/Alcohol: A lcohol Screen D id [...] the past year??5 or 6 drinks (2 points), H ow often did you have 6 or more drinks on one occasion in the past year? L ess than monthly (1 point), P oints 6 , I nterpretation P ositive. M iscellaneous: M arital status: . 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 D rug/Alcohol: A RUBEN-C (Standard) D id you have a drink containing alcohol in the past year? Y es,?How often did you have a drink containing alcohol in the past year? 2 to 4 times a month (2 points), H ow many drinks did you have on a typical day when you were drinking in the past year? 5 or 6 drinks (2 points), H ow often did you have six or more drinks on one occasion in the past year? 2 to 4 times a month (2 points), P oints 6 , I nterpretation P ositive. N onsmoker; 4-6 beers several times per week. * Medications: T aking Tylenol 325 MG Tablet 1 tablet as needed Orally every 6 hrs , Taking Rosuvastatin Calcium 40 MG Tablet Oral , Taking Valsartan-hydroCHLOROthiazide 160-12.5 MG Tablet TAKE 1 TABLET BY MOUTH EVERY DAY FOR 30 DAYS Oral , Not- Taking/PRN Charles Aspirin EC Low Dose 81 MG Tablet Delayed Release 1 tablet Orally Once a day , Medication List reviewed and reconciled with the patient * Allergies: N .K.D.A. Objective: * Vitals: W t:232.4lbs, Ht: 68 in, BMI:35.33Index, BP:001/01mm Hg, Temp:98.7, Wt-k.42. Assessment: * Assessment: 1. E ncounter for screening for malignant neoplasm of colon - Z12.11 (Primary) 2 . F atty liver - K76.0 3 . E levated ferritin level - R79.89 ?4. I neeru excess - E83.19 5 . L iver fibrosis - K74.00 Overall, given Jus's clini nahomy course, I had a detailed discussion with him and his today regarding the fact that I do feel he has some significant liver disease primarily in relation to his alcohol use and obesity contributing to the fatty liver. We also discussed his iron studies but inability to have further phlebotomies due to a persistent anemia. I advised him that he has what is probably an incomplete expression of hereditary hemochromatosis based on his genetic studies, but nonetheless the elevated iron studies in the past have probably contributed to some liver damage as well. At this point I advised him and his that the primary and fernandez thing in helping his liver will be avoidance of alcohol completely, including beer. We reviewed that obviously watching his diet and losing weight would help as well. He could very well benefit from a GLP-1 medication but I would leave that up to your discretion. I advised him that I think the bone marrow biopsy planned by Dr. Bolaños is a good idea to rule out any primary underlying hematologic process that might be contributing to his thrombocytopenia and anemia. However, I did advise him that if that is nonrevealing then I think the next step would be a liver biopsy to make a definitive assessment of his liver disease. He would most likely need some platelet transfusion prior to that. In regard to the elevated iron we shall obviously hold off on further phlebotomies as he has not been able to have that done since last year anyway. I do not think the ferritin is high enough to where I would consider any type of need for an oral chelating agent. If he does have liver biopsy we can send a tissue specimen off for quantitative iron studies as well. At some point we may want to put him on a regimen of ursodiol to help with the fatty liver. However I advised him and his that the fernandez thing again will be avoiding alcohol completely and trying to lose weight. Jus will see me in several months for a follow-up visit but I did advise him to keep me posted as to when he has the bone marrow biopsy. Jus and his were comfortable with this plan. Jus did express his understanding of the need to avoid alcohol. Thank you again for allowing me to participate in Jus's care. I shall continue to keep you advised of his progress. Plan: * Treatment: Value Reference Range L iver Fibrosis Score 0.55 - * L iver Fibrosis Stage F2 - * L iver Fibrosis Interpretation SEE NOTE - * N ec Inflam Act Score 0.18 - * N ec Inflam Act Grade A0-A1 - * N ec Inflam Act Interpretation SEE NOTE - * F PR-Cypkn-8-Macroglobulin 183 106-279 - mg/dL * F IB-Haptoglobin 41 A 43-212 - mg/dL * F IB-Apolipoprotein A1 153 94-176 - mg/dL * F IB-Total Bilirubin 0.7 0.2-1.2 - mg/dL * F IB-GGT 63 3-70 - U/L * F IB-ALT 28 9-46 - U/L * R eference ID [id number] - * F ootnote SEE NOTE - ?LAB: Prothrombin Time INR (Collection Date & Time - 08/28/2025 09:47 AM)* Value Reference Range P rothrombin Time 11.8 10.9-12.4 - SEC * I NTERNATIONAL NORM RATIO 1.0 0.9-1.1 - 2.?Liver fibrosis?LAB: ALPHA-FETOPROTEIN,TUMOR MARKER ?LAB: Liver Fibrosis Pnl (Collection Date & Time - 08/28/2025 09:47 AM)* Value Reference Range L iver Fibrosis Score 0.55 - * L iver Fibrosis Stage F2 - * L iver Fibrosis Interpretation SEE NOTE - * N ec Inflam Act Score 0.18 - * N ec Inflam Act Grade A0-A1 - * N ec Inflam Act Interpretation SEE NOTE - * F YQ-Ygjap-5-Macroglobulin 183 106-279 - mg/dL * F IB-Haptoglobin 41 A 43-212 - mg/dL * F IB-Apolipoprotein A1 153 94-176 - mg/dL * F IB-Total Bilirubin 0.7 0.2-1.2 - mg/dL * F IB-GGT 63 3-70 - U/L * F IB-ALT 28 9-46 - U/L * R eference ID [id number] - * F ootnote SEE NOTE - ?LAB: Prothrombin Time INR (Collection Date & Time - 08/28/2025 09:47 AM)* Value Reference Range P rothrombin Time 11.8 10.9-12.4 - SEC * I NTERNATIONAL NORM RATIO 1.0 0.9-1.1 - * Immunizations: Influenza (Not administered - Refused: Patient decision) * Preventive Medicine: Counseling: C are goal follow-up plan: A juice Normal BMI Follow-up D ietary management education, guidance, and counseling, B SD management provided N o. Screenings: F all Risk Screening F all Risk Assessment: N o falls in the past year, S creening: N o falls in the past year, P pablo of Care: N ot documented, no reason specified. * Follow Up: 3 -4 months * * The named appointment provid er may or may not be the originator of this progress note, and it is not deemed complete until electronically signed by the appointment provider. Sign off status: Pending * Provider: Carlee Owens MD Date: Generated for Cher nugent/Juli/Janeitting on: 03:50 PM EDT History and Physical Notes * HPI (History of Present Illness) Category Sub-Category Detail Notes Category Not es incontinence I saw Jus in follow-up today to his underlying history of fatty liver with a component of liver fibrosis in relation to obesity, alcohol use, and elevated iron studies. He was accompanied by his . I last saw Jus 1 year ago in August 2024. Since that time he has been feeling well and describes having cut down his beer intake to about 12 beers per week. He has not lost any weight and has not been particularly careful with his diet. He has been unable to have a phlebotomy in regard to the elevated iron studies since last year due to a persistent anemia with a hemoglobin between 10 and 11. He has also had a persistent thrombocytopenia and is seeing Dr. Bolaños for that. He saw her just recently and it appears that he is going to be scheduled for bone marrow biopsy. A recent ultrasound describes some known splenomegaly and the fatty liver but without any sign of liver mass or definitive evidence of cirrhosis. He denies any abdominal pain, signs of jaundice, pruritus, increasing abdominal girth, edema, nor significant fatigue. He is eating comfortably and denies any significant heartburn or dysphagia. His bowel movements have been regular and without any signs of bleeding. His most recent labs in July included a hemoglobin of 10.4 with a normal MCV, platelet count of 56,000, white blood cell count of 12.1, normal chemistries and renal function, iron of 234, iron saturation of 86%, and a ferritin of 527. A liver profile was completely normal including an albumin of 4.9. Again, the abdominal ultrasound from the end of June described the fatty liver but otherwise a normal-appearing liver. An elastography score was not obtained.
--- OUTSIDE RECORDS SUMMARY | 2025-09-10 15:49 | XMS_ITS | Patient Health Record ---
Author Organization Riky Calzada MD Address [address] [place], [place] [id number] Care Team Providers Care [employer] Name Role Phone Riky Calzada Primary Care Provider Allergies Allergen (clinical drug ingredient) Drug/Non Drug Allergy documented on EMR Reaction Allergy Type Onset Date Status indomethacin Indomethacin dizzy Drug Allergy A ctive Results Component Value Reference Range Notes Liver Panel Reviewed date:02/03/2025 02:27:11 PM Interpretation: Performing Lab:[facility], [address] [place] [address] Notes/Report: Bilirubin Total 0.8 0.0-1.0 mg/dL Bilirubin Direct 0.3 0.0-0.5 mg/dL Aspartate Amino Transferase 33 5-37 U/L Alanine Aminotransferase 33 0-40 U/L Total Protein 7.1 6.5-8.0 g/dL Albumin Level 4.4 3.5-5.0 g/dL Alkaline Phosphatase 54 39-117 U/L Glucose Fasting Reviewed date:02/03/2025 05:58:46 PM Interpretation: Performing Lab:[facility], [address] [place] [address] Notes/Report: Glucose Fasting 97 60-99 mg/dL Lipid Panel with Reflex Reviewed date:02/03/2025 06:00:10 PM Interpretation: Performing Lab:[facility], [address] [place] [address] Notes/Report: Triglycerides 123 <150 mg/dL Desirable Triglyceride: [...] A1c Reviewed date:02/03/2025 12:36:49 PM Interpretation: Performing Lab:[address] [address] Notes/Report: Hemoglobin A1c % 5.6 <6.0 % [...] average glucose, using the formula of the J0S-Dlylidu Average Glucose study (ADAG), Diabetes Care, Vol.31,#8, Jun. 2007 Complete Blood Count Auto Di ff Reviewed date:09/11/2024 02:27:30 PM Interpretation: Performing Lab:[facility], [address] [place] [address] Notes/Report: White Blood Count 11.4 4.8-10.8 X10*3/uL [...] Dif Reviewed date:09/12/2024 09:36:14 PM Interpretation: Performing Lab:[facility], [address] [place] [address] Notes/Report: White Blood Count 11.4 4.8-10.8 X10*3/uL [...] date:11/14/2024 05:22:43 PM Interpretation: Performing Lab: Notes/Report: [place] [address] Ultrasound Report Signed with Addenda Patient: Jus Carr MR#: [id number] 7530 : 1960 Acct:[id number] Age/Sex: 64 / M ADM Date: 09/23/24 Loc: HO.US Attending Dr: Jayjay Valenzuela MD Ordering Physician: Jayjay Valenzuela MD Date of Service: 09/23/24 Procedure(s): US abdomen comp w elastography Accession Number(s): [id number] cc: Riky Calzada MD; Jayjay Valenzuela MD [...] 11/07/24 0649 DD/ 08 TD/TT: 09/23/24 0920 Therapist Asst: [address] [address] Ultrasound Report Signed with Addenda Patient: Almita Carr MR#: [id number] 7530 : 1960 Acct:[id number] Age/Sex: 64 / M ADM Date: 09/23/24 Loc: HO.US Attending Dr: Jayjay Valenzuela MD Ordering Physician: Jayjay Valenzuela MD Date of Service: 09/23/24 Procedure(s): US abd omen comp w elastography Accession Number(s): [id number] cc: Riky Calzada MD; Jayjay Valenzuela MD [...] OV> 11/07/24 0649 DD/ 6 TD/TT: 09/23/249[address] Therapist Asst: US duplex arterial venous co mp Reviewed date:11/14/2024 05:21:39 PM Interpretation: Performing Lab: Notes/Report: [address] [address] Ultrasound Report Signed with Addenda Patient: Jus Carr MR#: [id number] 7530 : 1960 Acct:[id number] Age/Sex: 64 / M ADM Date: 09/23/24 Loc: HO.US Attending Dr: Jayjay Valenzuela MD Ordering Physician: Jayjay Valenzuela MD Date of Service: 09/23/24 Procedure(s): US duplex arterial venous comp Accession Number(s): [id number] cc: Riky Calzada MD; Jayjay Valenzuela MD [...] [facility] Dictated By: Sean Chidl MD Signed By: <Electronically signed by Sean Child MD in OV> 11/07/24 0649 DD/ 6 TD/TT: 09/23/24 0920 Therapist Asst: [place] [address] Ultrasound Report Signed with Addenda Patient: Almita Carr MR#: [id number] 7530 : 1960 Acct:[id number] Age/Sex: 64 / M ADM Date: 09/23/24 Loc: . Attending Dr: Jayjay Valenzuela MD Ordering Physician: Jayjay Valenzuela MD Date of Service: 09/23/24 Procedure(s): US dup adina arterial venous comp Accession Number(s): [id number] cc: Riky Calzada MD; Jayjay Valenzuela MD [...] in OV> 11/07/2449 DD/ 6 TD/TT: 09/23/24919 Therapist Asst: GENET Basic Metabolic Panel Reviewed date:10/17/2024 05:20:52 PM Interpretation: Performing Lab:[facility], [address] [place] [address] Notes/Report: Sodium 142 135-145 mmol/L Potassium 4.7 [...] date:10/24/2024 12:02:46 PM Interpretation: Performing Lab: Notes/Report: [address] [address] Nuclear Medicine Report Signed Patient: Jus Carr MR#: [id number] 7530 : 1960 Acct:[id number] Age/Sex: 64 / M ADM Date: 10/22/24 Loc: HO.CARD Attending Dr: Eleuterio Garcia MD Ordering Physician: Eleuterio Garcia MD Date of Service: 10/22/24 Procedure(s): NM cardiolite stress test Accession Number(s): [id number] cc: Riky Calzada MD; Eleuterio Garcia MD [...] findings are consistent with normal myocardial perfusion. TX/TX cardiolite stress test IMPRESSION: 1. Myocardial perfusion imaging study shows normal myocardial perfusion. 2. Gated LVEF is 66%. 3. Transient ischemic dilatation not present. EKG revealed equivocal for ischemia. Electronically signed by: Eleuterio Garcia MD 10/23/2024 12:23 PM [facility] Dictated By: Eleuterio Garcia MD Signed By: <Electronically signed by Eleuterio Garcia MD in OV> 10/23/24 1223 DD/ 0834 TD/TT: 10/23/24 1025 Therapist Asst: [place] [address] Nuclear Medicine Report Signed Patient: Almita Carr MR#: [id number] 7530 : 1960 Acct:[id number] Age/Sex: 64 / M ADM Date: 10/22/24 Loc: HO.CARD Attending Dr: Eleuterio Garcia MD Ordering Physician: Eleuterio Garcia MD Date of Service: 10/22/24 Procedure(s): TX cardiolite stress test Accession Number(s): [id number] cc: Riky Calzada MD; Eleuterio Garcia MD [...] by: Eleuterio Garcia MD 10/23/2024 12:23 PM [facility] Dictated By: Shawna Garcia MD Signed By: <Electronically signed by Eleuterio Garcai MD in OV> 10/23/24 1223 DD/ 0834 TD/TT: 10/23/24 1025 Therapist Asst: Les Serrano Reviewed date:02/03/2025 12:39:55 PM Interpretation: Performing Lab:[facility], [address] [place] [phone] Notes/Report: Hold Gold See Note Specimen held untested for 24 hours; Call to request Chemistry testing. Complete Blood Count Man Dif Reviewed date:03/19/2025 06:28:25 PM Interpretation: Performing Lab:[facility], [address] [place] [phone] Notes/Report: White Blood Count 17.8 4.8-10.8 X10*3/uL [...] Panel Reviewed date:03/19/2025 12:35:18 PM Interpretation: Performing Lab:[address] [address] Notes/Report: Sodium 140 135-145 mmol/L Potassium 4.3 [...] Acid Reviewed date:03/19/2025 12:33:52 PM Interpretation: Performing Lab:[address] [address] Notes/Report: Uric Acid 6.7 3.4-7.0 mg/dL IRON PROFILE Reviewed date:03/19/2025 12:34:41 PM Interpretation: Performing Lab:[address] [address] Notes/Report: Iron 122 45-160 mcg/dL Total Iron Binding Capacity 271 228-428 mcg/dL Percent Iron Saturation 45 15-50 % Unsaturated Iron Binding 149 Ferritin Reviewed date:03/19/2025 12:35:27 PM Interpretation: Performing Lab:[address] [address] Notes/Report: Ferritin 305 20-250 ng/mL Lactate Dehydrogenase Reviewed date:03/19/2025 06:26:27 PM Interpretation: Performing Lab:[facility], [address] [place] [address] Notes/Report: Lactate Dehydrogenase 217 118-273 U/L Complete Blood Count Goran Dickerson Reviewed date:03/27/2025 04:49:33 PM Interpretation: Performing Lab:[facility], [address] [place] [address] Notes/Report: White Blood Count 19.3 4.8-10.8 X10*3/uL [...] garcia Reviewed date:03/31/2025 12:12:01 PM Interpretation: Performing Lab:[facility], [address] [place] [address] Notes/Report: LEUKEMIA/LYMPHOMA [id number] BLOOD LLE Interpretation See Note See repor t from [employer] in the EMR. FISH 9,22 CML/AML BCR Reviewed date:04/04/2025 12:31:49 PM Interpretation: Performing Lab:[facility], [address] [place] [address] Notes/Report: FISH 9,22 CML/AML BCR See Note See re port from [employer] in the EMR. Complete Blood Count Man Dif Reviewed date:05/26/2025 01:32:12 PM Interpretation: Performing Lab:[facility], [address] [place] [address] Notes/Report: White Blood Count 12.1 4.8-10.8 X10*3/uL [...] Panel Reviewed date:05/27/2025 04:58:26 PM Interpretation: Performing Lab:[address] [address] Notes/Report: Sodium 141 135-145 mmol/L Potassium 4.5 [...] Acid Reviewed date:05/26/2025 01:02:12 PM Interpretation: Performing Lab:[address] [address] Notes/Report: Uric Acid 7.7 3.4-7.0 mg/dL IRON PROFILE Reviewed date:05/26/2025 01:26:52 PM Interpretation: Performing Lab:[address] [address] Notes/Report: Iron 241 45-160 mcg/dL Total Iron Binding Capacity 269 228-428 mcg/dL Percent Iron Saturation 90 15-50 % Unsaturated Iron Binding 28 Ferritin Reviewed date:05/26/2025 01:00:32 PM Interpretation: Performing Lab:[address] [place] [address] Notes/Report: Ferritin 471 20-250 ng/mL Complete Blood Count Man Tuan Reviewed date:06/11/2025 03:55:48 PM Interpretation: Performing Lab:[address] [address] Notes/Report: White Blood Count 12.0 4.8-10.8 X10*3/uL [...] Panel Reviewed date:06/11/2025 03:54:08 PM Interpretation: Performing Lab:[address] [address] Notes/Report: Bilirubin Total 0.9 0.0-1.0 mg/dL Bilirubin Direct 0.3 0.0-0.5 mg/dL Aspartate Amino Transferase 28 5-37 U/L Alanine Aminotransferase 35 0-40 U/L Total Protein 6.9 6.5-8.0 g/dL Albumin Level 4.9 3.5-5.0 g/dL Alkaline Phosphatase 53 39-117 U/L IRON PROFILE Reviewed date:06/11/2025 03:53:38 PM Interpretation: Performing Lab:[facility], [address] [place] [address] Notes/Report: Iron 170 45-160 mcg/dL Total Iron Binding Capacity 276 228-428 mcg/dL Percent Iron Saturation 62 15-50 % Unsaturated Iron Binding 106 Ferritin Reviewed date:06/11/2025 03:42:08 PM Interpretation: Performing Lab:[facility], [address] [place] [address] Notes/Report: Ferritin 413 20-250 ng/mL US abdomen complete Reviewed date:07/25/2025 06:48:50 PM Interpretation: Performing Lab: Notes/Report: [facility] [address] [place] [address] [place] [address] Ultrasound Report Signed Patient: Jus Carr MR#: [id number] : 1960 Acct:[id number] Age/Sex: 65 / M ADM Date: 07/23/25 Loc: HO.HMGCX Attending Dr: Tania Bolaños MD Ordering Physician: Tania Bolaños MD Date of Service: 07/23/25 Procedure(s): US abdomen complete Accession Number(s): [id number] cc: Riky Calzada MD; Tania Bolaños MD [...] in OV> 07/23/252138 DD/ 37 TD/TT: 07/23/252137 Therapist Asst: ANA [facility] [address] [place] [address] [place] [address] Ultrasound Report Signed Patient: Almita Carr MR#: [id number] : 1960 Acct:[id number] Age/Sex: 65 / M ADM Date: 07/23/25 Loc: SHANNENHMGCX Attending Dr: Tania Bolaños MD Ordering Physician: Tania Bolaños MD Date of Service: 07/23/25 Procedure(s): US abd omen complete Accession Number(s): [id number] cc: Riky Calzada MD; Tania Bolaños MD [...] in OV> 07/23/252138 DD/ 37 TD/TT: 07/23/252137 Therapist Asst: Complete Blood Count Auto Di ff Reviewed date:08/05/2025 02:07:40 PM Interpretation: Performing Lab:[facility], [address] [place] [address] Notes/Report: White Blood Count 15.7 4.8-10.8 X10*3/uL [...] Dif Reviewed date:08/07/2025 12:58:27 PM Interpretation: Performing Lab:[facility], [address] [place] [address] Notes/Report: White Blood Count 15.7 4.8-10.8 X10*3/uL [...] CBC Reviewed date:08/06/2025 06:01:30 PM Interpretation: Performing Lab:[address] [address] Notes/Report: Pathologist Review - CBC SEE NOTE Normochromic normocytic anemia. White blood cells are mildly increased in number; occasional hypersegmented neutrophils are present as well as left-shifted forms. Platelets are reduced in number; occasional large forms are identified. - Roberto Rodriguez M.D. Pathology [facility] [place]. Panel Fa st Reviewed date:08/05/2025 02:06:56 PM Interpretation: Performing Lab:[facility], [address] [place] [address] Notes/Report: Sodium 141 135-145 mmol/L Potassium 4.5 [...] Panel Reviewed date:08/05/2025 02:06:39 PM Interpretation: Performing Lab:[address] [address] Notes/Report: Triglycerides 158 <150 mg/dL Desirable Triglyceride: [...] (Free>4and<10) Reviewed date:08/05/2025 02:06:21 PM Interpretation: Performing Lab:[address] [address] Notes/Report: PSA,Total (Free>4and<10) 0.56 0.00-4.00 ng/mL A [...] Cult Reviewed date:08/05/2025 05:06:29 PM Interpretation: Performing Lab:[address] [address] Notes/Report: Urine, Clean Catch Color Urine Yellow Appearance Urine Turbid PH 5.0 5.0-9.0 Glucose Urine UA Negative Negative mg/dL Urine Blood Negative Negative Specific Gering - Urine 1.020 1.005-1.025 Urine Protein Negative Neg-Trace mg/dL Urine Ketones Negative Negative mg/dL Nitrite Urine Negative Negative Leukocyte Esterase Urine Negative Negative Complete Blood Count Auto Di ff Reviewed date:08/21/2025 04:25:58 PM Interpretation: Performing Lab:[address] [address] Notes/Report: White Blood Count 12.1 4.8-10.8 X10*3/uL [...] Dif Reviewed date:08/21/2025 04:29:52 PM Interpretation: Performing Lab:[facility], [address] [place] [address] Notes/Report: White Blood Count 12.1 4.8-10.8 X10*3/uL [...] PROFILE Reviewed date:08/21/2025 12:37:59 PM Interpretation: Performing Lab:[address] [address] Notes/Report: Iron 234 45-160 mcg/dL Total Iron Binding Capacity 271 228-428 mcg/dL Percent Iron Saturation 86 15-50 % Unsaturated Iron Binding 37 Ferritin Reviewed date:08/21/2025 12:37:38 PM Interpretation: Performing Lab:[address] [address] Notes/Report: Ferritin 527 20-250 ng/mL Reason For [...] Status W/U Status Risk Notes Problem Thrombocytopenia (967923720) Thrombocytopenia (D69.6) Active confirmed Problem 86400914 Anxiety (F41.9) Active confirmed Problem 34453084 Hereditary hemochromatosis (E83.110) Active confirmed Problem 268712464 Tubular adenoma of colon (D12.6) Active confirmed Problem 64871124 Essential hypert ension (I10) Active confirmed Problem 1931126 Prediabetes (R73.09) Active confirmed Problem 709522638 Low HDL (under 4 0) (E78.6) Active confirmed Problem 04834474 Sciatica of righ t side (M54.31) Active confirmed Problem 853156913 Pure hypercholesterolemia (E78.00) Active confirmed Problem Irritable bowel syndrome (73729257) IBS (irritable bowel syndrome) (K58.9) Active confirmed Problem Obstructive sleep apnea syndrome (98326747) ESTELITA (obstructive sleep apnea) (G47.33) Active confirmed Problem 262443205 BMI 35.0-35.9,ad ult (Z68.35) Active confirmed Problem 790929732 BMI 36.0-36.9,ad ult (Z68.36) Active confirmed Problem Gout (31231672) Acute gout invol ving toe of right foot, unspecified cause (M10.9) Active confirmed Problem 1393671574077908 Acute gout of r ight foot, unspecified cause (M10.9) Active confirmed Problem 01638663 Aortic atheroscl erosis (I70.0) Active confirmed Vital [...] Riky Calzada MD [address] [place] [id number] 02/03/2025 Riky Calzada Prediabetes R73.09 a nd Pure hypercholesterolemia E78.00 Riky Calzada MD [address] [place] [id number] 09/10/2024 Riky Calzada Thrombocytopenia D69 .6 Riky Calzada MD [address] [place] [id number] 02/10/2025 Riky Calzada Hereditary hemochrom atosis E83.110 and Elevated LFTs R79.89 Riky Calzada MD [address] [place] [id number] 04/29/2025 Riky Calzada Acute gout involving toe of right foot, unspecified cause M10.9 Riky Calzada MD [address] [place] [id number] 08/14/2025 Riky Calzada Prediabetes R73.09 ; Pure [...] dr bolaños/ REQUEST FA[place] T0 [place] [facility] [place] 08/14/2025 ESTELITA (obstructive sle ep [...] Details Provider Name:Riky alvarez, 02/06/2026 08:00:00 AM, [address] [place] [address], [address], [phone], Provider Name:Riky alvarez, 02/12/2026 10:45:00 AM, [address] [place] [address], [address], [phone], Provider Name:Riky alvarez, 08/10/2026 07:45:00 AM, [address] [place] [address], [address], [phone], Provider Name:Riky alvarez, 08/17/2026 01:00:00 PM, [address] [place] [address], [address], [phone], Insurance Providers Payer Name Payer Address Payer Phone Subscriber Number Group Number Insured Name Patient Relationship to Insured Coverage Start Date Coverage End Date [employer] [address] [place] [address] [id number] Jus Carr Self - patient is the insured 4 [employer] [place] [address] [place] [address] [id number] Bruno Jus Self - patient is the insured Medical (General) History Medical History History ICD Code colonoscopy 09/2010 with gely noma; colonoscopy done 01/31/[address] Valenzuela - repeat 5 years04/10/24 repeat 5y had chest ct and repeat negative. no nee d for any further follow up
--- OUTSIDE RECORDS SUMMARY | 2025-09-10 15:50 | XMS_ITS | Patient Health Record ---
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 Name Role Phone Riky Calzada MD Primary Care Provider Jayjay Daley [phone] Allergies No Known Allergies Results Component Value Reference Range Notes Prothrombin Time INR Reviewed date:08/30/2025 10:19:04 PM Interpretation: Performing Lab:[facility], [address] [place] [phone] Notes/Report: Prothrombin Time 11.8 10.9-12.4 [employer] [...] mechanical prosthetic heart valves: 2.5 - 3.5 Liver Fibrosis Pnl (Not yet reviewed by provider) Interpretation: Performing Lab:[facility], [address] [place] [phone] Notes/Report: Liver Fibrosis Score 0.55 Liver Fibrosis [...] a>0.62 and a<=1.00 : A3 (severe activity) JOG-Gijpa-6-Macroglobulin 183 106-279 mg/dL FIB-Haptoglobin 41 43-212 mg/dL FIB-Apolipoprotein A1 153 94-176 mg/dL FIB-Total Bilirubin 0.7 0.2-1.2 mg/dL FIB-GGT 63 3-70 U/L FIB-ALT 28 9-46 U/L Reference ID [id number] Footnote SEE NOTE The reliability of results is dependent on compliance with the preanalytical and analytical conditions recommended by [employer]. The tests have to be deferred for: [...] The performance characteristics have been determined by [employer] [facility]. It has not been cleared or approved by the U.S. Food and Drug Administration. Performance characteristics refer to the analytical performance of the test. [employer], the associated logo, [employer] and all associated [employer] tavarez are the registered trademarks of [employer]. All third republican tavarez - (R) and (TM) - are the property of their respective owners. (C) 1367-1092 [employer]. All rights reserved. THIS TEST WAS PERFORMED AT: [employer] [facility] [address] [place] [address] DOUG EDWARDS MD,PHD,PAULY US abdomen comp w elastograp hy (Not yet reviewed by provider) Interpretation: Performing Lab: Notes/Report: [place] [address] Ultrasound Report Signed with Addenda Patient: Jus Thurman MR#: [id number] : 1960 Acct:[id number] Age/Sex: 64 / M ADM Date: 09/23/24 Loc: HO.US Attending Dr: Jayjay Owens MD Ordering Physician: Jayjay Owens MD Date of Service: 09/23/24 Procedure(s): US abdomen comp w elastography Accession Number(s): [id number] cc: Riky Calzada MD; Jayjay Owens MD ADDENDUM ADDENDUM #1 . Electronically signed by: Ramesh Molina MD 11/13/2024 03:36 PM [facility] Addendum Dictated By: Ramesh Benitez MD Addendum [...] by: Sean Child MD 10/24/2024 10:50 PM [facility] Dictated By: Sean Child MD Signed By: <Electronically signed by Sean Child MD in OV> 11/07/24 0649 DD/ 6 TD/TT: 09/23/24 09 [employer] Referee: GENET US duplex arterial venous co mp (Not yet reviewed by provider) Interpretation: Performing Lab: Notes/Report: [address] [address] Ultrasound Report Signed with Jv Patient: Jus Thurman MR#: [id number] : 1960 Acct:[id number] Age/Sex: 64 / M ADM Date: 09/23/24 Loc: HO.US Attending Dr: Jayjay Owens MD Ordering Physician: Jayjay Owens MD Date of Service: 09/23/24 Procedure(s): US duplex arterial venous comp Accession Number(s): [id number] cc: Riky Calzada MD; Jayjay Owens MD [...] by: Sean Child MD 10/24/2024 10:50 PM [facility] Dictated By: Sean Child MD Signed By: <Electronically signed by Sean Child MD in OV> 11/07/24 0649 DD/ 6 TD/TT: 09/23/249[address] [employer] Referee: GENET Therapeutic Phlebotomy Reviewed date:12/02/2024 10:30:39 PM Interpretation: Performing Lab:[address] [address] Notes/Report: THER/HGB 11.0 14.0-18.0 g/dL THER/HCT TNP 42.0-52.0 % Therapeutic Phlebotomy TNP Reason: Pre-phlebotomy Hgb/Hct is below the established parameter for this patient. Please note that a copy of this report has been sent to the Primary Care Physician, the ordering physician and any physician designated by patient request. Therapeutic Phlebotomy Reviewed date:03/04/2025 08:54:23 AM Interpretation: Performing Lab:[facility], [address] [place] [phone] Notes/Report: THER/HGB 12.0 14.0-18.0 g/dL THER/HCT TNP 42.0-52.0 % Therapeutic Phlebotomy TNP Reason: Pre-phlebotomy Hgb/Hct is below the established parameter for this patient. Please note that a copy of this report has been sent to the Primary Care Physician, the ordering physician and any physician designated by patient request. Alpha Fetoprotein (Not yet r eviewed by provider) Interpretation: Performing Lab:[address] [address] Notes/Report: Alpha Fetoprotein 6.7 <6.1 ng/mL This test was performed using the Felix Rosamaria chemiluminescent method. Values obtained from different assay methods cannot be used interchangeably. AFP levels, regardless of value, should not be interpreted as absolute evidence of the presence or absence of disease. THIS TEST WAS PERFORMED AT: [facility] [address] [place] [phone] NENA BARRY MD Reason For Referral No Information Medications Medication [...] Status Risk Notes Problem Colon cancer screening (169831417) Colon cancer screening (Z12.11) Active confirmed Problem Screening for malignant neoplasm of colon (487646511) Encounter for screening for malignant neoplasm of colon (Z12.11) Active confirmed Problem History of adenomatous polyp of colon (821728798) History of adenomatous polyp of colon (Z86.010) Active confirmed Problem Abdominal bloating (900840231) Abdominal bloating (R14.0) Active confirmed Problem History of polyp of colon (situation) (822983486) Personal history of colonic polyps (Z86.010) Active confirmed Problem Periumbilical pain (708697987) Periumbilical pain (R10.33) Active confirmed Problem Diverticular disease of colon (058818811) Diverticulosis of large intestine without perforation or abscess without bleeding (K57.30) Active confirmed Problem Hepatosplenomegaly (55828832) Hepatomegaly with splenomegaly, not elsewhere classified (R16.2) Active confirmed Problem Fatty liver (055484705) Fatty liver (K76.0) Active confirmed Problem Hepatitis C antibody test positive (924942144) Hepatitis C antibody test positive (R76.8) Active confirmed Problem Iron excess (82186878) Iron excess (E83.19) Active confirmed Problem Thrombocytopenia (576653235) Thrombocytopenia (D69.6) Active confirmed Problem Hepatic fibrosis (disorder) (44298568) Liver fibrosis (K74.00) Active confirmed Problem Blood chemistry abnormal (218353138) Elevated ferritin level (R79.89) Active confirmed Vital Signs Temperature 98.7 degrees Fahrenheit 08/28/2025 Blood pressure diastolic 01 mm Hg 08/28/2025 Height 68 in 08/28/2025 Blood pressure systolic 001 mm Hg 08/28/2025 Weight 232.4 lbs 08/28/2025 BMI 35.33 kg/m2 08/28/2025 Encounters Encounter Location Date Provider Diagnosis [facility] [address] [place] [phone] 08/28/2025 Jayjay Owens Encounter for screening for malignant neoplasm of colon Z12.11 ; Fatty liver K76.0 ; Elevated ferritin level R79.89 ; Iron excess E83.19 and Liver fibrosis K74.00 [facility] [address] [place] [phone] 10/31/2024 Jayjay Owens Assessments Encounter Date Diagnosis [...] LIVER PROFILE 01/09/2024 IRON + IBC (FE) 02/18/2024 IRON + IBC (FE) 01/09/2024 CBC w DIFF 01/09/2024 CBC w DIFF 02/18/2024 ALPHA-FETOPROTEIN,TUMOR MARKER HEMOCHROMATOSIS (C282Y) 01/09/2024 HEPATITIS C VIRAL LOAD 01/09/2024 FLUOR. ANTINUCLEAR AB SCREEN (DAMARI) 12/28 Prothrombin Time INR 08/27/2024 Alpha Fetoprotein 08/28/2025 Liver Fibrosis Pnl 08/27/2024 Liver Fibrosis Pnl 08/28/2025 US abdomen comp w elastography 4 US abdomen comp w elastography 4 US duplex arterial venous comp 4 US duplex arterial venous comp 4 Future Test Test Name Order Date COLONOSCOPY 11/02/2017 COLONOSCOPY 01/09/2024 Next Appt Details Provider Name:Jayjay Owens , 12/30/2025 10:10:00 AM, [address], [address], [place], [address], Insurance Providers Payer Name Payer Address Payer Phone Subscriber Number Group Number Insured Name Patient Relationship to Insured Coverage Start Date Coverage End Date MEDICARE OF [place] [address] [place] [address] [id number] JUS THURMAN Self - patient is the insured [employer] CLAIMS [address] [place] [address] [id number] JUS THURMAN Self - patient is the insured Medical (General) History Medical History History ICD Code Denies SC,DM,CVA,Lung disease,renal dise ase Hypertension Sleep apnea Hyperlipidemia [...]
[2025-09-17] VITALS (11 sets, daily range): BP systolic 128–166; BP diastolic 55–87; PULSE 55–71; RESP 16–20; TEMP 36.9–37.2; O2SAT 93–100; BMI 35.2
--- NOTE | ~2025-09-17 | CT_ITS ---
CT-guided bone marrow biopsy PROCEDURES: 1. Limited preprocedure CT of the pelvis. Permanent images saved in PACS. 2. 11 g bone marrow core biopsy of the left posterior iliac spine 3. 11 g bone marrow aspirate of the left posterior iliac spine MEDICATIONS: -Versed 1 mg, Fentanyl 50 mcg, and lidocaine 1% 10 mL SQ -Antibiotics: None -For additional details, please see nursing flowsheet. COMPLICATIONS: None ESTIMATED BLOOD LOSS: < 5 ml CONTRAST: None SPECIMENS: 11 g core placed in formalin. Bone marrow aspirate placed in EDTA and sodium heparin tubes MODERATE SEDATION TIME: 15 min Radiation Dose: DLP 440 mGycm PROCEDURE NOTE: The procedure, risks, benefits, and alternatives were carefully explained to the patient and written informed consent was obtained. The patient was placed prone on the CT table. A timeout was performed. A limited CT of the pelvis was performed to localize posterior iliac spine and choose appropriate needle entry and trajectory. The patient was prepped and draped in usual sterile fashion. The skin, subcutaneous tissues, and periosteum were anesthetized with lidocaine. Under CT guidance, an 11-gauge bone marrow biopsy needle was advanced into the posterior iliac spine, with the tip positioned slightly cephalad. An 11-gauge core biopsy of the bone marrow was performed and was placed in formalin. Next, the 11-gauge bone marrow biopsy needle was then advanced into the posterior iliac spine, under CT guidance, with the tip positioned slightly caudal. A bone marrow aspirate was performed. The specimen was placed in the provided EDTA and sodium heparin tubes. The needle was removed. A dry dressing was applied and secured with Tegaderm. There were no immediate complications. The patient was stable after the procedure and was transferred to the post anesthesia care unit. The procedure was done under moderate sedation with a dedicated nurse for monitoring of vital signs. CT/CT biopsy asp core bone marrow Impression: CT-guided bone marrow biopsy and aspirate Electronically signed by: Michael Soto MD 09/17/2025 02:28 PM EDT
--- NOTE | 2025-09-17 12:27 | PC.NURSE ---
recalled for labs to be drawn
[2025-09-17 12:39] LABS: Hematocrit 32.9 % (42.0-52.0); Hemoglobin 11.0 g/dl (14.0-18.0); Mean Corpuscular HGB Conc 33.4 g/dl (31.0-36.0); Mean Corpuscular Hemoglobin 31.4 pg (27.0-33.0); Mean Corpuscular Volume 94.0 fL (80.0-98.0); NRBC Abs Auto 0.000 X10*3/uL (0.0-0.012); NRBC Pct Auto 0.0 /100WBC (0.0-0.2); Red Blood Count 3.50 X10*6/uL (4.60-5.80); White Blood Count 13.2 X10*3/uL (4.8-10.8)
[2025-09-17 12:40] LABS: Platelet Count 51 X10*3/uL (160-400)
[2025-09-17 12:50] LABS: Anion Gap 10 (12-20); Blood Urea Nitrogen 16 mg/dL (9-16); Calcium 9.5 mg/dL (8.4-10.2); Carbon Dioxide 27 mmol/L (22-29); Chloride 108 mmol/L (96-108); Creatinine Clr Calc Pharmacy 110.8; Estimated Glomerular Filt Rate > 60; Potassium 4.4 mmol/L (3.3-5.1); Sodium 141 mmol/L (135-145)
[2025-09-17 12:52] LABS: INTERNATIONAL NORM RATIO 1.1 (0.9-1.1); Prothrombin Time 12.9 SEC (10.9-12.4)
[2025-09-17 12:59] LABS: Band Neutrophils Percent 3 % (3-5); Eosinophils Absolute Manual 0.1 X10*3/uL (0.0-0.4); Eosinophils Percent Manual 1 % (0-4); Lymphocytes Absolute Manual 2.1 X10*3/uL (1.2-4.9); Lymphocytes Percent Manual 16 % (20-40); Metamyelocytes Absolute 0.1 X10*3/uL; Metamyelocytes Percent 1 %; Monocytes Absolute Manual 0.5 X10*3/uL (0.1-1.2); Monocytes Percent Manual 4 % (2-11); Myelocytes Absolute 0.4 X10*/uL; Myelocytes Percent 3 %; Neutrophils Absolute Manual 9.9 X10*3/uL (2.0-8.3); Neutrophils Percent Manual 72 % (45-73)
--- NOTE | 2025-09-17 12:59 | PC.NURSE ---
linda schofield rn aware of labs
[2025-09-17 13:06] LABS: Large Platelet PRESENT; RBC Morphology NOTED
[2025-09-17 13:07] LABS: Basophilic Stippling 1+ (0-2) /OIF; Polychromasia 1+ (0-2) /OIF; Stomatocytes 1+ (5-14) /OIF
== END 2025-09-17 15:01 | disposition home or self-care (01) ==
PROVIDERS: Student in an Organized Health Care Education/Training Program; PCP Internal Medicine; Visit Provider Internal Medicine
PROC: (CPT 38221; principal; 2025-09-17 13:00)
DX: D69.6 Thrombocytopenia, unspecified (principal); D72.829 Elevated white blood cell count, unspecified; D64.89 Other specified anemias; E83.110 Hereditary hemochromatosis; F41.9 Anxiety disorder, unspecified; I25.10 Atherosclerotic heart disease of native coronary artery without angina pectoris; I10 Essential (primary) hypertension; E78.5 Hyperlipidemia, unspecified; M10.9 Gout, unspecified; R73.03 Prediabetes; G47.30 Sleep apnea, unspecified; Z79.899 Other long term (current) drug therapy; Z87.891 Personal history of nicotine dependence
CPT/HCPCS: 36415; 38221; 38222; 77012; 80048; 85007; 85027; 85610; 88184; 88185; 88237; 88264; 88291; 88305; 88311; 88313; 88374; 99152; J2003; J2250; J3010

== ENCOUNTER → 2025-09-17 13:14 | Outpatient (BNV) | payer MEDICARE, SELFPAY | PROVIDERS: PCP Internal Medicine; Visit Provider Student in an Organized Health Care Education/Training Program | DX: D72.829 Elevated white blood cell count, unspecified (principal); D69.6 Thrombocytopenia, unspecified | CPT/HCPCS: 38222; 77012 ==